=== PATIENT | male | born 1950 | race Caucasian/White ===

== ENCOUNTER 2016-12-25 01:20 | Emergency (ER) | payer MEDICARE, OTHER ==
[~2016-12-25] VITALS: Ht 177.8 cm; Wt 99.8 kg
[~2016-12-25 01:20] MED LIST: AMLO1CAP31; HYDR12.570; PANT40SU; TMSL.4C; cholesterol pill
--- NOTE | 2016-12-25 01:39 | ED Abdominal Pain ---
General Chief Complaint: Abdominal/GI Problems Stated Complaint: LEFT SIDE ABD PAIN Source of Information: Patient, RN Notes Reviewed Exam Limitations: No Limitations History of Present Illness Time Seen By Provider: 01:38 Initial Comments Acute onset of left flank pain approx. 4-5 hours ago. Radiates into LLQ. (+) hx of kidney stones and this feels similar. Timing/Duration: 4-6 Hours Severity/Quality: Moderate (4/10), Sharp, Stabbing Location: Flank (left) Radiation: LLQ Activities at Onset: None Modifying Factors: Improves With Other (none) Associated Symptoms: Denies Symptoms Allergies and Home Medications Allergies Coded Allergies: No Known Drug Allergies (Unverified , 04/06/11) Home Medications Amlodipine Besylate/Benazepril 1 Each Capsule, (Reported) Ketorolac Tromethamine 10 Mg Tablet, 10 MG PO Q6H, #20 Ref 0 Prescribed by: INEZ DUVALL on 12/25/16 0227 Ondansetron 4 Mg Tab.rapdis, 4 MG PO Q4H, #10 Prescribed by: RYLIE MARSHALL on 12/26/16 0214 Tamsulosin Hcl 0.4 Mg Cap, (Reported) Review of Systems Constitutional: see HPI Gastrointestinal: See HPI, Abdominal Pain (LLQ) Musculoskeletal: see HPI, back pain (left flank) All Other Systems Reviewed Negative Unless Noted: Yes (Negative excepted noted.) Past Rtlfugd-Cvqfpv-Smgzkt Hx Patient Social History Recent Foreign Travel: No Contact w/Someone Who Travel: No Physical Exam Vital Signs Capillary Refill : General Appearance: WD/WN, mild distress Respiratory: no respiratory distress Cardiovascular: regular rate, rhythm Gastrointestinal: No guarding, No rebound, tenderness (LLQ) Rectal: deferred Back: CVA tenderness (L) Neurologic/Psychiatric: alert, oriented x 3 Skin: warm/dry Progress/Results/Core Measures Results/Orders Lab Results Laboratory Tests Test 12/25/16 01:35 Range/Units Urine Color YELLOW Urine Clarity CLEAR Urine pH 6 5-9 Urine Specific [place] 1.020 1.016-1.022 Urine Protein 2+ H NEGATIVE Urine Glucose (UA) NEGATIVE NEGATIVE Urine Ketones NEGATIVE NEGATIVE Urine Nitrite NEGATIVE NEGATIVE Urine Bilirubin NEGATIVE NEGATIVE Urine Urobilinogen NORMAL NORMAL MG/DL Urine Leukocyte Esterase 1+ H NEGATIVE Urine RBC (Auto) 5+ H NEGATIVE Urine RBC >100 H /HPF Urine WBC 0-2 /HPF Urine Squamous Epithelial Cells RARE /HPF Urine Crystals NONE /LPF Urine Bacteria TRACE /HPF Urine Casts PRESENT /LPF Urine Hyaline Casts RARE /LPF Urine Mucus NEGATIVE /LPF Urine Culture Indicated NO My Orders Orders - INEZ DUVALL DO Ua Culture If Indicated (12/25/16 01:37) Ct Abd/Pelvis Wo(Kidney Stone) (12/25/16 01:43) Tamsulosin Capsule (Flomax Capsule) (12/25/16 02:30) Ketorolac Injection (Toradol Injection) (12/25/16 02:30) Im/Sub-Q Injection Non-Ab Ed (12/25/16 ) Vital Signs/I&O Diagnostic Imaging Diagonstic Imaging: CT Plain Films/CT/US/NM/MRI: abdomen, pelvis (3 mm left lower ureterolithiasis) Departure Impression Impression: Primary Impression: Left flank pain Additional Impression: Ureterolithiasis Disposition: 01 HOME, SELF-CARE Condition: Stable Departure-Patient Inst. Decision time for Depature: 02:26 Referrals: МАРИНА WOLFF MD Patient Instructions: Kidney Stones (DC) Scripts Ketorolac Tromethamine (Ketorolac Tromethamine) 10 Mg Tablet 10 MG PO Q6H for Abdominal Pain, #20 TAB 0 Refills Prov: INEZ DUVALL DO 12/25/16 INEZ DUVALL DO Dec 25, 2016 01:39
[2016-12-25 01:55] LABS: BILIRUBIN,URINE NEGATIVE (NEGATIVE); KETONES,URINE NEGATIVE (NEGATIVE); LEUKOCYTE ESTERASE ,URINE 1+ (NEGATIVE); NITRITE,URINE NEGATIVE (NEGATIVE); PH,URINE 6 (5-9); PROTEIN,URINE 2+ (NEGATIVE); UROBILINOGEN,URINE NORMAL (NORMAL)
[2016-12-25 02:01] LABS: WBC,URINE 0-2 /HPF
[2016-12-25 02:02] LABS: HYALINE CASTS, URINE RARE /LPF; SQUAMOUS EPITHELIAL CELL,UR RARE /HPF
[2016-12-25] MEDS ORDERED: KETO10TA PO (02:27)
[2016-12-25] MEDS ORDERED: TAMSULOSIN 0.4 MG (FLOMAX) CAP PO ONE (02:30)
[2016-12-25] MEDS ORDERED: KETOROLAC 30 MG/ML VIAL IM ONE (02:30)
[2016-12-25 02:37] VITALS: BP 187/89
--- NOTE | 2016-12-25 08:06 | Diagnostic Imaging Report ---
PROCEDURE: CT urinary tract, rule out kidney stone. TECHNIQUE: Multiple contiguous axial images were obtained through the abdomen and pelvis without the use of intravenous contrast. INDICATION: Left-sided flank pain. Best seen on axial image 118 is a 3 mm stone in the distal left ureter about 2-3 cm proximal to the ureterovesical junction. This results in moderate upstream hydroureteronephrosis with a substantial perinephric and periureteric edema. Additional nonobstructing intrarenal stones on the left are present. The largest residual intrarenal calculus is 3 mm. The right kidney is unobstructed with a 3 mm stone lower pole calyx. No right-sided ureteral calculi. There is no evidence for bowel obstruction, appendicitis or diverticulitis. The gallbladder is absent. The liver, spleen, adrenals and pancreas all nonacute. The aorta is nonaneurysmal. IMPRESSION: Bilateral nephrolithiasis with an obstructing stone in the distal left ureter measuring 3 mm resulting in mild to moderate upstream hydroureteronephrosis with substantial perinephric and periureteric edema but no loculated fluid collection. Intrarenal stone on the right nonobstructing. No other acute finding. Dictated by: Dictated on workstation # [id number]
[2016-12-26] MEDS ORDERED: ONDA4TAB8 PO (02:14)
--- OUTSIDE RECORDS SUMMARY | 2017-01-27 12:37 | XMS REPORT | Continuity of Care Document ---
Author Author [facility] Address Unknown Phone Unavailable Allergies Medications Problems Date Dx Coded Attending Type Code Diagnosis Diagnosed By 07/14/2013 GREGORY CESAR PSYD 309.24 AD ADJ D/O W ANXIETY 07/14/2013 GREGORY CESAR PSYD 309.24 AD ADJ D/O W ANXIETY Procedures [place] [address] PSYCH DIAGNOSTIC EVALUATION 07/14/2013 04446 PSYTX PT&/FAMILY 30 MINUTES 08/25/2013 Results Encounters ACCT No. Visit Date/Time Discharge Status Pt. Type Provider Facility Loc./Unit Complaint [id number] 08/25/2013 07:56:00 08/25/2013 23: 59:59 CLS Outpatient GREGORY CESAR PSYD [id number] 07/14/2013 08:09:00 07/14/2013 23: 59:59 CLS Outpatient GREGORY CESAR PSYD
--- OUTSIDE RECORDS SUMMARY | 2017-01-27 12:37 | XMS REPORT | Continuity of Care Document ---
Author Author [facility] Organization [facility] Address Unknown Phone Unavailable Care Team Providers Care Cost And Risk Analysis Manager Name Role Phone Unverified, Unverified PCP Unavailable Source Comments Some departments are not documenting in the electronic medical record. If you do not see the information that you expected, contact Release of Information in the Health Information Management department at [phone] for further assistance in locating additional records.[facility] Active Allergies and Adverse Reactions Not on File Current Medications Not on file Active Problems Not on file Social History Tobacco Use Types Packs/Day Years Used Date Never Assessed Plan of Care Health Maintenance Due Date Last Done Comments Hepatitis C Screening 1950 Physical (Comprehensive) 02/26/1955 Exam Pertussis Vaccine 02/26/1959 Tetanus Vaccine 02/26/1965 Colorectal Cancer 02/26/1998 Screening Shingles Vaccine 2008 Prevnar/Pneumovax (#1) 02/26/2013 Influenza Vaccine 05/24/2017 Results from Last 3 Months Not on file
== END 2016-12-25 02:37 | disposition home or self-care (01) ==
LOC: EDUNIT# 01:20 → ER 01:24
DX: N13.2 Hydronephrosis with renal and ureteral calculous obstruction (principal)
CPT/HCPCS: 74176; 81000; 96372; 99282

== ENCOUNTER 2016-12-26 01:43 | Emergency (ER) | payer MEDICARE, OTHER ==
[~2016-12-26] VITALS: Ht 177.8 cm; Wt 98.4 kg
[~2016-12-26 01:43] MED LIST changes: +KETO10TA PO
[2016-12-26] MEDS ORDERED: ONDANSETRON 4 MG (ZOFRAN) ORAL DISSOLVE TAB PO ONE (02:00)
[2016-12-26] MEDS ORDERED: KETOROLAC 60 MG/2 ML VIAL IM ONE (02:00)
--- NOTE | 2016-12-26 02:06 | ED Back Pain ---
General Chief Complaint: Back Problems Stated Complaint: KIDNEY STONE Nursing Triage Note: PT STATES HAS KIDNEY STONE, PT HAS PAIN IN L FLANK AREA, PT HAS NOT TAKEN ANY PAIN MEDS D/T INDESTION Nursing Sepsis Screen: No Definite Risk Source of Information: Patient, Old Records History of Present Illness Time Seen by Provider: 01:50 Initial Comments C/O LEFT FLANK PAIN SINCE YESTERDAY WAS SEEN IN ER LAST PM AND DX WITH KIDNEY STONE. 3 MM LEFT DISTAL URETERAL STONE , WITH BILATERAL NON-OBSTRUCTING INTRARENAL STONES STATES HE WAS GIVEN A SHOT AND PAIN WENT AWAY, AND WAS GIVEN RX FOR KETOROLAC PT STATES HE FELT GOOD ALL DAY, UNTIL LATER THIS AFTERNOON, WHEN PAIN BEGAN TO GRADUALLY COME BACK. STATES HE HAS HAD SOME MILD NAUSEA SO HE DID NOT TAKE ANY PAIN MEDICATION AT ALL NO FEVER NO DIFFICULTY URINATING OR GROSS HEMATURIA HAS A UROLOGIST, DR[place]VALLOS, [place] AND CALLED TODAY BUT DID NOT MAKE AN APPOINTMENT WOULD LIKE TO START SEEING DR. WOLFF, BUT HAS NOT CALLED HIS OFFICE YET. Other Comments PCP: DR. ALFONSO Allergies and Home Medications Allergies Coded Allergies: No Known Drug Allergies (Unverified , 04/06/11) Home Medications Amlodipine Besylate/Benazepril 1 Each Capsule, (Reported) Ketorolac Tromethamine 10 Mg Tablet, 10 MG PO Q6H, #20 Ref 0 Prescribed by: INEZ DUVALL on 12/25/16 0227 Ondansetron 4 Mg Tab.rapdis, 4 MG PO Q4H, #10 Prescribed by: RYLIE MARSHALL on 12/26/16 0214 Tamsulosin Hcl 0.4 Mg Cap, (Reported) Constitutional: no symptoms reported Respiratory: no symptoms reported Cardiovascular: no symptoms reported Gastrointestinal: see HPI, No abdominal pain, nausea, No vomiting Genitourinary: see HPI Musculoskeletal: see HPI Skin: no symptoms reported Psychiatric/Neurological: No Symptoms Reported Past Lzzjwhs-Yldrfj-Ufmqnp Hx Patient Social History Alcohol Use: Past History (HISTORY OF HEAVY USE) Recreational Drug Use: Yes (on occassion) Smoking Status: Former Smoker Type Used: Cigarettes 2nd Hand Smoke Exposure: No Recent Foreign Travel: No Contact w/Someone Who Travel: No Recent Infectious Disease Expo: No Recent Hopitalizations: No Seasonal Allergies Seasonal Allergies: Yes Surgeries HX Surgeries: Yes (HERNIA) Surgeries: Gallbladder Respiratory Hx Respiratory Disorders: No Cardiovascular Hx Cardiac Disorders: Yes Cardiac Disorders: High Cholesterol, Hypertension Neurological Hx Neurological Disorders: No Reproductive System Hx Reproductive Disorders: No Genitourinary Hx Genitourinary Disorders: Yes Genitourinary Disorders: Kidney Stones Gastrointestinal Hx Gastrointestinal Disorders: No Musculoskeletal Hx Musculoskeletal Disorders: No Endocrine Hx Endocrine Disorders: Yes Endocrine Disorders: Diabetes, Non-Insulin dep HEENT HX ENT Disorders: Yes (RETINAL TEAR AND BLEED X 2) Cancer Hx Cancer: No Psychosocial Hx Psychiatric Problems: No Integumentary HX Skin/Integumentary Disorder: No Blood Transfusions Hx Blood Disorders: No Physical Exam Vital Signs Vital Sign - Last 12Hours 12/26/16 01:48 Temp 98.9 Pulse 79 Resp 18 B/P (MAP) 184/84 Pulse Ox 95 Capillary Refill : Less Than 3 Seconds General Appearance: No Apparent Distress, WD/WN, Obese Cardiovascular: Regular Rate, Rhythm Respiratory: Normal Breath Sounds Gastrointestinal: Non Tender, Soft Back: No CVA Tenderness Extremity: Normal Inspection Neurologic/Psychiatric: Alert, Oriented x3, No Motor/Sensory Deficits, Normal Mood/Affect, associate creative director II-XII Norm as Tested Skin: Normal Color, Warm/Dry, No Rash Progress/Results/Core Measures Results/Orders My Orders Orders - RYLIE MARSHALL DO Ondansetron Oral Dissolve Tab (Zofran (12/26/16 02:00) Ketorolac Injection (Toradol Injection) (12/26/16 02:00) Abdomen/Kub 1[place] (12/26/16 02:07) Rx-Ondansetron Po (Rx-Zofran Po) (12/26/16 02:14) Rx-Ondansetron Po (Rx-Zofran Po) (12/26/16 02:17) Medications Given in ED Current Medications Medications Dose Ordered Sig/Sangita Route Start Time Stop Time Status Last Admin Dose Admin Ketorolac Tromethamine 60 mg ONCE ONCE IM 12/26/16 02:00 12/26/16 02:01 DC 12/26/16 02:04 60 MG Ondansetron HCl 8 mg ONCE ONCE PO 12/26/16 02:00 12/26/16 02:01 DC 12/26/16 02:04 8 MG Vital Signs/I&O Vital Sign - Last 12Hours 12/26/16 12/26/16 01:48 02:26 Temp 98.9 98.9 Pulse 79 79 Resp 18 18 B/P (MAP) 184/84 Pulse Ox 95 95 Blood Pressure Mean: 117 Diagnostic Imaging Comments KUB--NO IDENTIFIABLE URETERAL STONE, PENDING RADIOLOGIST REVIEW Reviewed: Reviewed by Me Departure Impression Impression: Primary Impression: Left ureteral stone Disposition: 01 HOME, SELF-CARE Condition: Stable Departure-Patient Inst. Referrals: LUCIUS ALFONSO DO (PCP) Primary Care Physician МАРИНА WOLFF MD Patient Instructions: Kidney Stones in Adults Add. Discharge Instructions: STRAIN ALL URINE--RETURN ANY STONES TO UROLOGIST OFFICE LOTS OF CLEAR LIQUIDS CONTINUE FLOMAX AND KETOROLAC PRESCRIBED FOLLOW UP WITH DR. WOLFF THIS WEEK FOR FURTHER CARE All discharge instructions reviewed with patient and/or family. Voiced understanding. Scripts Ondansetron (Zofran Odt) 4 Mg Tab.rapdis 4 MG PO Q4H for Nausea/Vomiting, #10 TAB Prov: RYLIE MARSHALL DO 12/26/16 RYLIE MARSHALL DO Dec 26, 2016 02:06
[2016-12-26] MEDS ORDERED: ONDA4TAB8 PO (02:14)
[2016-12-26] MEDS ORDERED: RX-ONDANSETRON 4 MG ODT (ZOFRAN) PPK #4 PO STA (02:14)
[2016-12-26] MEDS ORDERED: RX-ONDANSETRON 4 MG ODT (ZOFRAN) PPK #4 ONE (02:17)
[2016-12-26 02:26] VITALS: BP 184/84
--- NOTE | 2016-12-26 06:28 | Diagnostic Imaging Report ---
INDICATION: Left flank pain. Exam interpreted in correlation with a CT dated 12/25/2016. A tiny opacity calcific in the left hemipelvis with a diameter of about 2-1/2 mm corresponds to the level of location of stone noted in the distal ureter on earlier CT; this does not appear appreciably changed in alignment. No adverse interval development was found. There is no evidence for a bowel obstruction. Faint stones in the bilateral mid to lower renal poles are visualized on the left likely obscured by overlying bowel content on the right. IMPRESSION: Left pelvic calcification projecting at the level of the top of the femoral head unchanged in orientation from prior CT presumed a known distal left ureteral stone. Intrarenal calculi left greater than right less well visualized owing to overlying bowel gas. When correlated with prior CT, no substantial change. Dictated by: Dictated on workstation # [id number]
--- OUTSIDE RECORDS SUMMARY | 2017-01-27 15:48 | XMS REPORT | Continuity of Care Document ---
Author Author [facility] Address Unknown Phone Unavailable Allergies Medications Problems Date Dx Coded Attending Type Code Diagnosis Diagnosed By 07/14/2013 GREGORY CESAR PSYD 309.24 AD ADJ D/O W ANXIETY 07/14/2013 GREGORY CESAR PSYD 309.24 AD ADJ D/O W ANXIETY Procedures Code [place] [address] PSYCH DIAGNOSTIC EVALUATION 07/14/2013 87766 PSYTX PT&/FAMILY 30 MINUTES 08/25/2013 Results Encounters ACCT No. Visit Date/Time Discharge Status Pt. Type Provider Facility Loc./Unit Complaint [id number] 08/25/2013 07:56:00 08/25/2013 23: 59:59 CLS Outpatient GREGORY CESAR PSYD [id number] 07/14/2013 08:09:00 07/14/2013 23: 59:59 CLS Outpatient GREGORY CESAR PSYD
--- OUTSIDE RECORDS SUMMARY | 2017-01-27 15:48 | XMS REPORT | Continuity of Care Document ---
Author Author [facility] Organization [facility] Address Unknown Phone Unavailable Care Team Providers Care Chemical Preparer Name Role Phone Unverified, Unverified PCP Unavailable Source Comments Some departments are not documenting in the electronic medical record. If you do not see the information that you expected, contact Release of Information in the Health Information Management department at [phone] for further assistance in locating additional records.[facility] Active Allergies and Adverse Reactions Not [...]
== END 2016-12-26 02:29 | disposition home or self-care (01) ==
LOC: EDUNIT# 01:43 → ER 01:44
DX: N20.2 Calculus of kidney with calculus of ureter (principal); E11.9 Type 2 diabetes mellitus without complications; I10 Essential (primary) hypertension; Z79.899 Other long term (current) drug therapy
CPT/HCPCS: 74000; 96372; 99283

== ENCOUNTER → 2016-12-27 | Outpatient (CLI) | payer MEDICARE, OTHER ==
[~2016-12-27] MED LIST changes: +ONDA4TAB8 PO
--- NOTE | 2016-12-27 18:31 | Diagnostic Imaging Report ---
EXAMINATION: KUB. COMPARISON: 12/26/16. INDICATION: Left-sided stones. FINDINGS: The previously seen left pelvic calcification has resolved. This could relate to passage of a distal ureteric stone. There are calcifications in the upper abdomen, probably vascular. Bilateral flank up to 3 mm calcifications are probably related to stones similar to CT of 12/25/16. Surgical clips in the upright abdomen are noted. IMPRESSION: 1. Bilateral calcifications up to 3 mm correlates with the lower pole kidney stones as seen on recent CT. 2. Suggestion of passage of the distal left ureteric stone seen on prior exam. Correlate clinically. Dictated by: Dictated on workstation # [id number]
== END ==
LOC: RAD 15:20
PROVIDERS: ATTEND Urology
DX: N20.0 Calculus of kidney (principal)
CPT/HCPCS: 74000

== ENCOUNTER 2018-04-04 08:49 | Outpatient (RCR) | payer MEDICARE, OTHER ==
[2018-01-06 14:11] LABS: ABSOLUTE RETIC # 24 10e9/L (24-90); BASOPHILS % (AUTO) 0 % (0-10); EOSINOPHILS % (AUTO) 0 % (0-10); HEMATOCRIT 37 % (40-54); HEMOGLOBIN 12.6 G/DL (13.3-17.7); LYMPHOCYTES # (AUTO) 0.6 X 10^3 (1.0-4.0); LYMPHOCYTES % (AUTO) 11 % (12-44); MEAN CORPUSCULAR HEMOGLOBIN 30 PG (25-34); MEAN CORPUSCULAR HGB CONC 34 G/DL (32-36); MEAN CORPUSCULAR VOLUME 90 FL (80-99); MEAN PLATELET VOLUME 10.2 FL (7.4-10.4); MONOCYTES # (AUTO) 0.4 X 10^3 (0.0-1.0); MONOCYTES % (AUTO) 8 % (0-12); NEUTROPHILS # (AUTO) 4.3 X 10^3 (1.8-7.8); NEUTROPHILS % (AUTO) 80 % (42-75); PLATELET COUNT 134 10^3/uL (130-400); RED BLOOD COUNT 4.15 10^6/uL (4.35-5.85); RETICULOCYTE % 0.57 % (0.50-2.40); WHITE BLOOD COUNT 5.3 10^3/uL (4.3-11.0)
[2018-01-06 14:30] LABS: ALBUMIN 4.4 GM/DL (3.2-4.5); BILIRUBIN,TOTAL 0.8 MG/DL (0.1-1.0); CALCIUM 9.1 MG/DL (8.5-10.1); CREATININE SERUM 1.43 MG/DL (0.60-1.30); POTASSIUM 4.3 MMOL/L (3.6-5.0); TOTAL PROTEIN 6.5 GM/DL (6.4-8.2)
[2018-04-01 13:13] LABS: ABSOLUTE RETIC # 27 10e9/L (24-90); BASOPHILS % (AUTO) 0 % (0-10); EOSINOPHILS % (AUTO) 1 % (0-10); HEMATOCRIT 35 % (40-54); HEMOGLOBIN 12.1 G/DL (13.3-17.7); LYMPHOCYTES # (AUTO) 0.7 X 10^3 (1.0-4.0); LYMPHOCYTES % (AUTO) 16 % (12-44); MEAN CORPUSCULAR HEMOGLOBIN 31 PG (25-34); MEAN CORPUSCULAR HGB CONC 35 G/DL (32-36); MEAN CORPUSCULAR VOLUME 90 FL (80-99); MEAN PLATELET VOLUME 10.5 FL (7.4-10.4); MONOCYTES # (AUTO) 0.3 X 10^3 (0.0-1.0); MONOCYTES % (AUTO) 8 % (0-12); NEUTROPHILS # (AUTO) 3.1 X 10^3 (1.8-7.8); NEUTROPHILS % (AUTO) 75 % (42-75); PLATELET COUNT 122 10^3/uL (130-400); RED CELL DISTRIBUTION WIDTH 12.2 % (10.0-14.5); RETICULOCYTE % 0.69 % (0.50-2.40); WHITE BLOOD COUNT 4.2 10^3/uL (4.3-11.0)
[2018-04-01 13:32] LABS: ALBUMIN 4.1 GM/DL (3.2-4.5); BILIRUBIN,TOTAL 0.8 MG/DL (0.1-1.0); CALCIUM 8.8 MG/DL (8.5-10.1); CREATININE SERUM 2.1 MG/DL (0.60-1.30); POTASSIUM 4.1 MMOL/L (3.6-5.0)
[2018-04-04 09:09] LABS: ABSOLUTE RETIC # 27 10e9/L (24-90); BASOPHILS % (AUTO) 0 % (0-10); EOSINOPHILS # (AUTO) 0.1 10^3/uL (0.0-0.3); EOSINOPHILS % (AUTO) 1 % (0-10); HEMATOCRIT 37 % (40-54); HEMOGLOBIN 12.4 G/DL (13.3-17.7); LYMPHOCYTES # (AUTO) 0.6 X 10^3 (1.0-4.0); LYMPHOCYTES % (AUTO) 14 % (12-44); MEAN CORPUSCULAR HEMOGLOBIN 30 PG (25-34); MEAN CORPUSCULAR HGB CONC 34 G/DL (32-36); MEAN CORPUSCULAR VOLUME 90 FL (80-99); MONOCYTES # (AUTO) 0.4 X 10^3 (0.0-1.0); MONOCYTES % (AUTO) 9 % (0-12); NEUTROPHILS # (AUTO) 3.5 X 10^3 (1.8-7.8); NEUTROPHILS % (AUTO) 76 % (42-75); PLATELET COUNT 131 10^3/uL (130-400); RED BLOOD COUNT 4.08 10^6/uL (4.35-5.85); RED CELL DISTRIBUTION WIDTH 12.4 % (10.0-14.5); RETICULOCYTE % 0.66 % (0.50-2.40); WHITE BLOOD COUNT 4.6 10^3/uL (4.3-11.0)
[2018-04-04 10:01] LABS: EOSINOPHILS % (MANUAL) 1 %; LYMPHOCYTES % (MANUAL) 16 %; MONOCYTES % (MANUAL) 5 %; NEUTROPHILS % (MANUAL) 78 %; RBC MORPH NORMAL
== END 2018-04-06 | disposition home or self-care (01) ==
LOC: ONC 08:49
PROVIDERS: ATTEND Internal Medicine Hematology & Oncology
DX: D61.818 Other pancytopenia (principal); N18.3 Chronic kidney disease, stage 3 (moderate); E66.9 Obesity, unspecified; I12.9 Hypertensive chronic kidney disease with stage 1 through stage 4 chronic kidney disease, or unspecified chronic kidney disease; E78.00 Pure hypercholesterolemia, unspecified; Z87.891 Personal history of nicotine dependence; Z79.899 Other long term (current) drug therapy; Z87.01 Personal history of pneumonia (recurrent)
CPT/HCPCS: 36415; 38221; 80053; 82607; 82728; 82746; 82784; 83540; 83615; 83883; 84155; 84165; 84443; 85007; 85025; 85027; 85045; 99213; 99214

== ENCOUNTER → 2018-04-22 | Outpatient (RCR) | payer MEDICARE, OTHER | END | disposition home or self-care (01) | LOC: ONC 10:06 | PROVIDERS: ATTEND Internal Medicine Hematology & Oncology | DX: D61.818 Other pancytopenia (principal); N18.3 Chronic kidney disease, stage 3 (moderate); E66.9 Obesity, unspecified; I12.9 Hypertensive chronic kidney disease with stage 1 through stage 4 chronic kidney disease, or unspecified chronic kidney disease; E78.00 Pure hypercholesterolemia, unspecified; Z87.891 Personal history of nicotine dependence; Z79.899 Other long term (current) drug therapy; Z87.01 Personal history of pneumonia (recurrent) | CPT/HCPCS: 36415; 85652; 86038; 86141; 99213 ==

== ENCOUNTER 2018-11-01 15:11 | Emergency (ER) | payer MEDICARE, OTHER ==
[~2018-11-01] VITALS: Ht 177.8 cm; Wt 98.4 kg
--- NOTE | 2018-11-01 16:46 | ED Fall/Injury ---
General Chief Complaint: Trauma-Non Activation Stated Complaint: FALL/R SIDE PAIN Nursing Triage Note: fell on ice Wed- pain to rt lower chest and back Source: patient Exam Limitations: no limitations History of Present Illness Date Seen by Provider: Nov 01, 2018 Time Seen by Provider: 16:44 Initial Comments To ER with right chest wall pain. Patient fell on Saturday10/29/18. He had his right arm flexed and held against his chest and landed on that. Minimal pain initially but the pain has been essentially tolerable until earlier today at which point it got worse. Pain is worse with movements. No shortness of breath. Location Injury Occurred: home-yard Occurred: other (3 days ago) Severity: moderate Injuries/Pain Location: chest Associated Symptoms (Fall): No Abdominal Pain, No Shortness of Air Allergies and Home Medications Allergies Coded Allergies: No Known Drug Allergies (Unverified , 11/01/18) Home Medications Ketorolac Tromethamine 10 Mg Tablet, 10 MG PO Q6H Prescribed by: INEZ DUVALL on 12/25/16226 Ondansetron 4 Mg Tab.rapdis, 4 MG PO Q4H Prescribed by: RYLIE MARSHALL on 12/26/16 0214 Patient Home Medication List Home Medication List Reviewed: Yes Review of Systems Review of Systems Constitutional: see HPI Eyes: See HPI Ears, Nose, Mouth, Throat: no symptoms reported Respiratory: no symptoms reported Cardiovascular: no symptoms reported Genitourinary: no symptoms reported Musculoskeletal: no symptoms reported Skin: no symptoms reported Psychiatric/Neurological: No Symptoms Reported Past Ioikljz-Namueh-Lsmpkp Hx Patient Social History Alcohol Use: Occasionally Uses Alcohol Beverage of Choice: Beer Recreational Drug Use: No Smoking Status: Former Smoker Type Used: Cigarettes Former Smoker, Quit: Sep 29, 2003 2nd Hand Smoke Exposure: No Recent Foreign Travel: No Contact w/Someone Who Travel: No Recent Infectious Disease Expo: No Recent Hopitalizations: No Physical Abuse: No Sexual Abuse: No Mistreated: No Fear: No Seasonal Allergies Seasonal Allergies: Yes Past Medical History Surgeries: Yes (HERNIA) Abdominal, Gallbladder Respiratory: No Cardiac: Yes High Cholesterol, Hypertension Neurological: No Reproductive Disorders: No Kidney Stones Gastrointestinal: No Musculoskeletal: No Endocrine: Yes Diabetes, Non-Insulin dep Cancer: No Psychosocial: No Integumentary: No Blood Disorders: No Physical Exam Vital Signs Vital Signs - First Documented 11/01/18 16:24 Temp 98.8 Pulse 66 Resp 16 B/P (MAP) 149/68 (95) Pulse Ox 98 Capillary Refill : Less Than 3 Seconds Height, Weight, BMI Height: 5'10.00" Weight: 217lbs. oz. 98.294538pb; BMI Method:Stated General Appearance: WD/WN, no apparent distress HEENT: PERRL/EOMI, normal ENT inspection Neck: non-tender, full range of motion Respiratory: normal breath sounds, no respiratory distress, no accessory muscle use, other (right lateral chest wall is tender to palpation there is no crepitus.) Gastrointestinal: normal bowel sounds, non tender, soft Extremities: normal range of motion, non-tender Neurologic/Psychiatric: alert, normal mood/affect, oriented x 3 Skin: normal color, warm/dry Dmitry Coma Score Best Eye Response: (4) Open Spontaneously Best Verbal Response: (5) Oriented Best Motor Response: (6) Obeys Commands [place] Total: 15 Progress/Results/Core Measures Results/Orders My Orders Orders - CUCO BARR APRN Ribs/Unilateral With Chest (11/01/18 16:43) Vital Signs/I&O 11/01/18 16:24 Temp 98.8 Pulse 66 Resp 16 B/P (MAP) 149/68 (95) Pulse Ox 98 Blood Pressure Mean: 95 Diagnostic Imaging Diagonstic Imaging: Xray Plain Films/CT/US/NM/MRI: chest Comments NAME: KRISTI CHAVEZ [facility] REC#: [id number] PT STATUS: REG ER : 1950 PHYSICIAN: CUCO BARR APRN ADMIT DATE: 11/01/18/ER Draft Date of Exam:11/01/18 RIBS/UNILATERAL WITH CHEST EXAMINATION: Ribs with PA chest, 4 images. COMPARISON: CT chest July 03, 2011. HISTORY: 68-year-old male, fall on ice three days ago. Right-sided rib pain. FINDINGS: Heart size and mediastinal contours are unremarkable. There is no identified pneumothorax. There is no large pleural effusion. There is no identified focal airspace consolidation. There is a nondisplaced right sixth rib fracture. IMPRESSION: 1. Nondisplaced right sixth rib fracture. 2. No identified acute cardiopulmonary abnormality. Dictated on workstation # [id number] Dict: 11/01/18 1705 Trans: 11/01/[address] [facility] [id number] Interpreted by: DEBBIE GUERRA MD Electronically signed by: Departure Impression Primary Impression: Right rib fracture Qualified Codes: S22.31XA - Fracture of one rib, right side, initial encounter for closed fracture Disposition: HOME, SELF-CARE Condition: Stable Departure-Patient Inst. Decision time for Depature: 17:11 Referrals: LUCIUS ALFONSO DO (PCP/Family) Primary Care Physician Patient Instructions: RIB FRACTURE Add. Discharge Instructions: 1. Pain medication as directed. Take this as needed in order to control your pain so that she can take a deep breath at least once every hour while awake. Return to ER for any shortness of breath fevers or cough as people with chest wall injuries can be prone to pneumonia development. All discharge instructions reviewed with patient and/or family. Voiced understanding. Scripts Hydrocodone/Acetaminophen ([place] 5-325 Tablet) 1 Each Tablet 1 EACH PO Q6H PRN for PAIN-MODERATE MDD 10, #20 TAB Prov: CUCO BARR APRN 11/01/18 Images Torso/Trunk 1 - Tenderness CUCO BARR APRN Nov 01, 2018 16:46
--- NOTE | 2018-11-01 17:07 | Diagnostic Imaging Report ---
EXAMINATION: Ribs with PA chest, 4 images. COMPARISON: CT chest July 03, 2011. HISTORY: 68-year-old male, fall on ice three days ago. Right-sided rib pain. FINDINGS: Heart size and mediastinal contours are unremarkable. There is no identified pneumothorax. There is no large pleural effusion. There is no identified focal airspace consolidation. There is a nondisplaced right sixth rib fracture. IMPRESSION: 1. Nondisplaced right sixth rib fracture. 2. No identified acute cardiopulmonary abnormality. Dictated by: Dictated on workstation # [id number]
[2018-11-01] MEDS ORDERED: HYDR-4226 PO (17:12)
[2018-11-01] MEDS ORDERED: RX-HYDROCODONE/APAP 5/325 MG #4 TAB PK PO PRN (17:15)
[2018-11-01 17:30] VITALS: BP 145/69
--- NOTE | 2018-11-01 17:30 | NUR ---
Rx-hydrocodone dispensed by this nurse at time of discharge.
--- OUTSIDE RECORDS SUMMARY | 2018-11-01 22:32 | XMS REPORT | Clinical Summary ---
Author Author [facility] Organization [facility] Address Unknown Phone Unavailable Care Team Providers Care Garment Cutter Name Role Phone Unverified, Unverified Md PCP Unavailable Source Comments Some departments are not documenting in the electronic medical record. If you do not see the information that you expected, contact Release of Information in the Health Information Management department at [phone] for further assistance in locating additional records.[facility] Allergies Not on File Medications Not on file Active Problems Not on file Social History Date Tobacco Use Types Packs/Day Years Used Never Assessed Sex Assigned at Date Recorded Not on file Industry Job Start Date Occupation Not on file Not on file Not on file Travel End Travel History Travel Start No recent travel history available. Last Filed Vital Signs Not on file Plan of Treatment Health Maintenance Due Date Last Done Comments HEPATITIS C SCREENING 1950 PHYSICAL (COMPREHENSIVE) 02/26/1955 EXAM DTAP/TDAP VACCINES (1 - 02/26/1966 Tdap) COLORECTAL CANCER 02/26/1998 SCREENING SHINGLES RECOMBINANT 02/26/1998 VACCINE (1 of 2) PNEUMONIA (PCV13/PPSV23) 02/26/2013 VACCINES (1 of 2 - PCV13) INFLUENZA VACCINE 04/23/2018 Results Not on filefrom Last 3 Months
--- OUTSIDE RECORDS SUMMARY | 2018-11-01 22:32 | XMS REPORT | Clinical Summary ---
Author Author [facility] Organization [facility] Address Unknown Phone Unavailable Care Team Providers Care Travel Writer Name Role Phone PCP Unavailable Allergies Not on File Current Medications Not on file Active Problems Not on file Social History Tobacco Use Types Packs/Day Years Used Date Never Assessed Sex Assigned at Date Recorded Not on file Last Filed Vital Signs Not on file Plan of Treatment Not on file Results Not on filefrom Last 3 Months
--- OUTSIDE RECORDS SUMMARY | 2018-11-01 22:32 | XMS REPORT | Continuity of Care Document ---
Author Author [facility] Address Unknown Phone Unavailable Allergies There is no data. Medications There is no data. Problems Date Dx Coded Attending Type Code Diagnosis Diagnosed By 07/14/2013 GREGORY CESAR PSYD 309.24 AD ADJ D/O W ANXIETY 07/14/2013 GREGORY CESAR PSYD 309.24 AD ADJ D/O W ANXIETY Procedures [place] [address] PSYCH DIAGNOSTIC EVALUATION 07/14/2013 68550 PSYTX PT&/FAMILY 30 MINUTES 08/25/2013 Results There is no data. Encounters ACCT No. Visit Date/Time Discharge Status Pt. Type Provider Facility Loc./Unit Complaint [id number] 08/25/2013 07:56:00 08/25/2013 23:59:59 [facility] Outpatient GREGORY CESAR PSYD [id number] 07/14/2013 08:09:00 07/14/2013 23:59:59 [facility] Outpatient GREGORY CESAR PSYD 10/201710/01/2018 05:12:59 10/01/2018 23:59:59 [facility] Outpatient Christina Walker
== END 2018-11-01 17:30 | disposition home or self-care (01) ==
LOC: EDUNIT# 15:11 → ER 15:12
DX: S22.31XA Fracture of one rib, right side, initial encounter for closed fracture (principal); E78.00 Pure hypercholesterolemia, unspecified; I10 Essential (primary) hypertension; E11.9 Type 2 diabetes mellitus without complications; R40.2142 Coma scale, eyes open, spontaneous, at arrival to emergency department; R40.2252 Coma scale, best verbal response, oriented, at arrival to emergency department; R40.2362 Coma scale, best motor response, obeys commands, at arrival to emergency department; Z87.442 Personal history of urinary calculi; Z87.891 Personal history of nicotine dependence; Z98.890 Other specified postprocedural states; W19.XXXA Unspecified fall, initial encounter; Y92.007 Garden or yard of unspecified non-institutional (private) residence as the place of occurrence of the external cause
CPT/HCPCS: 71101

== ENCOUNTER 2018-12-12 12:28 | Emergency (ER) | payer MEDICARE, OTHER ==
[~2018-12-12] VITALS: Ht 177.8 cm; Wt 97.1 kg
[~2018-12-12 12:28] MED LIST changes: +HYDR-4226 PO
--- OUTSIDE RECORDS SUMMARY | 2018-12-12 12:34 | XMS REPORT | Continuity of Care Document ---
Author Author [facility] of [facility] of [facility] Address Unknown Phone Unavailable Allergies There is no data. Medications There is no data. Problems Date Dx Coded Attending Type Code Diagnosis Diagnosed By 07/14/2013 GREGORY CESAR PSYD 309.24 AD ADJ D/O W ANXIETY 07/14/2013 GREGORY CESAR PSYD 309.24 AD ADJ D/O W ANXIETY Procedures [place] [address] PSYCH DIAGNOSTIC EVALUATION 07/14/2013 59778 PSYTX PT&/FAMILY 30 MINUTES 08/25/2013 Results There is no data. Encounters ACCT No. Visit Date/Time Discharge Status Pt. Type Provider Facility Loc./Unit Complaint [id number] 08/25/2013 07:56:00 08/25/2013 23:59:59 [facility] Outpatient GREGORY CESAR PSYD [id number] 07/14/2013 08:09:00 07/14/2013 23:59:59 [facility] Outpatient GREGORY CESAR PSYD 10/201710/01/2018 05:12:59 10/01/2018 23:59:59 [facility] Outpatient Christina Walker
--- OUTSIDE RECORDS SUMMARY | 2018-12-12 12:34 | XMS REPORT | Clinical Summary ---
Author Author [facility] Organization [facility] Address Unknown Phone Unavailable Care Team Providers Care Power And Recovery Shift Engineer Name Role Phone Unverified, Unverified Md PCP Unavailable Source Comments Some departments are not documenting in the electronic medical record. If you do not see the information that you expected, contact Release of Information in the Health Information Management department at [phone] for further assistance in locating additional records.[facility] Allergies Not on File Medications Not on [...]
--- OUTSIDE RECORDS SUMMARY | 2018-12-12 12:34 | XMS REPORT | Clinical Summary ---
Author Author [facility] Organization [facility] Address Unknown Phone Unavailable Care Team Providers Care Transit Vehicle Inspector Name Role Phone PCP Unavailable Allergies Not [...]
[2018-12-12 12:37] VITALS: BP_SYST 151; BP_SYST 162; BP_SYST 97; BP_DIAS 52; BP_DIAS 67; BP_DIAS 81
[2018-12-12] MEDS ORDERED: LACTATED RINGERS 1,000 ML IV SCH (12:45)
--- NOTE | 2018-12-12 13:02 | ED Cardiac General ---
History of Present Illness General Chief Complaint: Cardiac/General Problems Stated Complaint: LOW BP Nursing Triage Note: PT CO OF LOW B/P TODAY. DENIES ANY C/P Source: patient Exam Limitations: no limitations History of Present Illness Date Seen by Provider: Dec 12, 2018 Time Seen by Provider: 12:30 Initial Comments To ER with lightheadedness that started this morning. He went to [facility] and checked his blood pressure found to be 93/50. Came to the emergency room. No chest pain no shortness of breath. He feels better at this time. Timing/Duration: changing over time Severity: moderate Activities at Onset: none NTG SL INVAS TECH: No ASA po INVAS TECH: No Associated Systoms: No Chest Pain, No Cough Allergies and Home Medications Allergies Coded Allergies: No Known Drug Allergies (Unverified , 11/01/18) Home Medications Hydrocodone/Acetaminophen 1 Each Tablet, 1 EACH PO Q6H PRN for PAIN-MODERATE Prescribed by: CUCO BARR on 11/01/18 171 Ketorolac Tromethamine 10 Mg Tablet, 10 MG PO Q6H Prescribed by: INEZ DUVALL on 12/25/16 022 Ondansetron 4 Mg Tab.rapdis, 4 MG PO Q4H Prescribed by: RYLIE MARSHALL on 12/26/16 0214 Patient Home Medication List Home Medication List Reviewed: Yes Review of Systems Review of Systems Constitutional: see HPI EENTM: No Symptoms Reported Respiratory: No Symptoms Reported Cardiovascular: See HPI; Denies Chest Pain, Denies Edema, Denies Irregular Heart Rate; Lightheadedness; Denies Palpitations, Denies Syncope Gastrointestinal: No Symptoms Reported Genitourinary: No Symptoms Reported Musculoskeletal: no symptoms reported Skin: no symptoms reported Endocrine: No Symptoms Reported Past Jdppknl-Altpjf-Dqaryk Hx Patient Social History Alcohol Use: Denies Use Alcohol Beverage of Choice: Beer Recreational Drug Use: No Smoking Status: Never a Smoker Type Used: Cigarettes Former Smoker, Quit: Sep 29, 2003 2nd Hand Smoke Exposure: No Recent Foreign Travel: No Contact w/Someone Who Travel: No Recent Infectious Disease Expo: No Recent Hopitalizations: No Physical Abuse: No Sexual Abuse: No Seasonal Allergies Seasonal Allergies: Yes Past Medical History Surgeries: Yes (HERNIA) Abdominal, Gallbladder Respiratory: No Cardiac: Yes High Cholesterol, Hypertension Neurological: No Reproductive Disorders: No Kidney Stones Gastrointestinal: No Musculoskeletal: No Endocrine: Yes Diabetes, Non-Insulin dep Cancer: No Psychosocial: No Integumentary: No Blood Disorders: No Physical Exam Vital Signs Vital Signs - First Documented 12/12/18 12:35 Temp 97.1 Pulse 72 Resp 16 B/P (MAP) 150/84 (106) Pulse Ox 94 Capillary Refill : Less Than 3 Seconds Height, Weight, BMI Height: 5'10.00" Weight: 214lbs. oz. 97.859186dj; BMI Method:Stated General Appearance: No Apparent Distress, WD/WN, Other (alert and oriented GCS 15. Does have orthostatic hypotension, laying blood pressure was 160 systolic, standing it dropped to 93 systolic. 1 L of IV fluids infusing. He is on amlodipine for hypertension.) HEENT: PERRL/EOMI, TMs Normal Neck: Full Range of Motion, Normal Inspection Respiratory: No Accessory Muscle Use, No Respiratory Distress Cardiovascular: Regular Rate, Rhythm, Normal Peripheral Pulses Gastrointestinal: Normal Bowel Sounds, Non Tender, Soft Neurologic/Psychiatric: Alert, Oriented x3 Skin: Normal Color, Warm/Dry Progress/Results/Core Measures Results/Orders Lab Results Laboratory Tests Test 12/12/18 13:00 Range/Units White Blood Count 3.6 L 4.3-11.0 10^3/uL Red Blood Count 3.96 L 4.35-5.85 10^6/uL Hemoglobin 12.2 L 13.3-17.7 G/DL Hematocrit 35 L 40-54 % Mean Corpuscular Volume 89 80-99 FL Mean Corpuscular Hemoglobin 31 25-34 PG Mean Corpuscular Hemoglobin Concent 35 32-36 G/DL Red Cell Distribution Width 13.3 10.0-14.5 % Platelet Count 126 L 130-400 10^3/uL Mean Platelet Volume 10.0 7.4-10.4 FL Neutrophils (%) (Auto) 74 42-75 % Lymphocytes (%) (Auto) 15 12-44 % Monocytes (%) (Auto) 10 0-12 % Eosinophils (%) (Auto) 1 0-10 % Basophils (%) (Auto) 0 0-10 % Neutrophils # (Auto) 2.7 1.8-7.8 X 10^3 Lymphocytes # (Auto) 0.5 L 1.0-4.0 X 10^3 Monocytes # (Auto) 0.4 0.0-1.0 X 10^3 Eosinophils # (Auto) 0.1 0.0-0.3 10^3/uL Basophils # (Auto) 0.0 0.0-0.1 10^3/uL Sodium Level 142 135-145 MMOL/L Potassium Level 4.4 3.6-5.0 MMOL/L Chloride Level 109 H 98-107 MMOL/L Carbon Dioxide Level 24 21-32 MMOL/L Anion Gap 9 5-14 MMOL/L Blood Urea Nitrogen 31 H 7-18 MG/DL Creatinine 1.59 H 0.60-1.30 MG/DL Estimat Glomerular Filtration Rate 43 BUN/Creatinine Ratio 19 Glucose Level 101 70-105 MG/DL Calcium Level 8.9 8.5-10.1 MG/DL Corrected Calcium 8.8 8.5-10.1 MG/DL Total Bilirubin 0.7 0.1-1.0 MG/DL Aspartate Amino Transf (AST/SGOT) 15 5-34 U/L Alanine Aminotransferase (ALT/SGPT) 12 0-55 U/L Alkaline Phosphatase 64 40-136 U/L Troponin I < 0.028 <0.028 NG/ML Total Protein 6.0 L 6.4-8.2 GM/DL Albumin 4.1 3.2-4.5 GM/DL Thyroid Stimulating Hormone (TSH) 0.93 0.35-4.94 UIU/ML My Orders Orders - CUCO BARR APRN Cbc With Automated Diff (12/12/18 12:37) Troponin I (12/12/18 12:37) Thyroid Stimulating Hormone (12/12/18 12:37) Comprehensive Metabolic Panel (12/12/18 12:37) Orthostatic Vital Signs (Adult (12/12/18 12:43) Iv Heplock-Insert (Order) (12/12/18 12:43) Lactated Ringers (Lr 1000 Ml Iv Solution (12/12/18 12:45) Vital Signs/I&O 12/12/18 12/12/18 12:35 12:37 Temp 97.1 Pulse 72 65 66 73 Resp 16 B/P (MAP) 150/84 (106) 162/81 (108) 151/67 (95) 97/52 (67) Pulse Ox 94 Blood Pressure Mean: 67 Departure Impression Primary Impression: Orthostatic hypotension Disposition: 01 HOME, SELF-CARE Condition: Stable Departure-Patient Inst. Decision time for Depature: 13:58 Referrals: LUCIUS WALKER DO (PCP/Family) Primary Care Physician Patient Instructions: Orthostatic Hypotension Add. Discharge Instructions: 1. Take a half tablet of your blood pressure medication instead of a whole tablet. Call Dr. Walker on Saturday to make a point to be seen. Return to ER for any worsening symptoms over the weekend. All discharge instructions reviewed with patient and/or family. Voiced understanding. Copy Copies To 1: LUCIUS WALKER PETER J APRN Dec 12, 2018 13:02
[2018-12-12 13:08] LABS: BASOPHILS % (AUTO) 0 % (0-10); EOSINOPHILS # (AUTO) 0.1 10^3/uL (0.0-0.3); EOSINOPHILS % (AUTO) 1 % (0-10); HEMATOCRIT 35 % (40-54); HEMOGLOBIN 12.2 G/DL (13.3-17.7); LYMPHOCYTES # (AUTO) 0.5 X 10^3 (1.0-4.0); LYMPHOCYTES % (AUTO) 15 % (12-44); MEAN CORPUSCULAR HEMOGLOBIN 31 PG (25-34); MEAN CORPUSCULAR HGB CONC 35 G/DL (32-36); MEAN CORPUSCULAR VOLUME 89 FL (80-99); MONOCYTES # (AUTO) 0.4 X 10^3 (0.0-1.0); MONOCYTES % (AUTO) 10 % (0-12); NEUTROPHILS # (AUTO) 2.7 X 10^3 (1.8-7.8); NEUTROPHILS % (AUTO) 74 % (42-75); PLATELET COUNT 126 10^3/uL (130-400); RED CELL DISTRIBUTION WIDTH 13.3 % (10.0-14.5); WHITE BLOOD COUNT 3.6 10^3/uL (4.3-11.0)
[2018-12-12 13:30] LABS: ALANINE AMINOTRANSFERASE 12 U/L (0-55); ALBUMIN 4.1 GM/DL (3.2-4.5); ALKALINE PHOSPHATASE 64 U/L (40-136); BILIRUBIN,TOTAL 0.7 MG/DL (0.1-1.0); BUN/CREATININE RATIO 19; CALCIUM 8.9 MG/DL (8.5-10.1); CARBON DIOXIDE 24 MMOL/L (21-32); CHLORIDE 109 MMOL/L (98-107); CREATININE SERUM 1.59 MG/DL (0.60-1.30); GFR ESTIMATED 43; GLUCOSE 101 MG/DL (70-105); POTASSIUM 4.4 MMOL/L (3.6-5.0); SODIUM 142 MMOL/L (135-145)
--- NOTE | 2018-12-12 13:55 | NUR ---
PT AMBULATED TO BATHROOM DENIES DIZZINESS AT THIS X
[2018-12-12 14:08] VITALS: BP 97/52
== END 2018-12-12 14:08 | disposition home or self-care (01) ==
LOC: EDUNIT# 12:28 → ER 12:31
DX: I95.1 Orthostatic hypotension (principal); E78.00 Pure hypercholesterolemia, unspecified; I10 Essential (primary) hypertension; E11.9 Type 2 diabetes mellitus without complications; Z87.442 Personal history of urinary calculi; Z87.891 Personal history of nicotine dependence; Z98.890 Other specified postprocedural states
CPT/HCPCS: 36415; 80053; 84443; 84484; 85025

== ENCOUNTER 2018-12-16 16:19 | Emergency (ER) | payer MEDICARE, OTHER ==
[~2018-12-16] VITALS: Ht 177.8 cm; Wt 97.1 kg
--- OUTSIDE RECORDS SUMMARY | 2018-12-16 16:30 | XMS REPORT | Clinical Summary ---
Author Author [facility] Organization [facility] Address Unknown Phone Unavailable Care Team Providers Care Utilization Supervisor Name Role Phone Unverified, Unverified Md PCP Unavailable Source Comments Some departments are not documenting in the electronic medical record. If you do not see the information that you expected, contact Release of Information in the Health Information Management department at [phone] for further assistance in locating additional records.[facility] Allergies Not on File Medications Not [...]
--- OUTSIDE RECORDS SUMMARY | 2018-12-16 16:30 | XMS REPORT | Clinical Summary ---
Author Author [facility] Organization [facility] Address Unknown Phone Unavailable Care Team Providers Care Swimming Coach Name Role Phone PCP Unavailable Allergies Not [...]
--- OUTSIDE RECORDS SUMMARY | 2018-12-16 16:31 | XMS REPORT | Continuity of Care Document ---
Author Author [facility] Address Unknown Phone Unavailable Allergies There is no data. Medications There is no data. Problems Date Dx Coded Attending Type Code Diagnosis Diagnosed By 07/14/2013 GREGORY CESAR PSYD 309.24 AD ADJ D/O W ANXIETY 07/14/2013 GREGORY CESAR PSYD 309.24 AD ADJ D/O W ANXIETY Procedures Code [place] [address] PSYCH DIAGNOSTIC EVALUATION 07/14/2013 63742 PSYTX PT&/FAMILY 30 MINUTES 08/25/2013 Results There is no data. Encounters ACCT No. Visit Date/Time Discharge Status Pt. Type Provider Facility Loc./Unit Complaint [id number] 08/25/2013 07:56:00 08/25/2013 23:59:59 [facility] Outpatient GREGORY CESAR PSYD [id number] 07/14/2013 08:09:00 07/14/2013 23:59:59 [facility] Outpatient GREGORY CESAR PSYD 10/201710/01/2018 05:12:59 10/01/2018 23:59:59 [facility] Outpatient Christina Walker
[2018-12-16] MEDS ORDERED: ASPIRIN 81 MG CHEW (CHILDREN'S ASA) PO ONE (16:45)
[2018-12-16 16:47] LABS: BASOPHILS % (AUTO) 0 % (0-10); EOSINOPHILS % (AUTO) 1 % (0-10); HEMATOCRIT 36 % (40-54); HEMOGLOBIN 12.3 G/DL (13.3-17.7); LYMPHOCYTES # (AUTO) 0.7 X 10^3 (1.0-4.0); LYMPHOCYTES % (AUTO) 15 % (12-44); MEAN CORPUSCULAR HEMOGLOBIN 30 PG (25-34); MEAN CORPUSCULAR HGB CONC 34 G/DL (32-36); MEAN CORPUSCULAR VOLUME 89 FL (80-99); MEAN PLATELET VOLUME 10.4 FL (7.4-10.4); MONOCYTES # (AUTO) 0.4 X 10^3 (0.0-1.0); MONOCYTES % (AUTO) 8 % (0-12); NEUTROPHILS # (AUTO) 3.3 X 10^3 (1.8-7.8); NEUTROPHILS % (AUTO) 76 % (42-75); PLATELET COUNT 136 10^3/uL (130-400); RED CELL DISTRIBUTION WIDTH 13.3 % (10.0-14.5); WHITE BLOOD COUNT 4.3 10^3/uL (4.3-11.0)
--- NOTE | 2018-12-16 16:50 | ED Chest Pain ---
General Chief Complaint: Cardiac/General Problems Stated Complaint: BLOOD PRESSURE Nursing Triage Note: PT WAS IN ED LAST WEEK AND HAD CHANGES TO BLOOD PRESSURE. THEY CHANGED HIS BLOOD PRESSURE MEDICATION. PT WAS MOWING TODAY AND GOT PAIN IN HIS NECK AND HAD VISION CHANGES TODAY. Nursing Sepsis Screen: No Definite Risk Source: patient, family (daughter) Exam Limitations: no limitations (FOZIA VALADEZ) History of Present Illness Date Seen by Provider: Dec 16, 2018 Time Seen by Provider: 16:32 Initial Comments Patient presents to ER by private conveyance with his significant other and chief complaint that about an hour prior to arrival he was out mowing the grass got about 80 yards into it when he began to experience tenseness and pain bilateral shoulders radiating up towards his neck. He did not have chest pain anteriorly nor any pain in his back. He said the spine itself was not tender and the pain was just an aching tightness sensation. No electrical, shooting, burning pain. Said the pain within 30 minutes and went away at rest. He also felt like his vision became very bright like he was staring into the sun. He's had this happen before over the past couple months usually with exertion or stress but does not always on exertion. He says sometimes he can go out and chainsaw for half a day and have no significant distress. No shortness of breath , cough, wheeze, fevers, chills, nausea, sweats. No history of trauma or injury. He has no history of coronary disease. He does not have thyroid problems but he does take an VANESSA inhibitor and calcium channel jorgito for blood pressure. He was here a few days ago in the ER because he was having what he describes as orthostatic hypotension and they made some changes to his blood pressure medications then in the last day or 2 he went to see his primary care doctor and she changed his amlodipine to an amlodipine benazepril combination. He's not having any pain or shortness of breath at this point. He says at worst it was about 8 out of 10. He did not take anything for it. (FOZIA VALADEZ) Allergies and Home Medications Allergies Coded Allergies: No Known Drug Allergies (Unverified , 11/01/18) Home Medications Hydrocodone/Acetaminophen 1 Each Tablet, 1 EACH PO Q6H PRN for PAIN-MODERATE Prescribed by: CUCO BARR on 11/01/18 171 Ketorolac Tromethamine 10 Mg Tablet, 10 MG PO Q6H Prescribed by: INEZ DUVALL on 12/25/16 022 Ondansetron 4 Mg Tab.rapdis, 4 MG PO Q4H Prescribed by: RLYIE MARSHALL on 12/26/16 0214 Patient Home Medication List Home Medication List Reviewed: Yes (FOZIA VALADEZ) Review of Systems Review of Systems Constitutional: No chills, No fever EENTM: No Blurred Vision, No Double Vision, No Eye Tearing Respiratory: Denies Cough Gastrointestinal: Denies Abdomen Distended, Denies Abdominal Pain Genitourinary: Denies Burning, Denies Discharge (FOZIA VALADEZ) Past Deutksr-Wqyqxn-Dbmwln Hx Patient Social History Alcohol Use: Occasionally Uses Alcohol Beverage of Choice: Beer Recreational Drug Use: No Smoking Status: Former Smoker Type Used: Cigarettes Former Smoker, Quit: Sep 29, 2003 2nd Hand Smoke Exposure: No Recent Foreign Travel: No Contact w/Someone Who Travel: No Recent Infectious Disease Expo: No Recent Hopitalizations: No (FOZIA VALADEZ) Seasonal Allergies Seasonal Allergies: Yes (FOZIA VALADEZ) Past Medical History Surgeries: Yes (HERNIA) Abdominal, Gallbladder Respiratory: No Cardiac: Yes High Cholesterol, Hypertension Neurological: No Reproductive Disorders: No Kidney Stones Gastrointestinal: No Musculoskeletal: No Endocrine: Yes Diabetes, Non-Insulin dep Cancer: No Psychosocial: No Integumentary: No Blood Disorders: No (FOZIA VALADEZ) Physical Exam Vital Signs Vital Signs - First Documented 12/16/18 12/16/18 16:23 19:02 Pulse 88 Resp 18 B/P (MAP) 133/58 (83) Pulse Ox 99 O2 Delivery Room Air (DEREJE HARKINS MD) Vital Signs Capillary Refill : Less Than 3 Seconds (FOZIA VALADEZ) Height, Weight, BMI Height: 5'10.00" Weight: 214lbs. oz. 97.051924qf; BMI Method:Stated General Appearance: No Apparent Distress, WD/WN, Anxious HEENT: PERRL/EOMI, Normal ENT Inspection, Pharynx Normal, Moist Mucous Membranes Neck: Full Range of Motion, Normal Inspection, Non Tender, Supple Respiratory: Chest Non Tender, Lungs Clear, Normal Breath Sounds, No Accessory Muscle Use, No Respiratory Distress Cardiovascular: Regular Rate, Rhythm, No Edema, Normal Peripheral Pulses Gastrointestinal: Normal Bowel Sounds, Non Tender, Soft Extremity: Normal Capillary Refill, Normal Inspection, No Pedal Edema Neurologic/Psychiatric: Alert, Oriented x3, No Motor/Sensory Deficits, Normal Mood/Affect, call centre supervisor II-XII Norm as Tested Skin: Normal Color, Warm/Dry (RORY,FOZIA J) Progress/Results/Core Measures Results/Orders Lab Results Laboratory Tests Test 12/16/18 16:39 12/16/18 18:39 Range/Units White Blood Count 4.3 4.3-11.0 10^3/uL Red Blood Count 4.05 L 4.35-5.85 10^6/uL Hemoglobin 12.3 L 13.3-17.7 G/DL Hematocrit 36 L 40-54 % Mean Corpuscular Volume 89 80-99 FL Mean Corpuscular Hemoglobin 30 25-34 PG Mean Corpuscular Hemoglobin Concent 34 32-36 G/DL Red Cell Distribution Width 13.3 10.0-14.5 % Platelet Count 136 130-400 10^3/uL Mean Platelet Volume 10.4 7.4-10.4 FL Neutrophils (%) (Auto) 76 H 42-75 % Lymphocytes (%) (Auto) 15 12-44 % Monocytes (%) (Auto) 8 0-12 % Eosinophils (%) (Auto) 1 0-10 % Basophils (%) (Auto) 0 0-10 % Neutrophils # (Auto) 3.3 1.8-7.8 X 10^3 Lymphocytes # (Auto) 0.7 L 1.0-4.0 X 10^3 Monocytes # (Auto) 0.4 0.0-1.0 X 10^3 Eosinophils # (Auto) 0.0 0.0-0.3 10^3/uL Basophils # (Auto) 0.0 0.0-0.1 10^3/uL Prothrombin Time 13.9 12.2-14.7 SEC INR Comment 1.0 0.8-1.4 Activated Partial Thromboplast Time 29 24-35 SEC Sodium Level 141 135-145 MMOL/L Potassium Level 4.5 3.6-5.0 MMOL/L Chloride Level 109 H 98-107 MMOL/L Carbon Dioxide Level 25 21-32 MMOL/L Anion Gap 7 5-14 MMOL/L Blood Urea Nitrogen 39 H 7-18 MG/DL Creatinine 1.92 H 0.60-1.30 MG/DL Estimat Glomerular Filtration Rate 35 BUN/Creatinine Ratio 20 Glucose Level 108 H 70-105 MG/DL Calcium Level 8.8 8.5-10.1 MG/DL Corrected Calcium 8.6 8.5-10.1 MG/DL Magnesium Level 2.0 1.8-2.4 MG/DL Total Bilirubin 0.5 0.1-1.0 MG/DL Aspartate Amino Transf (AST/SGOT) 13 5-34 U/L Alanine Aminotransferase (ALT/SGPT) 11 0-55 U/L Alkaline Phosphatase 60 40-136 U/L Total Creatine Kinase 58 30-200 U/L Myoglobin 79.1 10.0-92.0 NG/ML Troponin I < 0.028 < 0.028 <0.028 NG/ML Total Protein 6.4 6.4-8.2 GM/DL Albumin 4.2 3.2-4.5 GM/DL (DEREJE HARKINS MD) Medications Given in ED Current Medications Medications Dose Ordered Sig/Sangita Route Start Time Stop Time Status Last Admin Dose Admin Aspirin 325 mg ONCE ONCE PO 12/16/18 16:45 12/16/18 16:46 DC 12/16/18 16:51 324 MG (DEREJE HARKINS MD) Vital Signs/I&O 12/16/18 12/16/18 16:23 19:02 Pulse 88 58 Resp 18 13 B/P (MAP) 133/58 (83) 149/73 (98) Pulse Ox 99 O2 Delivery Room Air (DEREJE HARKINS MD) Blood Pressure Mean: 83 Progress Progress Note : Time: 16:48 Progress Note Anxiety versus musculoskeletal versus atypical angina, versus other. We discussed doing a workup to include cardiac rule out, aspirin and if we don' t find anything we can recommend him to cardiology and then eventually back to primary care to discuss other, less lethal possibilities for his exertional neck and shoulder discomfort. Initial labs and troponin were negative. We'll do a two-hour troponin at 1830 and if that is also negative the patient can follow-up with cardiology and eventually primary care. (FOZIA VALADEZ) Progress Note : Time: 19:54 Progress Note Patient has had no further pain since arriving to the ER. He denies pain with ambulation to the bathroom as well. He states at no time did he have any pain in the actual chest. The pain seems to be in the shoulders and the neck. Further evaluation was recommended by his primary care provider and potentially with referral to a project management specialist. I advised that he take aspirin 81 mg daily until otherwise instructed. See discharge instructions. (DEREJE HARKINS MD) Initial ECG Impression Date: Dec 16, 2018 Initial ECG Impression Time: 16:53 Initial ECG Rate: 65 Initial ECG Rhythm: Normal Sinus Initial ECG Intervals: Normal Initial ECG Impression: Normal Comment Normal sinus rhythm with no ST elevation or depression. No significant abnormal intervals or axis deviation. (DEREJE HARKINS MD) Diagnostic Imaging Diagonstic Imaging: Xray Plain Films/CT/US/NM/MRI: chest (1v) Comments No acute cardiopulmonary processes noted. [facility] [place] [place], [place] NAME: KRISTI CHAVEZ [facility] REC#: [id number] PT STATUS: REG ER : 1950 PHYSICIAN: FOZIA VALADEZ MD ADMIT DATE: 12/16/18/ER Draft Date of Exam:12/16/18 CHEST 1 VIEW, AP/PA ONLY INDICATION: Hypertensive. COMPARISON: 11/01/2018. FINDINGS: The lungs are well aerated and clear. Heart is not enlarged. Pulmonary vasculature is normal. There is no pneumothorax or pleural effusion. IMPRESSION: Normal portable chest. Dictated on workstation # [id number] Dict: 12/16/18 1736 Trans: 12/16/18 1739 [id number] Interpreted by: LESLYE ZAVALA MD Electronically signed by: Reviewed: Reviewed by Me (FOZIA VALADEZ) Transfer of Care Time: 18:00 Care transferred to: Dr. Tay (FOZIA VALADEZ) Departure Impression Primary Impression: Bilateral shoulder pain Qualified Codes: M25.511 - Pain in right shoulder; M25.512 - Pain in left shoulder Additional Impression: Acute neck pain Disposition: 01 HOME, SELF-CARE Condition: Improved Departure-Patient Inst. Decision time for Depature: 19:50 (DEREJE HARKINS MD) Referrals: LUCIUS ALFONSO DO (PCP/Family) Primary Care Physician Patient Instructions: Chest Pain (DC) Add. Discharge Instructions: Follow-up with Dr. ALFONSO as soon as possible. Discussed the possibility of referral to a project management specialist for further testing. In the meantime take aspirin 81 mg daily. If any activity causes similar pain or chest pain in the future, stop that activity and rest. If pain does not resolve within 10-15 minutes, return to care in the ER. Also return to care if you develop worsening or new symptoms such as chest pain , shortness of breath, lightheadedness, etc. All discharge instructions reviewed with patient and/or family. Voiced understanding. Copy Copies To 1: LUCIUS ALFONSO TITUS J Dec 16, 2018 16:50 DEREJE HARKINS MD Dec 16, 2018 19:55
[2018-12-16 17:10] LABS: CARBON DIOXIDE 25 MMOL/L (21-32); CHLORIDE 109 MMOL/L (98-107); CREATININE SERUM 1.92 MG/DL (0.60-1.30); POTASSIUM 4.5 MMOL/L (3.6-5.0); PROTHROMBIN TIME PATIENT 13.9 SEC (12.2-14.7); SODIUM 141 MMOL/L (135-145)
[2018-12-16 17:11] LABS: ALANINE AMINOTRANSFERASE 11 U/L (0-55); ALBUMIN 4.2 GM/DL (3.2-4.5); ALKALINE PHOSPHATASE 60 U/L (40-136); BILIRUBIN,TOTAL 0.5 MG/DL (0.1-1.0); BUN/CREATININE RATIO 20; CALCIUM 8.8 MG/DL (8.5-10.1); GFR ESTIMATED 35; GLUCOSE 108 MG/DL (70-105); TOTAL PROTEIN 6.4 GM/DL (6.4-8.2)
[2018-12-16 17:17] LABS: MYOGLOBIN SERUM 79.1 NG/ML (10.0-92.0)
[2018-12-16] MEDS ORDERED: NS IV 1000 ML 1,000 ML IV SCH (17:17)
--- NOTE | 2018-12-16 17:40 | Diagnostic Imaging Report ---
INDICATION: Hypertensive. COMPARISON: 11/01/2018. FINDINGS: The lungs are well aerated and clear. Heart is not enlarged. Pulmonary vasculature is normal. There is no pneumothorax or pleural effusion. IMPRESSION: Normal portable chest. Dictated by: Dictated on workstation # [id number]
[2018-12-16 19:02] VITALS: BP 149/73
[2018-12-16 20:31] VITALS: BP 142/70
== END 2018-12-16 20:31 | disposition home or self-care (01) ==
LOC: EDUNIT# 16:19 → ER 16:20
DX: M25.511 Pain in right shoulder (principal); M25.512 Pain in left shoulder; M54.2 Cervicalgia; I10 Essential (primary) hypertension; E78.00 Pure hypercholesterolemia, unspecified; E11.9 Type 2 diabetes mellitus without complications; Z87.891 Personal history of nicotine dependence; Z87.442 Personal history of urinary calculi; Z98.890 Other specified postprocedural states
CPT/HCPCS: 36415; 71045; 80053; 82550; 83735; 83874; 84484; 85025; 85610; 85730; 93005; 93041; 96360; 96361

== ENCOUNTER 2019-02-24 23:34 | Emergency (ER) | payer MEDICARE, OTHER ==
[~2019-02-24] VITALS: Ht 177.8 cm; Wt 93.0 kg
[2019-02-25] MEDS ORDERED: NS IV 1000 ML 1,000 ML IV ONE (00:21)
[2019-02-25 00:30] LABS: BASOPHILS % (AUTO) 0 % (0-10); EOSINOPHILS % (AUTO) 0 % (0-10); HEMATOCRIT 36 % (40-54); LYMPHOCYTES # (AUTO) 0.4 X 10^3 (1.0-4.0); LYMPHOCYTES % (AUTO) 5 % (12-44); MEAN CORPUSCULAR HEMOGLOBIN 31 PG (25-34); MEAN CORPUSCULAR HGB CONC 33 G/DL (32-36); MEAN CORPUSCULAR VOLUME 92 FL (80-99); MEAN PLATELET VOLUME 10.3 FL (7.4-10.4); MONOCYTES # (AUTO) 0.9 X 10^3 (0.0-1.0); MONOCYTES % (AUTO) 9 % (0-12); NEUTROPHILS # (AUTO) 8.3 X 10^3 (1.8-7.8); NEUTROPHILS % (AUTO) 86 % (42-75); PLATELET COUNT 111 10^3/uL (130-400); RED CELL DISTRIBUTION WIDTH 12.5 % (10.0-14.5); WHITE BLOOD COUNT 9.6 10^3/uL (4.3-11.0)
[2019-02-25 00:43] LABS: ALBUMIN 4.2 GM/DL (3.2-4.5); BILIRUBIN,TOTAL 0.8 MG/DL (0.1-1.0); CALCIUM 9.4 MG/DL (8.5-10.1); CREATININE SERUM 2.63 MG/DL (0.60-1.30); POTASSIUM 4.2 MMOL/L (3.6-5.0); TOTAL PROTEIN 6.6 GM/DL (6.4-8.2)
[2019-02-25] MEDS ORDERED: KETOROLAC 30 MG/ML VIAL IVP ONE (00:45)
[2019-02-25 00:52] LABS: BAND NEUTROPHILS 1 %; LYMPHOCYTES % (MANUAL) 6 %; MONOCYTES % (MANUAL) 5 %; NEUTROPHILS % (MANUAL) 88 %
[2019-02-25 00:53] LABS: RBC MORPH NORMAL
[2019-02-25] MEDS ORDERED: LACTATED RINGERS 1,000 ML IV ONE (00:55)
[2019-02-25 01:01] LABS: BILIRUBIN,URINE NEGATIVE (NEGATIVE); CLARITY,URINE CLEAR; COLOR,URINE YELLOW; GLUCOSE, URINE (UA) NEGATIVE (NEGATIVE); KETONES,URINE 2+ (NEGATIVE); LEUKOCYTE ESTERASE ,URINE NEGATIVE (NEGATIVE); NITRITE,URINE NEGATIVE (NEGATIVE); PH,URINE 5 (5-9); PROTEIN,URINE 2+ (NEGATIVE); UROBILINOGEN,URINE NORMAL (NORMAL)
[2019-02-25 01:08] LABS: BACTERIA,URINE NEGATIVE /HPF; SQUAMOUS EPITHELIAL CELL,UR RARE /HPF
[2019-02-25] MEDS ORDERED: RX-ONDANSETRON 4 MG ODT (ZOFRAN) PPK #4 PO STA (01:38)
[2019-02-25] MEDS ORDERED: TAMS0.4C98 PO (01:44)
[2019-02-25] MEDS ORDERED: HYDR-34 PO (01:44)
[2019-02-25] MEDS ORDERED: SULF1TAB35 PO (01:44)
[2019-02-25] MEDS ORDERED: ONDA4TAB11 PO (01:44)
--- NOTE | 2019-02-25 01:44 | ED Abdominal Pain ---
General Chief Complaint: Abdominal/GI Problems Stated Complaint: SEVERE PAIN IN STOMACH AND SIDE Nursing Triage Note: PT COMPLAINING OF ABD AND BACK PAIN. PT SEEN IN CLINIC TODAY AND STARTED STOOL SOFTENER Sepsis Screen: No Definite Risk Source of Information: Patient History of Present Illness Date Seen by Provider: Feb 25, 2019 Time Seen by Provider: 00:23 Initial Comments PT ARRIVES VIA POV FROM HOME C/O LLQ PAIN AND LEFT FLANK PAIN FOR A COUPLE OF DAYS PAIN WAXES AND WANES, BUT DOES NOT GO AWAY COMPLETELY. TODAY THE PAIN IN LEFT FLANK AREA HAS BEEN SEVERE AND SHARP NOTHING WORSENS OR IMPROVES PAIN, BUT HAS NOT TAKEN ANYTHING FOR PAIN NO NAUSEA/VOMITING. DOES NOT KNOW WHEN LAST BM WAS--DID NOT HAVE ONE TODAY AND DOES NOT THINK HE HAD ONE YESTERDAY NO FEVER NO URINARY SYMPTOMS SAW DR. ALFONSO'S [employer] TODAY FOR THIS PROBLEM. WAS DX WITH CONSTIPATION AND WAS TOLD TO TAKE A STOOL SOFTENER HE STATES NO TESTS WERE DONE. PCP: DR. ALFONSO Allergies and Home Medications Allergies Coded Allergies: No Known Drug Allergies (Unverified , 11/01/18) Home Medications Hydrocodone Bit/Acetaminophen 1 Ea Tablet, 1 EA PO Q4H PRN for PAIN-MODERATE Prescribed by: RYLIE MARSHALL on 02/25/19143 Hydrocodone/Acetaminophen 1 Each Tablet, 1 EACH PO Q6H PRN for PAIN-MODERATE Prescribed by: CUCO BARR on 11/01/18 171 Ketorolac Tromethamine 10 Mg Tablet, 10 MG PO Q6H Prescribed by: INEZ DUVALL on 12/25/16 022 Ondansetron 4 Mg Tab.rapdis, 4 MG PO Q4H Prescribed by: RYLIE MARSHALL on 12/26/16 0214 Ondansetron 4 Mg Tab.rapdis, 4 MG PO Q4H Prescribed by: RYLIE MARSHALL on 02/25/19 014 Sulfamethoxazole/Trimethoprim 1 Each Tablet, 1 EACH PO BID Prescribed by: RYLIE MARSHALL on 02/25/19143 Tamsulosin HCl 0.4 Mg Cap, 0.4 MG PO DAILY Prescribed by: RYLIE MARSHALL on 02/25/19143 Patient Home Medication List Home Medication List Reviewed: Yes Review of Systems Review of Systems Constitutional: no symptoms reported Respiratory: No Symptoms Reported Cardiovascular: No Symptoms Reported Gastrointestinal: See HPI, Abdominal Pain, Constipated; Denies Diarrhea, Denies Nausea, Denies Vomiting Genitourinary: No Symptoms Reported Musculoskeletal: see HPI, back pain Skin: no symptoms reported; No rash Psychiatric/Neurological: No Symptoms Reported Endocrine: No Symptoms Reported Hematologic/Lymphatic: No Symptoms Reported Past Vwyxfev-[id number]-Urubxb Hx Patient Social History Alcohol Use: Occasionally Uses Alcohol Beverage of Choice: Beer Recreational Drug Use: No Smoking Status: Former Smoker (1 PPD, QUIT SMOKING ) Type Used: Cigarettes Former Smoker, Quit: Sep 29, 2003 2nd Hand Smoke Exposure: No Recent Foreign Travel: No Contact w/Someone Who Travel: No Recent Infectious Disease Expo: No Recent Hopitalizations: No Seasonal Allergies Seasonal Allergies: Yes Past Medical History Surgeries: Yes (UMBILICAL HERNIA) Abdominal, Gallbladder Respiratory: No Cardiac: Yes High Cholesterol, Hypertension Neurological: No Reproductive Disorders: No Genitourinary: Yes (HX OF KIDNEY STONES--NO SURGICAL REMOVAL OR LITHOTRIPSY) Kidney Stones Gastrointestinal: Yes (UMBILICAL HERNIA REPAIR; CHOLECYSTECTOMY) Abdominal Hernia, Gall Bladder Disease Musculoskeletal: No Endocrine: Yes Diabetes, Non-Insulin dep Cancer: No Psychosocial: No Integumentary: No Blood Disorders: No Physical Exam Vital Signs Vital Signs - First Documented 02/25/19 00:03 Temp 98.4 Pulse 76 Resp 20 B/P (MAP) 188/84 (118) Pulse Ox 95 O2 Delivery Room Air Capillary Refill : Less Than 3 Seconds Height/Weight/BMI Height: 5'10.00" Weight: 205lbs. oz. 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, no motor/sensory deficits, alert, normal mood/affect, oriented x 3 Skin: normal color, warm/dry; No rash Progress/Results/Core Measures Results/Orders Lab Results Laboratory Tests Test 02/25/19 00:10 02/25/19 00:50 Range/Units White Blood Count 9.6 4.3-11.0 10^3/uL Red Blood Count 3.92 L 4.35-5.85 10^6/uL Hemoglobin 12.0 L 13.3-17.7 G/DL Hematocrit 36 L 40-54 % Mean Corpuscular Volume 92 80-99 FL Mean Corpuscular Hemoglobin 31 25-34 PG Mean Corpuscular Hemoglobin Concent 33 32-36 G/DL Red Cell Distribution Width 12.5 10.0-14.5 % Platelet Count 111 L 130-400 10^3/uL Mean Platelet Volume 10.3 7.4-10.4 FL Neutrophils (%) (Auto) 86 H 42-75 % Lymphocytes (%) (Auto) 5 L 12-44 % Monocytes (%) (Auto) 9 0-12 % Eosinophils (%) (Auto) 0 0-10 % Basophils (%) (Auto) 0 0-10 % Neutrophils # (Auto) 8.3 H 1.8-7.8 X 10^3 Lymphocytes # (Auto) 0.4 L 1.0-4.0 X 10^3 Monocytes # (Auto) 0.9 0.0-1.0 X 10^3 Eosinophils # (Auto) 0.0 0.0-0.3 10^3/uL Basophils # (Auto) 0.0 0.0-0.1 10^3/uL Neutrophils % (Manual) 88 % Lymphocytes % (Manual) 6 % Monocytes % (Manual) 5 % Band Neutrophils 1 % Blood Morphology Comment NORMAL Sodium Level 139 135-145 MMOL/L Potassium Level 4.2 3.6-5.0 MMOL/L Chloride Level 106 98-107 MMOL/L Carbon Dioxide Level 21 21-32 MMOL/L Anion Gap 12 5-14 MMOL/L Blood Urea Nitrogen 39 H 7-18 MG/DL Creatinine 2.63 H 0.60-1.30 MG/DL Estimat Glomerular Filtration Rate 24 BUN/Creatinine Ratio 15 Glucose Level 115 H 70-105 MG/DL Calcium Level 9.4 8.5-10.1 MG/DL Corrected Calcium 9.2 8.5-10.1 MG/DL Total Bilirubin 0.8 0.1-1.0 MG/DL Aspartate Amino Transf (AST/SGOT) 12 5-34 U/L Alanine Aminotransferase (ALT/SGPT) 12 0-55 U/L Alkaline Phosphatase 65 40-136 U/L Total Protein 6.6 6.4-8.2 GM/DL Albumin 4.2 3.2-4.5 GM/DL Amylase Level 49 25-125 U/L Lipase 19 8-78 U/L Urine Color YELLOW Urine Clarity CLEAR Urine pH 5 5-9 Urine Specific Red [place] 1.020 1.016-1.022 Urine Protein 2+ H NEGATIVE Urine Glucose (UA) NEGATIVE NEGATIVE Urine Ketones 2+ H NEGATIVE Urine Nitrite NEGATIVE NEGATIVE Urine Bilirubin NEGATIVE NEGATIVE Urine Urobilinogen NORMAL NORMAL MG/DL Urine Leukocyte Esterase NEGATIVE NEGATIVE Urine RBC (Auto) 1+ H NEGATIVE Urine RBC NONE /HPF Urine WBC NONE /HPF Urine Squamous Epithelial Cells RARE /HPF Urine Crystals NONE /LPF Urine Bacteria NEGATIVE /HPF Urine Casts NONE /LPF Urine Mucus NEGATIVE /LPF Urine Culture Indicated NO My Orders Orders - RYLIE MARSHALL DO Ed Iv/Invasive Line Start (02/25/19 00:21) Monitor-Rhythm Ecg Trace Only (02/25/19 00:21) Ct Abd/Pelvis Wo(Kidney Stone) (02/25/19 00:21) Acute Abd Series (02/25/19 00:21) Ed Iv/Invasive Line Start (02/25/19 00:21) Ns Iv 1000 Ml (Sodium Chloride 0.9%) (02/25/19 00:21) Amylase (02/25/19 00:21) Cbc With Automated Diff (02/25/19 00:21) Comprehensive Metabolic Panel (02/25/19 00:21) Lipase (02/25/19 00:21) Ua Culture If Indicated (02/25/19:21) Manual Differential (02/25/19 00:10) Ketorolac Injection (Toradol Injection) (02/25/19 00:45) Ed Iv/Invasive Line Start (02/25/19 00:55) Lactated Ringers (Lr 1000 Ml Iv Solution (02/25/19 00:55) Rx-Hydrocodone/Apap 5-325 Mg (Rx-Vicodin (02/25/19 01:45) Rx-Ondansetron Po (Rx-Zofran Po) (02/25/19 01:38) Tamsulosin Capsule (Flomax Capsule) (02/25/19 18:00) Tamsulosin Capsule (Flomax Capsule) (02/25/19 01:54) Medications Given in ED Current Medications Medications Dose Ordered Sig/Sangita Route Start Time Stop Time Status Last Admin Dose Admin Acetaminophen/ Hydrocodone Bitart 1 ea Q4H PRN PO 02/25/19 01:45 02/25/19 02:05 DC 02/25/19 02:03 1 EA Ketorolac Tromethamine 30 mg ONCE ONCE IVP 02/25/19 00:45 02/25/19 00:46 DC 02/25/19 01:01 30 MG Sodium Chloride 1,000 ml @ 0 mls/hr Q0M ONCE IV 02/25/19 00:21 02/25/19 00:25 DC 02/25/19 00:35 999 MLS/HR Vital Signs/I&O 02/25/19 02/25/19 00:03 02:03 Temp 98.4 Pulse 76 77 Resp 20 18 B/P (MAP) 188/84 (118) 193/84 (120) Pulse Ox 95 98 O2 Delivery Room Air Room Air Blood Pressure Mean: 118 Progress Progress Note : Progress Note SYMPTOMS COMPLETELY RESOLVED WITH TORADOL PT NOW STATES AT DISMISSAL, THAT HE HAS HAD KIDNEY STONES IN THE PAST, AND THIS FEELS THE SAME PT STATES HE PASSED THEM ON HIS OWN AND NO SURGERY OR LITHOTRIPSY WAS REQUIRED. DOES NOT RECALL IF HE SAW A UROLOGIST OR NOT, WHEN HE HAD THESE BEFORE. Diagnostic Imaging Comments ABDOMEN XRAYS--NONSPECIFIC BOWEL GAS PATTERN, PENDING RADIOLOGIST REPORT CT ABDOMEN/PELVIS--7 MM STONE IN LEFT PROXIMAL URETER, WITH MODERATE TO SEVERE LEFT HYDRONEPHROSIS, WITH SIGNIFICANT LEFT PERINEPHRIC STRANDING, MULTIPLE LEFT INTRARENAL CALCULI, AND LEFT PERIURETERIC STRANDING. PT ALSO HAS A 6 MM RIGHT DI STAL URETERAL CALCULUS WITH MILD RIGHT HYDRONEPHROSIS. MODERATE PROSTATE ENLARGEMENT. THICKENED BLADDER WALL. PER [facility] VIA FAX @ [phone] Reviewed: Reviewed by Me Departure Impression Primary Impression: Calculus of proximal left ureter Additional Impressions: Renal insufficiency Right distal ureteral calculus Disposition: HOME, SELF-CARE Condition: Improved Departure-Patient Inst. Referrals: LUCIUS ALFONSO DO (PCP/Family) Primary Care Physician МАРИНА WOLFF MD Patient Instructions: Dehydration, Adult (DC), How to Strain Your Urine, Kidney Stones (DC), Chronic Kidney Disease Add. Discharge Instructions: LOTS OF FLUIDS STRAIN ALL URINE--RETURN ANY STONES TO DR. WOLFF'S OFFICE FOLLOW UP WITH DR. WOLFF THIS WEEK FOR FURTHER CARE RETURN TO ER IF WORSE All discharge instructions reviewed with patient and/or family. Voiced understanding. Scripts Ondansetron (Ondansetron Odt) 4 Mg Tab.rapdis 4 MG PO Q4H for Nausea/Vomiting, #10 TAB Prov: RYLIE MARSHALL DO 02/25/19 Hydrocodone Bit/Acetaminophen (LORTAB 7.5 MG TABLET) 1 Ea Tablet 1 EA PO Q4H PRN for PAIN-MODERATE MDD 6 for 3 Days, TAB Prov: RYLIE MARSHALL DO 02/25/19 Tamsulosin HCl (Flomax) 0.4 Mg Cap 0.4 MG PO DAILY, #10 CAP Prov: RYLIE MARSHALL DO 02/25/19 Sulfamethoxazole/Trimethoprim (Bactrim Ds Tablet) 1 Each Tablet 1 EACH PO BID, #20 TAB Prov: RYLIE MARSHALL DO 02/25/19 RYLIE MARSHALL DO Feb 25, 2019 01:44
[2019-02-25] MEDS ORDERED: RX-HYDROCODONE/APAP 5/325 MG #4 TAB PK PO PRN (01:45)
[2019-02-25] MEDS ORDERED: TAMSULOSIN 0.4 MG (FLOMAX) CAP PO ONE (01:54)
[2019-02-25 02:03] VITALS: BP 193/84
--- OUTSIDE RECORDS SUMMARY | 2019-02-25 02:16 | XMS REPORT | Continuity of Care Document ---
Author Organization Unknown Address Unknown Allergies Active Description Code Type Severity Reaction Onset Reported/Identified Relationship to Patient Clinical Status Yes No Known Drug Allergies [id number] Drug Allergy Unknown N/A 11/01/2018 Medications There is no data. 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 12/25/2016 INEZ DUVALL DO Ot R10.32 LEFT LOWER QUADRANT PAIN 12/26/2016 JOANNA DO, RYLIE K Ot E11.9 TYPE 2 DIABETES MELLITUS WITHOUT COMPLIC 12/26/2016 JOANNA DO, RYLIE K Ot I10 ESSENTIAL (PRIMARY) HYPERTENSION 12/26/2016 JOANNA DO, RYLIE K Ot N20.2 CALCULUS OF KIDNEY WITH CALCULUS OF URET 12/26/2016 JOANNA DO, RYLEI K Ot R10.32 LEFT LOWER QUADRANT PAIN 12/26/2016 JOANNA DO, RYLIE K Ot Z79.899 OTHER [facility] (CURRENT) DRUG THERAPY 12/26/2016 JOANNA DO, RYLIE K Ot E11.9 TYPE 2 DIABETES MELLITUS WITHOUT COMPLIC 12/26/2016 JOANNA DO, RYLIE K Ot I10 ESSENTIAL (PRIMARY) HYPERTENSION 12/26/2016 JOANNA DO, RYLIE K Ot N20.2 CALCULUS OF KIDNEY WITH CALCULUS OF URET 12/26/2016 JOANNA DO, RYLIE K Ot R10.32 LEFT LOWER QUADRANT PAIN 12/26/2016 JOANNA DO, RYLIE K Ot Z79.899 OTHER [facility] (CURRENT) DRUG THERAPY 12/28/2016 МАРИНА WOLFF MD Ot N20.0 CALCULUS OF KIDNEY 01/02/2017 MARIELLA MD, МАРИНА A Ot N20.0 CALCULUS OF KIDNEY 02/05/2017 MARIELLA GOINS, МАРИНА A Ot N20.0 CALCULUS OF KIDNEY 02/26/2017 NIEZ DUVALL DO Ot 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 02/26/2017 INEZ DUVALL DO Ot R10.32 LEFT LOWER QUADRANT PAIN 12/05/2017 MARIELLA GOINS, МАРИНА A Ot N20.0 CALCULUS OF KIDNEY 02/11/2018 LEXI, BOBAN N Ot D61.818 OTHER PANCYTOPENIA 02/11/2018 LEXI, BOBAN N Ot E66.9 OBESITY, UNSPECIFIED 02/11/2018 LEXI, BOBAN N Ot E78.00 PURE HYPERCHOLESTEROLEMIA, UNSPECIFIED 02/11/2018 LEXI, BOBAN N Ot I12.9 HYPERTENSIVE CHRONIC KIDNEY DISEASE W ST 02/11/2018 LEXI, BOBAN N Ot N18.3 CHRONIC KIDNEY DISEASE, STAGE 3 (MODERAT 02/11/2018 LEXI, BOBAN N Ot Z79.899 OTHER TIRE FABRICATOR (CURRENT) DRUG THERAPY 02/11/2018 LEXI, BOBAN N Ot Z87.01 PERSONAL HISTORY OF PNEUMONIA (RECURRENT 02/11/2018 LEXI, BOBAN N Ot Z87.891 PERSONAL HISTORY OF NICOTINE DEPENDENCE 02/14/2018 LEXI, BOBAN N Ot D61.818 OTHER PANCYTOPENIA 02/14/2018 LEXI, BOBAN N Ot E66.9 OBESITY, UNSPECIFIED 02/14/2018 LEXI, BOBAN N Ot E78.00 PURE HYPERCHOLESTEROLEMIA, UNSPECIFIED 02/14/2018 LEXI, BOBAN N Ot I12.9 HYPERTENSIVE CHRONIC KIDNEY DISEASE W ST 02/14/2018 LEXI, BOBAN N Ot N18.3 CHRONIC KIDNEY DISEASE, STAGE 3 (MODERAT 02/14/2018 LEXI, BOBAN N Ot Z79.899 OTHER [facility] (CURRENT) DRUG THERAPY 02/14/2018 LEXI, BOBAN N Ot Z87.01 PERSONAL HISTORY OF PNEUMONIA (RECURRENT 02/14/2018 LEXI, BOBAN N Ot Z87.891 PERSONAL HISTORY OF NICOTINE DEPENDENCE 04/01/2018 LEXI, BOBAN N Ot D61.818 OTHER PANCYTOPENIA 04/01/2018 LEXI, BOBAN N Ot E66.9 OBESITY, UNSPECIFIED 04/01/2018 LEXI, BOBAN N Ot E78.00 PURE HYPERCHOLESTEROLEMIA, UNSPECIFIED 04/01/2018 LEXI, BOBAN N Ot I12.9 HYPERTENSIVE CHRONIC KIDNEY DISEASE W ST 04/01/2018 LEXI, BOBAN N Ot N18.3 CHRONIC KIDNEY DISEASE, STAGE 3 (MODERAT 04/01/2018 LEXI, BOBAN N Ot Z79.899 OTHER [facility] (CURRENT) DRUG THERAPY 04/01/2018 LEXI, BOBAN N Ot Z87.01 PERSONAL HISTORY OF PNEUMONIA (RECURRENT 04/01/2018 LEXI, BOBAN N Ot Z87.891 PERSONAL HISTORY OF NICOTINE DEPENDENCE 04/01/2018 LEXI, BOBAN N Ot D61.818 OTHER PANCYTOPENIA 04/01/2018 LEXI, BOBAN N Ot E66.9 OBESITY, UNSPECIFIED 04/01/2018 LEXI, BOBAN N Ot E78.00 PURE HYPERCHOLESTEROLEMIA, UNSPECIFIED 04/01/2018 LEXI, BOBAN N Ot I12.9 HYPERTENSIVE CHRONIC KIDNEY DISEASE W ST 04/01/2018 LEXI, BOBAN N Ot N18.3 CHRONIC KIDNEY DISEASE, STAGE 3 (MODERAT 04/01/2018 LEXI, BOBAN N Ot Z79.899 OTHER [facility] (CURRENT) DRUG THERAPY 04/01/2018 LEXI, BOBAN N Ot Z87.01 PERSONAL HISTORY OF PNEUMONIA (RECURRENT 04/01/2018 LEXI, BOBAN N Ot Z87.891 PERSONAL HISTORY OF NICOTINE DEPENDENCE 04/06/2018 LEXI, BOBAN N Ot D61.818 OTHER PANCYTOPENIA 04/06/2018 LEXI, BOBAN N Ot E66.9 OBESITY, UNSPECIFIED 04/06/2018 LEXI, BOBAN N Ot E78.00 PURE HYPERCHOLESTEROLEMIA, UNSPECIFIED 04/06/2018 LEXI, BOBAN N Ot I12.9 HYPERTENSIVE CHRONIC KIDNEY DISEASE W ST 04/06/2018 LEXI, BOBAN N Ot N18.3 CHRONIC KIDNEY DISEASE, STAGE 3 (MODERAT 04/06/2018 LEXI, BOBAN N Ot Z79.899 OTHER [facility] (CURRENT) DRUG THERAPY 04/06/2018 LEXI, BOBAN N Ot Z87.01 PERSONAL HISTORY OF PNEUMONIA (RECURRENT 04/06/2018 LEXI, BOBAN N Ot Z87.891 PERSONAL HISTORY OF NICOTINE DEPENDENCE 04/08/2018 LEXI, BOBAN N Ot D61.818 OTHER PANCYTOPENIA 04/08/2018 LEXI, BOBAN N Ot E66.9 OBESITY, UNSPECIFIED 04/08/2018 LEXI, BOBAN N Ot E78.00 PURE HYPERCHOLESTEROLEMIA, UNSPECIFIED 04/08/2018 LEXI, BOBAN N Ot I12.9 HYPERTENSIVE CHRONIC KIDNEY DISEASE W ST 04/08/2018 LEXI, BOBAN N Ot N18.3 CHRONIC KIDNEY DISEASE, STAGE 3 (MODERAT 04/08/2018 LEXI, BOBAN N Ot Z79.899 OTHER [facility] (CURRENT) DRUG THERAPY 04/08/2018 LEXI, BOBAN N Ot Z87.01 PERSONAL HISTORY OF PNEUMONIA (RECURRENT 04/08/2018 LEXI, BOBAN N Ot Z87.891 PERSONAL HISTORY OF NICOTINE DEPENDENCE 04/22/2018 LEXI, BOBAN N Ot D61.818 OTHER PANCYTOPENIA 04/22/2018 LEXI, BOBAN N Ot E66.9 OBESITY, UNSPECIFIED 04/22/2018 LEXI, BOBAN N Ot E78.00 PURE HYPERCHOLESTEROLEMIA, UNSPECIFIED 04/22/2018 LEXI, BOBAN N Ot I12.9 HYPERTENSIVE CHRONIC KIDNEY DISEASE W ST 04/22/2018 LEXI, BOBAN N Ot N18.3 CHRONIC KIDNEY DISEASE, STAGE 3 (MODERAT 04/22/2018 LEXI, BOBAN N Ot Z79.899 OTHER TIRE FABRICATOR (CURRENT) DRUG THERAPY 04/22/2018 LEXI, BOBAN N Ot Z87.01 PERSONAL HISTORY OF PNEUMONIA (RECURRENT 04/22/2018 LEXI, BOBAN N Ot Z87.891 PERSONAL HISTORY OF NICOTINE DEPENDENCE 04/22/2018 MARIELLA GOINS, МАРИНА Whitman Ot N20.0 CALCULUS OF KIDNEY 04/22/2018 LEXI, BOBAN N Ot D61.818 OTHER PANCYTOPENIA 04/22/2018 LEXI, BOBAN N Ot E66.9 OBESITY, UNSPECIFIED 04/22/2018 LEXI, BOBAN N Ot E78.00 PURE HYPERCHOLESTEROLEMIA, UNSPECIFIED 04/22/2018 LEXI, BOBAN N Ot I12.9 HYPERTENSIVE CHRONIC KIDNEY DISEASE W ST 04/22/2018 LEXI, BOBAN N Ot N18.3 CHRONIC KIDNEY DISEASE, STAGE 3 (MODERAT 04/22/2018 LEXI, BOBAN N Ot Z79.899 OTHER [facility] (CURRENT) DRUG THERAPY 04/22/2018 ARYAN ELLIOTT N Ot Z87.01 PERSONAL HISTORY OF PNEUMONIA (RECURRENT 04/22/2018 LEXIYASHIRA BLACKWELLAN N Ot Z87.891 PERSONAL HISTORY OF NICOTINE DEPENDENCE 05/19/2018 LEXI BOBAN N Ot D61.818 OTHER PANCYTOPENIA 05/19/2018 LEXI BOBAN N Ot E66.9 OBESITY, UNSPECIFIED 05/19/2018 LEXI BOBAN N Ot E78.00 PURE HYPERCHOLESTEROLEMIA, UNSPECIFIED 05/19/2018 LEXI BOBAN N Ot I12.9 HYPERTENSIVE CHRONIC KIDNEY DISEASE W ST 05/19/2018 LEXI, BOBAN N Ot N18.3 CHRONIC KIDNEY DISEASE, STAGE 3 (MODERAT 05/19/2018 LEXI BOBAN N Ot Z79.899 OTHER TIRE FABRICATOR (CURRENT) DRUG THERAPY 05/19/2018 LEXI, BOBAN N Ot Z87.01 PERSONAL HISTORY OF PNEUMONIA (RECURRENT 05/19/2018 YASHIRA ELLIOTTAN N Ot Z87.891 PERSONAL HISTORY OF NICOTINE DEPENDENCE 11/01/2018 LEXI BOBAN N Ot D61.818 OTHER PANCYTOPENIA 11/01/2018 LEXI BOBAN N Ot E66.9 OBESITY, UNSPECIFIED 11/01/2018 LEXI BOBAN N Ot E78.00 PURE HYPERCHOLESTEROLEMIA, UNSPECIFIED 11/01/2018 LEXI BOBAN N Ot I12.9 HYPERTENSIVE CHRONIC KIDNEY DISEASE W ST 11/01/2018 LEXI BOBKAITLYN N Ot N18.3 CHRONIC KIDNEY DISEASE, STAGE 3 (MODERAT 11/01/2018 LEXIYASHIRAAN N Ot Z79.899 OTHER [facility] (CURRENT) DRUG THERAPY 11/01/2018 LEXI BOBAN N Ot Z87.01 PERSONAL HISTORY OF PNEUMONIA (RECURRENT 11/01/2018 LEXI, BOBAN N Ot Z87.891 PERSONAL HISTORY OF NICOTINE DEPENDENCE 11/01/2018 CUCO BARR APRN Ot E11.9 TYPE 2 DIABETES MELLITUS WITHOUT COMPLIC 11/01/2018 CUCO BARR APRN Ot E78.00 PURE HYPERCHOLESTEROLEMIA, UNSPECIFIED 11/01/2018 CUCO BARR PRACTICAL NURSING TEACHER Ot I10 ESSENTIAL (PRIMARY) HYPERTENSION 11/01/2018 CUCO BARR APRN Ot R07.89 OTHER CHEST PAIN 11/01/2018 CUCO BARR APRN Ot R40.2142 COMA SCALE, EYES OPEN, SPONTANEOUS, EMR 11/01/2018 CUCO BARR APRN Ot R40.2252 COMA SCALE, BEST VERBAL RESPONSE, ORIENT 11/01/2018 CUCO BARR APRN Ot R40.2362 COMA SCALE, BEST MOTOR RESPONSE, OBEYS C 11/01/2018 CUCO BARR APRN Ot S22.31XA FRACTURE OF ONE RIB, RIGHT SIDE, INIT FO 11/01/2018 CUCO BARR APRN Ot W19.XXXA UNSPECIFIED FALL, INITIAL ENCOUNTER 11/01/2018 CUCO BARR APRN Ot Y92.007 [place] [facility] NON-INSTITUT RESI 11/01/2018 CUCO BARR APRN Ot Z87.442 PERSONAL HISTORY OF URINARY CALCULI 11/01/2018 CUCO BARR APRN Ot Z87.891 PERSONAL HISTORY OF NICOTINE DEPENDENCE 11/01/2018 CUCO BARR APRN Ot Z98.890 OTHER SPECIFIED POSTPROCEDURAL STATES 11/04/2018 CUCO BARR APRN Ot E11.9 TYPE 2 DIABETES MELLITUS WITHOUT COMPLIC 11/04/2018 CUCO BARR APRN Ot E78.00 PURE HYPERCHOLESTEROLEMIA, UNSPECIFIED 11/04/2018 CUCO BARR APRN Ot I10 ESSENTIAL (PRIMARY) HYPERTENSION 11/04/2018 CUCO BARR APRN Ot R07.89 OTHER CHEST PAIN 11/04/2018 CUCO BARR APRN Ot R40.2142 COMA SCALE, EYES OPEN, SPONTANEOUS, EMR 11/04/2018 CUCO BARR APRN Ot R40.2252 COMA SCALE, BEST VERBAL RESPONSE, ORIENT 11/04/2018 CUCO BARR APRN Ot R40.2362 COMA SCALE, BEST MOTOR RESPONSE, OBEYS C 11/04/2018 CUCO BARR APRN Ot S22.31XA FRACTURE OF ONE RIB, RIGHT SIDE, INIT FO 11/04/2018 CUCO BARR APRN Ot W19.XXXA UNSPECIFIED FALL, INITIAL ENCOUNTER 11/04/2018 CUCO BARR APRN Ot Y92.007 [place] NON-INSTITUT RESI 11/04/2018 CUCO BARR APRN Ot Z87.442 PERSONAL HISTORY OF URINARY CALCULI 11/04/2018 BARR, PETER J PRACTICAL NURSING TEACHER Ot Z87.891 PERSONAL HISTORY OF NICOTINE DEPENDENCE 11/04/2018 CUCO BARR PRACTICAL NURSING TEACHER Ot Z98.890 OTHER SPECIFIED POSTPROCEDURAL STATES 12/12/2018 CUCO BARR PRACTICAL NURSING TEACHER Ot E11.9 TYPE 2 DIABETES MELLITUS WITHOUT COMPLIC 12/12/2018 CUCO BARR PRACTICAL NURSING TEACHER Ot E78.00 PURE HYPERCHOLESTEROLEMIA, UNSPECIFIED 12/12/2018 CUCO BARR PRACTICAL NURSING TEACHER Ot I10 ESSENTIAL (PRIMARY) HYPERTENSION 12/12/2018 CUCO BARR PRACTICAL NURSING TEACHER Ot I95.1 ORTHOSTATIC HYPOTENSION 12/12/2018 CUCO BARR PRACTICAL NURSING TEACHER Ot R42 DIZZINESS AND GIDDINESS 12/12/2018 CUCO BARR PRACTICAL NURSING TEACHER Ot Z87.442 PERSONAL HISTORY OF URINARY CALCULI 12/12/2018 CUCO BARR PRACTICAL NURSING TEACHER Ot Z87.891 PERSONAL HISTORY OF NICOTINE DEPENDENCE 12/12/2018 CUCO BARR APRN Ot Z98.890 OTHER SPECIFIED POSTPROCEDURAL STATES 12/15/2018 CUCO BARR APRN Ot E11.9 TYPE 2 DIABETES MELLITUS WITHOUT COMPLIC 12/15/2018 CUCO BARR APRN Ot E78.00 PURE HYPERCHOLESTEROLEMIA, UNSPECIFIED 12/15/2018 CUCO BARR PRACTICAL NURSING TEACHER Ot I10 ESSENTIAL (PRIMARY) HYPERTENSION 12/15/2018 CUCO BARR PRACTICAL NURSING TEACHER Ot I95.1 ORTHOSTATIC HYPOTENSION 12/15/2018 CUCO BARR PRACTICAL NURSING TEACHER Ot R42 DIZZINESS AND GIDDINESS 12/15/2018 CUCO BARR PRACTICAL NURSING TEACHER Ot Z87.442 PERSONAL HISTORY OF URINARY CALCULI 12/15/2018 CUCO BARR PRACTICAL NURSING TEACHER Ot Z87.891 PERSONAL HISTORY OF NICOTINE DEPENDENCE 12/15/2018 CUCO BARR PRACTICAL NURSING TEACHER Ot Z98.890 OTHER SPECIFIED POSTPROCEDURAL STATES 12/16/2018 TORIN GOINS, DEREJE Berman Ot E11.9 TYPE 2 DIABETES MELLITUS WITHOUT COMPLIC 12/16/2018 TORIN GOINS, DEREJE Berman Ot E78.00 PURE HYPERCHOLESTEROLEMIA, UNSPECIFIED 12/16/2018 DEREJE HARKINS MD Ot I10 ESSENTIAL (PRIMARY) HYPERTENSION 12/16/2018 DEREJE HARKINS MD Ot M25.511 PAIN IN RIGHT SHOULDER 12/16/2018 DEREJE HARKINS MD Ot M25.512 PAIN IN LEFT SHOULDER 12/16/2018 DEREJE HARKINS MD Ot M54.2 CERVICALGIA 12/16/2018 DEREJE HARKINS MD Ot Z87.442 PERSONAL HISTORY OF URINARY CALCULI 12/16/2018 DEREJE HARKINS MD Ot Z87.891 PERSONAL HISTORY OF NICOTINE DEPENDENCE 12/16/2018 DEREJE HARKINS MD Ot Z98.890 OTHER SPECIFIED POSTPROCEDURAL STATES 12/19/2018 DEREJE HARKINS MD Ot E11.9 TYPE 2 DIABETES MELLITUS WITHOUT COMPLIC 12/19/2018 DEREJE HARKINS MD Ot E78.00 PURE HYPERCHOLESTEROLEMIA, UNSPECIFIED 12/19/2018 DEREJE HARKINS MD Ot I10 ESSENTIAL (PRIMARY) HYPERTENSION 12/19/2018 DEREJE HARKINS MD Ot M25.511 PAIN IN RIGHT SHOULDER 12/19/2018 DEREJE HARKINS MD Ot M25.512 PAIN IN LEFT SHOULDER 12/19/2018 DEREJE HARKINS MD Ot M54.2 CERVICALGIA 12/19/2018 DEREJE HARKINS MD Ot Z87.442 PERSONAL HISTORY OF URINARY CALCULI 12/19/2018 DEREJE HARKINS MD Ot Z87.891 PERSONAL HISTORY OF NICOTINE DEPENDENCE 12/19/2018 DEREJE HARKINS MD Ot Z98.890 OTHER SPECIFIED POSTPROCEDURAL STATES 12/23/2018 MARIELLA GOINS, МАРИНА Whitman Ot N20.0 CALCULUS OF KIDNEY 12/23/2018 ARYAN ELLIOTT Ot D61.818 OTHER PANCYTOPENIA 12/23/2018 ARYAN ELLIOTT Ot E66.9 OBESITY, UNSPECIFIED 12/23/2018 ARYAN ELLIOTT Ot E78.00 PURE HYPERCHOLESTEROLEMIA, UNSPECIFIED 12/23/2018 ARYAN ELLIOTT Ot I12.9 HYPERTENSIVE CHRONIC KIDNEY DISEASE W ST 12/23/2018 ARYAN ELLIOTT Ot N18.3 CHRONIC KIDNEY DISEASE, STAGE 3 (MODERAT 12/23/2018 ARYAN ELLIOTT Ot Z79.899 OTHER [facility] (CURRENT) DRUG THERAPY 12/23/2018 ARYAN ELLIOTT Anna Ot Z87.01 PERSONAL HISTORY OF PNEUMONIA (RECURRENT 12/23/2018 ARYAN ELLIOTT Anna Ot Z87.891 PERSONAL HISTORY OF NICOTINE DEPENDENCE 01/16/2019 CUCO BARR APRN Ot E11.9 TYPE 2 DIABETES MELLITUS WITHOUT COMPLIC 01/16/2019 CUCO BARR APRN Ot E78.00 PURE HYPERCHOLESTEROLEMIA, UNSPECIFIED 01/16/2019 CUCO BARR APRN Ot I10 ESSENTIAL (PRIMARY) HYPERTENSION 01/16/2019 CUCO BARR APRN Ot I95.1 ORTHOSTATIC HYPOTENSION 01/16/2019 CUCO BARR APRN Ot R42 DIZZINESS AND GIDDINESS 01/16/2019 CUCO BARR APRN Ot Z87.442 PERSONAL HISTORY OF URINARY CALCULI 01/16/2019 CUCO BARR APRN Ot Z87.891 PERSONAL HISTORY OF NICOTINE DEPENDENCE 01/16/2019 CUCO BARR APRN Ot Z98.890 OTHER SPECIFIED POSTPROCEDURAL STATES Procedures Code Description [place] [address] PSYCH DIAGNOSTIC EVALUATION 07/14/2013 10151 PSYTX PT&/FAMILY 30 MINUTES 08/25/2013 Results Test Result Range Complete urinalysis with reflex to culture - 12/25/16 01:35 Urine color determination YELLOW NRG Urine clarity determination CLEAR NRG Urine pH measurement by test strip 6 5-9 Specific gravity of urine by test strip 1.020 1.016-1.022 Urine protein assay by test strip, semi-quantitative 2+ NEGATIVE Urine glucose detection by automated test strip NEGATIVE NEGATIVE Erythrocytes detection in urine sediment by light microscopy 5+ NEGATIVE Urine ketones detection by automated test strip NEGATIVE NEGATIVE Urine nitrite detection by test strip NEGATIVE NEGATIVE Urine total bilirubin detection by test strip NEGATIVE NEGATIVE Urine urobilinogen measurement by automated test strip (mass/volume) NORMAL NORMAL Urine leukocyte esterase detection by dipstick 1+ NEGATIVE Automated urine sediment erythrocyte count by microscopy (number/high power field) > [HPF] NRG Automated urine sediment leukocyte count by microscopy (number/high power field) [HPF] NRG Bacteria detection in urine sediment by light microscopy TRACE NRG Squamous epithelial cells detection in urine sediment by light microscopy RARE NRG Crystals detection in urine sediment by light microscopy NONE NRG Casts detection in urine sediment by light microscopy PRESENT NRG Mucus detection in urine sediment by light microscopy NEGATIVE NRG Complete urinalysis with reflex to culture NO NRG Hyaline casts detection in urine sediment by light microscopy RARE NRG * Reference lab test name - 04/04/18 09:40 * Reference lab test results CHROM STUD BM NRG Complete blood count (CBC) with automated white blood cell (WBC) differential - 12/12/18 13:00 Blood leukocytes automated count (number/volume) 3.6 10*3/uL 4.3-11.0 Blood erythrocytes automated count (number/volume) 3.96 10*6/uL 4.35-5.85 Venous blood hemoglobin measurement (mass/volume) 12.2 g/dL 13.3-17.7 Blood hematocrit (volume fraction) 35 % 40-54 Automated erythrocyte mean corpuscular volume 89 [foz_us] 80-99 Automated erythrocyte mean corpuscular hemoglobin (mass per erythrocyte) 31 pg 25-34 Automated erythrocyte mean corpuscular hemoglobin concentration measurement (mass/volume) 35 g/dL 32-36 Automated erythrocyte distribution width ratio 13.3 % 10.0- 14.5 Automated blood platelet count (count/volume) 126 10*3/uL 130-400 Automated blood platelet mean volume measurement 10.0 [foz_us] 7.4-10.4 Automated blood neutrophils/100 leukocytes 74 % 42-75 Automated blood lymphocytes/100 leukocytes 15 % 12-44 Blood monocytes/100 leukocytes 10 % 0-12 Automated blood eosinophils/100 leukocytes 1 % 0-10 Automated blood basophils/100 leukocytes 0 % 0-10 Blood neutrophils automated count (number/volume) 2.7 10*3 1.8-7.8 Blood lymphocytes automated count (number/volume) 0.5 10*3 1.0-4.0 Blood monocytes automated count (number/volume) 0.4 10*3 0.0- 1.0 Automated eosinophil count 0.1 10*3/uL 0.0-0.3 Automated blood basophil count (count/volume) 0.0 10*3/uL 0.0-0.1 Comprehensive metabolic panel - 12/12/18 13:00 Serum or plasma sodium measurement (moles/volume) 142 mmol/L 135-145 Serum or plasma potassium measurement (moles/volume) 4.4 mmol/L 3.6-5.0 Serum or plasma chloride measurement (moles/volume) 109 mmol/L 98-107 Carbon dioxide 24 mmol/L 21-32 Serum or plasma anion gap determination (moles/volume) 9 mmol/L 5-14 Serum or plasma urea nitrogen measurement (mass/volume) 31 mg/dL 7-18 Serum or plasma creatinine measurement (mass/volume) 1.59 mg/dL 0.60-1.30 Serum or plasma urea nitrogen/creatinine mass ratio 19 NRG Serum or plasma creatinine measurement with calculation of estimated glomerular filtration rate 43 NRG Serum or plasma glucose measurement (mass/volume) 101 mg/dL 70-105 Serum or plasma calcium measurement (mass/volume) 8.9 mg/dL 8.5-10.1 Serum or plasma total bilirubin measurement (mass/volume) 0.7 mg/dL 0.1-1.0 Serum or plasma alkaline phosphatase measurement (enzymatic activity/volume) 64 U/L 40-136 Serum or plasma aspartate aminotransferase measurement (enzymatic activity/volume) 15 U/L 5-34 Serum or plasma alanine aminotransferase measurement (enzymatic activity/volume) 12 U/L 0-55 Serum or plasma protein measurement (mass/volume) 6.0 g/dL 6.4-8.2 Serum or plasma albumin measurement (mass/volume) 4.1 g/dL 3.2-4.5 CALCIUM CORRECTED 8.8 mg/dL 8.5-10.1 Serum or plasma troponin i.cardiac measurement (mass/volume) - 12/12/18 13:00 Serum or plasma troponin i.cardiac measurement (mass/volume) < ng/mL <0.028 THYROID STIMULATING HORMONE - 12/12/18 13:00 THYROID STIMULATING HORMONE 0.93 u[iU]/mL 0.35-4.94 Complete blood count (CBC) with automated white blood cell (WBC) differential - 12/16/18 16:39 Blood leukocytes automated count (number/volume) 4.3 10*3/uL 4.3-11.0 Blood erythrocytes automated count (number/volume) 4.05 10*6/uL 4.35-5.85 Venous blood hemoglobin measurement (mass/volume) 12.3 g/dL 13.3-17.7 Blood hematocrit (volume fraction) 36 % 40-54 Automated erythrocyte mean corpuscular volume 89 [foz_us] 80-99 Automated erythrocyte mean corpuscular hemoglobin (mass per erythrocyte) 30 pg 25-34 Automated erythrocyte mean corpuscular hemoglobin concentration measurement (mass/volume) 34 g/dL 32-36 Automated erythrocyte distribution width ratio 13.3 % 10.0- 14.5 Automated blood platelet count (count/volume) 136 10*3/uL 130-400 Automated blood platelet mean volume measurement 10.4 [foz_us] 7.4-10.4 Automated blood neutrophils/100 leukocytes 76 % 42-75 Automated blood lymphocytes/100 leukocytes 15 % 12-44 Blood monocytes/100 leukocytes 8 % 0-12 Automated blood eosinophils/100 leukocytes 1 % 0-10 Automated blood basophils/100 leukocytes 0 % 0-10 Blood neutrophils automated count (number/volume) 3.3 10*3 1.8-7.8 Blood lymphocytes automated count (number/volume) 0.7 10*3 1.0-4.0 Blood monocytes automated count (number/volume) 0.4 10*3 0.0- 1.0 Automated eosinophil count 0.0 10*3/uL 0.0-0.3 Automated blood basophil count (count/volume) 0.0 10*3/uL 0.0-0.1 Comprehensive metabolic panel - 12/16/18 16:39 Serum or plasma sodium measurement (moles/volume) 141 mmol/L 135-145 Serum or plasma potassium measurement (moles/volume) 4.5 mmol/L 3.6-5.0 Serum or plasma chloride measurement (moles/volume) 109 mmol/L 98-107 Carbon dioxide 25 mmol/L 21-32 Serum or plasma anion gap determination (moles/volume) 7 mmol/L 5-14 Serum or plasma urea nitrogen measurement (mass/volume) 39 mg/dL 7-18 Serum or plasma creatinine measurement (mass/volume) 1.92 mg/dL 0.60-1.30 Serum or plasma urea nitrogen/creatinine mass ratio 20 NRG Serum or plasma creatinine measurement with calculation of estimated glomerular filtration rate 35 NRG Serum or plasma glucose measurement (mass/volume) 108 mg/dL 70-105 Serum or plasma calcium measurement (mass/volume) 8.8 mg/dL 8.5-10.1 Serum or plasma total bilirubin measurement (mass/volume) 0.5 mg/dL 0.1-1.0 Serum or plasma alkaline phosphatase measurement (enzymatic activity/volume) 60 U/L 40-136 Serum or plasma aspartate aminotransferase measurement (enzymatic activity/volume) 13 U/L 5-34 Serum or plasma alanine aminotransferase measurement (enzymatic activity/volume) 11 U/L 0-55 Serum or plasma protein measurement (mass/volume) 6.4 g/dL 6.4-8.2 Serum or plasma albumin measurement (mass/volume) 4.2 g/dL 3.2-4.5 CALCIUM CORRECTED 8.6 mg/dL 8.5-10.1 Magnesium - 12/16/18 16:39 Magnesium 2.0 mg/dL 1.8-2.4 PT panel in platelet poor plasma by coagulation assay - 12/16/18 16:39 Prothrombin time (PT) in platelet poor plasma by coagulation assay 13.9 s 12.2-14.7 INR in platelet poor plasma or blood by coagulation assay 1.0 0.8-1.4 Activated partial thromboplastin time (aPTT) in platelet poor plasma bycoagulation assay - 12/16/18 16:39 Activated partial thromboplastin time (aPTT) in platelet poor plasma bycoagulation assay 29 s 24-35 Serum or plasma troponin i.cardiac measurement (mass/volume) - 12/16/18 16:39 Serum or plasma troponin i.cardiac measurement (mass/volume) < ng/mL <0.028 Myoglobin, serum - 12/16/18 16:39 Myoglobin, serum 79.1 ng/mL 10.0-92.0 Serum or plasma creatine kinase measurement (enzymatic activity/volume) - 12/16/18 16:39 Serum or plasma creatine kinase measurement (enzymatic activity/volume) 58 U/L 30-200 Serum or plasma troponin i.cardiac measurement (mass/volume) - 12/16/18 18:39 Serum or plasma troponin i.cardiac measurement (mass/volume) < ng/mL <0.028 Complete blood count (CBC) with automated white blood cell (WBC) differential - 02/25/19 00:10 Blood leukocytes automated count (number/volume) 9.6 10*3/uL 4.3-11.0 Blood erythrocytes automated count (number/volume) 3.92 10*6/uL 4.35-5.85 Venous blood hemoglobin measurement (mass/volume) 12.0 g/dL 13.3-17.7 Blood hematocrit (volume fraction) 36 % 40-54 Automated erythrocyte mean corpuscular volume 92 [foz_us] 80-99 Automated erythrocyte mean corpuscular hemoglobin (mass per erythrocyte) 31 pg 25-34 Automated erythrocyte mean corpuscular hemoglobin concentration measurement (mass/volume) 33 g/dL 32-36 Automated erythrocyte distribution width ratio 12.5 % 10.0- 14.5 Automated blood platelet count (count/volume) 111 10*3/uL 130-400 Automated blood platelet mean volume measurement 10.3 [foz_us] 7.4-10.4 Automated blood neutrophils/100 leukocytes 86 % 42-75 Automated blood lymphocytes/100 leukocytes 5 % 12-44 Blood monocytes/100 leukocytes 9 % 0-12 Automated blood eosinophils/100 leukocytes 0 % 0-10 Automated blood basophils/100 leukocytes 0 % 0-10 Blood neutrophils automated count (number/volume) 8.3 10*3 1.8-7.8 Blood lymphocytes automated count (number/volume) 0.4 10*3 1.0-4.0 Blood monocytes automated count (number/volume) 0.9 10*3 0.0- 1.0 Automated eosinophil count 0.0 10*3/uL 0.0-0.3 Automated blood basophil count (count/volume) 0.0 10*3/uL 0.0-0.1 Comprehensive metabolic panel - 02/25/19 00:10 Serum or plasma sodium measurement (moles/volume) 139 mmol/L 135-145 Serum or plasma potassium measurement (moles/volume) 4.2 mmol/L 3.6-5.0 Serum or plasma chloride measurement (moles/volume) 106 mmol/L 98-107 Carbon dioxide 21 mmol/L 21-32 Serum or plasma anion gap determination (moles/volume) 12 mmol/L 5-14 Serum or plasma urea nitrogen measurement (mass/volume) 39 mg/dL 7-18 Serum or plasma creatinine measurement (mass/volume) 2.63 mg/dL 0.60-1.30 Serum or plasma urea nitrogen/creatinine mass ratio 15 NRG Serum or plasma creatinine measurement with calculation of estimated glomerular filtration rate 24 NRG Serum or plasma glucose measurement (mass/volume) 115 mg/dL 70-105 Serum or plasma calcium measurement (mass/volume) 9.4 mg/dL 8.5-10.1 Serum or plasma total bilirubin measurement (mass/volume) 0.8 mg/dL 0.1-1.0 Serum or plasma alkaline phosphatase measurement (enzymatic activity/volume) 65 U/L 40-136 Serum or plasma aspartate aminotransferase measurement (enzymatic activity/volume) 12 U/L 5-34 Serum or plasma alanine aminotransferase measurement (enzymatic activity/volume) 12 U/L 0-55 Serum or plasma protein measurement (mass/volume) 6.6 g/dL 6.4-8.2 Serum or plasma albumin measurement (mass/volume) 4.2 g/dL 3.2-4.5 CALCIUM CORRECTED 9.2 mg/dL 8.5-10.1 Serum or plasma amylase measurement (enzymatic activity/volume) - 02/25/19 00:10 Serum or plasma amylase measurement (enzymatic activity/volume) 49 U/L 25-125 Lipase - 02/25/19 00:10 Lipase 19 U/L 8-78 Manual absolute plasma cell count - 02/25/19 00:10 Blood monocytes/100 leukocytes 5 % NRG Manual blood segmented neutrophils/100 leukocytes 88 % NRG Blood band neutrophils/100 leukocytes 1 % NRG Manual blood lymphocytes/100 leukocytes 6 % NRG Blood erythrocyte morphology finding identification NORMAL NRG Complete urinalysis with reflex to culture - 02/25/19 00:50 Urine color determination YELLOW NRG Urine clarity determination CLEAR NRG Urine pH measurement by test strip 5 5-9 Specific gravity of urine by test strip 1.020 1.016-1.022 Urine protein assay by test strip, semi-quantitative 2+ NEGATIVE Urine glucose detection by automated test strip NEGATIVE NEGATIVE Erythrocytes detection in urine sediment by light microscopy 1+ NEGATIVE Urine ketones detection by automated test strip 2+ NEGATIVE Urine nitrite detection by test strip NEGATIVE NEGATIVE Urine total bilirubin detection by test strip NEGATIVE NEGATIVE Urine urobilinogen measurement by automated test strip (mass/volume) NORMAL NORMAL Urine leukocyte esterase detection by dipstick NEGATIVE NEGATIVE Automated urine sediment erythrocyte count by microscopy (number/high power field) NONE NRG Automated urine sediment leukocyte count by microscopy (number/high power field) NONE NRG Bacteria detection in urine sediment by light microscopy NEGATIVE NRG Squamous epithelial cells detection in urine sediment by light microscopy RARE NRG Crystals detection in urine sediment by light microscopy NONE NRG Casts detection in urine sediment by light microscopy NONE NRG Mucus detection in urine sediment by light microscopy NEGATIVE NRG Complete urinalysis with reflex to culture NO NRG Encounters ACCT No. Visit Date/Time Discharge Status Pt. Type Provider Facility Loc./Unit Complaint [id number] 08/25/2013 07:56:00 08/25/2013 23:59:59 CLS Outpatient GREGORY CESAR PSYD [id number] 07/14/2013 08:09:00 07/14/2013 23:59:59 CLS Outpatient GREGORY CESAR PSYD 10/201702/23/2019 15:09:11 ACT Outpatient Christina WalkerSocorro [id number] 12/16/2018 16:20:00 12/16/2018 20:31:00 DIS Emergency TORIN GOINS, DEREJE Berman [facility] ER BLOOD PRESSURE [id number] 12/12/2018 12:31:00 12/12/2018 14:08:00 DIS Emergency CUCO BARR APRN [facility] ER LOW BP [id number] 11/01/2018 15:12:00 11/01/2018 17:30:00 DIS Emergency CUCO BARR APRN [facility] ER FALL/R SIDE PAIN [id number] 06/23/2018 00:29:00 06/23/2018 23:59:59 CLS Preadmit ARYAN ELLIOTT [facility] ONC [id number] 04/22/2018 10:06:00 04/22/2018 00:01:00 DIS Outpatient ARYAN ELLIOTT [facility] ONC [id number] 04/04/2018 08:49:00 04/06/2018 00:01:00 DIS Outpatient ARYAN ELLIOTT [facility] ONC [id number] 12/27/2016 15:20:00 12/27/2016 23:59:59 CLS Outpatient МАРИНА WOLFF MD [facility] RAD HX OF STONES [id number] 12/26/2016 01:44:00 12/26/2016 02:29:00 DIS Emergency RYLIE MARSHALL DO [facility] ER KIDNEY STONE [id number] 12/25/2016 01:24:00 12/25/2016 02:37:00 DIS Emergency INEZ DUVALL DO [facility] ER LEFT SIDE ABD PAIN [id number] 02/25/2019 00:32:00 Document Registration
--- OUTSIDE RECORDS SUMMARY | 2019-02-25 02:16 | XMS REPORT | Clinical Summary ---
Author Author [facility] Organization [facility] Address Unknown Phone Unavailable Care Team Providers Care Shop Service Technician Name Role Phone PCP Unavailable Allergies Not [...]
--- OUTSIDE RECORDS SUMMARY | 2019-02-25 02:16 | XMS REPORT | Clinical Summary ---
Author Author [facility] Organization [facility] Address Unknown Phone Unavailable Care Team Providers Care Ict Help Desk Officer Name Role Phone Unverified, Unverified Md PCP Unavailable Source Comments Some departments are not documenting in the electronic medical record. If you d o not see the information that you expected, contact Release of Information in [facility] [employer] Information Management department at [phone] for further assistan ce in locating additional records.[facility] Allergies Not on File Medications Not on [...] (1 of 2 - PCV13) INFLUENZA VACCINE 06/23/2019 Results Not on filefrom Last 3 Months
--- NOTE | 2019-02-25 06:41 | Diagnostic Imaging Report ---
PROCEDURE: CT urinary tract, rule out kidney stone. TECHNIQUE: Multiple contiguous axial images were obtained through the abdomen and pelvis without the use of intravenous contrast. Auto Exposure Controls were utilized during the CT exam to meet ALARA standards for radiation dose reduction. INDICATION: 68-year-old male presents to the ER with severe left flank pain for 2 days, History of renal calculi. COMPARISONS: 12/25/2016. FINDINGS: Lung bases are clear. Cardiac contour shows a small pericardial effusion. Coronary calcifications are seen. Lung bases are clear. Liver shows uniform attenuation. Gallbladder surgically absent. Spleen and GE junction are normal. Stomach and duodenal sweep are unremarkable. Pancreas shows sharp margins. Adrenals are normal. Kidneys show some minimal right perinephric stranding. There is prominent left perinephric stranding with moderate to severe left hydronephrosis. This left obstructive uropathy is secondary to a 7 mm stone in the left ureteropelvic junction. Multiple additional left renal calculi are seen, with the largest measuring approximately 7 mm in the inferior pole calyx of the left kidney. There is mild right hydronephrosis and right hydroureter secondary to a 7 mm stone in the right distal ureter. Bladder is nondistended. Prostatic calcifications are seen with a mildly prominent prostate. Prostate measures 5 cm in diameter. Nonopacified loops of small bowel show some fluid-filled loops but otherwise grossly normal. Large bowel contains fecal material and gas. There is no free air, free fluid or adenopathy. Visualized vasculature shows nonaneurysmal calcifications of the aorta extending to the iliac and femoral arteries. There is moderate degenerative changes in the lumbosacral spine with multilevel hypertrophic facet changes with prominent marginal endplate osteophytes. No lytic or blastic changes are seen. IMPRESSION: 1. Left obstructive uropathy with moderate left hydronephrosis is secondary to a 7 mm stone near the left ureteropelvic junction. 2. Mild prostatic enlargement 3. There is some minimal right perinephric stranding with some mild right hydronephrosis and right hydroureter secondary to a 6 mm stone in the right distal ureter. 4. Small pericardial effusion. 5. Multiple nonobstructing left renal calculi, largest measuring approximately 7 mm in the inferior pole calyx left kidney. Additional nonemergent findings as described above. Agree with [employer] report. Dictated by: Dictated on workstation # [id number]
--- NOTE | 2019-02-25 07:28 | Diagnostic Imaging Report ---
EXAM: ACUTE ABD SERIES INDICATION: Abdominal pain. Left flank pain. COMPARISON: None. FINDINGS: Normal heart size and pulmonary vascularity. No dense consolidation, pleural effusion or pneumothorax. No acute osseous findings. No free intraperitoneal air. Nonspecific bowel gas pattern. Cholecystectomy clips. No large stool burden. IMPRESSION: No acute radiographic findings in the chest or abdomen. Dictated by: Dictated on workstation # [id number]
[2019-02-25] MEDS ORDERED: TAMSULOSIN 0.4 MG (FLOMAX) CAP PO SCH (18:00)
== END 2019-02-25 02:05 | disposition home or self-care (01) ==
LOC: EDUNIT# 23:34 → ER 23:37
DX: N13.2 Hydronephrosis with renal and ureteral calculous obstruction (principal); N28.9 Disorder of kidney and ureter, unspecified; I10 Essential (primary) hypertension; E78.00 Pure hypercholesterolemia, unspecified; E11.9 Type 2 diabetes mellitus without complications; Z87.891 Personal history of nicotine dependence; Z98.890 Other specified postprocedural states; Z90.49 Acquired absence of other specified parts of digestive tract; Z87.19 Personal history of other diseases of the digestive system
CPT/HCPCS: 36415; 74022; 74176; 80053; 81000; 82150; 83690; 85007; 85027; 93041; 96361; 96374

== ENCOUNTER → 2019-02-26 | Outpatient (CLI) | payer MEDICARE, OTHER ==
[~2019-02-26] MED LIST changes: +ACHD5005 PO; +HYDR-34 PO; +ONDA4TAB11 PO; +SULF1TAB35 PO; +TAMS0.4C98 PO
--- NOTE | 2019-02-26 13:49 | Diagnostic Imaging Report ---
INDICATION: History of left-sided renal calculus. COMPARISON: 02/25/2019. FINDINGS: Single supine radiographic view of the abdomen was obtained and demonstrates a 6 mm calculus projecting over the left psoas muscle. This is felt to correspond to left ureteral calculus seen on previously performed CT. 8 mm calculus is also noted projecting over the inferior margins of the right sacrum and is felt to correspond to distal right ureteral calculus. Additional left renal calculi are also present. There is no unexpected repeat foreign body. Small bowel loops are nondistended. There is no large collection of free intraperitoneal air. Osseous structures show age-related degenerative changes. IMPRESSION: 1. Bilateral ureteral calculi as described above. 2. Left-sided nephrolithiasis. 3. Nonobstructive small bowel gas pattern. Dictated by: Dictated on workstation # [id number]
== END ==
LOC: RAD 10:45
PROVIDERS: ATTEND Urology
DX: N20.2 Calculus of kidney with calculus of ureter (principal)
CPT/HCPCS: 74018

== ENCOUNTER 2019-02-27 17:24 | Emergency (ER) | payer MEDICARE, OTHER ==
[~2019-02-27] VITALS: Ht 180.3 cm; Wt 93.0 kg
[~2019-02-27 17:24] MED LIST changes: -ACHD5005 PO
--- NOTE | 2019-02-27 18:40 | ED Back Pain ---
General Chief Complaint: Back Problems Stated Complaint: BACK PAIN Nursing Triage Note: STATES KIDNEY STONE DIAGNOSIS TWO DAYS AGO HERE IN ER, DR CLAY YESTERDAY. PT STILL IN PAIN. Nursing Sepsis Screen: No Definite Risk Source of Information: Patient Exam Limitations: No Limitations History of Present Illness Date Seen by Provider: Feb 27, 2019 Time Seen by Provider: 18:39 Initial Comments 69-year-old male who presents to the emergency room with complaints of kidney stones. He was seen and evaluated in the emergency room 2 days ago and was seen by Dr. Asher's office yesterday and is scheduled for basket retrieval Saturday of next week. He reports that he is still in pain. He reports taking his prescribed hydrocodone with minimal relief however he reports that he is pain-free on arrival to the emergency room. Location: Lumbar Spine Associated Symptoms: denies symptoms Allergies and Home Medications Allergies Coded Allergies: No Known Drug Allergies (Unverified , 11/01/18) Home Medications Hydrocodone Bit/Acetaminophen 1 Ea Tablet, 1 EA PO Q4H PRN for PAIN-MODERATE Prescribed by: RYLIE MARSHALL on 02/25/19143 Hydrocodone Bit/Acetaminophen 1 Tab Tab, 1-2 EACH PO Q6H PRN for PAIN-MODERATE Prescribed by: SINDHU CONNOLLY on 02/27/192015 Hydrocodone/Acetaminophen 1 Each Tablet, 1 EACH PO Q6H PRN for PAIN-MODERATE Prescribed by: CUCO BARR on 11/01/181711 Ketorolac Tromethamine 10 Mg Tablet, 10 MG PO Q6H Prescribed by: INEZ DUVALL on 12/25/16226 Ondansetron 4 Mg Tab.rapdis, 4 MG PO Q4H Prescribed by: RYLIE MARSHALL on 12/26/16213 Ondansetron 4 Mg Tab.rapdis, 4 MG PO Q4H Prescribed by: RYLIE MARSHALL on 02/25/19143 Sulfamethoxazole/Trimethoprim 1 Each Tablet, 1 EACH PO BID Prescribed by: RYLIE MARSHALL on 02/25/19143 Tamsulosin HCl 0.4 Mg Cap, 0.4 MG PO DAILY Prescribed by: RYLIE MARSHALL on 02/25/19143 Patient Home Medication List Home Medication List Reviewed: Yes Review of Systems Constitutional: see HPI; No chills, No fever Genitourinary: see HPI, other (kidney stone) Musculoskeletal: see HPI, back pain All Other Systems Reviewed Negative Unless Noted: Yes Past Kyzyrxz-Hcakzw-Eznjww Hx Past Med/Social Hx: Reviewed Nursing Past Med/Soc Hx Patient Social History Alcohol Use: Rarely Uses Number of Drinks Today: AA Alcohol Beverage of Choice: Beer Recreational Drug Use: Yes (on occassion) Smoking Status: Former Smoker Type Used: Cigarettes Former Smoker, Quit: Sep 29, 2003 2nd Hand Smoke Exposure: No Recent Foreign Travel: No Contact w/Someone Who Travel: No Recent Infectious Disease Expo: No Recent Hopitalizations: No Seasonal Allergies Seasonal Allergies: Yes Past Medical History Surgeries: Yes (UMBILICAL HERNIA) Abdominal, Gallbladder Respiratory: No Cardiac: Yes High Cholesterol, Hypertension Neurological: No Reproductive Disorders: No Genitourinary: Yes (HX OF KIDNEY STONES--NO SURGICAL REMOVAL OR LITHOTRIPSY) Kidney Stones Gastrointestinal: Yes (UMBILICAL HERNIA REPAIR; CHOLECYSTECTOMY) Abdominal Hernia, Gall Bladder Disease Musculoskeletal: No Endocrine: Yes Diabetes, Non-Insulin dep Cancer: No Psychosocial: No Integumentary: No Blood Disorders: No Family Medical History Reviewed Nursing Family Hx Physical Exam Vital Signs Vital Signs - First Documented 02/27/19 02/27/19 17:46 20:10 Temp 98.0 Pulse 94 Resp 18 B/P (MAP) 172/82 (112) Pulse Ox 99 O2 Delivery Room Air Capillary Refill : Less Than 3 Seconds Height, Weight, BMI Height: 5'11.00" Weight: 205lbs. oz. 92.172371ms; BMI Method:Stated General Appearance: No Apparent Distress, WD/WN Cardiovascular: Regular Rate, Rhythm, No Edema, No Gallop, No JVD, No Murmur, Normal Peripheral Pulses Respiratory: Chest Non Tender, Lungs Clear, Normal Breath Sounds, No Accessory Muscle Use, No Respiratory Distress, Accessory Muscle Use Extremity: Normal Capillary Refill Neurologic/Psychiatric: Alert, Oriented x3, Normal Mood/Affect Skin: Normal Color, Warm/Dry Progress/Results/Core Measures Results/Orders Lab Results Laboratory Tests Test 02/27/19 19:07 02/27/19 19:10 Range/Units White Blood Count 8.0 4.3-11.0 10^3/uL Red Blood Count 3.66 L 4.35-5.85 10^6/uL Hemoglobin 11.3 L 13.3-17.7 G/DL Hematocrit 34 L 40-54 % Mean Corpuscular Volume 92 80-99 FL Mean Corpuscular Hemoglobin 31 25-34 PG Mean Corpuscular Hemoglobin Concent 34 32-36 G/DL Red Cell Distribution Width 12.7 10.0-14.5 % Platelet Count 138 130-400 10^3/uL Mean Platelet Volume 10.0 7.4-10.4 FL Neutrophils (%) (Auto) 86 H 42-75 % Lymphocytes (%) (Auto) 5 L 12-44 % Monocytes (%) (Auto) 8 0-12 % Eosinophils (%) (Auto) 0 0-10 % Basophils (%) (Auto) 0 0-10 % Neutrophils # (Auto) 6.9 1.8-7.8 X 10^3 Lymphocytes # (Auto) 0.4 L 1.0-4.0 X 10^3 Monocytes # (Auto) 0.6 0.0-1.0 X 10^3 Eosinophils # (Auto) 0.0 0.0-0.3 10^3/uL Basophils # (Auto) 0.0 0.0-0.1 10^3/uL Neutrophils % (Manual) 83 % Lymphocytes % (Manual) 9 % Monocytes % (Manual) 8 % Eosinophils % (Manual) 0 % Basophils % (Manual) 0 % Band Neutrophils 0 % Blood Morphology Comment NORMAL Sodium Level 140 135-145 MMOL/L Potassium Level 4.4 3.6-5.0 MMOL/L Chloride Level 106 98-107 MMOL/L Carbon Dioxide Level 24 21-32 MMOL/L Anion Gap 10 5-14 MMOL/L Blood Urea Nitrogen 37 H 7-18 MG/DL Creatinine 2.48 H 0.60-1.30 MG/DL Estimat Glomerular Filtration Rate 26 BUN/Creatinine Ratio 15 Glucose Level 109 H 70-105 MG/DL Calcium Level 8.8 8.5-10.1 MG/DL Corrected Calcium 8.9 8.5-10.1 MG/DL Total Bilirubin 0.5 0.1-1.0 MG/DL Aspartate Amino Transf (AST/SGOT) 14 5-34 U/L Alanine Aminotransferase (ALT/SGPT) 17 0-55 U/L Alkaline Phosphatase 54 40-136 U/L Total Protein 6.4 6.4-8.2 GM/DL Albumin 3.9 3.2-4.5 GM/DL Urine Color YELLOW Urine Clarity SL CLOUDY Urine pH 5 5-9 Urine Specific [place] 1.020 1.016-1.022 Urine Protein 2+ H NEGATIVE Urine Glucose (UA) NEGATIVE NEGATIVE Urine Ketones 1+ H NEGATIVE Urine Nitrite NEGATIVE NEGATIVE Urine Bilirubin NEGATIVE NEGATIVE Urine Urobilinogen NORMAL NORMAL MG/DL Urine Leukocyte Esterase 1+ H NEGATIVE Urine RBC (Auto) 4+ H NEGATIVE Urine RBC 5-10 H /HPF Urine WBC 2-5 /HPF Urine Squamous Epithelial Cells 0-2 /HPF Urine Crystals PRESENT H /LPF Urine Calcium Oxalate Crystals FEW H /LPF Urine Bacteria TRACE /HPF Urine Casts PRESENT /LPF Urine Hyaline Casts RARE /LPF Urine Mucus SMALL H /LPF Urine Culture Indicated NO My Orders Orders - SINDHU CONNOLLY Ct Abd/Pelvis Wo(Kidney Stone) (02/27/19 18:58) Abdomen/Kub 1view (02/27/19 18:58) Ed Iv/Invasive Line Start (02/27/19 18:58) Ua Culture If Indicated (02/27/19 18:58) Cbc With Automated Diff (02/27/19 18:58) Comprehensive Metabolic Panel (02/27/19 18:58) Manual Differential (02/27/19 19:07) Vital Signs/I&O 02/27/19 02/27/19 02/27/19 17:46 20:10 20:20 Temp 98.0 97.7 Pulse 94 87 84 Resp 18 18 16 B/P (MAP) 172/82 (112) 171/77 (108) 170/76 (107) Pulse Ox 99 99 O2 Delivery Room Air Room Air Blood Pressure Mean: 112 Departure Impression Primary Impression: Right distal ureteral calculus Additional Impression: Calculus of proximal left ureter Disposition: 01 HOME, SELF-CARE Condition: Stable/Unchanged Departure-Patient Inst. Decision time for Depature: 20:15 Referrals: LUCIUS ALFONSO DO (PCP/Family) Primary Care Physician Patient Instructions: Kidney Stones in Adults Add. Discharge Instructions: Take medication as directed. And as previously prescribed. Follow-up with Dr. Ward scheduled. Return back to the emergency room for worsening symptoms or concerns as needed. All discharge instructions reviewed with patient and/or family. Voiced understanding. Scripts Hydrocodone Bit/Acetaminophen (Hydrocodone/Acetaminophen 5/325mg Tablet) 1 Tab Tab 1-2 EACH PO Q6H PRN for PAIN-MODERATE MDD 10 for 3 Days, #20 TAB 0 Refills Prov: SINDHU CONNOLLY 02/27/19 SINDHU CONNOLLY Feb 27, 2019 18:40
[2019-02-27 19:14] LABS: BASOPHILS % (AUTO) 0 % (0-10); EOSINOPHILS % (AUTO) 0 % (0-10); HEMATOCRIT 34 % (40-54); HEMOGLOBIN 11.3 G/DL (13.3-17.7); LYMPHOCYTES # (AUTO) 0.4 X 10^3 (1.0-4.0); LYMPHOCYTES % (AUTO) 5 % (12-44); MEAN CORPUSCULAR HEMOGLOBIN 31 PG (25-34); MEAN CORPUSCULAR HGB CONC 34 G/DL (32-36); MEAN CORPUSCULAR VOLUME 92 FL (80-99); MONOCYTES # (AUTO) 0.6 X 10^3 (0.0-1.0); MONOCYTES % (AUTO) 8 % (0-12); NEUTROPHILS # (AUTO) 6.9 X 10^3 (1.8-7.8); NEUTROPHILS % (AUTO) 86 % (42-75); PLATELET COUNT 138 10^3/uL (130-400); RED CELL DISTRIBUTION WIDTH 12.7 % (10.0-14.5)
[2019-02-27 19:19] LABS: BILIRUBIN,URINE NEGATIVE (NEGATIVE); COLOR,URINE YELLOW; GLUCOSE, URINE (UA) NEGATIVE (NEGATIVE); KETONES,URINE 1+ (NEGATIVE); LEUKOCYTE ESTERASE ,URINE 1+ (NEGATIVE); NITRITE,URINE NEGATIVE (NEGATIVE); PH,URINE 5 (5-9); PROTEIN,URINE 2+ (NEGATIVE); UROBILINOGEN,URINE NORMAL (NORMAL)
[2019-02-27 19:26] LABS: BACTERIA,URINE TRACE /HPF; CALCIUM OXALATE CRYSTALS,UR FEW /LPF; CLARITY,URINE SL CLOUDY; HYALINE CASTS, URINE RARE /LPF; SQUAMOUS EPITHELIAL CELL,UR 0-2 /HPF
[2019-02-27 19:33] LABS: BAND NEUTROPHILS 0 %; BASOPHILS % (MANUAL) 0 %; EOSINOPHILS % (MANUAL) 0 %; LYMPHOCYTES % (MANUAL) 9 %; MONOCYTES % (MANUAL) 8 %; NEUTROPHILS % (MANUAL) 83 %; RBC MORPH NORMAL
[2019-02-27 19:38] LABS: ALBUMIN 3.9 GM/DL (3.2-4.5); BILIRUBIN,TOTAL 0.5 MG/DL (0.1-1.0); CALCIUM 8.8 MG/DL (8.5-10.1); CREATININE SERUM 2.48 MG/DL (0.60-1.30); POTASSIUM 4.4 MMOL/L (3.6-5.0); TOTAL PROTEIN 6.4 GM/DL (6.4-8.2)
--- NOTE | 2019-02-27 19:39 | Diagnostic Imaging Report ---
PROCEDURE: CT urinary tract, rule out kidney stone. TECHNIQUE: Multiple contiguous axial images were obtained through the abdomen and pelvis without the use of intravenous contrast. Auto Exposure Controls were utilized during the CT exam to meet ALARA standards for radiation dose reduction. INDICATION: Abdominal pain. FINDINGS: The recent CT abdomen/pelvis exam of 02/25/2019 noted obstruction of the left collecting system due to a 7 mm calculus in the mid portion of the left ureter at the level of the pelvic brim. On this exam, the obstructive calculus is again evident. The calculus has migrated caudally approximately only 1 cm. There is still obstruction of the left collecting system, and there may be slightly greater perinephric stranding about the left kidney than noted on the prior study. The nonobstructive calculi in the left kidney seen previously are again evident and no different. The overall appearance of the abdomen and pelvis has not changed significantly otherwise. No new abnormality has developed. The bone windows show no sign of a fracture or of a destructive lesion. The lung bases remain clear. A trace pericardial effusion is again noted. IMPRESSION: 1. The obstructive calculus in the mid portion in the left ureter seen previously has migrated caudally only approximately 1 cm since the prior exam. There does seem to be slightly greater obstruction of the left collecting system since the prior exam as well. 2. The overall appearance of the abdomen and pelvis is otherwise stable. No new abnormality has developed. Dictated by: Dictated on workstation # [id number]
--- NOTE | 2019-02-27 19:46 | Diagnostic Imaging Report ---
INDICATION: Pain COMPARISON: 02/26/2019 TECHNIQUE: Two radiographs of the abdomen dated 02/27/2019. FINDINGS: Surgical clips are present overlying the right upper quadrant of the abdomen. Calcific densities overlying the left renal shadow are again identified, appearing similar to the prior examination. 7 mm calcification overlying the right pelvis is again identified and stable from the prior examination. Previously noted 6 mm calcification to the left of L5 is not as well visualized. No new calcifications. No acute osseous abnormality. Nonobstructive bowel gas pattern. Visualized lung bases are clear. IMPRESSION: Distal right ureterolith is again identified, appearing stable. Left renal calculi are again identified. Previously noted left-sided ureterolith is not as well visualized. This could relate to interval passage though is likely simply obscured by overlying osseous structures. Dictated by: Dictated on workstation # [id number]
[2019-02-27 20:10] VITALS: BP 171/77
[2019-02-27] MEDS ORDERED: ACHD5005 PO (20:16)
[2019-02-27 20:20] VITALS: BP 170/76
== END 2019-02-27 20:20 | disposition home or self-care (01) ==
LOC: EDUNIT# 17:24 → ER 17:25
DX: N20.2 Calculus of kidney with calculus of ureter (principal); E78.00 Pure hypercholesterolemia, unspecified; I10 Essential (primary) hypertension; E11.9 Type 2 diabetes mellitus without complications; Z90.49 Acquired absence of other specified parts of digestive tract; Z87.19 Personal history of other diseases of the digestive system; Z87.891 Personal history of nicotine dependence; Z98.890 Other specified postprocedural states
CPT/HCPCS: 36415; 74018; 74176; 80053; 81000; 85007; 85027

== ENCOUNTER → 2019-03-09 | Outpatient (CLI) | payer MEDICARE, OTHER ==
[~2019-03-09] MED LIST changes: +ACHD5005 PO; +AMLO1CAP7 PO; +CIPR-225 PO; +COLE1TAB PO; +DOXA4TAB2 PO; +MONT10TA24 PO; +PHEN-640 PO; +PRAV40TA2 PO
--- NOTE | 2019-03-09 17:49 | Diagnostic Imaging Report ---
INDICATION: Bilateral kidney stones. TIME OF EXAM: 1:39 p.m. COMPARISON: Correlation is made with prior study from 02/27/2019. FINDINGS: Bowel gas pattern is unremarkable. Calcific density overlies the lower pole of the left kidney, unchanged. There are some additional tiny punctate calcifications overlying the mid and upper pole of the left kidney, stable. Right kidney is obscured. Calcification in the right pelvis is unchanged in position. IMPRESSION: Overall stable appearance of the abdomen when compared with examination from 10 days earlier. Dictated by: Dictated on workstation # [id number]
== END ==
LOC: RAD 13:31
PROVIDERS: ATTEND Urology
DX: N20.2 Calculus of kidney with calculus of ureter (principal)
CPT/HCPCS: 74018

== ENCOUNTER 2019-03-10 10:09 | Outpatient (CLI) | payer MEDICARE, OTHER ==
[~2019-03-10] VITALS: Ht 180.3 cm; Wt 93.0 kg
[~2019-03-10 10:09] MED LIST changes: -AMLO1CAP7 PO; -CIPR-225 PO; -COLE1TAB PO; -DOXA4TAB2 PO; -MONT10TA24 PO; -PHEN-640 PO; -PRAV40TA2 PO
[2019-03-10] MEDS ORDERED: COLE1TAB PO (10:20)
[2019-03-10] MEDS ORDERED: AMLO1CAP7 PO (10:20)
[2019-03-10] MEDS ORDERED: DOXA4TAB2 PO (10:20)
[2019-03-10] MEDS ORDERED: TAMS0.4C98 PO (10:20)
[2019-03-10] MEDS ORDERED: MONT10TA24 PO (10:20)
[2019-03-10] MEDS ORDERED: PRAV40TA2 PO (10:20)
[2019-03-11] MEDS ORDERED: CIPR-225 PO (12:38)
[2019-03-11] MEDS ORDERED: PHEN-640 PO (12:38)
[2019-03-11] MEDS ORDERED: TAMS0.4C98 PO (12:38)
== END 2019-03-10 10:36 | disposition home or self-care (01) ==
LOC: PREOP 10:09
PROVIDERS: ATTEND Urology
DX: Z01.818 Encounter for other preprocedural examination (principal)

== ENCOUNTER 2019-03-11 07:21 | Day surgery (SDC) | payer MEDICARE, OTHER ==
[~2019-03-11] VITALS: Ht 180.3 cm; Wt 93.0 kg
[2019-03-11] VITALS (10 sets, daily range): BP systolic 120–189; BP diastolic 54–91
[~2019-03-11 07:21] MED LIST changes: +AMLO1CAP7 PO; +COLE1TAB PO; +DOXA4TAB2 PO; +MONT10TA24 PO; +PRAV40TA2 PO
--- NOTE | 2019-03-11 07:37 | Progress Note-Pre Operative ---
Pre-Operative Progress Note H&P Reviewed The H&P was reviewed, patient examined and no changes noted. Date Seen by Provider: Mar 11, 2019 Time Seen by Provider: 07:37 Date H&P Reviewed: Mar 11, 2019 Time H&P Reviewed: 07:37 Pre-Operative Diagnosis: BILATERAL URETERAL AND RENAL STONES МАРИНА WOLFF MD Mar 11, 2019 07:37
[2019-03-11] MEDS ORDERED: cefTRIAXone 1,000 MG IV (ROCEPHIN) VIAL ONE (08:26)
[2019-03-11] MEDS ORDERED: proPOfol 200 MG/20 ML (DIPRIVAN) VIAL IV ONE (08:40)
[2019-03-11] MEDS ORDERED: LIDOCAINE PF 2% 5 ML (XYLOCAINE) VIAL ONE (08:40)
[2019-03-11] MEDS ORDERED: MIDAZOLAM 2 MG/2 ML (VERSED) VIAL ONE (08:40)
[2019-03-11] MEDS ORDERED: ROCURONIUM 10 MG/ML 5 ML SYRINGE IV ONE (08:40)
[2019-03-11] MEDS ORDERED: ONDANSETRON 4 MG/2 ML (SDV) Z0FRAN ONE (08:40)
[2019-03-11] MEDS ORDERED: fentaNYL INJECTION 100 MCG/2 ML AMP ONE (08:40)
[2019-03-11] MEDS ORDERED: SEVOFLURANE (ULTANE) 15 ML INHAL SOLN ONE ×3 (09:50→10:32)
[2019-03-11] MEDS ORDERED: KETOROLAC 30 MG/ML VIAL ONE (10:04)
[2019-03-11] MEDS ORDERED: FUROSEMIDE 40 MG/4 ML INJ (LASIX) ONE (10:04)
[2019-03-11] MEDS ORDERED: morphine INJ 10 MG/ML 1ML (SYR OR VIAL) ONE (10:56)
[2019-03-11] MEDS ORDERED: PHENAZOPYRIDINE 100 MG (PYRIDIUM) TABLET ONE (11:39)
[2019-03-11] MEDS ORDERED: LIDOCAINE UROJET 2% GEL 10 ML PKG ONE (11:52)
[2019-03-11] MEDS ORDERED: cefTRIAXone 1,000 MG/SWFI 10 ML IV PUSH IV ONE ×2 (12:15)
--- NOTE | 2019-03-11 12:18 | Discharge Inst-Urology ---
Discharge Inst-Urology Discharge Medications New, Converted, or Re-newed RX: RX on Chart Patient Instructions/Follow Up Plan Please make appointment to been seen in office Friday 03/23. KUB prior to it KUB on way home Post ESWL instructions to patient Increase oral fluids for 48 hours and then as needed. Diet and Activity as tolerated. If questions or concerns contact your physician Or seek help at emergency department. МАРИНА WOLFF MD Mar 11, 2019 11:24
--- NOTE | 2019-03-11 12:20 | Progress Note-Post Operative ---
Post-Operative Progess Note Surgeon (s)/Training Mgr (s) Surgeon МАРИНА WOLFF MD Training Mgr: NONE Pre-Operative Diagnosis BILATERAL URETERAL AND RENAL STONES Post-Operative Diagnosis SAME, AND MEATAL STENOSIS Procedure & Operative Findings Date of Procedure 03/11/19 Procedure Performed/Findings CYSTO, UD, RT URETEROSCOPY WITH STONE LITHOTRIPSY, LT RETROGRADE UROGRAM AND LT ESWL Anesthesia Type GENERAL Estimated Blood Loss Estimated blood loss (mL): NONE Specimens/Packing Specimens Removed NONE Packing: NONE МАРИНА WOLFF MD Mar 11, 2019 12:20
[2019-03-11] MEDS ORDERED: LACTATED RINGERS 1,000 ML IV PRN (12:35)
[2019-03-11] MEDS ORDERED: PHEN-640 PO (12:38)
[2019-03-11] MEDS ORDERED: CIPR-225 PO (12:38)
[2019-03-11] MEDS ORDERED: TAMS0.4C98 PO (12:38)
[2019-03-11] MEDS ORDERED: cefTRIAXone FOR IV USE 1,000 MG in WATER (STERILE) FOR INJECTION 10 ML IV ONE (12:45)
--- NOTE | 2019-03-11 12:46 | Diagnostic Imaging Report ---
PATIENT HISTORY: Extracorporeal shockwave lithotripsy. TECHNIQUE: Frontal view of the abdomen. COMPARISON: 03/09/2019 FINDINGS: The calcification at the inferior pole of the left kidney is again seen. Punctate additional densities in the left kidney appear unchanged. The 8 mm calculus in the right pelvis appears unchanged. Additional smaller calcifications in the pelvis bilaterally may represent phleboliths. Bowel loops are nondistended. Surgical clips are noted in the right upper quadrant of the abdomen. No large collection of free air is seen. IMPRESSION: Calcifications at the left kidney and distal right ureter appear unchanged. Dictated by: Dictated on workstation # [id number]
--- OUTSIDE RECORDS SUMMARY | 2019-03-11 12:48 | XMS REPORT | Clinical Summary ---
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
--- OUTSIDE RECORDS SUMMARY | 2019-03-11 12:48 | XMS REPORT | Encounter Summary ---
Author Author [facility] Organization [facility] Address Unknown Phone Unavailable Care Team Providers Care Customer Orders Clerk Name Role Phone Unverified, Unverified Md PCP Unavailable Encounter Details Care Team Description Date Type Department Vince Jolly MD Forwarding Address Unknown Left [facility] 02/20/2019 Elevated PSA 09/28/2009 Hospital [facility] [address] [address] Social History Date Tobacco Use Types Packs/Day Years Used Never Assessed Sex Assigned at Date Recorded Not on file Industry Job Start Date Occupation Not on file Not on file Not on file Travel End Travel History Travel Start No recent travel history available. documented as of this encounter Plan of Treatment Not on filedocumented as of this encounter Procedures Comments Procedure Name Priority Date/Time Associated Diagnosis PATHOLOGY REPORT 09/28/2009 11:22 AM [employer] documented in this encounter Results * PATHOLOGY REPORT (09/28/2009 11:22 AM [employer]) PATHOLOGY [facility] RESULTS REPORT Department of Pathology and Laboratory Medicine Surgical Pathology Elidia Landin MD, PhD, Director [address] [place] [id number] Surgical Pathology Office:[phone] :[phone] SURGICAL PATHOLOGY REPORT NAME: KRISTI CHAVEZ SURG PATH #: [id number] MR #: [id number] ALT ID #: LOCATION: [facility] DATE OF PROCEDURE: 09/28/2009 AGE:59 SEX: M DATE RECEIVED: 09/28/2009 : 1950TIME RECEIVED:11:22 PHYSICIAN: VIDA JOLLY DATE OF REPORT: 09/30/2009 COPY TO:DATE OF PRINTIN09/30/2009 Final Diagnosis: A.Prostate, right, needle biopsy: Benign prostatic tissue. B.Prostate, left, needle biopsy: Benign prostatic tissue. Comment: Immunohistochemical stain [id number] specimens A and B supports the above diagnosis. Attestation: By this signature, I attest that I have personally formulated the final interpretation expressed in this report and that the above diagnosis is based upon my examination of the slides and/or other material indicated in this report. Electronically Signed Out [facility]/09/28/2009 Interpreted by: Martha Baxter M.D. (Attending Physician) Chu George M.D., Resident Material Received: A: needle biopsy - prostate right B: needle biopsy - prostate left History: 59-year-old male with a clinical history of elevated PSA. Gross Description: A.Received in formalin labeled "needle biopsy-prostate right" is a 0.6 x 0.5 x 0.1 cm aggregate of cylindrical, pale siu soft tissue fragments. The specimen is wrapped in filter paper and submitted entirely in cassettes A1 and A2. B.Received in formalin labeled "needle biopsy-prostate left" is a 0.8 x 0.5 x 0.1 cm aggregate of cylindrical, pale siu soft tissue fragments. The specimen is wrapped in filter paper and submitted entirely in cassettes B1 and B2.(Jdb) [facility]/09/28/2009 Chu George M.D., Residen If immunohistochemical stains and/or in situ hybridization are cited in this report, the performance characteristics were determined by the Department of Pathology and Laboratory Medicine of the [facility] ([employer]) in compliance with CLIA' 88 regulations.Some of these tests rely on the use of "analyte specific reagents" and are subject to specific labeling requirements by the FDA. Known positive and negative control tissues demonstrate appropriate staining.This testing was developed by the Department of Pathology and Laboratory Medicine of the [facility].It has not been cleared or approved by the FDA.The FDA has determined that such clearance or approval is not necessary. Specimen Performing Organization Address City/State/Zipcode Phone Number [facility] RESULTS documented in this encounter Visit Diagnoses Not on filedocumented in this encounter
--- OUTSIDE RECORDS SUMMARY | 2019-03-11 12:48 | XMS REPORT | Clinical Summary ---
Author Author [facility] Organization [facility] Address Unknown Phone Unavailable Care Team Providers Care Film Replacement Orderer Name Role Phone Unverified, Unverified Md PCP Unavailable Source Comments Some departments are not documenting in the electronic medical record. If you d o not see the information that you expected, contact Release of Information in [facility] Information Management department at [phone] for further assistan ce in locating additional records.[facility] Allergies Not on File Medications [...]
--- OUTSIDE RECORDS SUMMARY | 2019-03-11 12:49 | XMS REPORT | Continuity of Care Document ---
Author Organization Unknown Address Unknown Allergies Active Description Code Type Severity Reaction Onset Reported/Identified Relationship to Patient Clinical Status Yes No Known Drug Allergies [id number] Drug Allergy Unknown N/A 11/01/2018 Medications There [...] JOANNA DO, RYLIE K Ot Z79.899 OTHER SENIOR CARE (CURRENT) DRUG THERAPY 12/26/2016 JOANNA DO, RYLIE K Ot E11.9 TYPE 2 DIABETES MELLITUS WITHOUT COMPLIC 12/26/2016 JOANNA DO, RYLIE K Ot I10 ESSENTIAL (PRIMARY) HYPERTENSION 12/26/2016 JOANNA DO, RYLIE K Ot N20.2 CALCULUS OF KIDNEY WITH CALCULUS OF URET 12/26/2016 JOANNA DO, RYLIE K Ot R10.32 LEFT LOWER QUADRANT PAIN 12/26/2016 JOANNA DO, RYLIE K Ot Z79.899 OTHER SENIOR CARE (CURRENT) DRUG THERAPY 12/28/2016 МАРИНА WOLFF MD Ot N20.0 CALCULUS OF KIDNEY 01/02/2017 MARIELLA MD, МАРИНА A Ot N20.0 CALCULUS OF KIDNEY 02/05/2017 MARIELLA GOINS, МАРИНА A Ot N20.0 CALCULUS OF KIDNEY 02/26/2017 INEZ DUVALL DO Ot N13.2 HYDRONEPHROSIS WITH [...] 02/11/2018 LEXI, BOBAN N Ot Z79.899 OTHER PARKING GARAGE MANAGER (CURRENT) DRUG THERAPY 02/11/2018 LEXI, BOBAN N [...] 02/14/2018 LEXI, BOBAN N Ot Z79.899 OTHER SENIOR CARE (CURRENT) DRUG THERAPY 02/14/2018 LEXI, BOBAN N [...] 04/01/2018 LEXI, BOBAN N Ot Z79.899 OTHER PARKING GARAGE MANAGER (CURRENT) DRUG THERAPY 04/01/2018 LEXI, BOBAN N [...] 04/01/2018 LEXI, BOBAN N Ot Z79.899 OTHER PARKING GARAGE MANAGER (CURRENT) DRUG THERAPY 04/01/2018 LEXI, BOBAN N [...] 04/06/2018 LEXI, BOBAN N Ot Z79.899 OTHER SENIOR CARE (CURRENT) DRUG THERAPY 04/06/2018 LEXI, BOBAN N [...] 04/08/2018 LEXI, BOBAN N Ot Z79.899 OTHER PARKING GARAGE MANAGER (CURRENT) DRUG THERAPY 04/08/2018 LEXI, BOBAN N Ot Z87.01 PERSONAL HISTORY OF PNEUMONIA (RECURRENT 04/08/2018 LEXI, BOBAN N Ot Z87.891 PERSONAL HISTORY OF NICOTINE DEPENDENCE 04/22/2018 LEXI, BOBAN N Ot D61.818 OTHER PANCYTOPENIA 04/22/2018 LEXI, BOBAN N Ot E66.9 OBESITY, UNSPECIFIED 04/22/2018 LXEI, BOBAN N Ot E78.00 PURE HYPERCHOLESTEROLEMIA, UNSPECIFIED 04/22/2018 LEXI, BOBAN N Ot I12.9 HYPERTENSIVE CHRONIC KIDNEY DISEASE W ST 04/22/2018 LEXI, BOBAN N Ot N18.3 CHRONIC KIDNEY DISEASE, STAGE 3 (MODERAT 04/22/2018 LEXI, BOBAN N Ot Z79.899 OTHER SENIOR CARE (CURRENT) DRUG THERAPY 04/22/2018 LEXI, BOBAN N [...] 04/22/2018 LEXI, BOBAN N Ot Z79.899 OTHER SENIOR CARE (CURRENT) DRUG THERAPY 04/22/2018 ARYAN ELLIOTT N [...] 05/19/2018 LEXI BOBAN N Ot Z79.899 OTHER PARKING GARAGE MANAGER (CURRENT) DRUG THERAPY 05/19/2018 LEXI, BOBAN N [...] (MODERAT 11/01/2018 LEXIYASHIRAAN N Ot Z79.899 OTHER PARKING GARAGE MANAGER (CURRENT) DRUG THERAPY 11/01/2018 LEXI BOBAN N Ot Z87.01 PERSONAL HISTORY OF PNEUMONIA (RECURRENT 11/01/2018 LEXI, BOBAN N Ot Z87.891 PERSONAL HISTORY OF NICOTINE DEPENDENCE 11/01/2018 CUCO BARR APRN Ot E11.9 TYPE 2 DIABETES MELLITUS WITHOUT COMPLIC 11/01/2018 CUCO BARR APRN Ot E78.00 PURE HYPERCHOLESTEROLEMIA, UNSPECIFIED 11/01/2018 CUCO BARR MACHINE ASSEMBLER SUPERVISOR Ot I10 ESSENTIAL (PRIMARY) HYPERTENSION 11/01/2018 CUCO [...] APRN Ot Y92.007 [facility] NON-INSTITUT RESI 11/01/2018 CUCO BARR APRN [...] APRN Ot Y92.007 [facility] NON-INSTITUT RESI 11/04/2018 CUCO BARR APRN Ot Z87.442 PERSONAL HISTORY OF URINARY CALCULI 11/04/2018 BARR, PETER J MACHINE ASSEMBLER SUPERVISOR Ot Z87.891 PERSONAL HISTORY OF NICOTINE DEPENDENCE 11/04/2018 CUCO BARR MACHINE ASSEMBLER SUPERVISOR Ot Z98.890 OTHER SPECIFIED POSTPROCEDURAL STATES 12/12/2018 CUCO BARR MACHINE ASSEMBLER SUPERVISOR Ot E11.9 TYPE 2 DIABETES MELLITUS WITHOUT COMPLIC 12/12/2018 CUCO BARR MACHINE ASSEMBLER SUPERVISOR Ot E78.00 PURE HYPERCHOLESTEROLEMIA, UNSPECIFIED 12/12/2018 CUCO BARR MACHINE ASSEMBLER SUPERVISOR Ot I10 ESSENTIAL (PRIMARY) HYPERTENSION 12/12/2018 CUCO BARR MACHINE ASSEMBLER SUPERVISOR Ot I95.1 ORTHOSTATIC HYPOTENSION 12/12/2018 CUCO BARR MACHINE ASSEMBLER SUPERVISOR Ot R42 DIZZINESS AND GIDDINESS 12/12/2018 CUCO BARR MACHINE ASSEMBLER SUPERVISOR Ot Z87.442 PERSONAL HISTORY OF URINARY CALCULI 12/12/2018 CUCO BARR MACHINE ASSEMBLER SUPERVISOR Ot Z87.891 PERSONAL HISTORY OF NICOTINE DEPENDENCE 12/12/2018 CUCO BARR APRN Ot Z98.890 OTHER SPECIFIED POSTPROCEDURAL STATES 12/15/2018 CUCO BARR APRN Ot E11.9 TYPE 2 DIABETES MELLITUS WITHOUT COMPLIC 12/15/2018 CUCO BARR APRN Ot E78.00 PURE HYPERCHOLESTEROLEMIA, UNSPECIFIED 12/15/2018 CUCO BARR MACHINE ASSEMBLER SUPERVISOR Ot I10 ESSENTIAL (PRIMARY) HYPERTENSION 12/15/2018 CUCO BARR MACHINE ASSEMBLER SUPERVISOR Ot I95.1 ORTHOSTATIC HYPOTENSION 12/15/2018 CUOC BARR MACHINE ASSEMBLER SUPERVISOR Ot R42 DIZZINESS AND GIDDINESS 12/15/2018 CUCO BARR MACHINE ASSEMBLER SUPERVISOR Ot Z87.442 PERSONAL HISTORY OF URINARY CALCULI 12/15/2018 CUCO BARR MACHINE ASSEMBLER SUPERVISOR Ot Z87.891 PERSONAL HISTORY OF NICOTINE DEPENDENCE 12/15/2018 CUCO BARR MACHINE ASSEMBLER SUPERVISOR Ot Z98.890 OTHER SPECIFIED POSTPROCEDURAL STATES 12/16/2018 [...] Z98.890 OTHER SPECIFIED POSTPROCEDURAL STATES 12/23/2018 MARIELLA GIONS, МАРИНА Whitman Ot N20.0 CALCULUS OF KIDNEY 12/23/2018 ARYAN ELLIOTT Ot D61.818 OTHER PANCYTOPENIA 12/23/2018 ARYAN ELLIOTT Ot E66.9 OBESITY, UNSPECIFIED 12/23/2018 ARYAN ELLIOTT Ot E78.00 PURE HYPERCHOLESTEROLEMIA, UNSPECIFIED 12/23/2018 ARYAN ELLIOTT Ot I12.9 HYPERTENSIVE CHRONIC KIDNEY DISEASE W ST 12/23/2018 ARYAN ELLIOTT Ot N18.3 CHRONIC KIDNEY DISEASE, STAGE 3 (MODERAT 12/23/2018 ARYAN ELLIOTT Ot Z79.899 OTHER SENIOR CARE (CURRENT) DRUG THERAPY 12/23/2018 LEXIARYAN BLACKWELL Anna Ot Z87.01 PERSONAL HISTORY OF PNEUMONIA (RECURRENT 12/23/2018 LEXI, YASHIRAKAITLYN Anna Ot Z87.891 PERSONAL HISTORY OF NICOTINE DEPENDENCE 01/16/2019 CUCO BARR APRN Ot E11.9 TYPE 2 DIABETES MELLITUS WITHOUT COMPLIC 01/16/2019 CUCO BARR APRN Ot E78.00 PURE HYPERCHOLESTEROLEMIA, UNSPECIFIED 01/16/2019 CUCO BARR APRN Ot I10 ESSENTIAL (PRIMARY) HYPERTENSION 01/16/2019 CUCO BARR MACHINE ASSEMBLER SUPERVISOR Ot I95.1 ORTHOSTATIC HYPOTENSION 01/16/2019 CUCO BARR APRN Ot R42 DIZZINESS AND GIDDINESS 01/16/2019 CUCO BARR APRN Ot Z87.442 PERSONAL HISTORY OF URINARY CALCULI 01/16/2019 CUCO BARR APRN Ot Z87.891 PERSONAL HISTORY OF NICOTINE DEPENDENCE 01/16/2019 CUCO BARR APRN Ot Z98.890 OTHER SPECIFIED POSTPROCEDURAL STATES 03/02/2019 JOANNA DO, RYLIE K Ot E11.9 TYPE 2 DIABETES MELLITUS WITHOUT COMPLIC 03/02/2019 JOANNA DO, RYLIE K Ot E78.00 PURE HYPERCHOLESTEROLEMIA, UNSPECIFIED 03/02/2019 JOANNA DO, RYLIE K Ot I10 ESSENTIAL (PRIMARY) HYPERTENSION 03/02/2019 JOANNA DO, RYLIE K Ot 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 03/02/2019 JOANNA DO, RYLIE K Ot N28.9 DISORDER OF KIDNEY AND URETER, UNSPECIFI 03/02/2019 JOANNA DO, RYLIE K Ot R10.32 LEFT LOWER QUADRANT PAIN 03/02/2019 JOANNA DO, RYLIE K Ot Z87.19 PERSONAL HISTORY OF OTHER DISEASES OF TH 03/02/2019 JOANNA DO, RYLIE K Ot Z87.891 PERSONAL HISTORY OF NICOTINE DEPENDENCE 03/02/2019 JOANNA DO, RYLIE K Ot Z90.49 ACQUIRED ABSENCE OF OTHER SPECIFIED PART 03/02/2019 JOANNA DO, RYLIE K Ot Z98.890 OTHER SPECIFIED POSTPROCEDURAL STATES 03/04/2019 JOANNA DO, RYLIE K Ot E11.9 TYPE 2 DIABETES MELLITUS WITHOUT COMPLIC 03/04/2019 JOANNA DO, RYLIE K Ot E78.00 PURE HYPERCHOLESTEROLEMIA, UNSPECIFIED 03/04/2019 RYLIE MARSHALL DO Ot I10 ESSENTIAL (PRIMARY) HYPERTENSION 03/04/2019 RYLIE MARSHALL DO Ot 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 03/04/2019 RYLIE MARSHALL DO Ot N28.9 DISORDER OF KIDNEY AND URETER, UNSPECIFI 03/04/2019 RYLIE MARSHALL DO Ot R10.32 LEFT LOWER QUADRANT PAIN 03/04/2019 RYLIE MARSHALL DO Ot Z87.19 PERSONAL HISTORY OF OTHER DISEASES OF TH 03/04/2019 RYLIE MARSHALL DO Ot Z87.891 PERSONAL HISTORY OF NICOTINE DEPENDENCE 03/04/2019 RYLIE MARSHALL DO Ot Z90.49 ACQUIRED ABSENCE OF OTHER SPECIFIED PART 03/04/2019 RYLIE MARSHALL DO Ot Z98.890 OTHER SPECIFIED POSTPROCEDURAL STATES Procedures Code [place] [address] PSYCH DIAGNOSTIC EVALUATION 07/14/2013 21866 PSYTX PT&/FAMILY 30 MINUTES 08/25/2013 Results Test [...] urinalysis with reflex to culture NO NRG Complete blood count (CBC) with automated white blood cell (WBC) differential - 02/27/19 19:07 Blood leukocytes automated count (number/volume) 8.0 10*3/uL 4.3-11.0 Blood erythrocytes automated count (number/volume) 3.66 10*6/uL 4.35-5.85 Venous blood hemoglobin measurement (mass/volume) 11.3 g/dL 13.3-17.7 Blood hematocrit (volume fraction) 34 % 40-54 Automated erythrocyte mean corpuscular volume 92 [foz_us] 80-99 Automated erythrocyte mean corpuscular hemoglobin (mass per erythrocyte) 31 pg 25-34 Automated erythrocyte mean corpuscular hemoglobin concentration measurement (mass/volume) 34 g/dL 32-36 Automated erythrocyte distribution width ratio 12.7 % 10.0- 14.5 Automated blood platelet count (count/volume) 138 10*3/uL 130-400 Automated blood platelet mean volume measurement 10.0 [foz_us] 7.4-10.4 Automated blood neutrophils/100 leukocytes 86 % 42-75 Automated blood lymphocytes/100 leukocytes 5 % 12-44 Blood monocytes/100 leukocytes 8 % 0-12 Automated blood eosinophils/100 leukocytes 0 % 0-10 Automated blood basophils/100 leukocytes 0 % 0-10 Blood neutrophils automated count (number/volume) 6.9 10*3 1.8-7.8 Blood lymphocytes automated count (number/volume) 0.4 10*3 1.0-4.0 Blood monocytes automated count (number/volume) 0.6 10*3 0.0- 1.0 Automated eosinophil count 0.0 10*3/uL 0.0-0.3 Automated blood basophil count (count/volume) 0.0 10*3/uL 0.0-0.1 Manual absolute plasma cell count - 02/27/19 19:07 Blood monocytes/100 leukocytes 8 % NRG Manual blood segmented neutrophils/100 leukocytes 83 % NRG Blood band neutrophils/100 leukocytes 0 % NRG Manual blood lymphocytes/100 leukocytes 9 % NRG Manual eosinophils/100 leukocytes in nose 0 % NRG Manual blood basophils/100 leukocytes 0 % NRG Blood erythrocyte morphology finding identification NORMAL [facility] Comprehensive metabolic panel - 02/27/19 19:07 Serum or plasma sodium measurement (moles/volume) 140 mmol/L 135-145 Serum or plasma potassium measurement (moles/volume) 4.4 mmol/L 3.6-5.0 Serum or plasma chloride measurement (moles/volume) 106 mmol/L 98-107 Carbon dioxide 24 mmol/L 21-32 Serum or plasma anion gap determination (moles/volume) 10 mmol/L 5-14 Serum or plasma urea nitrogen measurement (mass/volume) 37 mg/dL 7-18 Serum or plasma creatinine measurement (mass/volume) 2.48 mg/dL 0.60-1.30 Serum or plasma urea nitrogen/creatinine mass ratio 15 NRG Serum or plasma creatinine measurement with calculation of estimated glomerular filtration rate 26 NRG Serum or plasma glucose measurement (mass/volume) 109 mg/dL 70-105 Serum or plasma calcium measurement (mass/volume) 8.8 mg/dL 8.5-10.1 Serum or plasma total bilirubin measurement (mass/volume) 0.5 mg/dL 0.1-1.0 Serum or plasma alkaline phosphatase measurement (enzymatic activity/volume) 54 U/L 40-136 Serum or plasma aspartate aminotransferase measurement (enzymatic activity/volume) 14 U/L 5-34 Serum or plasma alanine aminotransferase measurement (enzymatic activity/volume) 17 U/L 0-55 Serum or plasma protein measurement (mass/volume) 6.4 g/dL 6.4-8.2 Serum or plasma albumin measurement (mass/volume) 3.9 g/dL 3.2-4.5 CALCIUM CORRECTED 8.9 mg/dL 8.5-10.1 Complete urinalysis with reflex to culture - 02/27/19 19:10 Urine color determination YELLOW NRG Urine clarity determination SL CLOUDY NRG Urine pH measurement by test strip 5 5-9 Specific gravity of urine by test strip 1.020 1.016-1.022 Urine protein assay by test strip, semi-quantitative 2+ NEGATIVE Urine glucose detection by automated test strip NEGATIVE NEGATIVE Erythrocytes detection in urine sediment by light microscopy 4+ NEGATIVE Urine ketones detection by automated test strip 1+ NEGATIVE Urine nitrite detection by test strip NEGATIVE NEGATIVE Urine total bilirubin detection by test strip NEGATIVE NEGATIVE Urine urobilinogen measurement by automated test strip (mass/volume) NORMAL NORMAL Urine leukocyte esterase detection by dipstick 1+ NEGATIVE Automated urine sediment erythrocyte count by microscopy (number/high power field) [HPF] NRG Automated urine sediment leukocyte count by microscopy (number/high power field) [HPF] NRG Bacteria detection in urine sediment by light microscopy TRACE NRG Squamous epithelial cells detection in urine sediment by light microscopy 0-2 NRG Crystals detection in urine sediment by light microscopy PRESENT NRG Casts detection in urine sediment by light microscopy PRESENT NRG Mucus detection in urine sediment by light microscopy SMALL NRG Complete urinalysis with reflex to culture NO NRG Hyaline casts detection in urine sediment by light microscopy RARE NRG Calcium oxalate crystals detection in urine sediment by light microscopy FEW NRG Encounters ACCT No. Visit Date/Time Discharge Status Pt. Type Provider Facility Loc./Unit Complaint [id number] 08/25/2013 07:56:00 08/25/2013 23:59:59 CLS Outpatient GREGORY CESAR PSYD [id number] 07/14/2013 08:09:00 07/14/2013 23:59:59 CLS Outpatient GREGORY CESAR PSYD 10/201702/24/2019 12:59:37 02/24/2019 23:59:59 CLS Outpatient Christina Walker [id number] 2019 17:25:00 2019 20:20:00 DIS Emergency SINDHU CONNOLLY [facility] ER BACK PAIN [id number] 02/26/2019 10:45:00 02/26/2019 23:59:59 CLS Outpatient МАРИНА WOLFF MD [facility] RAD LT UPJ STONE [id number] 02/24/2019 23:37:00 02/25/2019 02:05:00 DIS Outpatient RYLIE MARSHALL DO [facility] ER SEVERE PAIN IN STOMACH AND SIDE [id number] 12/16/2018 16:20:00 12/16/2018 20:31:00 DIS Emergency DEREJE HARKINS MD [facility] ER BLOOD PRESSURE [id number] 12/12/2018 12:31:00 12/12/2018 14:08:00 DIS Emergency CUCO BARR APRN [facility] ER LOW BP [id number] 11/01/2018 15:12:00 11/01/2018 17:30:00 DIS Emergency CUCO BARR APRN [facility] ER FALL/R SIDE PAIN [id number] 06/23/2018 00:29:00 06/23/2018 23:59:59 CLS Preadmit ARYAN ELLIOTT [facility] ONC [id number] 04/22/2018 10:06:00 04/22/2018 00:01:00 DIS Outpatient ARYAN ELLIOTT [facility] ONC [id number] 04/04/2018 08:49:00 04/06/2018 00:01:00 DIS Outpatient ARYAN ELLIOTT [facility] ONC [id number] 12/27/2016 15:20:00 12/27/2016 23:59:59 CLS Outpatient MARIELLA GOINS, МАРИНА Whitman [facility] RAD HX OF STONES [id number] 12/26/2016 01:44:00 12/26/2016 02:29:00 DIS Emergency RYLIE MARSHALL DO [facility] ER KIDNEY STONE [id number] 12/25/2016 01:24:00 12/25/2016 02:37:00 DIS Emergency INEZ DUVALL DO [facility] ER LEFT SIDE ABD PAIN [id number] 03/11/2019 07:39:00 Document Registration [id number] 03/09/2019 13:31:00 ACT Outpatient МАРИНА WOLFF MD [facility] RAD BILAT URETERAL STONES
--- NOTE | 2019-03-11 12:58 | Anesthesia-General Post-Op ---
General Patient Condition Mental Status/LOC: Same as Preop Cardiovascular: Satisfactory Nausea/Vomiting: Absent Respiratory: Satisfactory Pain: Controlled Complications: Absent Post Op Complications Complications None Follow Up Care/Instructions Patient Instructions None needed. Anesthesia/Patient Condition Patient Condition Patient is doing well, no complaints, stable vital signs, no apparent adverse anesthesia problems. No complications reported per nursing. BOGDAN KINGSLEY CRNA Mar 11, 2019 12:58
--- NOTE | 2019-03-11 12:58 | Anesthesia-General Post-Op ---
MAC Patient Condition Mental Status/LOC: Same as Preop Cardiovascular: Satisfactory Nausea/Vomiting: Absent Respiratory: Satisfactory Pain: Controlled Complications: Absent Post Op Complications Complications None Follow Up Care/Instructions Patient Instructions None needed. Anesthesiology Discharge Order Discharge Order Patient is doing well, no complaints, stable vital signs, no apparent adverse anesthesia problems. No complications reported per nursing. BOGDAN KINGSLEY CRNA Mar 11, 2019 12:58
[2019-03-11] MEDS ORDERED: morphine INJ 10 MG/ML 1ML (SYR OR VIAL) IVP ONE (14:45)
[2019-03-11] MEDS ORDERED: PHENAZOPYRIDINE 100 MG (PYRIDIUM) TABLET PO ONE (15:00)
[2019-03-11] MEDS ORDERED: LIDOCAINE UROJET 2% GEL 10 ML PKG TOP ONE (15:00)
--- NOTE | 2019-03-11 17:14 | OPERATIVE REPORT ---
DATE OF SERVICE: 03/11/2019 PREOPERATIVE DIAGNOSIS: Bilateral distal ureteral stone. POSTOPERATIVE DIAGNOSES: 1. Bilateral distal ureteral stone. 2. Meatal stenosis. OPERATION PERFORMED: Cystoscopy with urethral dilatation, right ureteroscopy, left retrograde urogram and left ESWL. SURGEON: Марина Wolff MD. ANESTHESIA: General. COMPLICATIONS: None. DESCRIPTION OF PROCEDURE: Under satisfactory general anesthesia with the patient in lithotomy position, genitalia were prepped and draped in the usual sterile fashion. A 20-[place] Citizen cystoscope could not pass the meatus because of some stenosis. This was dilated with Bertin sounds from 22 to 26 easily. Cystoscope was then introduced. Anterior urethra was normal. The prostate was nonobstructing. There was a median bar. Bladder was entered that revealed . Ureteric orifices pulled upward and laterally with sluggish effluxes bilaterally. Using the foroblique lens, I dilated the right ureteral orifice intramural portion to the level of the stone, right side to accommodate a 6.9-[place] Citizen semi-rigid ureteroscope. I visualized the stone, went ahead and performed lithotripsy with the lithoclast, first with a power of 5 in order not to lose the stone proximally and then power of 12 with complete fragmentation of the stone occurred. Fragment was washed into the bladder mostly. Then, attention was directed to the left ureteral orifice. I inserted a left ureteral catheter, passed it out, could meet resistance where the stone that was presumably visualized this morning by KUB. I injected contrast to confirm filling defect and presence of the stone, which looked to be in a curve of the ureter, sitting down above the curve, so we moved the patient to the ESWL table, after emptying his bladder and removing the cystoscope, laid flat on the table. The stone was localized and shocks were delivered at a kV of 6, a total of 2500 shocks, we could not see the stone as well as the contrast flew back into the bladder. The patient received 40 mg of Lasix and 30 mg of Toradol IV at the end of the procedure. He tolerated the procedure and anesthesia well and was sent to recovery room in stable condition. Job ID: [id number] DocumentID: [id number] Dictated Date: 03/11/2019 10:25:44 Supervisor Soldering Date: 03/11/2019 14:53:50 Dictated By: МАРИНА WOLFF MD
--- NOTE | 2019-03-11 18:16 | Diagnostic Imaging Report ---
INDICATION: Post ESWL. COMPARISON: Compared with study earlier the same day. FINDINGS: Somewhat linear radiopacity in the left upper quadrant is a presumed stone in the lower pole calyx of the left kidney measuring a long axis of about 9 mm, unchanged. No appreciable stone fragments along the course of the ureter. New radiopacity projecting over the lower pole of the right kidney is presumed bowel content given the change from earlier study. IMPRESSION: Linear calculus over the lower pole of left kidney not significantly changed. No definite pelvic calculus on follow-up with phleboliths and atherosclerotic arterial calcifications noted. Dictated by: Dictated on workstation # [id number]
== END 2019-03-11 13:20 | disposition home or self-care (01) ==
LOC: SDC 07:21
PROVIDERS: ATTEND Urology
DX: N20.1 Calculus of ureter (principal); N35.911 Unspecified urethral stricture, male, meatal; Z11.2 Encounter for screening for other bacterial diseases; I10 Essential (primary) hypertension; E78.5 Hyperlipidemia, unspecified; Z87.891 Personal history of nicotine dependence; Z79.899 Other long term (current) drug therapy
CPT/HCPCS: 74018; 87081

== ENCOUNTER → 2019-04-02 | Outpatient (CLI) | payer MEDICARE, OTHER ==
[~2019-04-02] MED LIST changes: +CIPR-225 PO; +PHEN-640 PO
--- NOTE | 2019-04-02 10:52 | Diagnostic Imaging Report ---
INDICATION: Kidney stones. TIME OF EXAMINATION: 9:42 AM. COMPARISON: 03/11/2019. FINDINGS: A surgical clip in the right upper quadrant is noted. The previously noted linear calcification overlying the lower pole of the left kidney is not as well-seen on today's study although this area is somewhat obscured by overlying bowel gas. No definite radiopaque urinary tract calculi are seen. No calculi along the course of the ureters are identified. IMPRESSION: No definite radiopaque urinary tract calculi are identified on today's study. Dictated by: Dictated on workstation # [id number]
== END ==
LOC: RAD 09:32
PROVIDERS: ATTEND Urology
DX: N20.0 Calculus of kidney (principal)
CPT/HCPCS: 74018

== ENCOUNTER → 2019-05-28 | Outpatient (CLI) | payer MEDICARE, OTHER ==
[~2019-05-28] MED LIST changes: +AMLO-65 PO; -AMLO1CAP7 PO
[2019-05-28 09:39] LABS: BASOPHILS % (AUTO) 0 % (0-10); EOSINOPHILS # (AUTO) 0.1 10^3/uL (0.0-0.3); EOSINOPHILS % (AUTO) 2 % (0-10); HEMATOCRIT 36 % (40-54); HEMOGLOBIN 12.1 G/DL (13.3-17.7); LYMPHOCYTES # (AUTO) 0.6 X 10^3 (1.0-4.0); LYMPHOCYTES % (AUTO) 13 % (12-44); MEAN CORPUSCULAR HEMOGLOBIN 31 PG (25-34); MEAN CORPUSCULAR HGB CONC 34 G/DL (32-36); MEAN CORPUSCULAR VOLUME 91 FL (80-99); MEAN PLATELET VOLUME 10.1 FL (7.4-10.4); MONOCYTES # (AUTO) 0.3 X 10^3 (0.0-1.0); MONOCYTES % (AUTO) 7 % (0-12); NEUTROPHILS # (AUTO) 3.5 X 10^3 (1.8-7.8); NEUTROPHILS % (AUTO) 78 % (42-75); PLATELET COUNT 126 10^3/uL (130-400); RED CELL DISTRIBUTION WIDTH 12.6 % (10.0-14.5); WHITE BLOOD COUNT 4.5 10^3/uL (4.3-11.0)
[2019-05-28 10:02] LABS: ALBUMIN 4.1 GM/DL (3.2-4.5); BILIRUBIN,TOTAL 0.5 MG/DL (0.1-1.0); CALCIUM 8.5 MG/DL (8.5-10.1); CREATININE SERUM 1.67 MG/DL (0.60-1.30); POTASSIUM 4.4 MMOL/L (3.6-5.0); TOTAL PROTEIN 6.2 GM/DL (6.4-8.2)
== END ==
LOC: ONC 09:28
PROVIDERS: ATTEND Internal Medicine Hematology & Oncology
DX: E72.11 Homocystinuria (principal)
CPT/HCPCS: 36415; 80053; 83090; 83615; 83921; 85025; 99213

== ENCOUNTER 2019-09-03 10:02 | Emergency (ER) | payer MEDICARE, OTHER ==
[~2019-09-03] VITALS: Ht 180 cm; Wt 94.0 kg
--- NOTE | 2019-09-03 10:11 | ED Upper Extremity ---
General Stated Complaint: SHOULDER PAIN Source: patient History of Present Illness Date Seen by Provider: Sep 03, 2019 Time Seen by Provider: 10:11 Initial Comments 69-year-old male presents with occasional sharp short stabbing pain in the right paraspinal region. 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 Patient presents today because he just wants to make sure is "not his heart" because he has hypertension and had his medication changed about a week ago. Patient does not have any left-sided pain, shortness of breath, nausea, vomiting, diaphoresis or any other systemic complaints. Allergies and Home Medications Allergies Coded Allergies: No Known Drug Allergies (Unverified , 11/01/18) Home Medications Amlodipine Besylate/Benazepril 1 Each Capsule, 1 EACH PO DAILY, (Reported) Ciprofloxacin HCl 500 Mg Tablet, 500 MG PO BID Prescribed by: KISHAN CHILDS on 03/11/19 1238 Colestipol HCl 1 Gm Tablet, 1 GM PO DAILY, (Reported) Doxazosin Mesylate 4 Mg Tablet, 4 MG PO DAILY, (Reported) Hydrocodone Bit/Acetaminophen 1 Tab Tab, 1-2 EACH PO Q6H PRN for PAIN-MODERATE Prescribed by: SINDHU CONNOLLY on 02/27/192015 Montelukast Sodium 10 Mg Tablet, 10 MG PO DAILY, (Reported) Ondansetron 4 Mg Tab.rapdis, 4 MG PO Q4H Prescribed by: RYLIE MARSHALL on 02/25/19 0144 Phenazopyridine HCl 200 Mg Tablet, 1 TAB PO TID Prescribed by: KISHAN CHILDS on 03/11/19 1238 Pravastatin Sodium 40 Mg Tablet, 40 MG PO DAILY, (Reported) Tamsulosin HCl 0.4 Mg Cap, 0.4 MG PO DAILY, (Reported) Tamsulosin HCl 0.4 Mg Cap, 0.4 MG PO DAILY Prescribed by: KISHAN CHILDS on 03/11/19 1238 Patient Home Medication List Home Medication List Reviewed: Yes Review of Systems Constitutional: No chills, No fever EENTM: no symptoms reported Respiratory: No cough, No short of breath Cardiovascular: No chest pain, No palpitations Gastrointestinal: no symptoms reported Genitourinary: no symptoms reported Musculoskeletal: see HPI Skin: no symptoms reported Psychiatric/Neurological: No Symptoms Reported Past Qchhqio-Dbrads-Inomyd Hx Past Med/Social Hx: Reviewed Nursing Past Med/Soc Hx Patient Social History Alcohol Beverage of Choice: Beer Type Used: Cigarettes Former Smoker, Quit: Sep 29, 2003 2nd Hand Smoke Exposure: No Recent Foreign Travel: No Contact w/Someone Who Travel: No Recent Hopitalizations: No Seasonal Allergies Seasonal Allergies: Yes Past Medical History Surgeries: Yes (UMBILICAL HERNIA) Abdominal, Gallbladder Respiratory: No Cardiac: Yes High Cholesterol, Hypertension Neurological: No Reproductive Disorders: No Genitourinary: Yes Kidney Stones Gastrointestinal: No Abdominal Hernia, Gall Bladder Disease Musculoskeletal: No Endocrine: No Diabetes, Non-Insulin dep HEENT: No Cancer: No Psychosocial: No Integumentary: No Blood Disorders: No Physical Exam Vital Signs Vital Signs - First Documented 09/03/19 10:10 Temp 36.7 Pulse 65 Resp 16 B/P (MAP) 199/92 (127) Pulse Ox 98 O2 Delivery Room Air Capillary Refill : Height, Weight, BMI Height: 5'11.00" Weight: 205lbs. 0.0oz. [id number]; 28.6 BMI Method:Stated General Appearance: WD/WN, no apparent distress Neck: non-tender, full range of motion, supple, normal inspection Cardiovascular: normal peripheral pulses, regular rate, rhythm, no edema Respiratory: chest non-tender, lungs clear, normal breath sounds Gastrointestinal: normal bowel sounds, non tender, soft Back: normal inspection, no CVA tenderness, no vertebral tenderness Neurologic/Tendon: normal sensation, normal motor functions Neurologic/Psychiatric: no motor/sensory deficits, alert, normal mood/affect, oriented x 3 Skin: normal color, warm/dry Lymphatic: no adenopathy Progress/Results/Core Measures Results/Orders My Orders Orders - DONOVAN DUKE DO Ekg Tracing (09/03/19 10:21) Vital Signs/I&O 09/03/19 10:10 Temp 36.7 Pulse 65 Resp 16 B/P (MAP) 199/92 (127) Pulse Ox 98 O2 Delivery Room Air Initial ECG Impression Date: Sep 03, 2019 Initial ECG Impression Time: 10:30 Initial ECG Rate: 59 Initial ECG Rhythm: Normal Sinus Initial ECG Intervals: Normal Initial ECG Impression: Normal Departure Impression Primary Impression: Strain of thoracic paraspinal muscles excluding T1 and T2 levels Qualified Codes: S29.012A - Strain of muscle and tendon of back wall of thorax, initial encounter Additional Impressions: Strain of cervical portion of right trapezius muscle Hypertension Qualified Codes: I10 - Essential (primary) hypertension Disposition: 01 HOME, SELF-CARE Condition: Stable Departure-Patient Inst. Referrals: LUCIUS ALFONSO DO (PCP/Family) Primary Care Physician Patient Instructions: Muscle Strain, Cervical Muscle Strain (DC), Controlling Your Blood Pressure Through Lifestyle, Medicines for High Blood Pressure Add. Discharge Instructions: 4% lidocaine cream or gel with menthol to affected area as directed on package Tylenol or ibuprofen as needed for pain Emergency department focuses on treating and ruling out life-threatening diseases. Whenever possible, a diagnosis is given. However, most patients are given an impression based on their history, physical exam, and workup during your brief time in the ER. Information about probable diagnosis and other educational material has been provided. Please take the time to read and understand this information. It is very important that you follow up with a physician as discussed during the visit today. Failure to adhere to your follow-up instructions may lead to severe disability, injury, or so please make sure to keep your appointments or obtain one as requested. Please keep in mind the emergency department is not designed to your primary care or "family doctor" and nonurgent issues are best evaluated by an outpatient physician DONOVAN DUKE DO Sep 03, 2019 10:11 POS
[2019-09-03 10:55] VITALS: BP 179/82
== END 2019-09-03 10:55 | disposition home or self-care (01) ==
LOC: EDUNIT# 10:02 → ER 10:03
DX: S29.012A Strain of muscle and tendon of back wall of thorax, initial encounter (principal); I10 Essential (primary) hypertension; E11.9 Type 2 diabetes mellitus without complications; E78.00 Pure hypercholesterolemia, unspecified; Z87.442 Personal history of urinary calculi; Z87.19 Personal history of other diseases of the digestive system; Z87.891 Personal history of nicotine dependence; X50.0XXA Overexertion from strenuous movement or load, initial encounter
CPT/HCPCS: 93005

== ENCOUNTER 2019-09-06 09:53 | Emergency (ER) | payer MEDICARE, OTHER ==
[~2019-09-06] VITALS: Ht 180 cm; Wt 94.0 kg
--- NOTE | 2019-09-06 11:08 | Diagnostic Imaging Report ---
PA and lateral chest. INDICATION: Cough and shortness of breath. COMPARISON: From a previous abdominal series on 02/25/2019. FINDINGS: There are chronic interstitial changes present within the lungs with diaphragmatic flattening compatible with air trapping and probable underlying COPD. No superimposed infiltrates evident. There is no effusion or pneumothorax. Heart size appropriate. Pulmonary vascularity appears normal. IMPRESSION: Apparent features of COPD without evidence of an acute superimposed cardiopulmonary process. Dictated by: Dictated on workstation # [id number]
[2019-09-06] MEDS ORDERED: cefTRIAXone 1,000 MG IV (ROCEPHIN) VIAL ONE (11:17)
[2019-09-06] MEDS ORDERED: FLUT9.9S NS (11:20)
[2019-09-06] MEDS ORDERED: BENZ100C18 PO (11:20)
[2019-09-06] MEDS ORDERED: RT-ALBUINH IH (11:20)
[2019-09-06] MEDS ORDERED: METH4TAB PO (11:20)
[2019-09-06] MEDS ORDERED: DOXY100C42 PO (11:20)
[2019-09-06] MEDS ORDERED: INHA1SPA32 MC (11:20)
[2019-09-06] MEDS ORDERED: GUAI1TBM19 PO (11:20)
--- NOTE | 2019-09-06 11:20 | ED Cough/URI ---
General Chief Complaint: Respiratory Problems Stated Complaint: PRODUCTIVE COUGH/SOB Nursing Triage Note: Patient reports nasal drainage with a productive cough, increased SOA. Sepsis Screen: No Definite Risk Source: patient History of Present Illness Date Seen by Provider: Sep 06, 2019 Time Seen by Provider: 10:25 Initial Comments PT ARRIVES VIA POV FROM HOME STATES HE HAS CHRONIC NASAL DRAINAGE, BUT HAS BEEN WORSE FOR THE LAST COUPLE OF DAYS HAS ALSO HAD A PRODUCTIVE COUGH WITH COLORED SPUTUM, "WET BRONCHIAL TUBES" SINCE THIS AM, AND PT WAS WHEEZING LAST PM PT STATES HE HAS HAD SOME SHORTNESS OF BREATH THE LAST COUPLE OF DAYS WELL NO CHEST PAIN NO FEVER/SWEATS/CHILLS NO NAUSEA/VOMITING NO SWELLING IN LEGS/ FEET NO HEADACHE NO BODY ACHES NO KNOWN SICK CONTACTS PT STATES HE HAS HAD PNEUMONIA, AND IS CONCERNED THAT HE MIGHT BE GETTING IT AGAIN. HAD BEEN PRESCRIBED AN INHALER FOR THAT, BUT HAS NOT USED AN INHALER AT ANY OTHER TIME--STATES IT HELPED ALOT IN THE PAST PT SMOKED 1 1/2 PPD, QUIT IN 2001 STATES HE HAS NEVER BEEN DX WITH COPD/ASTHMA/EMPHYSEMA PT WAS SEEN HERE 09/03/19 FOR RIGHT UPPER BACK PAIN--DOES NOT COMPLAIN OF BACK PAIN AT THIS TIME PCP: DR. ALFONSO. HAS NEW PT APPOINTMENT WITH DR. Lester MONTAÑO NEXT WEEK Allergies and Home Medications Allergies Coded Allergies: No Known Drug Allergies (Unverified , 11/01/18) Home Medications Albuterol Sulfate 1 Puff Puff, 2 PUFF IH Q4H Prescribed by: RYLIE MARSHALL on 09/06/19 1120 Amlodipine Besylate/Benazepril 1 Each Capsule, 1 EACH PO DAILY, (Reported) Benzonatate 100 Mg Capsule, 1-2 TAB PO TID Prescribed by: RYLIE MARSHALL on 09/06/19 1120 Ciprofloxacin HCl 500 Mg Tablet, 500 MG PO BID Prescribed by: KISHAN CHILDS on 03/11/19 1238 Colestipol HCl 1 Gm Tablet, 1 GM PO DAILY, (Reported) Doxazosin Mesylate 4 Mg Tablet, 4 MG PO DAILY, (Reported) Doxycycline Monohydrate 100 Mg Capsule, 100 MG PO BID Prescribed by: RYLIE MARSHALL on 09/06/19 1120 Fluticasone Propionate 9.9 Ml [place].susp, 2 SPRAYS NS BID Prescribed by: RYLIE MARSHALL on 09/06/19 1120 Guaifenesin/Dextromethorphan 1 Each Tbmp.12hr, 1 EACH PO BID Prescribed by: RYLIE MARSHALL on 09/06/19 1120 Hydrocodone Bit/Acetaminophen 1 Tab Tab, 1-2 EACH PO Q6H PRN for PAIN-MODERATE Prescribed by: SINDHU CONNOLLY on 02/27/192015 Methylprednisolone 4 Mg Tab.ds.pk, 4 MG PO UD Prescribed by: RYLIE MARSHALL on 09/06/19 1120 Montelukast Sodium 10 Mg Tablet, 10 MG PO DAILY, (Reported) Ondansetron 4 Mg Tab.rapdis, 4 MG PO Q4H Prescribed by: RYLIE MARSHALL on 02/25/19 0144 Phenazopyridine HCl 200 Mg Tablet, 1 TAB PO TID Prescribed by: KISHAN CHILDS on 03/11/19 1238 Pravastatin Sodium 40 Mg Tablet, 40 MG PO DAILY, (Reported) Tamsulosin HCl 0.4 Mg Cap, 0.4 MG PO DAILY, (Reported) Tamsulosin HCl 0.4 Mg Cap, 0.4 MG PO DAILY Prescribed by: KISHAN CHILDS on 03/11/19 1238 Patient Home Medication List Home Medication List Reviewed: Yes Review of Systems Review of Systems Constitutional: no symptoms reported; No chills, No diaphoresis, No dizziness, No fever EENTM: see HPI, nose congestion, other (POST NASAL DRAINAGE); No throat pain Respiratory: see HPI, cough, phlegm, short of breath, wheezing Cardiovascular: no symptoms reported; No chest pain, No edema, No palpitations, No syncope Gastrointestinal: no symptoms reported Genitourinary: no symptoms reported Musculoskeletal: no symptoms reported, see HPI Skin: no symptoms reported Psychiatric/Neurological: No Symptoms Reported Hematologic/Lymphatic: No Symptoms Reported Immunological/Allergic: no symptoms reported Past Hkvhucy-Pahfew-Stunza Hx Past Med/Social Hx: Reviewed and Corrections made Patient Social History Alcohol Use: Occasionally Uses Number of Drinks Today: AA Alcohol Beverage of Choice: Beer Recreational Drug Use: No Smoking Status: Former Smoker (09/24 PPD, QUIT 2001) Type Used: Cigarettes Former Smoker, Quit: Sep 23, 2001 2nd Hand Smoke Exposure: No Recent Foreign Travel: No Contact w/Someone Who Travel: No Recent Infectious Disease Expo: No Recent Hopitalizations: No Seasonal Allergies Seasonal Allergies: Yes Past Medical History Surgeries: Yes (UMBILICAL HERNIA REPAIR; 03/11/19--CYSTOSCOPY/URETHRAL STENOSIS/LEFT ESWL BY DR. WOLFF) Abdominal, Gallbladder, Renal Respiratory: Yes Pneumonia Cardiac: Yes High Cholesterol, Hypertension Neurological: No Reproductive Disorders: No Genitourinary: Yes (03/11/19--CYSTOSCOPY/URETHRAL DILATION FOR MEATAL STENOSIS/LEFT ESWL) Kidney Stones Gastrointestinal: Yes (UMBILICAL HERNIA REPAIR) Abdominal Hernia, Gall Bladder Disease Musculoskeletal: No Endocrine: Yes Diabetes, Non-Insulin dep HEENT: No Cancer: No Psychosocial: No Integumentary: No Blood Disorders: No Physical Exam Vital Signs - First Documented 09/06/19 10:01 Temp 36.5 Pulse 61 Resp 18 B/P (MAP) 166/85 (112) Pulse Ox 98 Capillary Refill : Less Than 3 Seconds Height: 5'11.00" Weight: 205lbs. 0.0oz. [id number]; 29.00 BMI Method:Stated General Appearance: WD/WN, no apparent distress, other (DOES NOT APPEAR ILL OR TO BE IN ANY DISCOMFORT OR DISTRESS. 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 as tested, no motor/sensory deficits, alert, normal mood/affect, oriented x 3 Skin: normal color, warm/dry Progress/Results/Core Measures Suspected Sepsis Recent Fever Within 48 Hours: No Infection Criteria Present: None New/Unexplained Altered Menta: No Sepsis Screen: No Definite Risk SIRS Temperature: Pulse: 61 Respiratory Rate: 18 Blood Pressure 166 /85 Mean: 112 Results/Orders Micro Results Microbiology 09/06/19 Influenza Types A,B Antigen (ARCELIA) - Final, Complete My Orders Orders - RYLIE MARSHALL DO Influenza A And B Antigens (09/06/19 10:29) Chest Pa/Lat (2 View) (09/06/19 10:42) Ceftriaxone For Im Use (Rocephin For Im (09/07/19 09:00) Methylprednisolone Sod Succ (Solu-Medrol (09/06/19 11:30) Lidocaine 1% Inj 20 Ml (Xylocaine 1% Inj (09/06/19 11:30) Ceftriaxone For Iv Use (Rocephin For I (09/06/19 11:17) Vital Signs/I&O 09/06/19 10:01 Temp 36.5 Pulse 61 Resp 18 B/P (MAP) 166/85 (112) Pulse Ox 98 Capillary Refill : Less Than 3 Seconds Blood Pressure Mean: 112 POS Diagnostic Imaging Comments CXR--NO ACUTE PROCESS, CHANGES OF COPD, PER RADIOLOGIST REPORT AT 1110 Reviewed: Reviewed by Me Departure Impression Primary Impression: Bronchitis Additional Impression: COPD FINDINGS ON CXR Disposition: HOME, SELF-CARE Condition: Stable Departure-Patient Inst. Referrals: LUCIUS ALFONSO DO (PCP/Family) Primary Care Physician DHIRAJ MONTAÑO MD Patient Instructions: Acute Bronchitis, Child (DC), COPD Including Emphysema (DC) Add. Discharge Instructions: LOTS OF CLEAR LIQUIDS TYLENOL AND MOTRIN NEEDED FOR PAIN OR FEVER FOLLOW UP WITH DR. Lester MONTAÑO NEXT WEEK SCHEDULED, RETURN TO ER IF WORSE All discharge instructions reviewed with patient and/or family. Voiced understanding. Scripts Inhaler, Assist Devices (Compact Space Chamber) 1 Each Spacer EACH MC for O, #1 Prov: RYLIE MARSHALL DO 09/06/19 Benzonatate (TESSALON PERLES) 100 Mg Capsule 1-2 TAB PO TID for Cough, #30 CAP Prov: RYLIE MARSHALL DO 09/06/19 Guaifenesin/Dextromethorphan (Mucinex Dm ER 1,200-60 mg Tab) 1 Each Tbmp.12hr 1 EACH PO BID for 10 Days, #20 EA Prov: RYLIE MARSHALL DO 09/06/19 Methylprednisolone (Medrol) 4 Mg Tab.ds.pk 4 MG PO UD, #1 PKG Prov: RYLIE MARSHALL DO 09/06/19 Fluticasone Propionate (Flonase Allergy Relief) 9.9 Ml [place].susp 2 SPRAYS NS BID, #1 SPRAY Prov: RYLIE MARSHALL DO 09/06/19 Albuterol Sulfate (PROAIR HFA) 1 Puff Puff 2 PUFF IH Q4H for BREATHING, #1 UNIT Prov: RYLIE MARSHALL DO 09/06/19 Doxycycline Monohydrate (Doxycycline Monohydrate) 100 Mg Capsule 100 MG PO BID, #20 CAP Prov: RYLIE MARSHALL DO 09/06/19 RYLIE MARSHALL DO Sep 06, 2019 11:20 POS
[2019-09-06] MEDS ORDERED: LIDOCAINE 1% INJ 20 ML 20 ML VIAL INJ ONE (11:30)
[2019-09-06] MEDS ORDERED: methylPREDNISolone 125 MG (Solu-MEDROL) VIAL IM ONE (11:30)
[2019-09-06 11:46] VITALS: BP 179/86
[2019-09-07] MEDS ORDERED: cefTRIAXone 1,000 MG/2.86 ml vial (IM ONLY) IM SCH (09:00)
== END 2019-09-06 11:46 | disposition home or self-care (01) ==
LOC: EDUNIT# 09:53 → ER 09:54
DX: J40 Bronchitis, not specified as acute or chronic (principal); R91.8 Other nonspecific abnormal finding of lung field; I10 Essential (primary) hypertension; E78.00 Pure hypercholesterolemia, unspecified; E11.9 Type 2 diabetes mellitus without complications; Z79.52 Long term (current) use of systemic steroids; Z87.891 Personal history of nicotine dependence; Z87.442 Personal history of urinary calculi
CPT/HCPCS: 71046; 87804

== ENCOUNTER → 2020-02-12 | Outpatient (CLI) | payer MEDICARE, OTHER ==
[~2020-02-12] MED LIST changes: +BENZ100C18 PO; +DOXY100C42 PO; +FLUT9.9S NS; +GUAI1TBM19 PO; +INHA1SPA32 MC; +METH4TAB PO; -MONT10TA24 PO; +MONT10TA26 PO; +RT-ALBUINH IH; -TAMS0.4C98 PO; +TMSL.4C PO
== END ==
LOC: LABNPT 14:58
PROVIDERS: ATTEND Urology
DX: C61 Malignant neoplasm of prostate (principal)
CPT/HCPCS: 87635

== ENCOUNTER → 2020-06-02 | Outpatient (CLI) | payer MEDICARE, OTHER ==
[2020-06-02 09:36] LABS: BASOPHILS % (AUTO) 0 % (0-10); EOSINOPHILS # (AUTO) 0.1 10^3/uL (0.0-0.3); EOSINOPHILS % (AUTO) 1 % (0-10); HEMATOCRIT 36 % (40-54); HEMOGLOBIN 12.1 G/DL (13.3-17.7); LYMPHOCYTES # (AUTO) 0.6 X 10^3 (1.0-4.0); LYMPHOCYTES % (AUTO) 13 % (12-44); MEAN CORPUSCULAR HEMOGLOBIN 30 PG (25-34); MEAN CORPUSCULAR HGB CONC 33 G/DL (32-36); MEAN CORPUSCULAR VOLUME 89 FL (80-99); MEAN PLATELET VOLUME 10.3 FL (7.4-10.4); MONOCYTES # (AUTO) 0.4 X 10^3 (0.0-1.0); MONOCYTES % (AUTO) 9 % (0-12); NEUTROPHILS # (AUTO) 3.4 X 10^3 (1.8-7.8); NEUTROPHILS % (AUTO) 77 % (42-75); PLATELET COUNT 121 10^3/uL (130-400); WHITE BLOOD COUNT 4.4 10^3/uL (4.3-11.0)
[2020-06-02 10:01] LABS: ALBUMIN 3.9 GM/DL (3.2-4.5); BILIRUBIN,TOTAL 0.5 MG/DL (0.1-1.0); CALCIUM 8.7 MG/DL (8.5-10.1); CREATININE SERUM 1.59 MG/DL (0.60-1.30); POTASSIUM 4.4 MMOL/L (3.6-5.0)
== END ==
LOC: EDSTATUS 04-20 14:45 → ONC 09:28
PROVIDERS: ATTEND Internal Medicine Hematology & Oncology
DX: D61.818 Other pancytopenia (principal); F41.9 Anxiety disorder, unspecified; I12.9 Hypertensive chronic kidney disease with stage 1 through stage 4 chronic kidney disease, or unspecified chronic kidney disease; N18.3 Chronic kidney disease, stage 3 (moderate); K21.9 Gastro-esophageal reflux disease without esophagitis; E78.5 Hyperlipidemia, unspecified; R97.20 Elevated prostate specific antigen [PSA]
CPT/HCPCS: 80053; 83615; 85025; G0463; 99213

== ENCOUNTER 2020-06-09 12:30 | Outpatient (CLI) | payer MEDICARE, OTHER ==
[~2020-06-09] VITALS: Ht 180 cm; Wt 90.2 kg
[2020-06-09 12:46] VITALS: BP 138/70
[2020-06-09] MEDS ORDERED: ASPI-999 PO (12:53)
[2020-06-09] MEDS ORDERED: AZEL137S11 NS (12:53)
[2020-06-09] MEDS ORDERED: HYDR-3923 PO (12:53)
[2020-06-09] MEDS ORDERED: METO50TA15 PO (12:53)
[2020-06-09] MEDS ORDERED: MULT-1136 PO (12:53)
[2020-06-09] MEDS ORDERED: LOPE2CAP PO (12:53)
[2020-06-09] MEDS ORDERED: AMLO1CAP4 PO (12:53)
[2020-06-09 13:30] LABS: BASOPHILS % (AUTO) 0 % (0-10); EOSINOPHILS % (AUTO) 1 % (0-10); HEMATOCRIT 35 % (40-54); HEMOGLOBIN 11.6 G/DL (13.3-17.7); LYMPHOCYTES # (AUTO) 0.6 X 10^3 (1.0-4.0); LYMPHOCYTES % (AUTO) 12 % (12-44); MEAN CORPUSCULAR HEMOGLOBIN 30 PG (25-34); MEAN CORPUSCULAR HGB CONC 34 G/DL (32-36); MEAN CORPUSCULAR VOLUME 90 FL (80-99); MEAN PLATELET VOLUME 10.8 FL (7.4-10.4); MONOCYTES # (AUTO) 0.4 X 10^3 (0.0-1.0); MONOCYTES % (AUTO) 9 % (0-12); NEUTROPHILS # (AUTO) 3.7 X 10^3 (1.8-7.8); NEUTROPHILS % (AUTO) 78 % (42-75); PLATELET COUNT 117 10^3/uL (130-400); WHITE BLOOD COUNT 4.8 10^3/uL (4.3-11.0)
[2020-06-09 13:51] LABS: CALCIUM 8.3 MG/DL (8.5-10.1); CREATININE SERUM 1.73 MG/DL (0.60-1.30); POTASSIUM 4.2 MMOL/L (3.6-5.0)
[2020-06-13] MEDS ORDERED: LORA10TA7 PO (09:02)
== END 2020-06-09 15:00 | disposition home or self-care (01) ==
LOC: PREOP 12:30
PROVIDERS: ATTEND Urology
DX: Z01.812 Encounter for preprocedural laboratory examination (principal); C61 Malignant neoplasm of prostate
CPT/HCPCS: 36415; 80048; 85025; 87081

== ENCOUNTER 2020-06-16 06:06 | Day surgery (SDC) | payer MEDICARE, OTHER ==
[2020-06-16] VITALS (10 sets, daily range): BP systolic 132–189; BP diastolic 59–100
[~2020-06-16] VITALS: Ht 180 cm; Wt 90.2 kg
[~2020-06-16 06:06] MED LIST changes: +AMLO1CAP4 PO; +ASPI-999 PO; +AZEL137S11 NS; +HYDR-3923 PO; +LOPE2CAP PO; +LORA10TA7 PO; +METO50TA15 PO; +MULT-1136 PO
[2020-06-16] MEDS ORDERED: ceFAZolin INJECTION 1,000 MG in WATER (STERILE) FOR INJECTION 10 ML IV ONE (06:15)
[2020-06-16] MEDS ORDERED: BUPIVACAINE 0.25% 30 ML (SENSORCAINE) VIAL ONE (06:23)
[2020-06-16] MEDS ORDERED: CATHETER FLUSH 10 ML SYR IV PRN (06:30)
[2020-06-16] MEDS ORDERED: LIDOCAINE PF 2% 5 ML (XYLOCAINE) VIAL ONE (06:31)
[2020-06-16] MEDS ORDERED: fentaNYL INJECTION 100 MCG/2 ML AMP ONE ×2 (06:31→07:31)
[2020-06-16] MEDS ORDERED: proPOfol 200 MG/20 ML (DIPRIVAN) VIAL IV ONE (06:31)
[2020-06-16] MEDS ORDERED: MIDAZOLAM 2 MG/2 ML (VERSED) VIAL ONE (06:31)
[2020-06-16] MEDS ORDERED: SEVOFLURANE (ULTANE) 15 ML INHAL SOLN ONE ×14 (06:41→10:05)
[2020-06-16] MEDS ORDERED: ONDANSETRON 4 MG/2 ML (SDV) Z0FRAN ONE ×2 (06:41→11:23)
[2020-06-16] MEDS ORDERED: GLYCOPYRROLATE 0.2 MG/ML (ROBINUL) 2 ML VIAL ONE (06:41)
[2020-06-16] MEDS ORDERED: NEOSTIGMINE 3 MG/3 ML VIAL ONE (06:41)
[2020-06-16] MEDS ORDERED: ROCURONIUM 10 MG/ML 5 ML SYRINGE IV ONE ×2 (06:41→10:02)
[2020-06-16] MEDS: LACTATED RINGERS 1,000 ML IV PRN ×2 (06:43→11:35)
[2020-06-16] MEDS ORDERED: HYOSCYAMINE 0.125 MG (LEVSIN) TAB PO PRN (07:00)
[2020-06-16] MEDS ORDERED: MILK OF MAGNESIA 400 MG/5 ML 30 ML UDC PO PRN (07:00)
[2020-06-16] MEDS ORDERED: morphine INJ 4 MG/ML 1 ML (VIAL/SYRINGE) IVP PRN (07:00)
[2020-06-16] MEDS ORDERED: ONDANSETRON 4 MG (ZOFRAN) ORAL DISSOLVE TAB PO PRN (07:00)
[2020-06-16] MEDS ORDERED: LORATADINE (CLARITIN) 10 MG TAB PO PRN (07:00)
--- NOTE | 2020-06-16 07:00 | History & Physical-Surgical ---
HPO-Surgical History of Present Illness Chief Complaint: Prostate cancer Diagnosis/Surgical Indication: PROSTATE CANCER Procedure: ROBOTIC LAP PROSTATECTOMY/BILATERAL LYMPH NODE DISSECTION Date of Surgery: Jun 16, 2020 Weight (Pounds): 205 Weight (Ounces): 0.0 Height (Feet): 5 Height (Inches): 11.00 Allergies and Home Medications Allergies Coded Allergies: No Known Drug Allergies (Unverified , 06/09/20) Home Medications Amlodipine Besylate/Benazepril 1 Each Capsule, 1 EACH PO DAILY, (Reported) Aspirin 81 Mg Tab.chew, 81 MG PO DAILY, (Reported) Azelastine HCl 137 Mcg/0.137 Ml [place].pump, 137 MCG NS BID PRN for ALLERGIES, (Reported) Hydralazine HCl 25 Mg Tablet, 25 MG PO TID, (Reported) Loperamide HCl 2 Mg Capsule, 2 MG PO DAILY PRN for DIARRHEA, (Reported) Loratadine 10 Mg Tablet, 10 MG PO DAILY, (Reported) Metoprolol Tartrate 50 Mg Tablet, 50 MG PO DAILY, (Reported) Montelukast Sodium 10 Mg Tablet, 10 MG PO HS, (Reported) Multivitamin 1 Each Tablet, 1 EACH PO DAILY, (Reported) Pravastatin Sodium 40 Mg Tablet, 40 MG PO DAILY, (Reported) Tamsulosin HCl 0.4 Mg Cap, 0.4 MG PO DAILY, (Reported) Patient Home Medication List Home Medication List Reviewed: Yes Past Xehufhw-Vjyrnq-Pzxnup Hx Patient Social History Alcohol Beverage of Choice: Beer Former Smoker, Quit: Sep 23, 2001 Type Used: Cigarettes 2nd Hand Smoke Exposure: No Recent Foreign Travel: No Contact w/other who traveled: No Recent Hopitalizations: No Immunizations Up To Date Date of Influenza Vaccine: May 30, 2020 Seasonal Allergies Seasonal Allergies: Yes Surgeries Yes (KIDNEY STONE, UMBILICAL HERNIA) Abdominal, Gallbladder, Renal Respiratory Yes (DRAINAGE) Cardiovascular Yes High Cholesterol, Hypertension Neurological No Reproductive System Hx Reproductive Disorders: No Sexually Transmitted Disease: No HIV/AIDS: No Genitourinary Yes (ELEVATED KIDNEY FUNCTION) Prostate Problems, Kidney Stones Gastrointestinal No Abdominal Hernia, Gall Bladder Disease Musculoskeletal Yes Chronic Back Pain Endocrine History of Endocrine Disorders: No Endocrine Disorders: Diabetes, Non-Insulin dep HEENT History of HEENT Disorders: Yes (GLASSES) Loss of Vision: Denies Hearing Impairment: Denies Cancer Yes Prostate Did You Recieve Any Treatments: Yes Psychosocial History of Psychiatric Problem: Yes Behavioral Health Disorders: Anxiety Integumentary History of Skin or Integumenta: No Blood Transfusions History of Blood Disorders: No Adverse Reaction to a Blood Tr: No (N/A) Exam Vital Signs Capillary Refill : General Appearance: Alert, Oriented X3 HEENT: Atraumatic, EOMI Respiratory: Normal Air Movement Cardiovascular: Regular Rate, No Murmurs Abdominal: Normal Bowel Sounds, Soft Extremities: No Edema, Normal Pulses Skin: No Rashes, No Significant Lesion Neuro: Normal Gait, Normal Speech, Strength at 5/5 X4 Ext Psych/Mental Status: Mental Status NL, Mood NL Assessment/Plan Assessment and Plan Assessment: Prostate Cancer (PSA 15.18, grade group 2 disease) Plan: 1. Robotic prostatectomy, bilateral pelvic node dissection, bilateral nerve sparing 2. Consent reviewed and risks and benefits discussed 3. Admit post-op Admission Diagnosis Prostate cancer (C61) Admission Status: Observation INEZ TUCKER MD Jun 16, 2020 06:59
[2020-06-16] MEDS ORDERED: hydrALAZINE (APESOLINE) 20 MG/ML VIAL ONE (08:50)
--- NOTE | 2020-06-16 11:01 | Progress Note-Post Operative ---
Post-Operative Progess Note Surgeon (s)/Senior Java Software Developer (s) Surgeon INEZ TUCKER MD Senior Java Software Developer: None Pre-Operative Diagnosis PROSTATE CANCER Post-Operative Diagnosis Prostate cancer Procedure & Operative Findings Date of Procedure 06/16/20 Procedure Performed/Findings Robotic prostatectomy, bilateral pelvic node dissection, partial nerve sparing Anesthesia Type General Estimated Blood Loss Estimated blood loss (mL): 400 Specimens/Packing Specimens Removed Prostate, right pelvic lymph nodes, left pelvic lymph nodes Packing: None INEZ TUCKER MD Jun 16, 2020 11:01
[2020-06-16] MEDS ORDERED: PROMETHAZINE INJ 25 MG/ML (PHENERGAN) AMP IVP ONE (11:15)
[2020-06-16] MEDS ORDERED: morphine INJ 10 MG/ML 1ML (SYR OR VIAL) IVP ONE (11:15)
[2020-06-16] MEDS ORDERED: MEPERIDINE (DEMEROL) INJ 50 MG/ML IVP ONE (11:15)
[2020-06-16] MEDS ORDERED: ONDANSETRON 4 MG/2 ML (SDV) Z0FRAN IVP PRN (11:15)
[2020-06-16] MEDS ORDERED: HYDROmorphone 2 MG/ML VIAL (DILAUDID) IV ONE (11:15)
[2020-06-16] MEDS ORDERED: HYDROmorphone 2 MG/ML VIAL (DILAUDID) ONE (11:23)
[2020-06-16] MEDS ORDERED: morphine INJ 10 MG/ML 1ML (SYR OR VIAL) ONE (11:23)
[2020-06-16] MEDS ORDERED: LACTATED RINGERS 1,000 ML IV ONE (11:29)
--- NOTE | 2020-06-16 12:15 | NUR ---
REPORT RECEIVED FROM CLAUDY ZABALA RN
--- NOTE | 2020-06-16 12:15 | NUR ---
KRISTI CHAVEZ admitted to room 422-1, with an admitting diagnosis of PROSTATECTOMY. accompanied by STAFF.KRISTI CHAVEZ introduced to surroundings, call light, bed controls, phone, TV, temperature control, lights, meal times, smoking policy, visitor policy, side rail policy, bathrooms and showers. Patient Rights given to patient in the handbook. KRISTI CHAVEZ verbalizes understanding that [facility] is not responsible for the loss or damage to any personal effects or valuables that are kept in the patients posession during their hospitalization. KRISTI CHAVEZ verbalizes understanding of Interdisciplinary Patient Education. Patient and/or family were informed about the Rapid Response Team and its purpose.
--- NOTE | 2020-06-16 12:20 | NUR ---
PT WAS GIVEN BETA ALVARO THIS AM PER REPORT FROM CLAUDY ZABALA RN. METOPROLOL NON ADMINISTERED
--- NOTE | 2020-06-16 12:48 | OPERATIVE REPORT ---
DATE OF SERVICE: 06/16/2020 ATTENDING SURGEON: Soren Méndez MD. DAY CARE PROVIDER SURGEON: None. 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 PROCEDURES PERFORMED: 1. Robotic-assisted laparoscopic radical prostatectomy. 2. Bilateral pelvic lymph node dissection. COMPLICATIONS: None. DRAINS: None. IMPLANTS: None. ESTIMATED BLOOD LOSS: 400 mL. ANESTHESIA: General endotracheal anesthesia. SPECIMEN REMOVED: 1. Prostate. 2. Right pelvic lymph nodes. 3. Left pelvic lymph nodes. INDICATIONS FOR PROCEDURE: The patient is a very pleasant 70-year-old gentleman, who has a history of intermediate risk adenocarcinoma in the prostate. He was diagnosed with grade group 2 disease with a PSA in excess of 15. He had an MRI with no evidence of extraprostatic disease or lymphadenopathy. Ultimately, he elected to pursue a robotic prostatectomy with possible nerve sparing. DESCRIPTION OF PROCEDURE: After reviewing the risks, benefits and alternatives of surgical procedure in the preoperative holding area, the patient was taken back to the operative suite and placed under general endotracheal anesthesia. His lower abdomen was clipped, prepped and draped in the usual sterile fashion. Preoperative timeout was performed. Appropriate perioperative antibiotics were then instilled. We began by making an incision cephalad to the umbilicus through which a Veress needle was inserted and saline drop test was performed. Abdomen was insufflated to 15 mmHg. An 8 mm robotic trocar was then advanced through this port and camera was inserted in the patient's abdomen. The abdomen was inspected. There were no significant intra-abdominal adhesions. We then placed robotic trocars with two on the patient's left side at the mid clavicular and mid axillary line to the level of the umbilicus and one on the patient's right side at the level of the midclavicular line at the level of the umbilicus as well. Senior Warehouse Clerk ports were placed using a step device, a 5 mm port in the right upper quadrant and a 12 mm port in the right lower quadrant. With this completed, the patient was moved in the steep Trendelenburg position and the robot was docked. The peritoneum and attachments of the sigmoid colon were released in order to allow the bowel to follow the patient's pelvis. Peritonotomies were made over the external iliac arteries bilaterally extending up the medial umbilical ligaments. Through these windows, a standard pelvic lymphadenopathy was then performed. From the bifurcation of the common iliac artery down to the node of [place], the lymphatic tissue overlying the external iliac artery, vein, the obturator nerve and internal iliac artery were elevated and transected. These were retained in the patient's abdomen with a clip on the patient's left pelvic lymph node dissection in order to identify this for later extraction with the prostate. Clips were used to control the distal ends of the lymphatic tissue. The bladder was then intraperitonealized by completing the division of the urachus and releasing the abdominal attachments. The anterior surface of the prostate was identified and the prostate was defatted. Endopelvic fascia was opened bilaterally. Levator fibers were swept free and the puboprostatic ligaments were divided. The patient's sphincteric complex was identified and swept free from the apex of the prostate. A 0 Vicryl suture was then used to punch the endopelvic fascia over the surface of the prostate and then also used to throw a [id number]-jj-suzon closure over the dorsal venous complex. The bladder neck was then incised with electrocautery. We were able to gain access to the anterior bladder neck. On the lateral surface of the anterior bladder neck, there was a cystic structure emanating from the prostate. This was elevated off of the bladder and removed with the prostate. This had been previously identified on his MRI. The remainder of the mucosa was sharply incised in a circumferential fashion. The ureters were identified, which were well away from the bladder neck. We then completed the posterior bladder neck dissection by releasing the detrusor fibers from the posterior prostate and identifying the longitudinal fibers that constitute the vesicoprostatic membrane. At this point, the procedure became quite complicated. There was extensive fibrosis posteriorly between the prostate, seminal vesicles, bladder and rectum. It took quite a while in order to identify the seminal vesicles, elevate them and transect the vas deferens bilaterally. Ultimately, we were able to elevate the seminal vesicles and free them from Denonvilliers fascia inferiorly. Denonvilliers was incised; however, it was quite difficult to actually identify the perirectal fat due to extensive fibrosis between the prostate and seminal vesicles and Denonvilliers. Due to this, we chose to release the pedicles bilaterally in an attempt to roll the prostate off the rectum in a lateral fashion as opposed to releasing it directly posteriorly. This was done using bipolar electrocautery to identify and control the vascular pedicle arteries. A cautery was used to transect these and take it to the level of the rectoprostatic angle. At this point, we were able to release some neurovascular tissue; however, it was quite difficult given the fibrosis between again the prostate and the rectum. This was carried to the apex of the prostate. On the patient's right side, we were able to do a similar fashion with a much better release of the neurovascular tissue inside of the lateral prostatic fascia. Ultimately, we were able to release the rectum all the way down to the apex of the prostate with these maneuvers and the prostate was relatively free at this point. The dorsal venous complex was divided and the urethra was transected sharply. The specimen was then placed in a specimen bag along with the lymphatic tissues. A standard running anastomosis was then performed using a 2-0 Monocryl suture, which had been tied together with a vas deferens bolster. Hemostasis had been previously achieved using a 4-0 Vicryl suture to control any open venous sinuses. With the anastomosis completed and tied in the midline, a new catheter was placed. A leak test was performed. No leak was identified. The specimen bag was then repositioned through the midline port. The robot was undocked and the abdomen was desufflated. The trocars were removed. The midline incision was extended. Specimen was extracted and the midline was closed using a 0 Vicryl suture in a [id number] fashion. Skin was then closed using a 4-0 Monocryl suture in a subcuticular fashion after infiltrating the skin with 0.25% Marcaine. The incisions were then covered with Dermabond and the procedure was terminated. Job ID: [id number] DocumentID: [id number] Dictated Date: 06/16/2020 11:17:30 Shipping And Receiving Material Handler Date: 06/16/2020 12:47:28 Dictated By: Soren Méndez MD [facility]
[2020-06-16] MEDS: meTOproloL SUCCINATE 50 MG (TOPROL XL) TAB PO SCH (13:07)
[2020-06-16] MEDS: LACTATED RINGERS 1,000 ML IV SCH ×3 (13:08→21:29)
[2020-06-16] MEDS: BACITRACIN OINTMENT 28 GM TUBE TOP SCH ×2 (13:08→19:47)
[2020-06-16] MEDS: OXYBUTYNIN (DITROPAN) 5 MG TAB PO SCH ×2 (13:08→19:44)
[2020-06-16] MEDS: LORATADINE (CLARITIN) 10 MG TAB PO SCH (13:44)
[2020-06-16] MEDS: amLODIPine 5 MG (NORVASC) TAB PO SCH (13:44)
[2020-06-16] MEDS: IBUPROFEN 600 MG (MOTRIN) TAB PO SCH ×3 (13:45→23:51)
[2020-06-16] MEDS: ceFAZolin INJECTION 1,000 MG in WATER (STERILE) FOR INJECTION 10 ML IV SCH ×2 (14:39→22:09)
--- NOTE | 2020-06-16 15:05 | NUR ---
PT RESTING IN BED WITH VISITOR AT BEDSIDE, DENIES NEEDS, PAIN WELL CONTROLLED. WILL CONTINUE TO MONITOR
[2020-06-16] MEDS: ACETAMINOPHEN 500 MG TAB (TYLENOL) PO SCH ×2 (15:47→22:09)
[2020-06-16] MEDS: hydrALAZINE (APRESOLINE) 25 MG TAB PO SCH ×2 (15:47→22:09)
--- NOTE | 2020-06-16 15:51 | Anesthesia-General Post-Op ---
General Patient Condition Mental Status/LOC: Same as Preop Cardiovascular: Satisfactory Nausea/Vomiting: Absent Respiratory: Satisfactory Pain: Controlled Complications: Absent Post Op Complications Complications None Follow Up Care/Instructions Patient Instructions None needed. Anesthesia/Patient Condition Patient Condition Patient is doing well, no complaints, stable vital signs, no apparent adverse anesthesia problems. No complications reported per nursing. PRINCESS FOX CRNA Jun 16, 2020 15:51
[2020-06-16] MEDS: traZODone 50 MG (DESYREL) TAB PO SCH (19:44)
[2020-06-16] MEDS: SENNA W/DOCUSATE (SENOKOT S) TABLET PO SCH (19:44)
[2020-06-16] MEDS: polyethylene glycoL POWDER 17 GM (MIRALAX) PACK PO SCH (19:44)
[2020-06-17 03:14] VITALS: BP 175/77
[2020-06-17] MEDS: ceFAZolin INJECTION 1,000 MG in WATER (STERILE) FOR INJECTION 10 ML IV SCH (05:10)
[2020-06-17] MEDS: IBUPROFEN 600 MG (MOTRIN) TAB PO SCH ×3 (05:10→18:19)
[2020-06-17] MEDS: hydrALAZINE (APRESOLINE) 25 MG TAB PO SCH ×3 (05:10→21:46)
[2020-06-17] MEDS: LACTATED RINGERS 1,000 ML IV SCH (05:10)
[2020-06-17] MEDS: ACETAMINOPHEN 500 MG TAB (TYLENOL) PO SCH ×3 (05:10→22:37)
[2020-06-17 06:24] LABS: HEMOGLOBIN 10.1 g/dL (13.3-17.7); MEAN PLATELET VOLUME 10.5 fL (9.0-12.2); WHITE BLOOD COUNT 6.9 10^3/uL (4.3-11.0)
[2020-06-17 06:44] LABS: CALCIUM 7.8 MG/DL (8.5-10.1)
[2020-06-17 06:48] LABS: CREATININE SERUM 1.74 MG/DL (0.60-1.30)
[2020-06-17 08:00] VITALS: BP 107/53
--- NOTE | 2020-06-17 08:38 | Progress Note - Urology ---
Progress Note-Urology Progress Notes/Assess & Plan Progress/Assessment & Plan RECOVERING WELL BUT COMPLAINS OF GAS INSUFFLATION FEELING. OBSERVE AND DECIDE LATER ON DISCHARGE Final Diagnosis CA PROSTATE МАРИНА WOLFF MD Jun 17, 2020 08:38
[2020-06-17] MEDS: amLODIPine 5 MG (NORVASC) TAB PO SCH (08:53)
[2020-06-17] MEDS: OXYBUTYNIN (DITROPAN) 5 MG TAB PO SCH ×2 (08:53→21:45)
[2020-06-17] MEDS: BACITRACIN OINTMENT 28 GM TUBE TOP SCH ×2 (08:53→21:46)
[2020-06-17] MEDS: LORATADINE (CLARITIN) 10 MG TAB PO SCH (08:53)
[2020-06-17] MEDS: meTOproloL SUCCINATE 50 MG (TOPROL XL) TAB PO SCH (08:53)
[2020-06-17 12:00] VITALS: BP 187/86
--- NOTE | 2020-06-17 12:49 | Anesthesia-General Post-Op ---
General Patient Condition Mental Status/LOC: Same as Preop Cardiovascular: Satisfactory Nausea/Vomiting: Absent Respiratory: Satisfactory Pain: Controlled Complications: Absent Post Op Complications Complications None Follow Up Care/Instructions Patient Instructions None needed. Anesthesia/Patient Condition Patient Condition Patient is doing well, no complaints, stable vital signs, no apparent adverse anesthesia problems. STACEY UPTON DO Jun 17, 2020 12:49
--- NOTE | 2020-06-17 14:18 | NUR ---
"RD ASSESSMENT PMHx: hypercholesterolemia; HTN; DM; CA(prostate) PT INTERACTION: Pt was awake and pleasant during nutrition assessment. Pt states current appetite is not good. Note no meals have been recorded, per chart review. Pt states following a regular diet at home, and has no issues with chewing/swallowing food. Pt states some recent issues with nausea and constipation, and that his last BM was prior to admit. Note no BM has been recorded, and pt currently on bowel regimen of senna HS; and miralax HS, per chart review. Pt states no recent wt changes. Note unable to determine recent wt hx, per chart review. Pt states current DM management is pretty good. Note unable to determine recent HbA1c, per chart review. ABNORMAL NUTRITION-RELATED LAB VALUES LOW: HIGH: Cl 108; BUN 38; cr 1.78 Est. kcal needs: 1800 kcal | 20 kcal/kg Est. Pro needs: 72 g Pro | 0.8 g Pro/kg PES STATEMENT: Inadequate oral intake (NI-2.1) related to loss of appetite | nausea | constipation as evidenced by pt interview | chart review INTERVENTION: Continue with current diet order of Regular diet. Pt may benefit from consistent CHO diet if blood glucose levels become elevated. Add Glucerna (vary) to meals TID, for increased kcal intake. Provides 220 kcal and 10 g Pro per serving. Encouraged pt to eat when able. Offered diet education on DM management, but pt declined at this time. May offer again prior to discharge. Will continue to follow and reassess as pt needs, intake, and status change. Lexi Capellan, MS, RD, LD"
[2020-06-17 16:41] VITALS: BP 121/62
[2020-06-17 20:08] VITALS: BP 123/58
[2020-06-17] MEDS: SENNA W/DOCUSATE (SENOKOT S) TABLET PO SCH (21:40)
[2020-06-17] MEDS: polyethylene glycoL POWDER 17 GM (MIRALAX) PACK PO SCH (21:40)
[2020-06-17] MEDS: traZODone 50 MG (DESYREL) TAB PO SCH (21:46)
[2020-06-18 00:10] VITALS: BP 153/69
[2020-06-18] MEDS: IBUPROFEN 600 MG (MOTRIN) TAB PO SCH ×2 (00:20→06:02)
[2020-06-18 04:00] VITALS: BP 152/65
[2020-06-18] MEDS: ACETAMINOPHEN 500 MG TAB (TYLENOL) PO SCH (06:02)
[2020-06-18] MEDS: hydrALAZINE (APRESOLINE) 25 MG TAB PO SCH (06:06)
--- NOTE | 2020-06-18 07:49 | NUR ---
CALLED CONSULT TO DR ELKINS FOR MEDICAL MANAGEMENT
[2020-06-18 07:58] VITALS: BP 171/70
[2020-06-18] MEDS: LORATADINE (CLARITIN) 10 MG TAB PO SCH (08:16)
[2020-06-18] MEDS: amLODIPine 5 MG (NORVASC) TAB PO SCH (08:16)
[2020-06-18] MEDS: meTOproloL SUCCINATE 50 MG (TOPROL XL) TAB PO SCH (08:16)
[2020-06-18] MEDS: OXYBUTYNIN (DITROPAN) 5 MG TAB PO SCH (08:16)
--- NOTE | 2020-06-18 09:15 | Consultation ---
History of Present Illness History of Present Illness Patient Consulted On(pilo/time) 06/18/20 09:14 Date Seen by Provider: Jun 18, 2020 Time Seen by Provider: 09:14 Reason for Visit: PROSTATE CANCER History of Present Illness PT IS A 70 Y/O MALE WHO IS A PATIENT OF DR. 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 PT WAS ADMITTED AFTER HAVING A ROBOTIC PROSTATECTOMY. 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 THIS MORNING HE STATES THAT HE FEELS WELL, HE DENIES ANY CHEST PAIN, SHORTNESS OF BREATH, ABDOMINAL PAIN, NAUSEA, DIZZINESS, HE DENIES TROUBLE WITH THE HOLM CATHETER. Allergies and Home Medications Allergies Coded Allergies: trazodone (Verified Adverse Reaction, Severe, SEVERE CONFUSION, 06/18/20) Home Medications Amlodipine Besylate/Benazepril 1 Each Capsule, 1 EACH PO DAILY, (Reported) Aspirin 81 Mg Tab.chew, 81 MG PO DAILY, (Reported) Azelastine HCl 137 Mcg/0.137 Ml [place].pump, 137 MCG NS BID PRN for ALLERGIES, (Reported) Ciprofloxacin HCl 500 Mg Tablet, 500 MG PO BID Prescribed by: PARVIN HOOVER on 06/18/20 1014 Hydralazine HCl 25 Mg Tablet, 25 MG PO TID, (Reported) Loperamide HCl 2 Mg Capsule, 2 MG PO DAILY PRN for DIARRHEA, (Reported) Loratadine 10 Mg Tablet, 10 MG PO DAILY, (Reported) Metoprolol Tartrate 50 Mg Tablet, 50 MG PO DAILY, (Reported) Montelukast Sodium 10 Mg Tablet, 10 MG PO HS, (Reported) Multivitamin 1 Each Tablet, 1 EACH PO DAILY, (Reported) Pravastatin Sodium 40 Mg Tablet, 40 MG PO DAILY, (Reported) Tamsulosin HCl 0.4 Mg Cap, 0.4 MG PO DAILY, (Reported) Tramadol HCl 50 Mg Tablet, 50 MG PO Q4H PRN for PAIN-MODERATE (5-7) 1-2 TABLETS EVERY 4 HOURS NEEDED FOR PAIN Prescribed by: PARVIN HOOVER on 06/18/20 1022 Patient Home Medication List Home Medication List Reviewed: Yes Past Efiphdw-Dwltfl-Bssenr Hx Past Med/Social Hx: Reviewed Nursing Past Med/Soc Hx Patient Social History Alcohol Use: Occasionally Uses Number of Drinks Today: AA Alcohol Beverage of Choice: Beer Recreational Drug Use: Yes (on occassion) Smoking Status: Former Smoker Type Used: Cigarettes Former Smoker, Quit: Sep 23, 2001 2nd Hand Smoke Exposure: No Recent Foreign Travel: No Contact w/Someone Who Travel: No Recent Hopitalizations: No Immunizations Up To Date Date of Influenza Vaccine: May 30, 2020 Seasonal Allergies Seasonal Allergies: Yes Past Medical History Surgeries: Yes (KIDNEY STONE, UMBILICAL HERNIA) Abdominal, Gallbladder, Renal Respiratory: Yes (DRAINAGE) Pneumonia Currently Using CPAP: No Currently Using BIPAP: No Cardiac: Yes High Cholesterol, Hypertension Neurological: No Reproductive Disorders: No Sexually Transmitted Disease: No HIV/AIDS: No Genitourinary: Yes (ELEVATED KIDNEY FUNCTION) Prostate Problems, Kidney Stones Gastrointestinal: No Abdominal Hernia, Gall Bladder Disease Musculoskeletal: Yes Chronic Back Pain Endocrine: No Diabetes, Non-Insulin dep HEENT: Yes (GLASSES) Loss of Vision: Denies Hearing Impairment: Denies Cancer: Yes Prostate Did You Recieve Any Treatments: Yes What Type of Treatment Did You: Surgical Intervention Psychosocial: Yes Anxiety Integumentary: No Blood Disorders: No Adverse Reaction/Blood Tranf: No (N/A) Family Medical History Reviewed Nursing Family Hx Hypertension Review of Systems Review of Systems General: No Chills, No Fatigue, No Malaise HEENT: No Visual Changes, No Dysphasia Pulmonary: No Dyspnea, No Cough Cardiovascular: No: Chest Pain, Palpitations Gastrointestinal: No: Nausea, Abdominal Pain Genitourinary: Other (HOLM IN PLACE WITH BLOODY OUTPUT) Musculoskeletal: No: back pain Neurological: No: Weakness, Confusion Physical Exam Vital Signs Vital Signs - First Documented 06/16/20 06:30 Temp 36.0 Pulse 59 Resp 18 B/P (MAP) 189/85 (119) Pulse Ox 95 O2 Delivery Room Air Capillary Refill : Less Than 3 Seconds Height, Weight, BMI Height: 5'11.00" Weight: 205lbs. 0.0oz. [id number]; 27.83 BMI Method:Stated General Appearance: No Apparent Distress, WD/WN HEENT: PERRL/EOMI, Pharynx Normal Neck: Full Range of Motion, Normal Inspection, Non Tender, Supple Respiratory: Chest Non Tender, Lungs Clear, Normal Breath Sounds, No Accessory Muscle Use, No Respiratory Distress Cardiovascular: Regular Rate, Rhythm Gastrointestinal: Normal Bowel Sounds, No Organomegaly, No Pulsatile Mass, Non Tender, Soft Rectal: Deferred Genital/Rectal: Other (HOLM IN PLACE - BLOOD IN HOLM BAG AND HOLM TUBING) Back: Normal Inspection, No Vertebral Tenderness Extremity: Normal Capillary Refill, Normal Inspection, Normal Range of Motion, Non Tender, No Calf Tenderness, No Pedal Edema Neurologic/Psychiatric: Alert, Oriented x3, No Motor/Sensory Deficits, Normal 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, 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 Norm as Tested Skin: Warm/Dry Lymphatic: No Adenopathy Assessment/Plan Assessment/Plan Admission Dx PROSTATE CANCER STATUS POST ROBOTIC PROSTATECTOMY HYPERTENSION INSOMNIA PROSTATE CANCER PT IS STATUS POST ROBOTIC PROSTATECTOMY - KEEP APPT WITH UROLOGY ON DISCHARGE - HOLM IN PLACE, REVIEW OF HOLM MANAGEMENT TO BE DONE PRIOR TO PATIENT DC - CONTINUE WITH TAMSULOSIN ON DC HYPERTENSION - RESUME HOME REGIMEN INSOMNIA - USE OTC MELATONIN IF NEEDED FOR INSOMNIA - THE TRAZODONE WAS SENT TO PHARMACY PRIOR TO THIS GROWTH HACKER'S EVALUATION OF PATIENT BY HIS SURGEON - THIS WILL NEED TO BE DISCONTINUED SINCE HE DID NOT TOLERATE THE TRAZODONE AND HAD PREVIOUSLY NOT USED MEDICATION TO AIDE HIS SLEEPING. Assessment and Plan PROSTATE CANCER STATUS POST ROBOTIC PROSTATECTOMY HYPERTENSION INSOMNIA MELISSA ELKINS MD Jun 18, 2020 09:15
[2020-06-18] MEDS: BACITRACIN OINTMENT 28 GM TUBE TOP SCH (09:23)
[2020-06-18 09:32] LABS: BASOPHILS % (AUTO) 0 % (0-10); EOSINOPHILS % (AUTO) 0 % (0-10); HEMATOCRIT 35 % (40-54); HEMOGLOBIN 11.5 g/dL (13.3-17.7); LYMPHOCYTES # (AUTO) 0.6 10^3/uL (1.0-4.0); LYMPHOCYTES % (AUTO) 8 % (12-44); MEAN CORPUSCULAR HEMOGLOBIN 30 pg (25-34); MEAN CORPUSCULAR HGB CONC 33 g/dL (32-36); MEAN CORPUSCULAR VOLUME 92 fL (80-99); MEAN PLATELET VOLUME 11.2 fL (9.0-12.2); MONOCYTES # (AUTO) 0.5 10^3/uL (0.0-1.0); MONOCYTES % (AUTO) 7 % (0-12); NEUTROPHILS # (AUTO) 6.4 10^3/uL (1.8-7.8); NEUTROPHILS % (AUTO) 85 % (42-75); PLATELET COUNT 120 10^3/uL (130-400); WHITE BLOOD COUNT 7.6 10^3/uL (4.3-11.0)
[2020-06-18 09:54] LABS: ALBUMIN 3.7 GM/DL (3.2-4.5); BILIRUBIN,TOTAL 0.6 MG/DL (0.1-1.0); CALCIUM 8.6 MG/DL (8.5-10.1); CREATININE SERUM 1.94 MG/DL (0.60-1.30); POTASSIUM 4.5 MMOL/L (3.6-5.0); TOTAL PROTEIN 5.9 GM/DL (6.4-8.2)
[2020-06-18] MEDS ORDERED: CIPR-225 PO (10:14)
[2020-06-18] MEDS ORDERED: TRAM50TA3 PO ×2 (10:14→10:22)
--- NOTE | 2020-06-18 10:18 | NUR ---
CALLED PRESCRIPTIONS INTO [facility]
--- NOTE | 2020-06-18 10:30 | NUR ---
CATHETER CARE , LEG BAG AND NIGHT TIME BAG DISCUSSED AND DEMONSTRATED FOR PATIENT AND FAMILY.
[2020-06-18 10:32] LABS: LYMPHOCYTES % (MANUAL) 4 %; MONOCYTES % (MANUAL) 5 %; NEUTROPHILS % (MANUAL) 91 %
[2020-06-18 10:33] LABS: PLATELET ESTIMATE DECREASED; RBC MORPH NORMAL
--- NOTE | 2020-06-18 11:08 | Physical Therapy Evaluation ---
PT Evaluation-General Medical Diagnosis Admission Date 06/17/2020 Medical Diagnosis: Prostate CA Onset Date: Jun 17, 2020 Therapy Diagnosis Therapy Diagnosis: NA Height/Weight Height (Feet): 5 Height (Inches): 11.00 Weight (Pounds): 205 Weight (Ounces): 0.0 Precautions Precautions/Isolations: Standard Precautions Weight Bear Status Right Lower Extremity: Right Full Weight Bearing Left Lower Extremity: Left Full Weight Bearing Referral Physician: Lb Reason for Referral: Evaluation/Treatment Medical History Pertinent Medical History: DM, HTN, Prostate CA Additional Medical History Sx kidney stones, Sx umbillical hernia, high cholesterol, gall bladder disease, chronic back pain, anxiety Current History s/p robotic lap prostatectomy, (B) lymph node dissection Reviewed History: Yes Social History Home: [facility] Current Living Status: Spouse Entry Into Home: Stairs With Railing Prior Prior Level of Function SCALE: Activities may be completed with or without assistive devices. 1-Nfpffakkmz-jijxbci completes the activity by him/herself with no assistance from a helper. 5-Set-up or Clean-up Assistance-helper sets up or cleans up; patient completes activity. Archie assists only prior to or following the activity. 4-Supervision or Touching Assistance-helper provides verbal cues and/or touching/steadying and/or contact guard assistance as patient completes activity. Assistance may be provided throughout the activity or intermittently. 3-Partial/Moderate Assistance-helper does LESS THAN HALF the effort. Archie lifts, holds or supports trunk or limbs, but provides less than half the effort. 2-Substantial/Maximal Assistance-helper does MORE THAN HALF the effort. Archie lifts or holds trunk or limbs and provides more than half the effort. 9-Thyysuyqg-lrppre does ALL the effort. Patient does none of the effort to complete the activity. Or, the assistance of 2 or more helpers is required for the patient to complete the activity. If activity was not attempted, code reason: 7-Patient Refused. 9-Not Applicable-not attempted and the patient did not perform the activity before the current illness, exacerbation or injury. 10-Not Attempted due to Environmental Limitations-(lack of equipment, weather restraints, etc.). 88-Not Attempted due to Medical Conditions or Safety Concerns. Bed Mobility: 7 Transfers (B,C,W/C): 7 Gait: 7 Stairs: 7 Indoor Mobility (Ambulation): Independent Stairs: Independent Prior Devices Use: None PT Evaluation-Current Subjective Pt sitting EOB without c/o. Reports he is anxious to discharge. Pt's family reports Pt "Had a reaction to his medication last night and was really wobbly". Pain Numeric Pain Scale: 0-No Pain Pt/Family Goals Home Objective Patient Orientation: Person, Place, Time, Situation Attachments: Rutledge Catheter ROM/Strength ROM Upper Extremities WFL ROM Lower Extremities WFL Strength Upper Extremities WFL for mobility Strength Lower Extremities grossly WFL for mobility Integumentary/Posture Integumentary See nurses' notes Bladder Incontinence: Rutledge Cath Posture Unremarkable Sensory Vision: Functional Hearing: Functional Transfers Roll Left to Right (QC): 7 Sit to Lying (QC): 7 Lying to Sitting/Side of Bed(Q: 7 Sit to Stand (QC): 6 Gait Does the Patient Walk?: Yes Mode of Locomotion: Walk Anticipated Mode of Locomotion: Walk Walk 10 feet (QC): 6 Walk 50 ft with 2 Turns(QC): 6 Walk 150 ft (QC): 6 Distance: 150 Gait Assistive Device: None Comments/Gait Description Pt ambulated (I) with safe gait. Slow gait speed at times due to report of back spasm. Wheelchair Training Does the Pt Use a Wheelchair?: No Stairs #of Steps: 12 12 Steps (QC): 6 Pt ascended/descended 12 steps mod (I), safely with 1 HR Balance Sitting Static: Normal Sitting Dynamic: Normal Standing Static: Normal Standing Dynamic: Normal Assessment/Needs Pt is at OF for functional mobility and demonstrates safe gait on level surfaces and on stairs. No skilled PT intervention indicated at this time. Rehab Potential: Good PT Plan Treatment/Plan Treatment Plan: Discontinue PT Treatment Duration: Jun 18, 2020 Frequency: 1 time per week Estimated Hrs Per Day: .25 hour per day Patient and/or Family Agrees t: Yes Discharge Recommendations Therapy Discharge Recommendati: Home & Family Time/GCodes Time In: 836 Time Out: 846 Total Billed Treatment Time: 10 Total Billed Treatment 1, MYRANDA x 10' KONSTANTIN BENITO DPCullen Jun 18, 2020 11:08
[2020-06-18 11:10] VITALS: BP 171/70
[2020-06-18] MEDS ORDERED: CEFD300C3 PO (16:57)
== END 2020-06-18 11:00 | disposition home or self-care (01) ==
LOC: SDC 06:06 → 4TH 12:11 → SDC 06-18 11:00
PROVIDERS: ATTEND Urology
DX: C61 Malignant neoplasm of prostate (principal); I10 Essential (primary) hypertension; F41.9 Anxiety disorder, unspecified; K21.9 Gastro-esophageal reflux disease without esophagitis; E78.00 Pure hypercholesterolemia, unspecified; G89.29 Other chronic pain; M54.5 Low back pain; E11.9 Type 2 diabetes mellitus without complications; Z79.82 Long term (current) use of aspirin; Z79.899 Other long term (current) drug therapy; Z88.8 Allergy status to other drugs, medicaments and biological substances; Z87.891 Personal history of nicotine dependence
CPT/HCPCS: 36415; 80048; 80053; 85007; 85027; 94664

== ENCOUNTER 2020-06-18 15:41 | Emergency (ER) | payer MEDICARE, OTHER ==
[~2020-06-18] VITALS: Ht 180.3 cm; Wt 89.3 kg
[~2020-06-18 15:41] MED LIST changes: +TRAM50TA3 PO
--- NOTE | 2020-06-18 16:04 | ED GU-Male ---
General Chief Complaint: - Urinary Stated Complaint: CATHETER COMING OUT Source: patient, family Exam Limitations: no limitations History of Present Illness Date Seen by Provider: Jun 18, 2020 Time Seen by Provider: 16:01 Initial Comments to ER with concern that his catheter is coming out. Is very difficult to get a history out of him as he seems confused. I called his significant other Esperanza who reports that he was admitted to the hospital on the for a radical laparoscopic prostatectomy with lymph node dissection. He was discharged this morning at about 10 AM and seems to be well. However last night he received a dose of trazodone for insomnia (does not normally take anything for insomnia) and became very confused and was running up and down the hallways according to his significant other. Again, he seemed back to normal this morning at 10 AM when she picked him up about an hour ago he seemed confused again. Timing/Duration: constant Severity/Quality: moderate Location: unknown Activities at Onset: none Associated Symptoms: denies symptoms Allergies and Home Medications Allergies Coded Allergies: trazodone (Verified Adverse Reaction, Severe, SEVERE CONFUSION, 06/18/20) Home Medications Amlodipine Besylate/Benazepril 1 Each Capsule, 1 EACH PO DAILY, (Reported) Aspirin 81 Mg Tab.chew, 81 MG PO DAILY, (Reported) Azelastine HCl 137 Mcg/0.137 Ml [place].pump, 137 MCG NS BID PRN for ALLERGIES, (Reported) Cefdinir 300 Mg Capsule, 300 MG PO BID Prescribed by: CUCO BARR on 06/18/20 1657 Ciprofloxacin HCl 500 Mg Tablet, 500 MG PO BID Prescribed by: PARVIN HOOVER on 06/18/20 1014 Hydralazine HCl 25 Mg Tablet, 25 MG PO TID, (Reported) Loperamide HCl 2 Mg Capsule, 2 MG PO DAILY PRN for DIARRHEA, (Reported) Loratadine 10 Mg Tablet, 10 MG PO DAILY, (Reported) Metoprolol Tartrate 50 Mg Tablet, 50 MG PO DAILY, (Reported) Montelukast Sodium 10 Mg Tablet, 10 MG PO HS, (Reported) Multivitamin 1 Each Tablet, 1 EACH PO DAILY, (Reported) Pravastatin Sodium 40 Mg Tablet, 40 MG PO DAILY, (Reported) Tamsulosin HCl 0.4 Mg Cap, 0.4 MG PO DAILY, (Reported) Tramadol HCl 50 Mg Tablet, 50 MG PO Q4H PRN for PAIN-MODERATE (5-7) 1-2 TABLETS EVERY 4 HOURS NEEDED FOR PAIN Prescribed by: PARVIN HOOVER on 06/18/20 1022 Patient Home Medication List Home Medication List Reviewed: Yes Review of Systems Review of Systems Constitutional: see HPI EENTM: see HPI Respiratory: no symptoms reported Cardiovascular: no symptoms reported Genitourinary: see HPI Musculoskeletal: no symptoms reported Skin: no symptoms reported Psychiatric/Neurological: No Symptoms Reported Endocrine: No Symptoms Reported Past Murhuox-Ptejwn-Pohdgo Hx Patient Social History Alcohol Beverage of Choice: Beer Type Used: Cigarettes Former Smoker, Quit: Sep 23, 2001 2nd Hand Smoke Exposure: No Recent Foreign Travel: No Contact w/Someone Who Travel: No Recent Hopitalizations: No Immunizations Up To Date Date of Influenza Vaccine: May 30, 2020 Seasonal Allergies Seasonal Allergies: Yes Past Medical History Surgeries: Yes (KIDNEY STONE, UMBILICAL HERNIA) Abdominal, Gallbladder, Renal Respiratory: Yes (DRAINAGE) Pneumonia Currently Using CPAP: No Currently Using BIPAP: No Cardiac: Yes High Cholesterol, Hypertension Neurological: No Reproductive Disorders: No Sexually Transmitted Disease: No HIV/AIDS: No Genitourinary: Yes (ELEVATED KIDNEY FUNCTION) Prostate Problems, Kidney Stones Gastrointestinal: No Abdominal Hernia, Gall Bladder Disease Musculoskeletal: Yes Chronic Back Pain Endocrine: No Diabetes, Non-Insulin dep HEENT: Yes (GLASSES) Loss of Vision: Denies Hearing Impairment: Denies Cancer: Yes Prostate Did You Recieve Any Treatments: Yes What Type of Treatment Did You: Surgical Intervention Psychosocial: Yes Anxiety Integumentary: No Blood Disorders: No Adverse Reaction/Blood Tranf: No (N/A) Family Medical History Hypertension Physical Exam Vital Signs Vital Signs - First Documented 06/18/20 15:43 Temp 38.7 Pulse 71 Resp 18 B/P (MAP) 123/67 (85) Pulse Ox 96 Capillary Refill : Height, Weight, BMI Height: 5'11.00" Weight: 205lbs. 0.0oz. 92.021573sp; 27.83 BMI Method:Stated General Appearance: WD/WN, no apparent distress, other (Beach is clear but rambling, difficulty recalling events. He acknowledges that he is confused.) HEENT: PERRL/EOMI, normal ENT inspection Neck: non-tender, full range of motion Respiratory: no respiratory distress, no accessory muscle use Gastrointestinal: normal bowel sounds, non tender Male: normal genitalia, other ([place] catheter seems to still be in place, the balloon was deflated, this was reinserted about 2 cm after cleaning the tubing off with an alcohol swab, balloon was then reinflated. Does not seem to have been displaced. There is a little bloody urine in the bag. There is a little bit of puslike material at the urethral meatus.) Extremities: normal range of motion, non-tender Neurologic/Psychiatric: alert Skin: normal color, warm/dry Progress/Results/Core Measures Suspected Sepsis SIRS Temperature: Pulse: Respiratory Rate: Laboratory Tests 06/18/20 16:07: White Blood Count 7.6 Blood Pressure / Mean: Laboratory Tests 06/18/20 16:07: Creatinine 2.21H, Platelet Count 126L Results/Orders Lab Results Laboratory Tests Test 06/18/20 16:07 06/18/20 16:25 Range/Units White Blood Count 7.6 4.3-11.0 10^3/uL Red Blood Count 3.70 L 4.30-5.52 10^6/uL Hemoglobin 11.2 L 13.3-17.7 g/dL Hematocrit 34 L 40-54 % Mean Corpuscular Volume 92 80-99 fL Mean Corpuscular Hemoglobin 30 25-34 pg Mean Corpuscular Hemoglobin Concent 33 32-36 g/dL Red Cell Distribution Width 13.8 10.0-14.5 % Platelet Count 126 L 130-400 10^3/uL Mean Platelet Volume 10.6 9.0-12.2 fL Immature Granulocyte % (Auto) 0 % Neutrophils (%) (Auto) 80 H 42-75 % Lymphocytes (%) (Auto) 8 L 12-44 % Monocytes (%) (Auto) 11 0-12 % Eosinophils (%) (Auto) 1 0-10 % Basophils (%) (Auto) 0 0-10 % Neutrophils # (Auto) 6.1 1.8-7.8 10^3/uL Lymphocytes # (Auto) 0.6 L 1.0-4.0 10^3/uL Monocytes # (Auto) 0.8 0.0-1.0 10^3/uL Eosinophils # (Auto) 0.0 0.0-0.3 10^3/uL Basophils # (Auto) 0.0 0.0-0.1 10^3/uL Immature Granulocyte # (Auto) 0.0 0.0-0.1 10^3/uL Sodium Level 141 135-145 MMOL/L Potassium Level 4.5 3.6-5.0 MMOL/L Chloride Level 108 H 98-107 MMOL/L Carbon Dioxide Level 22 21-32 MMOL/L Anion Gap 11 5-14 MMOL/L Blood Urea Nitrogen 43 H 7-18 MG/DL Creatinine 2.21 H 0.60-1.30 MG/DL Estimat Glomerular Filtration Rate 29 BUN/Creatinine Ratio 19 Glucose Level 115 H 70-105 MG/DL Calcium Level 8.5 8.5-10.1 MG/DL Serum Alcohol < 10 <10 MG/DL Urine Color ORANGE Urine Clarity SL CLOUDY Urine pH 5.0 5-9 Urine Specific [place] 1.020 1.016-1.022 Urine Protein 3+ H NEGATIVE Urine Glucose (UA) NEGATIVE NEGATIVE Urine Ketones TRACE H NEGATIVE Urine Nitrite POSITIVE H NEGATIVE Urine Bilirubin NEGATIVE NEGATIVE Urine Urobilinogen 1.0 < = 1.0 MG/DL Urine Leukocyte Esterase 1+ H NEGATIVE Urine RBC (Auto) 3+ H NEGATIVE Urine RBC TNTC H /HPF Urine WBC 10-25 H /HPF Urine Crystals NONE /LPF Urine Bacteria RARE /HPF Urine Casts NONE /LPF Urine Mucus NEGATIVE /LPF Urine Culture Indicated YES My Orders Orders - CUCO BARR APRN Alcohol (06/18/20 15:54) Ua Culture If Indicated (06/18/20 15:54) Cbc With Automated Diff (06/18/20 15:54) Basic Metabolic Panel (06/18/20 15:54) Ct Head Wo (06/18/20 16:19) Urine Culture (06/18/20 16:25) Ceftriaxone For Im Use (Rocephin For Im (06/18/20 17:00) Lidocaine 1% Inj 20 Ml (Xylocaine 1% Inj (06/18/20 17:00) Vital Signs/I&O 06/18/20 15:43 Temp 38.7 Pulse 71 Resp 18 B/P (MAP) 123/67 (85) Pulse Ox 96 Capillary Refill : Departure Communication (Admissions) 1619-he is a little confused but is ambulatory moves all extremities speeches clear. If this is stroke, his radical prostatectomy 2 days ago would preclude him from receiving TPA. His elevated kidney function precludes him from getting an angiogram head and neck. He could still have an embolectomy if there was a large vessel occlusion but based on clinical exam this is not a large vessel occlusion. We'll do a noncontrast CT of the head, confusion is likely a lasting effect of his trazodone last night which has a half-life of about 7-10 hours and it has not yet been 24 hours since he received it. He was sent home with a prescription for Cipro according to his significant other but has not yet started it. I advised her to not take it since fluoroquinolones can contribute to neurologic changes in the elderly. We will start with empiric Rocephin and Omnicef, we may have to switch to Cipro pending culture but for now a third generation cephalosporin will be our drug of choice. Impression Primary Impression: Urinary tract infection Qualified Codes: N30.01 - Acute cystitis with hematuria Additional Impression: Medication adverse effect Disposition: HOME, SELF-CARE Condition: Stable Departure-Patient Inst. Decision time for Depature: 16:56 Referrals: DHIRAJ MONTAÑO MD (PCP/Family) Primary Care Physician Patient Instructions: Urinary Tract Infection, Adult (DC) Add. Discharge Instructions: 1. Drink plenty of fluids. Take the antibiotics as directed starting tomorrow. Return to ER for any worsening. Follow-up with your regular doctor or Dr. Wolff next week. All discharge instructions reviewed with patient and/or family. Voiced understanding. Scripts Cefdinir (Cefdinir) 300 Mg Capsule 300 MG PO BID, #14 CAP 0 Refills Prov: CUCO BARR APRN 06/18/20 Copy Copies To 1: DHIRAJ MONTAÑO MD; МАРИНА WOLFF MD, PETER J APRN Jun 18, 2020 16:04
[2020-06-18 16:17] LABS: BASOPHILS % (AUTO) 0 % (0-10); EOSINOPHILS % (AUTO) 1 % (0-10); HEMATOCRIT 34 % (40-54); HEMOGLOBIN 11.2 g/dL (13.3-17.7); LYMPHOCYTES # (AUTO) 0.6 10^3/uL (1.0-4.0); LYMPHOCYTES % (AUTO) 8 % (12-44); MEAN CORPUSCULAR HEMOGLOBIN 30 pg (25-34); MEAN CORPUSCULAR HGB CONC 33 g/dL (32-36); MEAN CORPUSCULAR VOLUME 92 fL (80-99); MEAN PLATELET VOLUME 10.6 fL (9.0-12.2); MONOCYTES # (AUTO) 0.8 10^3/uL (0.0-1.0); MONOCYTES % (AUTO) 11 % (0-12); NEUTROPHILS # (AUTO) 6.1 10^3/uL (1.8-7.8); NEUTROPHILS % (AUTO) 80 % (42-75); PLATELET COUNT 126 10^3/uL (130-400); WHITE BLOOD COUNT 7.6 10^3/uL (4.3-11.0)
[2020-06-18 16:24] LABS: CHLORIDE 108 MMOL/L (98-107); POTASSIUM 4.5 MMOL/L (3.6-5.0); SODIUM 141 MMOL/L (135-145)
[2020-06-18 16:25] LABS: CALCIUM 8.5 MG/DL (8.5-10.1)
[2020-06-18 16:26] LABS: GLUCOSE 115 MG/DL (70-105)
[2020-06-18 16:27] LABS: CARBON DIOXIDE 22 MMOL/L (21-32)
--- NOTE | 2020-06-18 16:29 | NUR ---
TO CT PER W/C
[2020-06-18 16:30] LABS: CREATININE SERUM 2.21 MG/DL (0.60-1.30); GFR ESTIMATED 29
[2020-06-18 16:31] LABS: BUN/CREATININE RATIO 19
[2020-06-18 16:34] LABS: BILIRUBIN,URINE NEGATIVE (NEGATIVE); CLARITY,URINE SL CLOUDY; COLOR,URINE ORANGE; GLUCOSE, URINE (UA) NEGATIVE (NEGATIVE); KETONES,URINE TRACE (NEGATIVE); LEUKOCYTE ESTERASE ,URINE 1+ (NEGATIVE); NITRITE,URINE POSITIVE (NEGATIVE); PROTEIN,URINE 3+ (NEGATIVE)
--- NOTE | 2020-06-18 16:43 | Diagnostic Imaging Report ---
Procedure: CT head without contrast. Technique: Multiple contiguous axial images were obtained through the brain without the use of intravenous contrast. Auto Exposure Controls were utilized during the CT exam to meet ALARA standards for radiation dose reduction. Indication: Altered mental status. Comparison: None. Discussion: No intracranial hemorrhage, mass, midline shift, or hydrocephalus. The ventricles and sulci are normal size and configuration for age. The visualized orbits, paranasal sinuses, mastoid air cells and calvarium are unremarkable. Impression: Negative head CT. Dictated by: Dictated on workstation # [id number]
[2020-06-18 16:49] LABS: RBC,URINE TNTC /HPF
[2020-06-18 16:50] LABS: BACTERIA,URINE RARE /HPF
[2020-06-18] MEDS ORDERED: CEFD300C3 PO (16:57)
[2020-06-18] MEDS ORDERED: cefTRIAXone 1,000 MG/2.86 ml vial (IM ONLY) IM SCH (17:00)
[2020-06-18] MEDS ORDERED: LIDOCAINE 1% INJ 20 ML 20 ML VIAL INJ ONE (17:00)
--- NOTE | 2020-06-18 17:00 | NUR ---
Nola BARR APRN CALLED AND TALKED WITH FRIEND LAKISHA AND GAVE UPDATE ABOUT DISCHARGE
[2020-06-18 17:50] VITALS: BP 123/67
== END 2020-06-18 17:51 | disposition home or self-care (01) ==
LOC: EDUNIT# 15:41 → ER 15:42
DX: N39.0 Urinary tract infection, site not specified (principal); I10 Essential (primary) hypertension; E78.00 Pure hypercholesterolemia, unspecified; T43.215A Adverse effect of selective serotonin and norepinephrine reuptake inhibitors, initial encounter; Z82.49 Family history of ischemic heart disease and other diseases of the circulatory system; Z88.8 Allergy status to other drugs, medicaments and biological substances; Z85.46 Personal history of malignant neoplasm of prostate; Z87.891 Personal history of nicotine dependence; Z79.82 Long term (current) use of aspirin
CPT/HCPCS: 70450; 80048; 81000; 85025; 87088; 99283; G0480; 36415; 80320

== ENCOUNTER 2020-06-18 21:05 | Emergency (ER) | payer MEDICARE, OTHER ==
[~2020-06-18] VITALS: Ht 180 cm; Wt 86.0 kg
[~2020-06-18 21:05] MED LIST changes: +CEFD300C3 PO
--- NOTE | 2020-06-18 22:29 | ED GU-Male ---
General Chief Complaint: - Urinary Stated Complaint: DIFFICULTY URINATING Source: patient, old records History of Present Illness Date Seen by Provider: Jun 18, 2020 Time Seen by Provider: 21:35 Initial Comments PT ARRIVES VIA POV FROM HOME PT HAD ROBOTIC ASSISTED LAPAROSCOPIC PROSTATECTOMY WITH BILATERAL LYMPH NODE DISSECTION BY DR. TUCKER HERE ON 06/16/20 PT HAS INDWELLING CATHETER IN PLACE PT SEEN HERE EARLIER TODAY FOR CATHETER CHECK AND WAS DX WITH UTI PT STATES SINCE HE EMPTIED THE LEG BAG AROUND 1500 TODAY, HE HAS HAD VERY LITTLE URINE OUTPUT SINCE THEN--THINKS CATHETER IS BLOCKED STATES HE HAS BEEN DRINKING WATER WELL TODAY C/O SOME MILD PRESSURE OVER BLADDER NO FEVER NO NAUSEA/VOMITING NO BACK PAIN PCP: DR. Lester MONTAÑO UROLOGIST: DR. WOLFF AND DR. TUCKER Allergies and Home Medications Allergies Coded Allergies: trazodone (Verified Adverse Reaction, Severe, SEVERE CONFUSION, 06/18/20) Home Medications Amlodipine Besylate/Benazepril 1 Each Capsule, 1 EACH PO DAILY, (Reported) Aspirin 81 Mg Tab.chew, 81 MG PO DAILY, (Reported) Azelastine HCl 137 Mcg/0.137 Ml [place].pump, 137 MCG NS BID PRN for ALLERGIES, (Reported) Cefdinir 300 Mg Capsule, 300 MG PO BID Prescribed by: CUCO BARR on 06/18/20 1657 Ciprofloxacin HCl 500 Mg Tablet, 500 MG PO BID Prescribed by: PARVIN HOOVER on 06/18/20 1014 Hydralazine HCl 25 Mg Tablet, 25 MG PO TID, (Reported) Loperamide HCl 2 Mg Capsule, 2 MG PO DAILY PRN for DIARRHEA, (Reported) Loratadine 10 Mg Tablet, 10 MG PO DAILY, (Reported) Metoprolol Tartrate 50 Mg Tablet, 50 MG PO DAILY, (Reported) Montelukast Sodium 10 Mg Tablet, 10 MG PO HS, (Reported) Multivitamin 1 Each Tablet, 1 EACH PO DAILY, (Reported) Pravastatin Sodium 40 Mg Tablet, 40 MG PO DAILY, (Reported) Tamsulosin HCl 0.4 Mg Cap, 0.4 MG PO DAILY, (Reported) Tramadol HCl 50 Mg Tablet, 50 MG PO Q4H PRN for PAIN-MODERATE (5-7) 1-2 TABLETS EVERY 4 HOURS NEEDED FOR PAIN Prescribed by: PARVIN HOOVER on 06/18/20 1022 Patient Home Medication List Home Medication List Reviewed: Yes Review of Systems Review of Systems Constitutional: no symptoms reported; No fever Gastrointestinal: see HPI Genitourinary: see HPI Musculoskeletal: no symptoms reported Past Knvwdpb-Qeiidv-Ywwnwd Hx Past Med/Social Hx: Reviewed and Corrections made Patient Social History Alcohol Use: Occasionally Uses Alcohol Beverage of Choice: Beer Recreational Drug Use: No Smoking Status: Former Smoker Type Used: Cigarettes Former Smoker, Quit: Sep 23, 2001 2nd Hand Smoke Exposure: No Recent Foreign Travel: No Contact w/Someone Who Travel: No Recent Hopitalizations: No Immunizations Up To Date Date of Influenza Vaccine: May 30, 2020 Seasonal Allergies Seasonal Allergies: Yes Past Medical History Surgeries: Yes (LITHOTRIPSY;UMBILICAL HERNIA;R-A LAP PROSTATECTOMY/BILAT LYMPH NODE DISSECT) Abdominal, Gallbladder, Prostatectomy, Renal Respiratory: Yes Pneumonia Currently Using CPAP: No Currently Using BIPAP: No Cardiac: Yes High Cholesterol, Hypertension Neurological: No Reproductive Disorders: No Sexually Transmitted Disease: No HIV/AIDS: No Genitourinary: Yes (RENAL INSUFF; PROSTATE CANCER) Prostate Problems, Kidney Stones Gastrointestinal: Yes (UMBILICAL HERNIA;CHOLECYSTECTOMY) Abdominal Hernia, Gall Bladder Disease Musculoskeletal: Yes Chronic Back Pain Endocrine: No Diabetes, Non-Insulin dep HEENT: Yes (GLASSES) Loss of Vision: Denies Hearing Impairment: Denies Cancer: Yes Prostate Did You Recieve Any Treatments: Yes (R-A LAP PROSTATECTOMY W/ BILAT LYMPH NODE DISSECTION 06/16/20) What Type of Treatment Did You: Surgical Intervention Psychosocial: Yes Anxiety Integumentary: No Blood Disorders: No Adverse Reaction/Blood Tranf: No (N/A) Family Medical History Hypertension Physical Exam Vital Signs Capillary Refill : Height, Weight, BMI Height: 5'11.00" Weight: 205lbs. 0.0oz. 92.088411gx; 27.00 BMI Method:Stated General Appearance: WD/WN, no apparent distress Respiratory: normal breath sounds Gastrointestinal: soft, tenderness (MILD SUPRAPUBIC TENDERNESS) Male: other (HOLM WITH LEG BAG IN PLACE--FEW ML OF BLOODY URINE IN LEG BAG) Back: no CVA tenderness Extremities: normal inspection, no pedal edema Neurologic/Psychiatric: no motor/sensory deficits, alert, normal mood/affect Progress/Results/Core Measures Suspected Sepsis SIRS Temperature: Pulse: Respiratory Rate: Blood Pressure / Mean: Results/Orders My Orders Orders - RYLIE MARSHALL DO Bladder Scan (06/18/20 21:38) Ua Culture If Indicated (06/18/20 21:38) Urinary Catheter: Hand Irrigat (06/18/20 21:38) Vital Signs/I&O Capillary Refill : Progress Note : Progress Note BLADDER SCAN--47 ML 75 ML BLOODY URINE IN LEG BAG HOLM IRRIGATED EASILY, WITH NO RETURN OF CLOTS AND RETURN IS SAME AMOUNT THAT IS IRRIGATED URINE IS CLEAR WITH FAINT TINGE OF BLOOD AT THIS TIME PT NOW ADMITS HE HAS NOT HAD MUCH TO DRINK SINCE HE WAS HERE EARLIER TODAY Departure Impression Primary Impression: HOLM CATHETER CHECK Disposition: HOME, SELF-CARE Condition: Stable Departure-Patient Inst. Referrals: DHIRAJ MONTAÑO MD (PCP/Family) Primary Care Physician МАРИНА WOLFF MD Patient Instructions: How to Care for Your [place] Catheter, Male Add. Discharge Instructions: CONTINUE ALL PREVIOUS INSTRUCTIONS AND MEDICATIONS FOLLOW UP WITH DR. WOLFF ON SATURDAY, RETURN TO ER IF PROBLEMS All discharge instructions reviewed with patient and/or family. Voiced understanding. RYLIE MARSHALL DO Jun 18, 2020 22:29
[2020-06-18 22:54] VITALS: BP 175/78
== END 2020-06-18 22:54 | disposition home or self-care (01) ==
LOC: EDUNIT# 21:05 → ER 21:06
DX: T83.098A Other mechanical complication of other urinary catheter, initial encounter (principal); E78.00 Pure hypercholesterolemia, unspecified; I10 Essential (primary) hypertension; Z82.49 Family history of ischemic heart disease and other diseases of the circulatory system; Z85.46 Personal history of malignant neoplasm of prostate; Z87.891 Personal history of nicotine dependence; Z88.8 Allergy status to other drugs, medicaments and biological substances; Z79.82 Long term (current) use of aspirin
CPT/HCPCS: 99283

== ENCOUNTER → 2021-04-21 | Outpatient (CLI) | payer MEDICARE, OTHER ==
[~2021-04-21] MED LIST changes: +DOXY-311 PO; -DOXY100C42 PO; -MONT10TA26 PO; +MONT10TA32 PO; -SULF1TAB35 PO; +SULF1TAB38 PO
== END | disposition home or self-care (01) ==
LOC: PREOP 05:34
PROVIDERS: ATTEND Specialist
DX: Z01.818 Encounter for other preprocedural examination (principal)

== ENCOUNTER → 2021-06-01 | Outpatient (CLI) | payer MEDICARE, OTHER ==
[2021-06-01 10:15] LABS: LYMPHOCYTES % (AUTO) 8 % (12-44); MEAN CORPUSCULAR VOLUME 95 fL (80-99); NEUTROPHILS % (AUTO) 82 % (42-75)
[2021-06-01 10:17] LABS: BASOPHILS % (AUTO) 1 % (0-10); EOSINOPHILS # (AUTO) 0.1 10^3/uL (0.0-0.3); EOSINOPHILS % (AUTO) 2 % (0-10); HEMATOCRIT 38 % (40-54); LYMPHOCYTES # (AUTO) 0.4 10^3/uL (1.0-4.0); MEAN CORPUSCULAR HEMOGLOBIN 31 pg (25-34); MEAN CORPUSCULAR HGB CONC 32 g/dL (32-36); MEAN PLATELET VOLUME 10.3 fL (9.0-12.2); MONOCYTES # (AUTO) 0.4 10^3/uL (0.0-1.0); MONOCYTES % (AUTO) 8 % (0-12); NEUTROPHILS # (AUTO) 4.7 10^3/uL (1.8-7.8); PLATELET COUNT 127 10^3/uL (130-400); WHITE BLOOD COUNT 5.7 10^3/uL (4.3-11.0)
[2021-06-01 10:34] LABS: BILIRUBIN,TOTAL 0.5 MG/DL (0.1-1.0); CALCIUM 9.4 MG/DL (8.5-10.1); CREATININE SERUM 1.64 MG/DL (0.60-1.30); POTASSIUM 4.8 MMOL/L (3.6-5.0); TOTAL PROTEIN 6.4 GM/DL (6.4-8.2)
== END ==
LOC: ONC 10:04
PROVIDERS: ATTEND Internal Medicine Hematology & Oncology
DX: C61 Malignant neoplasm of prostate (principal); D61.818 Other pancytopenia; K21.9 Gastro-esophageal reflux disease without esophagitis; E78.5 Hyperlipidemia, unspecified; F41.9 Anxiety disorder, unspecified; N18.30 Chronic kidney disease, stage 3 unspecified
CPT/HCPCS: 80053; 83615; 84153; 85025; G0463; 99213

== ENCOUNTER → 2021-08-08 | Outpatient (CLI) | payer MEDICARE, OTHER ==
--- NOTE | 2021-08-08 09:30 | Diagnostic Imaging Report ---
PROCEDURE: CT head without contrast. TECHNIQUE: Multiple contiguous axial images were obtained through the brain without the use of intravenous contrast. Auto Exposure Controls were utilized during the CT exam to meet ALARA standards for radiation dose reduction. INDICATION: Dizziness. COMPARISON: 06/18/2020 FINDINGS: Ventricles and sulci are within normal limits for patient's age. There are scattered areas of hypodensity involving the subcortical white matter of the left parietal lobe as well as deep white matter in the right frontal lobe. No hemorrhage is identified. There is no abnormal mass effect or shift of midline structures. Atherosclerotic calcification is seen within distal internal carotid and vertebral arteries. Calvarium is intact and the visualized paranasal sinuses are clear. There is cerumen or other debris present within the external auditory canals. IMPRESSION: No appreciable change in chronic appearing white matter findings. No acute intracranial abnormality is identified. Dictated by: Dictated on workstation # [id number]
== END ==
LOC: RAD 09:03
PROVIDERS: ATTEND Internal Medicine
DX: R42 Dizziness and giddiness (principal)
CPT/HCPCS: 70450

== ENCOUNTER 2021-10-15 18:46 | Emergency (ER) | payer MEDICARE, OTHER ==
[~2021-10-15] VITALS: Ht 178 cm; Wt 87.0 kg
[~2021-10-15 18:46] MED LIST changes: +MONT-40 PO; -MONT10TA32 PO
[2021-10-15 19:31] LABS: BILIRUBIN,URINE NEGATIVE (NEGATIVE); CLARITY,URINE CLEAR; COLOR,URINE YELLOW; GLUCOSE, URINE (UA) NEGATIVE (NEGATIVE); KETONES,URINE NEGATIVE (NEGATIVE); LEUKOCYTE ESTERASE ,URINE NEGATIVE (NEGATIVE); NITRITE,URINE NEGATIVE (NEGATIVE); PROTEIN,URINE NEGATIVE (NEGATIVE)
--- NOTE | 2021-10-15 19:35 | ED General ---
General Stated Complaint: LIGHTHEADED,CHILLS,HIGH BP 200/100 Source of Information: Patient (VERY VAGUE AND DIFFICULT HISTORIAN, POOR MEMORY) History of Present Illness Date Seen by Provider: Oct 15, 2021 Time Seen by Provider: 19:08 Initial Comments PT ARRIVES VIA POV FROM HOME WITH GIRLFRIEND STATES "I'VE GOT ALOT OF THICK DRAINAGE" "POST NASAL DRAINAGE" STATES HE ALWAYS HAS THIS, BUT IS WORSE TODAY PT IS FIXATED ON THIS ISSUE STATES HE CHECKED HIS BLOOD PRESSURE TODAY "TO MAKE ME FEEL BETTER AND IT DIDN'T" --STATES HE CHECKED HIS BLOOD PRESSURE "BECAUSE OF ALL THE DRAINAGE" INITIALLY HE STATES HE CAN'T REMEMBER WHAT HIS BLOOD PRESSURE WAS, THEN STATES HE THINKS IT WAS " 200 SOMETHING OVER 100 SOMETHING" STATES "MY BLOOD PRESSURE IS NORMALLY REALLY GOOD--170 TO 180 OVER 100" STATES HE DID TAKE HIS BLOOD PRESSURE MEDICATION TODAY, BUT DOES NOT REMEMBER IF HE HAS MISSED ANY DOSES THIS WEEK DENIES ANY CHANGES IN MEDICATIONS PT STATES HE DOES TAKE AN ASPIRIN DAILY, BUT DOES NOT KNOW ANY OF HIS OTHER ME DICATIONS. NO COUGH NO CHEST PAIN NO SHORTNESS OF BREATH NO PALPITATIONS NO HEADACHE NO VISION CHANGES NO PARESTHESIAS OR MOTOR DEFICITS NO NAUSEA/VOMITING NO FEVER INITIALLY DENIED DIZZINESS TO ME, BUT HAD REPORTED TO RN THAT HE "HAD ONE BOUT OF DIZZINESS FOR A COUPLE OF MINUTES TODAY WHILE I WAS ON A LADDER" DID NOT FALL OR HAVE ANY INJURY. DENIES ANY PRIOR HEART PROBLEMS, OR EVER SEEING A DANCING MASTER DENIES ANY HISTORY OF STROKES, TIA'S OR EVER SEEING A NEUROLOGIST. PT HAS HAD COVID-19 VACCINE X3--2 INITIAL VACCINES, PLUS BOOSTER PCP: DR. JOHN--RECENTLY STARTED SEEING HER, USED TO SEE DR. DHIRAJ MONTAÑO. Allergies and Home Medications Allergies Coded Allergies: trazodone (Verified Adverse Reaction, Severe, SEVERE CONFUSION, 06/18/20) Patient Home Medication List Home Medication List Reviewed: Yes Amlodipine Besylate/Benazepril (Lotrel 5-10 mg Capsule) 1 Each Capsule, 1 EACH PO DAILY, (Reported) Entered as Reported by: ALYSHA ALBA on 06/09/20 1253 Aspirin (Aspirin) 81 Mg Tab.chew, 81 MG PO DAILY, (Reported) Entered as Reported by: ALYSHA ALBA on 06/09/20 1253 Azelastine HCl (Azelastine HCl) 137 Mcg/0.137 Ml [place].pump, 137 MCG NS BID PRN for ALLERGIES, (Reported) Entered as Reported by: ALYSHA ALBA on 06/09/20 1253 Cefdinir (Cefdinir) 300 Mg Capsule, 300 MG PO BID Prescribed by: CUCO BARR on 06/18/20 1657 Ciprofloxacin HCl (Cipro) 500 Mg Tablet, 500 MG PO BID Prescribed by: PARVIN HOOVER on 06/18/20 1014 Hydralazine HCl (Hydralazine HCl) 25 Mg Tablet, 25 MG PO TID, (Reported) Entered as Reported by: ALYSHA ALBA on 06/09/20 1253 Loperamide HCl (Loperamide) 2 Mg Capsule, 2 MG PO DAILY PRN for DIARRHEA, (Reported) Entered as Reported by: ALYSHA ALBA on 06/09/20 1253 Loratadine (Loratadine) 10 Mg Tablet, 10 MG PO DAILY, (Reported) Entered as Reported by: CRISTIAN MURRY on 06/13/20 0902 Metoprolol Tartrate (Metoprolol Tartrate) 50 Mg Tablet, 50 MG PO DAILY, (Reported) Entered as Reported by: ALYSHA ALBA on 06/09/20 1253 Montelukast Sodium (Montelukast Sodium) 10 Mg Tablet, 10 MG PO HS, (Reported) Entered as Reported by: CRISTIAN MURRY on 03/10/19 1020 Multivitamin (Multivitamin) 1 Each Tablet, 1 EACH PO DAILY, (Reported) Entered as Reported by: ALYSHA ALBA on 06/09/20 1253 Pravastatin Sodium (Pravastatin Sodium) 40 Mg Tablet, 40 MG PO DAILY, (Reported) Entered as Reported by: CRISTIAN MURRY on 03/10/19 1020 Tamsulosin HCl (Flomax) 0.4 Mg Cap, 0.4 MG PO DAILY, (Reported) Entered as Reported by: CRISTIAN MURRY on 03/10/19 1020 Tramadol HCl (Tramadol HCl) 50 Mg Tablet, 50 MG PO Q4H PRN for PAIN-MODERATE (5- 7) Prescribed by: PARVIN HOOVER on 06/18/20 1022 Review of Systems Review of Systems Constitutional: see HPI, dizziness EENTM: see HPI, other (POST NASAL DRAINAGE) Respiratory: no symptoms reported Cardiovascular: see HPI; No chest pain, No edema, No palpitations, No syncope, No vascular heart diseas Gastrointestinal: no symptoms reported Genitourinary: no symptoms reported Musculoskeletal: no symptoms reported Skin: no symptoms reported Psychiatric/Neurological: No Symptoms Reported Hematologic/Lymphatic: No Symptoms Reported Immunological/Allergic: no symptoms reported Past Jutbgoh-Ryfjbm-Amgwmn Hx Patient Social History Tobacco Use?: Yes Tobacco type used: Cigarettes Smoking Status: Former Smoker Substance use?: No Seasonal Allergies Seasonal Allergies: Yes Past Medical History Surgery/Hospitalization HX: BILATERAL CATARACT SURGERY PT HAD ROBOTIC ASSISTED LAPAROSCOPIC PROSTATECTOMY WITH BILATERAL LYMPH NODE DISSECTION BY DR. TUCKER HERE ON 06/16/20 Surgeries: Yes (LITHOTRIPSY;UMBILICAL HERNIA;R-A LAP PROSTATECTOMY/BILAT LYMPH NODE DISSECT) Abdominal, Eye Surgery, Gallbladder, Prostatectomy, Renal Respiratory: Yes Pneumonia Currently Using CPAP: No Currently Using BIPAP: No Cardiac: Yes High Cholesterol, Hypertension Neurological: Yes (POOR MEMORY) Reproductive Disorders: No Sexually Transmitted Disease: No HIV/AIDS: No Genitourinary: Yes (RENAL INSUFF; PROSTATE CANCER) Prostate Problems, Kidney Stones Gastrointestinal: Yes (UMBILICAL HERNIA;CHOLECYSTECTOMY) Abdominal Hernia, Gall Bladder Disease Musculoskeletal: Yes Chronic Back Pain Endocrine: Yes Diabetes, Non-Insulin dep HEENT: Yes (GLASSES) Cataract Loss of Vision: Denies Hearing Impairment: Denies Cancer: Yes Prostate Did You Recieve Any Treatments: Yes What Type of Treatment Did You: Surgical Intervention (R-A LAP PROSTATECTOMY W/ BILAT LYMPH NODE DISSECTION 06/16/[address] TUCKER) Psychosocial: Yes Anxiety Integumentary: No Blood Disorders: No Adverse Reaction/Blood Tranf: No (N/A) Physical Exam Vital Signs Vital Signs - First Documented 10/15/21 19:34 Temp 36.4 Pulse 63 Resp 13 B/P (MAP) 229/85 (133) Pulse Ox 98 O2 Delivery Room Air Capillary Refill : Height, Weight, BMI Height: 5'11.00" Weight: 205lbs. 0.0oz. [id number]; 26.00 BMI Method:Stated General Appearance: No Apparent Distress, WD/WN HEENT: PERRL/EOMI, TMs Normal, Normal ENT Inspection, Pharynx Normal, Other (MILD AMOUNT OF CLEAR POST NASAL DRAINAGE. 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 Norm as Tested Skin: Normal Color, Warm/Dry Progress/Results/Core Measures Suspected Sepsis SIRS Temperature: Pulse: Respiratory Rate: Laboratory Tests 10/15/21 19:19: White Blood Count 5.2 Blood Pressure / Mean: Laboratory Tests 10/15/21 19:19: Creatinine 1.27, Platelet Count 105L, Total Bilirubin 0.4 Results/Orders Lab Results Laboratory Tests Test 10/15/21 19:19 10/15/21 19:25 Range/Units White Blood Count 5.2 4.3-11.0 10^3/uL Red Blood Count 4.01 L 4.30-5.52 10^6/uL Hemoglobin 12.2 L 13.3-17.7 g/dL Hematocrit 37 L 40-54 % Mean Corpuscular Volume 93 80-99 fL Mean Corpuscular Hemoglobin 30 25-34 pg Mean Corpuscular Hemoglobin Concent 33 32-36 g/dL Red Cell Distribution Width 13.1 10.0-14.5 % Platelet Count 105 L 130-400 10^3/uL Mean Platelet Volume 10.9 9.0-12.2 fL Immature Granulocyte % (Auto) 0 % Neutrophils (%) (Auto) 78 H 42-75 % Lymphocytes (%) (Auto) 11 L 12-44 % Monocytes (%) (Auto) 9 0-12 % Eosinophils (%) (Auto) 1 0-10 % Basophils (%) (Auto) 0 0-10 % Neutrophils # (Auto) 4.1 1.8-7.8 10^3/uL Lymphocytes # (Auto) 0.6 L 1.0-4.0 10^3/uL Monocytes # (Auto) 0.5 0.0-1.0 10^3/uL Eosinophils # (Auto) 0.1 0.0-0.3 10^3/uL Basophils # (Auto) 0.0 0.0-0.1 10^3/uL Immature Granulocyte # (Auto) 0.0 0.0-0.1 10^3/uL Percent Immature Platelet Fraction 3.4 0.0-7.6 % Sodium Level 145 135-145 MMOL/L Potassium Level 4.1 3.6-5.0 MMOL/L Chloride Level 112 H 98-107 MMOL/L Carbon Dioxide Level 20 L 21-32 MMOL/L Anion Gap 13 5-14 MMOL/L Blood Urea Nitrogen 32 H 7-18 MG/DL Creatinine 1.27 0.60-1.30 MG/DL Estimat Glomerular Filtration Rate 60 BUN/Creatinine Ratio 25 Glucose Level 94 70-105 MG/DL Calcium Level 8.8 8.5-10.1 MG/DL Corrected Calcium 8.7 8.5-10.1 MG/DL Magnesium Level 2.3 1.6-2.4 MG/DL Total Bilirubin 0.4 0.1-1.0 MG/DL Aspartate Amino Transf (AST/SGOT) 15 5-34 U/L Alanine Aminotransferase (ALT/SGPT) 17 0-55 U/L Alkaline Phosphatase 59 40-136 U/L Troponin I < 0.028 <0.028 NG/ML B-Type Natriuretic Peptide 640.0 H <100.0 PG/ML Total Protein 6.4 6.4-8.2 GM/DL Albumin 4.1 3.2-4.5 GM/DL TSH [place] Testing 0.99 0.35-4.94 UIU/ML Urine Color YELLOW Urine Clarity CLEAR Urine pH 6.0 5-9 Urine Specific [place] 1.010 L 1.016-1.022 Urine Protein NEGATIVE NEGATIVE Urine Glucose (UA) NEGATIVE NEGATIVE Urine Ketones NEGATIVE NEGATIVE Urine Nitrite NEGATIVE NEGATIVE Urine Bilirubin NEGATIVE NEGATIVE Urine Urobilinogen 0.2 < = 1.0 MG/DL Urine Leukocyte Esterase NEGATIVE NEGATIVE Urine RBC (Auto) NEGATIVE NEGATIVE Urine RBC NONE /HPF Urine WBC NONE /HPF Urine Squamous Epithelial Cells RARE /HPF Urine Crystals NONE /LPF Urine Bacteria NEGATIVE /HPF Urine Casts NONE /LPF Urine Mucus NEGATIVE /LPF Urine Culture Indicated NO Influenza Type A (RT-PCR) Not Detected Not Detecte Influenza Type B (RT-PCR) Not Detected Not Detecte SARS-CoV-2 RNA (RT-PCR) Not Detected Not Detecte My Orders Orders - JOANNA,RYLIE K DO Ed Iv/Invasive Line Start (10/15/21 19:14) Ekg Tracing (10/15/21 19:14) Monitor-Rhythm Ecg Trace Only (10/15/21 19:14) Bnp [place] (10/15/21 19:14) Cbc With Automated Diff (10/15/21 19:14) Comprehensive Metabolic Panel (10/15/21 19:14) Magnesium (10/15/21 19:14) Thyroid Analyzer (10/15/21 19:14) Troponin I [place] (10/15/21 19:14) Chest 1 View, Ap/Pa Only (10/15/21 19:14) Covid 19 Inhouse Test (10/15/21 19:14) Isolation Central Supply Req (10/15/21 19:14) Hydralazine Injection (Apresoline Inject (10/15/21 20:00) Medications Given in ED Current Medications Medications Dose Ordered Sig/Sangita Route Start Time Stop Time Status Last Admin Dose Admin Hydralazine HCl 10 mg ONCE ONCE IV 10/15/21 20:00 10/15/21 20:01 DC 10/15/21 20:08 10 MG Vital Signs/I&O 10/15/21 10/15/21 19:34 20:41 Temp 36.4 Pulse 63 61 Resp 13 20 B/P (MAP) 229/85 (133) 201/80 Pulse Ox 98 98 O2 Delivery Room Air Room Air Capillary Refill : Progress Note : Progress Note UNEVENTFUL ER STAY GIVEN HYDRALAZINE WITH DECREASE IN BP PRIOR TO DISMISSAL PT HAD NO COMPLAINTS DURING ENTIRE ER STAY. GIRLFRIEND IN ROOM AND DISCUSSED ALL TEST RESULTS AND PLAN OF CARE AND SHE APPEARS TO UNDERSTAND. ECG Initial ECG Impression Date: Oct 15, 2021 Initial ECG Impression Time: 19:20 Initial ECG Rate: 60 Initial ECG Rhythm: Normal Sinus Diagnostic Imaging Comments CXR--PER RADIOLOGIST REPORT AT 2004 FINDINGS: Air trapping and COPD as a chronic finding, stable. No failure, effusion, pneumothorax or evidence for edema. No free air beneath the diaphragms. No change. IMPRESSION: Clear hyperexpanded lungs stable from prior. No acute appearing abnormality. Reviewed: Reviewed by Me Departure Communication (Admissions) 2006--SPOKE WITH DR. JOHN, SHE REPORTS THAT PT HAS A ROUTINE FOLLOW UP APPOINTMENT WITH HER ON 10/19/21 AT 3:00 PM, SHE WILL HAVE HER NURSE CALL HIM TOMORROW TO REMIND HIM OF APPOINTMENT. WILL INCREASE HYDRALAZINE TO 50 MG TID AND CONTINUE OTHER MEDICATIONS CURRENTLY PRESCRIBED Impression Primary Impression: Uncontrolled hypertension Additional Impression: Post-nasal drainage Disposition: HOME, SELF-CARE Condition: Stable Departure-Patient Inst. Decision time for Depature: 20:10 Referrals: MAYDA JOHN DO (PCP/Family) Primary Care Physician Patient Instructions: Chronic Sinusitis, DASH Diet, High Blood Pressure ED Add. Discharge Instructions: INCREASE YOUR HYDRALAZINE TO 2 PILLS THREE TIMES A DAY ( TAKE TWO OF YOUR 25 MG TABLETS, THREE TIMES A DAY) CONTINUE YOUR OTHER MEDICATIONS PRESCRIBED OVER THE COUNTER FLONASE OR NASACORT FOR SINUS DRAINAGE KEEP YOUR APPOINTMENT WITH DR. JOHN THIS WEEK 10/19/21 AT 3:00. RYLIE MARSHALL DO Oct 15, 2021 19:35
[2021-10-15 19:44] LABS: BASOPHILS % (AUTO) 0 % (0-10); HEMATOCRIT 37 % (40-54); MEAN CORPUSCULAR VOLUME 93 fL (80-99); NEUTROPHILS % (AUTO) 78 % (42-75)
[2021-10-15 19:45] LABS: EOSINOPHILS # (AUTO) 0.1 10^3/uL (0.0-0.3); EOSINOPHILS % (AUTO) 1 % (0-10); HEMOGLOBIN 12.2 g/dL (13.3-17.7); LYMPHOCYTES # (AUTO) 0.6 10^3/uL (1.0-4.0); LYMPHOCYTES % (AUTO) 11 % (12-44); MEAN CORPUSCULAR HEMOGLOBIN 30 pg (25-34); MEAN CORPUSCULAR HGB CONC 33 g/dL (32-36); MEAN PLATELET VOLUME 10.9 fL (9.0-12.2); MONOCYTES # (AUTO) 0.5 10^3/uL (0.0-1.0); MONOCYTES % (AUTO) 9 % (0-12); NEUTROPHILS # (AUTO) 4.1 10^3/uL (1.8-7.8); PLATELET COUNT 105 10^3/uL (130-400); WHITE BLOOD COUNT 5.2 10^3/uL (4.3-11.0)
[2021-10-15 19:47] LABS: BACTERIA,URINE NEGATIVE /HPF; SQUAMOUS EPITHELIAL CELL,UR RARE /HPF
[2021-10-15 19:47] LABS: ALBUMIN 4.1 GM/DL (3.2-4.5)
[2021-10-15 19:49] LABS: CALCIUM 8.8 MG/DL (8.5-10.1)
[2021-10-15 19:50] LABS: GLUCOSE 94 MG/DL (70-105); TOTAL PROTEIN 6.4 GM/DL (6.4-8.2)
[2021-10-15 19:51] LABS: CARBON DIOXIDE 20 MMOL/L (21-32)
[2021-10-15 19:52] LABS: BILIRUBIN,TOTAL 0.4 MG/DL (0.1-1.0)
[2021-10-15 19:53] LABS: ALKALINE PHOSPHATASE 59 U/L (40-136)
--- NOTE | 2021-10-15 19:53 | Diagnostic Imaging Report ---
INDICATION: Hypertension. COMPARISON: 09/06/2019. FINDINGS: Air trapping and COPD as a chronic finding, stable. No failure, effusion, pneumothorax or evidence for edema. No free air beneath the diaphragms. No change. IMPRESSION: Clear hyperexpanded lungs stable from prior. No acute appearing abnormality. Dictated by: Dictated on workstation # [id number]
[2021-10-15 19:56] LABS: ALANINE AMINOTRANSFERASE 17 U/L (0-55); BUN/CREATININE RATIO 25; CHLORIDE 112 MMOL/L (98-107); CREATININE SERUM 1.27 MG/DL (0.60-1.30); GFR ESTIMATED 60; MAGNESIUM 2.3 MG/DL (1.6-2.4); POTASSIUM 4.1 MMOL/L (3.6-5.0); SODIUM 145 MMOL/L (135-145)
[2021-10-15] MEDS ORDERED: hydrALAZINE (APESOLINE) 20 MG/ML VIAL IV ONE (20:00)
[2021-10-15 20:12] LABS: TSH (THYROID ANALYZER) 0.99 UIU/ML (0.35-4.94)
[2021-10-15 20:41] VITALS: BP 201/80
== END 2021-10-15 20:41 | disposition home or self-care (01) ==
LOC: EDUNIT# 18:46 → ER 18:48
DX: I10 Essential (primary) hypertension (principal); R09.82 Postnasal drip; E78.00 Pure hypercholesterolemia, unspecified; E11.9 Type 2 diabetes mellitus without complications; Z20.822 Contact with and (suspected) exposure to COVID-19; Z87.891 Personal history of nicotine dependence; Z79.82 Long term (current) use of aspirin; Z79.899 Other long term (current) drug therapy
CPT/HCPCS: 36415; 71045; 80053; 81000; 83735; 83880; 84443; 84484; 85025; 87636; 93005; 93041

== ENCOUNTER → 2021-10-24 | Outpatient (CLI) | payer MEDICARE, OTHER ==
--- NOTE | 2021-10-24 15:46 | Diagnostic Imaging Report ---
PROCEDURE: MR imaging of the brain without contrast. TECHNIQUE: Multiplanar, multisequence MR imaging of the brain was performed without contrast. INDICATION: Memory loss. The ventricles and sulci are appropriate for the patient's age. There are periventricular and subcortical white matter changes noted consistent with chronic microvascular ischemia. No diffusion restriction is identified to suggest acute ischemia. The normal expected flow-voids within the carotid siphons are seen. No acute intra-axial or extra-axial hemorrhage is detected. Corpus callosum is unremarkable. The sella and parasellar structures are unremarkable. IMPRESSION: Changes of chronic microvascular ischemia. No acute intracranial process is detected. Dictated by: Dictated on workstation # [id number]
== END ==
LOC: RAD 14:45
PROVIDERS: ATTEND Internal Medicine
DX: I67.82 Cerebral ischemia (principal)
CPT/HCPCS: 70551

== ENCOUNTER 2023-02-18 11:48 | Inpatient (IN) | payer MEDICARE, OTHER ==
[~2023-02-18] VITALS: Ht 180.3 cm; Wt 85.3 kg
[~2023-02-18 11:48] MED LIST changes: +ALBU8.5H6 IH; -DOXY-311 PO; +DOXY-444 PO; -RT-ALBUINH IH
--- NOTE | 2023-02-18 12:19 | ED General ---
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 ALSO STATES NASAL COGESTION Source of Information: Patient, Family (daughter) Exam Limitations: No Limitations History of Present Illness Date Seen by Provider: February 18, 2023 Time Seen by Provider: 12:06 Initial Comments Patient is a 72-year-old male who presents to the emergency room today with a chief complaint of acute onset of dizziness. Patient states he was working out in his garage and basically "the next thing I knew" he was off balance. He states he has never had anything like this before. He denies any headache, vision changes. No unilateral weakness numbness or tingling. He denies chest pain or shortness of breath. He is not nauseous. Patient states like he feels like he is moving. He does have a history of hypertension, quite hypertensive at triage with a systolic of 190. He states he did take his blood pressure medications this morning. He denies any recent illnesses. No fevers, cough, urinary complaints. He has had a little diarrhea. No swelling in his legs. No sick contacts. Remote smoking history. He states that he has severe persistent nasal congestion. This is chronic. He saw his primary care physician approximately 5 or 6 weeks ago for a routine visit. No changes to his medications. Timing/Duration: 1-3 Hours Severity: Moderate Modifying Factors: worse with Movement Associated Systoms: Denies Symptoms Allergies and Home Medications Allergies Coded Allergies: trazodone (Verified Adverse Reaction, Severe, SEVERE CONFUSION, 06/18/20) Patient Home Medication List Home Medication List Reviewed: Yes Amlodipine Besylate (Amlodipine Besylate) 5 Mg Tablet, 10 MG PO DAILY Prescribed by: MAYDA JOHN on 02/22/23 1149 Aspirin (Aspirin EC) 81 Mg Tablet.dr, 81 MG PO DAILY, (Reported) Entered as Reported by: FARIDA VAZQUEZ on 02/19/23 1346 Last Action: Continued Cetirizine HCl (Zyrtec) 10 Mg Tablet, 10 MG PO DAILY, (Reported) Entered as Reported by: TERRY FRANK on 02/18/23 1928 Last Action: Converted Diphenhydramine HCl (Benadryl) 25 Mg Capsule, 25 MG PO HS, (Reported) Entered as Reported by: TERRY FRANK on 02/18/231927 Last Action: Converted Donepezil HCl (Donepezil HCl) 10 Mg Tablet, 10 MG PO HS, (Reported) Entered as Reported by: TERRY FRANK on 02/18/231927 Last Action: Continued Doxazosin Mesylate (Doxazosin Mesylate) 1 Mg Tablet, 1 MG PO BID Prescribed by: MAYDA JOHN on 02/22/23 1149 Escitalopram Oxalate (Escitalopram Oxalate) 10 Mg Tablet, 10 MG PO DAILY, (Reported) Entered as Reported by: FARIDA VAZQUEZ on 02/19/231345 Last Action: Converted Hydralazine HCl (Hydralazine HCl) 50 Mg Tablet, 50 MG PO TID, (Reported) Entered as Reported by: FARIDA VAZQUEZ on 02/19/231345 Last Action: Converted L.acidoph & Paracasei,B.lactis (Probiotic) 10 Billion Cell Capsule, 1 EACH PO DAILY, (Reported) Entered as Reported by: FARIDA VAZQUEZ on 02/19/231345 Last Action: Converted Loratadine (Loratadine) 10 Mg Tablet, 10 MG PO DAILY, (Reported) Entered as Reported by: CRISTIAN MURRY on 06/13/20 0902 Last Action: Continued Melatonin (Melatonin) 3 Mg Tablet, 3 MG PO HS, (Reported) Entered as Reported by: TERRY FRANK on 02/18/231927 Last Action: Continued Memantine HCl (Memantine HCl) 10 Mg Tablet, 10 MG PO BID, (Reported) Entered as Reported by: TERRY FRANK on 02/18/231927 Last Action: Continued Multivitamin (Multivitamin) 1 Each Tablet, 1 EACH PO 1200, (Reported) Entered as Reported by: ALYSHA ALBA on 06/09/20 125 Last Action: Converted Pravastatin Sodium (Pravastatin Sodium) 40 Mg Tablet, 40 MG PO HS, (Reported) Entered as Reported by: CRISTIAN MURRY on 03/10/19 1020 Last Action: Converted Discontinued Medications Amlodipine Besylate/Benazepril (Lotrel 5-10 mg Capsule) 1 Each Capsule, 1 EACH PO DAILY, (Reported) Entered as Reported by: ALYSHA ALBA on 06/09/20 125 Last Action: Held Azelastine HCl (Azelastine HCl) 137 Mcg/0.137 Ml [place].pump, 137 MCG NS BID PRN for ALLERGIES, (Reported) Discontinued Reason: No Longer Taking Entered as Reported by: ALYSHA ABLA on 06/09/201252 Last Action: Discontinued Cefdinir (Cefdinir) 300 Mg Capsule, 300 MG PO BID Discontinued Reason: No Longer Taking Prescribed by: CUCO BARR on 06/18/20 1657 Last Action: Discontinued Ciprofloxacin HCl (Cipro) 500 Mg Tablet, 500 MG PO BID Discontinued Reason: No Longer Taking Prescribed by: PARVIN HOOVER on 06/18/20 1014 Last Action: Discontinued Escitalopram Oxalate (Lexapro) 10 Mg Tablet, 10 MG PO DAILY, (Reported) Discontinued Reason: Duplicate Order Entered as Reported by: TERRY FRANK on 02/18/231927 Last Action: Discontinued Hydralazine HCl (Hydralazine HCl) 25 Mg Tablet, 25 MG PO TID, (Reported) Discontinued Reason: No Longer Taking Entered as Reported by: ALYSHA ALBA on 06/09/201252 Last Action: Discontinued Loperamide HCl (Loperamide) 2 Mg Capsule, 2 MG PO DAILY PRN for DIARRHEA, (Reported) Discontinued Reason: No Longer Taking Entered as Reported by: ALYSHA ALBA on 06/09/201252 Last Action: Discontinued Metoprolol Tartrate (Metoprolol Tartrate) 50 Mg Tablet, 50 MG PO DAILY, (Reported) Entered as Reported by: ALYSHA ALBA on 06/09/201252 Last Action: Held Montelukast Sodium (Montelukast Sodium) 10 Mg Tablet, 10 MG PO HS, (Reported) Discontinued Reason: No Longer Taking Entered as Reported by: CRISTIAN MURRY on 03/10/19 1020 Last Action: Discontinued Review of Systems Review of Systems Constitutional: see HPI EENTM: other (Nasal congestion/burning) Respiratory: no symptoms reported Cardiovascular: no symptoms reported Gastrointestinal: no symptoms reported Genitourinary: no symptoms reported Musculoskeletal: no symptoms reported Skin: no symptoms reported Psychiatric/Neurological: Other (Balance and coordination problem) Past Pylmmfz-Cfihjo-Gjyonz Hx Patient Social History Tobacco Use?: No Substance use?: No Alcohol Use?: Yes Alcohol Frequency: Several times a month Immunizations Up To Date First/Initial COVID19 Vaccinat: 2020 Second COVID19 Vaccination Zbigniew: 2020 Third COVID19 Vaccination Date: 2020 Seasonal Allergies Seasonal Allergies: Yes Past Medical History Surgery/Hospitalization HX: BILATERAL CATARACT SURGERYPT HAD ROBOTIC ASSISTED LAPAROSCOPIC PROSTATECTOMY WITH BILATERAL LYMPHNODE DISSECTION BY DR. TUCKER HERE ON 06/16/20 HTN Surgeries: Yes (LITHOTRIPSY;UMBILICAL HERNIA;R-A LAP PROSTATECTOMY/BILAT LYMPH NODE DISSECT) Abdominal, Eye Surgery, Gallbladder, Prostatectomy, Renal Respiratory: Yes Pneumonia Currently Using CPAP: No Currently Using BIPAP: No Cardiac: Yes High Cholesterol, Hypertension Neurological: Yes (POOR MEMORY) Reproductive Disorders: No Sexually Transmitted Disease: No HIV/AIDS: No Genitourinary: Yes (RENAL INSUFF; PROSTATE CANCER) Prostate Problems, Kidney Stones Gastrointestinal: Yes (UMBILICAL HERNIA;CHOLECYSTECTOMY) Abdominal Hernia, Gall Bladder Disease Musculoskeletal: Yes Chronic Back Pain Endocrine: Yes Diabetes, Non-Insulin dep HEENT: Yes (GLASSES) Cataract Loss of Vision: Denies Hearing Impairment: Denies Cancer: Yes Prostate Did You Recieve Any Treatments: Yes What Type of Treatment Did You: Surgical Intervention Psychosocial: Yes Anxiety Integumentary: No Blood Disorders: No Adverse Reaction/Blood Tranf: No (N/A) Physical Exam Vital Signs Capillary Refill : Height, Weight, BMI Height: 5'11.00" Weight: 205lbs. 0.0oz. 92.074965qk; 25.00 BMI Method:Stated General Appearance: No Apparent Distress, WD/WN Eyes: Bilateral Eye Normal Inspection, Bilateral Eye PERRL, Bilateral Eye EOMI HEENT: TMs Normal, Pharynx Normal, Moist Mucous Membranes Neck: Normal Inspection Respiratory: Lungs Clear, Normal Breath Sounds, No Accessory Muscle Use, No Respiratory Distress Cardiovascular: Normal Peripheral Pulses, Bradycardia (Irregular) Gastrointestinal: Non Tender, Soft Extremity: Normal Inspection, Normal Range of Motion, No Pedal Edema Neurologic/Psychiatric: Alert, Oriented x3, No Motor/Sensory Deficits, demographic analyst II- XII Norm as Tested, Other (Very flat affect) Progress/Results/Core Measures Suspected Sepsis SIRS Temperature: Pulse: 45 Respiratory Rate: 16 Blood Pressure 143 /67 Mean: 92 Results/Orders Lab Results Laboratory Tests Test 02/18/23 13:16 Range/Units White Blood Count 5.0 4.3-11.0 10^3/uL Red Blood Count 3.88 L 4.30-5.52 10^6/uL Hemoglobin 11.8 L 13.3-17.7 g/dL Hematocrit 35 L 40-54 % Mean Corpuscular Volume 91 80-99 fL Mean Corpuscular Hemoglobin 30 25-34 pg Mean Corpuscular Hemoglobin Concent 34 32-36 g/dL Red Cell Distribution Width 12.4 10.0-14.5 % Platelet Count 100 L 130-400 10^3/uL Mean Platelet Volume 10.7 9.0-12.2 fL Immature Granulocyte % (Auto) 0 % Neutrophils (%) (Auto) 80 H 42-75 % Lymphocytes (%) (Auto) 9 L 12-44 % Monocytes (%) (Auto) 9 0-12 % Eosinophils (%) (Auto) 1 0-10 % Basophils (%) (Auto) 1 0-10 % Neutrophils # (Auto) 4.0 1.8-7.8 10^3/uL Lymphocytes # (Auto) 0.5 L 1.0-4.0 10^3/uL Monocytes # (Auto) 0.4 0.0-1.0 10^3/uL Eosinophils # (Auto) 0.1 0.0-0.3 10^3/uL Basophils # (Auto) 0.0 0.0-0.1 10^3/uL Immature Granulocyte # (Auto) 0.0 0.0-0.1 10^3/uL Percent Immature Platelet Fraction 3.1 0.0-7.6 % Sodium Level 144 135-145 MMOL/L Potassium Level 4.2 3.6-5.0 MMOL/L Chloride Level 109 H 98-107 MMOL/L Carbon Dioxide Level 24 21-32 MMOL/L Anion Gap 11 5-14 MMOL/L Blood Urea Nitrogen 42 H 7-18 MG/DL Creatinine 1.81 H 0.60-1.30 MG/DL Estimat Glomerular Filtration Rate 39 BUN/Creatinine Ratio 23 Glucose Level 102 70-105 MG/DL Calcium Level 8.7 8.5-10.1 MG/DL Magnesium Level 2.0 1.6-2.4 MG/DL My Orders Orders - NESHA SUN MD Ed Iv/Invasive Line Start (02/18/23 12:15) Cbc With Automated Diff (02/18/23 12:15) Basic Metabolic Panel (02/18/23 12:15) Magnesium (02/18/23 12:15) Ekg Tracing (02/18/23 12:15) Chest 1 View, Ap/Pa Only (02/18/23 12:15) Ekg Tracing (02/18/23 12:41) Ed Admission (Communication) (02/18/23 13:32) Vital Signs/I&O Capillary Refill : Blood Pressure Mean: 92 Progress Note : Time: 13:00 Progress Note Patient seen and evaluated by me, evaluation today includes physical exam, CBC, chemistry, magnesium, EKG and chest x-ray. Pertinent physical exam findings well-developed well-nourished male in no acute distress. Is quite bradycardic in the low 40s occasionally in the upper 30s. Telemetry reveals possible third- degree A-V block. Patient heart exam sounds regular. Lungs are clear, abdomen is soft and benign. Patient moves all extremities equally, no focal neurologic deficits are discerned. He is alert and oriented. Differential diagnosis based on history and physical exam, dehydration/metabolic derangement, heart block. Labs and imaging and EKG reviewed and independently interpreted by me, chest x- ray read by radiology. CBC shows a white count of 5.0, hemoglobin of 11.8 hematocrit of 35, platelet count of 100. Chemistry shows a sodium of 144 potassium 4.2 chloride 109, CO2 24 BUN of 42 creatinine of 1.81. Serum glucose 102 magnesium level 2.0. EKG shows possible type II AV block. Chest x-ray shows cardiomegaly without signs of overt failure. Case is discussed with Dr. John onto the hospitalist service for admission as well as with cardiology regarding the patient's bradycardia. Patient will be admitted to the ICU for ongoing monitoring and assessment of his symptomatic bradycardia. Patient is comfortable with the plan of care. All questions are sought and answered ECG Initial ECG Impression Date: February 18, 2023 Initial ECG Impression Time: 12:23 Initial ECG Rate: 52 Initial ECG Intervals QRS 99 QTC 502 Comment QRS complexes present. prolonged Qt interval; low voltage precludes more accurate interpretation. No overt ST elevation or depression EKG : EKG Time: 12:46 Rate: 43 Intervals QRS 93 QTC 464 Comment irregular; no ST elevation or depression; prolonged QT; Suspect second degree block Diagnostic Imaging Diagonstic Imaging: Xray Plain Films/CT/US/NM/MRI: chest Comments [facility]. [place], [place] NAME: KRISTI CHAVEZ [facility] REC#: [id number] PT STATUS: REG ER : 1950 PHYSICIAN: NESHA SUN MD ADMIT DATE: 02/18/23/ER Draft Date of Exam:02/18/23 CHEST 1 VIEW, AP/PA ONLY INDICATION: 3-4 episodes of dizziness while working in [employer] earlier today. TECHNIQUE: Single view chest 12:22 PM. CORRELATION STUDY: 10/15/2021 FINDINGS: Heart size enlarged, perhaps slightly increased from prior. Vasculature overall within normal limits. Calcification of the aortic arch. Lung sue hyperinflated. There is loss of visualization of the medial right diaphragm. A definitive infiltrate is not otherwise suggested but does raise concern for perhaps a right basilar infiltrate. Very minimal opacity medial left lung base. IMPRESSION: 1. Slight interval cardiac enlargement without overt failure. 2. Bibasilar opacities which are somewhat indeterminate. Could be artifactual with possibly minimal atelectasis or less likely infiltrate not completely excluded. If indicated, short-term followup repeat two-view chest imaging recommended. Dictated on workstation # [id number] Dict: 02/18/23 1239 Trans: 02/18/23 1243 [facility] [id number] Interpreted by: RICO SWEENEY DO Electronically signed by: Departure Communication (Admissions) Time/Spoke to Admitting Phy: 12:[address] John (hospitalist [facility]) admit ICU Time/Spoke to Consulting Phy: 12:[address] Sultana (cardiology) Impression Primary Impression: Symptomatic bradycardia Additional Impression: Dizziness Disposition: ADMITTED INPATIENT Condition: Critical Admissions Decision to Admit Reason: Admit from ER (General) Decision to Admit/Date: February 18, 2023 Time/Decision to Admit Time: 12:54 Departure-Patient Inst. Referrals: MAYDA JOHN DO (PCP/Family) Primary Care Physician Scripts Amlodipine Besylate (Amlodipine Besylate) 5 Mg Tablet 10 MG PO DAILY, #30 TAB Prov: MAYDA JOHN DO 02/22/23 Doxazosin Mesylate (Doxazosin Mesylate) 1 Mg Tablet 1 MG PO BID, #60 TAB Prov: MAYDA JOHN DO 02/22/23 NESHA SUN MD February 18, 2023 12:18
--- NOTE | 2023-02-18 12:44 | Diagnostic Imaging Report ---
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 TECHNIQUE: Single view chest 12:22 PM. CORRELATION STUDY: 10/15/2021 FINDINGS: Heart size enlarged, perhaps slightly increased from prior. Vasculature overall within normal limits. Calcification of the aortic arch. Lung sue hyperinflated. There is loss of visualization of the medial right diaphragm. A definitive infiltrate is not otherwise suggested but does raise concern for perhaps a right basilar infiltrate. Very minimal opacity medial left lung base. IMPRESSION: 1. Slight interval cardiac enlargement without overt failure. 2. Bibasilar opacities which are somewhat indeterminate. Could be artifactual with possibly minimal atelectasis or less likely infiltrate not completely excluded. If indicated, short-term followup repeat two-view chest imaging recommended. Dictated by: Dictated on workstation # [id number]
--- NOTE | 2023-02-18 12:46 | History & Physical ---
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 Cardiology was consulted and recommended holding beta-jorgito of metoprolol extended release 50 mg and close monitoring on telemetry in the ICU. He is high risk for complete heart block and will need close monitoring. Source: patient, family Exam Limitations: no limitations Date Seen 02/18/23 Time Seen by a Provider: 13:00 Attending Physician Maggy Luque DO PCP Admitting Physician: Attending Physician: Referring Physician Date of Admission Home Medications & Allergies Home Medications Reviewed patient Home Medication Reconciliation performed by pharmacy medication reconciliations nuclear plant instrument technician and/or nursing. Patients Allergies have been reviewed. Allergies Allergies Coded Allergies trazodone (Verified Adverse Reaction, Severe, SEVERE CONFUSION, 06/18/20) Past Lsrkdld-Mixubv-Kvkbld Hx Past Med/Social Hx: Reviewed Nursing Past Med/Soc Hx, Reviewed and Corrections made Patient Social History Marrital Status: cohabiting Employed/Student: retired Alcohol Use: Denies Use Alcohol Beverage of Choice: Beer Smoking Status: Never a Smoker Former Smoker, Quit: Sep 23, 2001 Type Used: Cigarettes 2nd Hand Smoke Exposure: No Recent Hopitalizations: No Immunizations Up To Date Date of Influenza Vaccine: May 30, 2020 Seasonal Allergies Seasonal Allergies: Yes Past Medical History Surgeries: Abdominal, Eye Surgery, Gallbladder, Prostatectomy, Renal Currently Using CPAP: No Currently Using BIPAP: No Cardiac: High Cholesterol, Hypertension Reproductive: No Sexually Transmitted Disease: No HIV/AIDS: No Genitourinary: Prostate Problems, Kidney Stones Gastrointestinal: Abdominal Hernia, Gall Bladder Disease Musculoskeletal: Chronic Back Pain Endocrine: Diabetes, Non-Insulin dep HEENT: Cataract Loss of Vision: Denies Hearing Impairment: Denies Cancer: Prostate Did You Recieve Any Treatments: Yes What Type of Treatment Did You: Surgical Intervention Psychosocial: Anxiety History of Blood Disorders: No Adverse Reaction to Blood May: No (N/A) Review of Systems Constitutional: see HPI, dizziness, malaise, weakness EENTM: no symptoms reported Respiratory: no symptoms reported Cardiovascular: no symptoms reported Gastrointestinal: no symptoms reported Genitourinary: no symptoms reported Musculoskeletal: no symptoms reported Skin: no symptoms reported Psychiatric/Neurological: No Symptoms Reported All Other Systems Reviewed Negative Unless Noted: Yes Physical Exam Physical Exam Vital Signs Vital Signs - First Documented 02/18/23 02/18/23 11:56 13:00 Temp 36.8 Pulse 45 Resp 16 B/P (MAP) 143/67 (92) Pulse Ox 96 O2 Delivery Room Air Capillary Refill : Height, Weight, BMI Height: 5'11.00" Weight: 205lbs. 0.0oz. 92.481352nt; 25.00 BMI Method:Stated General Appearance: No Apparent Distress, WD/WN Eyes: Bilateral Eye Normal Inspection, Bilateral Eye PERRL, Bilateral Eye EOMI HEENT: TMs Normal, Pharynx Normal, Moist Mucous Membranes Neck: Normal Inspection Respiratory: Lungs Clear, Normal Breath Sounds, No Accessory Muscle Use, No Respiratory Distress Cardiovascular: Normal Peripheral Pulses, Bradycardia (Irregular) Gastrointestinal: Non Tender, Soft Extremity: Normal Inspection, Normal Range of Motion, No Pedal Edema Neurologic/Psychiatric: Alert, Oriented x3, No Motor/Sensory Deficits, cash management clerk II- XII Norm as Tested, Other (Very flat affect) Results Results/Procedures Labs Laboratory Tests 02/18/23 13:16 Patient resulted labs reviewed. Assessment/Plan Admission Diagnosis Assessment: Symptomatic bradycardia Malignant hypertension Dementia Presumed HELDER had recent sleep study Hyperlipidemia Depression SHERI ordered gentle IVF Plan: ICU May need temporary pacemaker Cardiology consult Echo N.p.o. after midnight in case pacemaker placement is required Hold metoprolol Admission Status: Observation MAGGY LUQUE DO February 18, 2023 12:46
[2023-02-18 13:19] LABS: BASOPHILS % (AUTO) 1 % (0-10); EOSINOPHILS # (AUTO) 0.1 10^3/uL (0.0-0.3); EOSINOPHILS % (AUTO) 1 % (0-10); HEMOGLOBIN 11.8 g/dL (13.3-17.7); MONOCYTES # (AUTO) 0.4 10^3/uL (0.0-1.0)
[2023-02-18 13:26] LABS: HEMATOCRIT 35 % (40-54); LYMPHOCYTES # (AUTO) 0.5 10^3/uL (1.0-4.0); LYMPHOCYTES % (AUTO) 9 % (12-44); MEAN CORPUSCULAR HEMOGLOBIN 30 pg (25-34); MEAN CORPUSCULAR HGB CONC 34 g/dL (32-36); MEAN CORPUSCULAR VOLUME 91 fL (80-99); MEAN PLATELET VOLUME 10.7 fL (9.0-12.2); MONOCYTES % (AUTO) 9 % (0-12); NEUTROPHILS % (AUTO) 80 % (42-75); PLATELET COUNT 100 10^3/uL (130-400)
[2023-02-18 13:37] LABS: POTASSIUM 4.2 MMOL/L (3.6-5.0)
[2023-02-18 13:38] LABS: CALCIUM 8.7 MG/DL (8.5-10.1)
[2023-02-18 13:43] LABS: CREATININE SERUM 1.81 MG/DL (0.60-1.30)
[2023-02-18] MEDS ORDERED: ACETAMINOPHEN 325 MG TABLET PO PRN (14:45)
[2023-02-18] MEDS ORDERED: BISACODYL 10 MG SUPP (DULCOLAX) PR PRN (14:45)
[2023-02-18] MEDS ORDERED: CALCIUM CARBONATE 500 MG (TUMS) TAB.CHEW PO PRN (14:45)
[2023-02-18] MEDS ORDERED: ONDANSETRON 4 MG (ZOFRAN) ORAL DISSOLVE TAB PO PRN (14:45)
[2023-02-18] MEDS ORDERED: diphenhydrAMINE 50 MG/ML INJ (BENADRYL) IVP PRN (14:45)
[2023-02-18] MEDS ORDERED: LORazepam 0.5 MG (ATIVAN) TABLET PO PRN (14:45)
[2023-02-18] MEDS ORDERED: diphenhydrAMINE 25 MG TAB (BENADRYL) PO PRN (14:45)
[2023-02-18] MEDS ORDERED: MILK OF MAGNESIA 400 MG/5 ML 30 ML UDC PO PRN (14:45)
[2023-02-18] MEDS ORDERED: LORazepam INJ 2 MG/ML (ATIVAN) VIAL IVP PRN (14:45)
[2023-02-18] MEDS ORDERED: HYDROmorphone 2 MG/ML VIAL (DILAUDID) IV PRN (14:45)
[2023-02-18] MEDS ORDERED: LACTULOSE SYRUP 10GM/15ML (ENULOSE) 30ML UDC PO PRN (14:45)
[2023-02-18] MEDS ORDERED: ANTACID SUSP 30 ML UDC (MYLANTA) PO PRN (14:45)
[2023-02-18] MEDS ORDERED: MELATONIN 3 MG TABLET PO PRN (14:45)
[2023-02-18] MEDS ORDERED: NS IV 500 ML 500 ML IV PRN (14:45)
[2023-02-18] MEDS ORDERED: ONDANSETRON 4 MG/2 ML (SDV) Z0FRAN IV PRN (14:45)
[2023-02-18] MEDS ORDERED: polyethylene glycoL POWDER 17 GM (MIRALAX) PACK PO PRN (14:45)
[2023-02-18] MEDS: ENOXAPARIN 40 MG/0.4 ML (LOVENOX) SYR SC SCH (14:52)
[2023-02-18] MEDS: NS IV 1000 ML 1,000 ML IV SCH (14:52)
--- NOTE | 2023-02-18 15:40 | Tele-ICU Consult ---
History of Present Illness History of Present Illness Date Seen by Provider: February 18, 2023 Time Seen by Provider: 15:34 History of Present Illness eICU admit note 72 yo M with cc of dizziness. no nausea or vomiting, No CP or SOB, In ED BP was 190, EKT showed sinus bradycardia with HR 43-taking Metoprolol 50 mg q d Takes azelastine for nasal congestion PMH HTN, s/p prostatecomy, HLD, Allergies and Home Medications Allergies Coded Allergies: trazodone (Verified Adverse Reaction, Severe, SEVERE CONFUSION, 06/18/20) Home Medications Amlodipine Besylate/Benazepril 1 Each Capsule, 1 EACH PO DAILY, (Reported) Aspirin 81 Mg Tab.chew, 81 MG PO DAILY, (Reported) Azelastine HCl 137 Mcg/0.137 Ml [place].pump, 137 MCG NS BID PRN for ALLERGIES, (Reported) Cefdinir 300 Mg Capsule, 300 MG PO BID Prescribed by: CUCO BARR on 06/18/20 1657 Ciprofloxacin HCl 500 Mg Tablet, 500 MG PO BID Prescribed by: PARVIN HOOVER on 06/18/20 1014 Hydralazine HCl 25 Mg Tablet, 25 MG PO TID, (Reported) Loperamide HCl 2 Mg Capsule, 2 MG PO DAILY PRN for DIARRHEA, (Reported) Loratadine 10 Mg Tablet, 10 MG PO DAILY, (Reported) Metoprolol Tartrate 50 Mg Tablet, 50 MG PO DAILY, (Reported) Montelukast Sodium 10 Mg Tablet, 10 MG PO HS, (Reported) Multivitamin 1 Each Tablet, 1 EACH PO DAILY, (Reported) Pravastatin Sodium 40 Mg Tablet, 40 MG PO DAILY, (Reported) Tamsulosin HCl 0.4 Mg Cap, 0.4 MG PO DAILY, (Reported) Tramadol HCl 50 Mg Tablet, 50 MG PO Q4H PRN for PAIN-MODERATE (5-7) 1-2 TABLETS EVERY 4 HOURS NEEDED FOR PAIN Prescribed by: PARVIN HOOVER on 06/18/20 1022 Past Medical/Social/Family Hx Patient Social History Tobacco Use?: No Use of E-Cig and/or Vaping dev: No Substance use?: Yes Substance type: Caffeine Substance frequency: Once in a while Alcohol Use?: No Alcohol Frequency: Rarely Pt stated abuse/neglect: No Immunizations Up To Date Influenza Vaccine Up-to-Date: Yes; Up-to-Date First/Initial COVID19 Vaccinat: 2020 Second COVID19 Vaccination Zbigniew: 2020 Current Status Advance Directives: No Primary Language: Estonian Preferred Spoken Language: Estonian Is interpretation needed?: No Implanted or Applied Medical D: None Review of Systems Constitutional: see HPI EENTM: see HPI Respiratory: see HPI Cardiovascular: see HPI Gastrointestinal: see HPI Genitourinary: see HPI Musculoskeletal: see HPI Skin: see HPI Psychiatric/Neurological: See HPI Focused Exam Height, Weight, BMI Height: 5'11.00" Weight: 205lbs. 0.0oz. 92.707835hg; 24.51 BMI Method:Stated Exam Exam Patient acknowledged, consented, and participated in this virtual visit which was conducted using real time audio/video Vital Signs Date Time Temp Pulse Resp B/P (MAP) Pulse Ox O2 Delivery O2 Flow Rate FiO2 02/18/23 14:24 55 02/18/23 14:04 36.4 49 16 139/89 96 Room Air 02/18/23 11:56 36.8 45 16 143/67 (92) 96 Height & Weight Height: 5'11.00" Weight: 205lbs. 0.0oz. 92.830363kx; 24.51 BMI Method:Stated General Appearance: No Apparent Distress, WD/WN HEENT: TMs Normal, Pharynx Normal, Moist Mucous Membranes Neck: Normal Inspection Respiratory: Lungs Clear, Normal Breath Sounds, No Accessory Muscle Use, No Respiratory Distress Cardiovascular: Normal Peripheral Pulses, Bradycardia (Irregular) Gastrointestinal: normal bowel sounds, non tender, soft Extremity: Normal Inspection, Normal Range of Motion, No Pedal Edema Neurologic/Psychiatric: Alert, Oriented x3, No Motor/Sensory Deficits, glass silverer II- XII Norm as Tested, Other (Very flat affect) Results Lab Laboratory Tests 02/18/23 13:16 Assessment/Plan Assessment/Plan symptomatic bradycardia, probably form beta jorgito, had echo, await reading, 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 will observe Time spent with patient (mins): 20 MACEIJ DUMAS MD February 18, 2023 15:40
--- NOTE | 2023-02-18 15:41 | Consultation-Cardiology ---
HPI-Cardiology Cardiology Consultation: Date of Consultation 02/18/23 Date of Admission Attending Physician Maggy Luque DO Admitting Physician Admitting Physician: Maggy Luque DO Attending Physician: Maggy Luque DO Consulting Physician Olena MCLEOD MD HPI: Time Seen by a Provider: 15:38 Chief Complaint: Dizziness This is a 72-year-old gentleman who has history of hypertension. He presents with significant dizziness however he denies syncope, near syncope. He had an episode of dizziness few weeks ago as well. He denies any other cardiac complaints. He also denies any past cardiac history. He is a non-smoker. Pertinent family history is irrelevant Review of Systems-Cardiology Review of Systems Constitutional: no symptoms reported Eyes: no symptoms reported Ears/Nose/Throat: no symptoms reported Respiratory: No orthopnea, No SOB with excertion, No SOB at rest Cardiovascular: No chest pain; lightheadedness, other (This is) Gastrointestinal: no symptoms reported Genitourinary: no symptoms reported Musculoskeletal: no symptoms reported Skin: no symptoms reported Psychiatric/Neurological: no symptoms reported Hematologic: no symptoms reported RPP-Mulgms-Gptqga Hx Patient Social History 2nd Hand Smoke Exposure: No Have you traveled recently?: No Alcohol Use?: No Substance type: Caffeine Pt feels they are or have been: No Immunizations Up To Date Date of Influenza Vaccine: May 30, 2020 Past Medical History PMH As described under Assessment. Allergies and Home Medications Allergies Coded Allergies: trazodone (Verified Adverse Reaction, Severe, SEVERE CONFUSION, 06/18/20) Patient Home Medication List Home Medication List Reviewed: Yes Amlodipine Besylate/Benazepril (Lotrel 5-10 mg Capsule) 1 Each Capsule, 1 EACH PO DAILY, (Reported) Entered as Reported by: ALYSHA ALBA on 06/09/20 1253 Aspirin (Aspirin) 81 Mg Tab.chew, 81 MG PO DAILY, (Reported) Entered as Reported by: ALYSHA ALBA on 06/09/20 1253 Azelastine HCl (Azelastine HCl) 137 Mcg/0.137 Ml Britton.pump, 137 MCG NS BID PRN for ALLERGIES, (Reported) Entered as Reported by: ALYSHA ALBA on 06/09/20 1253 Cefdinir (Cefdinir) 300 Mg Capsule, 300 MG PO BID Prescribed by: CUCO BARR on 06/18/20 1657 Ciprofloxacin HCl (Cipro) 500 Mg Tablet, 500 MG PO BID Prescribed by: PARVIN HOOVER on 06/18/20 1014 Hydralazine HCl (Hydralazine HCl) 25 Mg Tablet, 25 MG PO TID, (Reported) Entered as Reported by: ALYSHA ALBA on 06/09/20 1253 Loperamide HCl (Loperamide) 2 Mg Capsule, 2 MG PO DAILY PRN for DIARRHEA, (Reported) Entered as Reported by: ALYSHA ALBA on 06/09/20 1253 Loratadine (Loratadine) 10 Mg Tablet, 10 MG PO DAILY, (Reported) Entered as Reported by: CRISTIAN MURRY on 06/13/20 0902 Metoprolol Tartrate (Metoprolol Tartrate) 50 Mg Tablet, 50 MG PO DAILY, (Repo rted) Entered as Reported by: ALYSHA ALBA on 06/09/20 1253 Montelukast Sodium (Montelukast Sodium) 10 Mg Tablet, 10 MG PO HS, (Reported) Entered as Reported by: CRISTIAN MURRY on 03/10/19 1020 Multivitamin (Multivitamin) 1 Each Tablet, 1 EACH PO DAILY, (Reported) Entered as Reported by: ALYSHA ALBA on 06/09/20 1253 Pravastatin Sodium (Pravastatin Sodium) 40 Mg Tablet, 40 MG PO DAILY, (Reported) Entered as Reported by: CRISTIAN MURRY on 03/10/19 1020 Tamsulosin HCl (Flomax) 0.4 Mg Cap, 0.4 MG PO DAILY, (Reported) Entered as Reported by: CRISTIAN MURRY on 03/10/19 1020 Tramadol HCl (Tramadol HCl) 50 Mg Tablet, 50 MG PO Q4H PRN for PAIN-MODERATE (5- 7) Prescribed by: PARVIN HOOVER on 06/18/20 1022 Exam Vital Signs Vital Signs Date Time Temp Pulse Resp B/P (MAP) Pulse Ox O2 Delivery O2 Flow Rate FiO2 02/18/23 14:24 55 02/18/23 14:04 36.4 16 139/89 96 Room Air Physical Exam Constitutional examination: Not in acute distress. CVS: Bradycardia. No murmur, rub, gallop. Chest: Clear to auscultation bilaterally. No pedal edema. Labs Laboratory Tests Test 02/18/23 13:16 Range/Units White Blood Count 5.0 4.3-11.0 10^3/uL Red Blood Count 3.88 L 4.30-5.52 10^6/uL Hemoglobin 11.8 L 13.3-17.7 g/dL Hematocrit 35 L 40-54 % Mean Corpuscular Volume 91 80-99 fL Mean Corpuscular Hemoglobin 30 25-34 pg Mean Corpuscular Hemoglobin Concent 34 32-36 g/dL Red Cell Distribution Width 12.4 10.0-14.5 % Platelet Count 100 L 130-400 10^3/uL Mean Platelet Volume 10.7 9.0-12.2 fL Immature Granulocyte % (Auto) 0 % Neutrophils (%) (Auto) 80 H 42-75 % Lymphocytes (%) (Auto) 9 L 12-44 % Monocytes (%) (Auto) 9 0-12 % Eosinophils (%) (Auto) 1 0-10 % Basophils (%) (Auto) 1 0-10 % Neutrophils # (Auto) 4.0 1.8-7.8 10^3/uL Lymphocytes # (Auto) 0.5 L 1.0-4.0 10^3/uL Monocytes # (Auto) 0.4 0.0-1.0 10^3/uL Eosinophils # (Auto) 0.1 0.0-0.3 10^3/uL Basophils # (Auto) 0.0 0.0-0.1 10^3/uL Immature Granulocyte # (Auto) 0.0 0.0-0.1 10^3/uL Percent Immature Platelet Fraction 3.1 0.0-7.6 % Sodium Level 144 135-145 MMOL/L Potassium Level 4.2 3.6-5.0 MMOL/L Chloride Level 109 H 98-107 MMOL/L Carbon Dioxide Level 24 21-32 MMOL/L Anion Gap 11 5-14 MMOL/L Blood Urea Nitrogen 42 H 7-18 MG/DL Creatinine 1.81 H 0.60-1.30 MG/DL Estimat Glomerular Filtration Rate 39 BUN/Creatinine Ratio 23 Glucose Level 102 70-105 MG/DL Calcium Level 8.7 8.5-10.1 MG/DL Magnesium Level 2.0 1.6-2.4 MG/DL ECG Impression ECG Comment Initial EKG shows sinus bradycardia with possible Wenckebach phenomenon. Subsequent telemetry shows sinus bradycardia. Lowest heart rate documented is in the 40s. A/P-Cardiology Assessment/Admission Diagnosis Dizziness, sinus node dysfunction, possible second-degree heart block type I. Hypertension Plan Echocardiogram shows normal LV function. No significant valvular heart disease. DC metoprolol. Continue further monitoring. Due to sinus node dysfunction and possible symptomatic second-degree heart block with Wenckebach phenomenon, patient may require a pacemaker in the future. Manage blood pressure with non- AV aakash blockers. Discussed at length with the patient and spouse Olena MCLEOD MD February 18, 2023 15:41
[2023-02-18 16:06] VITALS: BP 139/89
[2023-02-18] MEDS ORDERED: DONE10TA41 PO (19:28)
[2023-02-18] MEDS ORDERED: MELA3TAB39 PO (19:28)
[2023-02-18] MEDS ORDERED: DIPH25CA79 PO (19:28)
[2023-02-18] MEDS ORDERED: CETI10TA49 PO (19:28)
[2023-02-18] MEDS ORDERED: ESCI10TA PO (19:28)
[2023-02-18] MEDS ORDERED: MEMA10TA57 PO (19:28)
[2023-02-18] MEDS: DOCUSATE SODIUM 100 MG (COLACE) CAP PO SCH (20:36)
[2023-02-18] MEDS: SENNOSIDES 8.6 MG (SENOKOT) TAB PO SCH (20:36)
[2023-02-18] MEDS: hydrALAZINE (APESOLINE) 20 MG/ML VIAL IV PRN (23:06)
[2023-02-19] MEDS: NS IV 1000 ML 1,000 ML IV SCH ×3 (01:56→20:47)
[2023-02-19] MEDS: hydrALAZINE (APESOLINE) 20 MG/ML VIAL IV PRN ×3 (03:30→23:55)
[2023-02-19 05:35] LABS: BASOPHILS % (AUTO) 1 % (0-10); EOSINOPHILS # (AUTO) 0.1 10^3/uL (0.0-0.3); EOSINOPHILS % (AUTO) 1 % (0-10); HEMATOCRIT 36 % (40-54); HEMOGLOBIN 11.9 g/dL (13.3-17.7); LYMPHOCYTES # (AUTO) 0.6 10^3/uL (1.0-4.0); LYMPHOCYTES % (AUTO) 14 % (12-44); MEAN CORPUSCULAR HEMOGLOBIN 31 pg (25-34); MEAN CORPUSCULAR HGB CONC 33 g/dL (32-36); MEAN CORPUSCULAR VOLUME 92 fL (80-99); MEAN PLATELET VOLUME 10.9 fL (9.0-12.2); MONOCYTES # (AUTO) 0.4 10^3/uL (0.0-1.0); MONOCYTES % (AUTO) 10 % (0-12); NEUTROPHILS # (AUTO) 3.3 10^3/uL (1.8-7.8); NEUTROPHILS % (AUTO) 74 % (42-75); PLATELET COUNT 102 10^3/uL (130-400); WHITE BLOOD COUNT 4.4 10^3/uL (4.3-11.0)
[2023-02-19 05:56] LABS: ALBUMIN 3.6 GM/DL (3.2-4.5); BILIRUBIN,TOTAL 0.6 MG/DL (0.1-1.0); CALCIUM 8.6 MG/DL (8.5-10.1); CREATININE SERUM 1.35 MG/DL (0.60-1.30); MAGNESIUM 1.8 MG/DL (1.6-2.4); PHOSPHORUS 3.4 MG/DL (2.3-4.7); POTASSIUM 3.8 MMOL/L (3.6-5.0); TOTAL PROTEIN 5.5 GM/DL (6.4-8.2)
[2023-02-19] MEDS: POTASSIUM CL 10MEQ/50ML IVPB 50 ML IV SCH ×3 (05:58→10:53)
[2023-02-19] MEDS: MAGNESIUM 1 GM/100 ML IVPB 100 ML IV SCH ×3 (05:58→08:41)
[2023-02-19] MEDS: KCL 20 MEQ TAB (K-DUR) PO SCH (05:58)
--- NOTE | 2023-02-19 06:15 | Progress Note ---
Subjective Date Seen by a Provider: February 19, 2023 Time Seen by a Provider: 09:00 Subjective/Events-last exam Patient doing about the same Bradycardia continues Partner at the bedside Confusion is subtle No pain is reported Blood pressure improved Review of Systems General: Fatigue, Malaise Neurological: Confusion Objective Exam Last Set of Vital Signs Vital Signs Date Time Temp Pulse Resp B/P (MAP) Pulse Ox O2 Delivery O2 Flow Rate FiO2 02/19/23 04:00 97 Room Air 02/19/23 03:52 36.8 02/19/23 02:00 53 14 162/73 (102) Capillary Refill : I&O Intake and Output 02/19/23 00:00 Intake Total 150 ml Output Total 850 ml Balance -700 ml Intake Oral 150 ml Output Urine Total 850 ml Daily Weight Change No General: Alert, Oriented X3, Cooperative, No Acute Distress, Other (Subtle confusion) Lungs: Clear to Auscultation Heart: Other (Bradycardic) Psych/Mental Status: Mental Status NL Results Lab Laboratory Tests 02/18/23 13:16: White Blood Count 5.0, Red Blood Count 3.88L, Hemoglobin 11.8L, Hematocrit 35L, Mean Corpuscular Volume 91, Mean Corpuscular Hemoglobin 30, Mean Corpuscular Hemoglobin Concent 34, Red Cell Distribution Width 12.4, Platelet Count 100L, Mean Platelet Volume 10.7, Immature Granulocyte % (Auto) 0, Neutrophils (%) (Auto) 80H, Lymphocytes (%) (Auto) 9L, Monocytes (%) (Auto) 9, Eosinophils (%) (Auto) 1, Basophils (%) (Auto) 1, Neutrophils # (Auto) 4.0, Lymphocytes # (Auto) 0.5L, Monocytes # (Auto) 0.4, Eosinophils # (Auto) 0.1, Basophils # (Auto) 0.0, Immature Granulocyte # (Auto) 0.0, Percent Immature Platelet Fraction 3.1, Sodium Level 144, Potassium Level 4.2, Chloride Level 109H, Carbon Dioxide Level 24, Anion Gap 11, Blood Urea Nitrogen 42H, Creatinine 1.81H, Estimat Glomerular Filtration Rate 39, BUN/Creatinine Ratio 23, Glucose Level 102, Calcium Level 8.7, Magnesium Level 2.0 02/19/23 04:10: White Blood Count 4.4, Red Blood Count 3.89L, Hemoglobin 11.9L, Hematocrit 36L, Mean Corpuscular Volume 92, Mean Corpuscular Hemoglobin 31, Mean Corpuscular Hemoglobin Concent 33, Red Cell Distribution Width 12.5, Platelet Count 102L, Mean Platelet Volume 10.9, Immature Granulocyte % (Auto) 0, Neutrophils (%) (Auto) 74, Lymphocytes (%) (Auto) 14, Monocytes (%) (Auto) 10, Eosinophils (%) (Auto) 1, Basophils (%) (Auto) 1, Neutrophils # (Auto) 3.3, Lymphocytes # (Auto) 0.6L, Monocytes # (Auto) 0.4, Eosinophils # (Auto) 0.1, Basophils # (Auto) 0.0, Immature Granulocyte # (Auto) 0.0, Percent Immature Platelet Fraction 3.2, Sodium Level 144, Potassium Level 3.8, Chloride Level 112H, Carbon Dioxide Level 23, Anion Gap 9, Blood Urea Nitrogen 31H, Creatinine 1.35H, Estimat Glomerular Filtration Rate 55, BUN/Creatinine Ratio 23, Glucose Level 79, Calcium Level 8.6, Magnesium Level 1.8, Corrected Calcium 8.9, Phosphorus Level 3.4, Total Bi lirubin 0.6, Aspartate Amino Transf (AST/SGOT) 15, Alanine Aminotransferase (ALT/SGPT) 12, Alkaline Phosphatase 62, Total Protein 5.5L, Albumin 3.6 Assessment/Plan Assessment/Plan Assess & Plan/Chief Complaint Assessment: Symptomatic bradycardia Malignant hypertension Dementia Presumed HELDER had recent sleep study Hyperlipidemia Depression SHERI ordered gentle IVF Plan: ICU May need temporary pacemaker Cardiology consult Echo Hold metoprolol MAYDA JOHN DO February 19, 2023 06:15
--- NOTE | 2023-02-19 08:23 | Diagnostic Imaging Report ---
EXAMINATION: Chest 1 view HISTORY: Bradycardia. COMPARISON: 02/18/2023 FINDINGS: The lungs are clear without edema or pneumonia. No pleural effusion or pneumothorax. Heart size is normal. IMPRESSION: 1. Clear lungs. Dictated by: Dictated on workstation # [id number]
[2023-02-19] MEDS: SENNOSIDES 8.6 MG (SENOKOT) TAB PO SCH ×2 (09:30→20:45)
[2023-02-19] MEDS: DOCUSATE SODIUM 100 MG (COLACE) CAP PO SCH ×2 (09:30→20:45)
--- NOTE | 2023-02-19 10:28 | Progress Note - Cardiology ---
Cardiology SOAP Progress Note Subjective: Lying in bed C/O nasal congestion Spouse at the bedside No c/o dizziness, CP, SOB or palpitations Objective: I&O/Vital Signs 02/19/23 02/19/23 02/19/23 02/19/23 23:30 23:49 23:51 23:59 Temp 36.3 Pulse 58 57 Resp 10 16 B/P (MAP) 183/91 (130) 181/78 (109) Pulse Ox 96 96 96 O2 Delivery Room Air Room Air Room Air 02/20/23 02/20/23 02/20/23 02/20/23 00:00 01:00 01:00 01:30 Pulse 57 60 60 56 Resp 11 11 12 B/P (MAP) 177/76 (94) 174/80 (95) 152/71 (109) Pulse Ox 96 98 95 O2 Delivery Room Air Room Air Room Air 02/20/23 02/20/23 02/20/23 02/20/23 02:00 03:00 03:30 04:00 Pulse 54 51 56 54 Resp 15 9 12 18 B/P (MAP) 140/71 (96) 129/87 (93) 161/71 (100) 172/87 (120) Pulse Ox 93 95 94 97 O2 Delivery Room Air Room Air Room Air Room Air 02/20/23 02/20/23 02/20/23 02/20/23 04:00 04:04 04:27 05:30 Temp 36.4 Pulse 54 55 Resp 14 29 B/P (MAP) 175/82 (110) 160/57 (91) Pulse Ox 97 96 99 O2 Delivery Room Air Room Air Room Air 02/20/23 02/20/23 02/20/23 02/20/23 05:36 06:00 07:05 07:35 Pulse 55 55 48 Resp 11 B/P (MAP) 190/81 149/59 (89) Pulse Ox 98 99 O2 Delivery Room Air Room Air O2 Flow Rate 0.00 02/20/23 02/20/23 08:00 08:00 Temp 36.4 Pulse Ox 97 O2 Delivery Room Air Room Air 02/20/23 00:00 Intake Total 1960 ml Output Total 550 ml Balance 1410 ml Weight (Pounds): 205 Weight (Ounces): 0.0 Weight (Calculated Kilograms): 92.687842 Constitutional: AAO x 3, well-developed, well-nourished Respiratory: No accessory muscle use, No respiratory distress; chest expansion is symmetric, chest is bilaterally symmetric, lungs clear to auscultation Cardiovascular: regular rate-rhythm; No JVD; S1 and S2 Gastrointestional: No tender; soft Extremities: no lower extremity edema bilateral Neurologic/Psychiatric: grossly intact (moves all extremities) Skin: No rash on exposed areas, No ulcerations on exposed areas Results/Procedures: Labs Microbiology 02/18/23 MRSA Screen - Final, Complete MRSA not isolated Procedures NAME: KRISTI CHAVEZ [facility] REC#: [id number] PT STATUS: ADM Lilly : [id number] PHYSICIAN: MAYDA JOHN DO ADMIT DATE: 02/18/23/ICU Draft Date of Exam:02/19/23 CHEST 1 VIEW, AP/PA ONLY EXAMINATION: Chest 1 view HISTORY: Bradycardia. COMPARISON: 02/18/2023 FINDINGS: The lungs are clear without edema or pneumonia. No pleural effusion or pneumothorax. Heart size is normal. IMPRESSION: 1. Clear lungs. Dictated on workstation # [id number] Dict: 02/19/23 0801 Trans: 02/19/23 0822 [id number] Interpreted by: MARISA SANDHU MD Electronically signed by: A/P: Assessment: Dizziness, sinus node dysfunction, possible second-degree heart block type I - improved with cessation of BB Hypertension - reports he follows with Dr. Carlin for cardiology - Echocardiogram of 02-18-[address] Sultana showed LVEF 60-65%. Mild MRSocorro PASP 40-45 mmHg HLD H/O prostate cancer with prostatectomy in the past Anxiety Poor memory H/O nephrolithiasis in the past Reports h/o CKD H/O tobaccoism - ? COPD Plan: Dizziness with associated bradycardia (first degree heart block) - Dr. uSltana's notes and recs reviewed - BB has been dc'd - improved - consider 14 day Zio vs ILR implant prior to dismissal Uncontrolled HTN - start home dose of Norvasc and Hydralazine - add doxazosin to regimen - not suitable candidate for VANESSA or ARB d/t renal insufficiency of undetermined length of time Monitor lab closely Replace electrolytes as indicated Further recs will be based on his hospital course MARIA E DODSON February 19, 2023 10:28
[2023-02-19] MEDS ORDERED: amLODIPine 10 MG (NORVASC) TAB PO NR (11:00)
[2023-02-19] MEDS ORDERED: hydrALAZINE (APRESOLINE) 25 MG TAB PO ONE (13:00)
--- NOTE | 2023-02-19 13:26 | Tele-ICU Progress Note ---
Subjective Date Seen by a Provider: February 19, 2023 Time Seen by a Provider: 13:25 Subjective/Events-last exam (Tele-ICU Physician , progress note) Service provided via interactive audio and video telecommunications [facility] to a patient admitted to ICU bed in [facility]. Available chart/ vitals / labs / Images reviewed H&P is from ER notes Patient's information available about PMH, Shx, Fhx allergy reviewed inEMR. ROS as per chart and RN report HPI:72 y/o M hx of HTN admitted with dizziness and near syncope found to have severe bradycardia likely 2/2 beta jorgito. Cardiology following. Subj: No events overnight. TTE shows normal LV function. Lowest HR 50s Neuro: Occassional confusion likely 2/2 baseline dementia CV: Symptomatic bradycardia, currently resolved. HR in 60s, awaiting cards recs No plans for pacemaker at this time Resp: No issues Renal: no issues ID: no issues Heme: no issues Lines : periph , (Central Line Necessity Reviewed) [place]: Nutrition: diet Plans in collaboration with bedside consultants and IM MDs. Discussed with RN to reach out if any questions or concerns A total of 20 minutes of critical care time was devoted to this patient today, required to treat and/or prevent further deterioration of critical care condition ( as above) Sepsis Event Evaluation Height, Weight, BMI Height: 5'11.00" Weight: 205lbs. 0.0oz. 92.098619ne; 24.97 BMI Method:Stated Exam Exam Patient acknowledged, consented, and participated in this virtual visit which was conducted using real time audio/video Vital Signs Date Time Temp Pulse Resp B/P (MAP) Pulse Ox O2 Delivery O2 Flow Rate FiO2 02/19/23 12:56 56 02/19/23 12:03 36.5 Room Air 02/19/23 12:00 54 30 163/82 (109) 95 Room Air 02/19/23 11:00 62 11 185/79 (114) 95 Room Air 02/19/23 10:00 65 Room Air 02/19/23 09:00 63 195/85 (121) 95 Room Air 02/19/23 08:00 75 178/83 (114) 95 Room Air 02/19/23 07:39 36.4 02/19/23 07:09 58 5/30/23 07:00 58 177/71 (106) 93 Room Air 02/19/23 06:00 60 175/84 (114) 95 Room Air 02/19/23 05:00 55 10 168/71 (103) 92 Room Air 02/19/23 04:00 97 Room Air 02/19/23 04:00 58 16 176/72 (106) 94 Room Air 02/19/23 03:52 36.8 02/19/23 03:00 57 178/88 (118) 95 Room Air 02/19/23 02:00 53 14 162/73 (102) 93 Room Air 02/19/23 01:15 55 13 173/79 (110) 93 Room Air 02/19/23 01:00 57 02/19/23 01:00 57 18 200/82 (121) 94 Room Air 02/19/23 00:00 44 206/91 (129) 94 Room Air 02/18/23 23:59 99 Room Air 02/18/23 23:43 37.1 02/18/23 23:00 57 206/87 (122) 95 Room Air 02/18/23 22:00 46 170/85 (136) 94 Room Air 02/18/23 21:00 41 15 144/73 (107) 95 Room Air 02/18/23 20:11 99 Room Air 02/18/23 20:00 45 15 158/66 (101) 95 Room Air 02/18/23 19:00 58 02/18/23 19:00 58 12 160/74 (120) 95 Room Air 02/18/23 18:00 54 24 95 Room Air 02/18/23 17:00 53 28 95 Room Air 02/18/23 16:06 36.2 55 100 02/18/23 16:01 100 Room Air 02/18/23 16:00 100 Room Air 02/18/23 16:00 53 20 95 Room Air 02/18/23 15:56 36.2 02/18/23 14:24 55 02/18/23 14:04 36.4 49 16 139/89 96 Room Air I & O 02/19/23 07:00 Intake Total 1250 ml Output Total 1425 ml Balance -175 ml Height & Weight Height: 5'11.00" Weight: 205lbs. 0.0oz. 92.377092pi; 24.97 BMI Method:Stated General Appearance: No Apparent Distress, WD/WN HEENT: TMs Normal, Pharynx Normal, Moist Mucous Membranes Neck: Normal Inspection Respiratory: Lungs Clear, Normal Breath Sounds, No Accessory Muscle Use, No Respiratory Distress Cardiovascular: Normal Peripheral Pulses, Bradycardia (Irregular) Gastrointestinal: normal bowel sounds, non tender, soft Extremity: Normal Inspection, Normal Range of Motion, No Pedal Edema Neurologic/Psychiatric: Alert, Oriented x3, No Motor/Sensory Deficits, vertica architect II- XII Norm as Tested, Other (Very flat affect) Results Lab Laboratory Tests 02/18/23 13:16 02/19/23 04:10 Assessment/Plan Assessment/Plan . OLYA AGRAWAL MD February 19, 2023 13:26
[2023-02-19] MEDS ORDERED: ESCI-2 PO (13:46)
[2023-02-19] MEDS ORDERED: L.AC1CAP6 PO (13:46)
[2023-02-19] MEDS ORDERED: HYDR-3924 PO (13:46)
[2023-02-19] MEDS ORDERED: ASPI-1238 PO (13:46)
[2023-02-19] MEDS ORDERED: LORazepam 0.5 MG (ATIVAN) TABLET PO PRN (14:30)
[2023-02-19] MEDS ORDERED: LORazepam INJ 2 MG/ML (ATIVAN) VIAL IVP PRN (14:30)
[2023-02-19] MEDS: ENOXAPARIN 40 MG/0.4 ML (LOVENOX) SYR SC SCH (15:38)
--- NOTE | 2023-02-19 19:36 | Progress Note - Cardiology ---
Cardiology SOAP Progress Note Subjective: Notes gen weakness and some dizziness No syncope No n/v/d No cp or palp No shortness of breath at rest Objective: I&O/Vital Signs 02/19/23 02/19/23 02/19/23 02/19/23 07:39 08:00 08:00 09:00 Temp 36.4 Pulse 75 63 B/P (MAP) 178/83 (114) 195/85 (121) Pulse Ox 95 98 95 O2 Delivery Room Air Room Air Room Air 02/19/23 02/19/23 02/19/23 02/19/23 10:00 11:00 12:00 12:00 Pulse 65 62 54 Resp 11 30 B/P (MAP) 185/79 (114) 163/82 (109) Pulse Ox 95 99 95 O2 Delivery Room Air Room Air Room Air Room Air 02/19/23 02/19/23 02/19/23 02/19/23 12:03 12:56 13:00 14:00 Temp 36.5 Pulse 56 63 43 Resp 15 13 B/P (MAP) 164/68 (100) 135/67 (89) Pulse Ox 95 95 O2 Delivery Room Air Room Air Room Air 02/19/23 02/19/23 02/19/23 02/19/23 15:00 16:00 16:00 16:50 Temp 36.6 Pulse 65 51 Resp 28 14 B/P (MAP) 166/96 (119) 163/79 (107) Pulse Ox 96 97 O2 Delivery Room Air Room Air Room Air 02/19/23 02/19/23 17:00 18:00 Pulse 52 72 Resp 18 18 B/P (MAP) 136/76 (96) 111/79 (90) Pulse Ox 94 94 O2 Delivery Room Air Room Air 02/19/23 00:00 Intake Total 150 ml Output Total 850 ml Balance -700 ml Weight (Pounds): 205 Weight (Ounces): 0.0 Weight (Calculated Kilograms): 92.652955 Constitutional: AAO x 3, well-developed, well-nourished Respiratory: No accessory muscle use, No respiratory distress; chest expansion is symmetric, chest is bilaterally symmetric, lungs clear to auscultation Cardiovascular: regular rate-rhythm; No JVD; S1 and S2 Gastrointestional: No tender; soft Extremities: no lower extremity edema bilateral Neurologic/Psychiatric: grossly intact (moves all extremities) Skin: No rash on exposed areas, No ulcerations on exposed areas Results/Procedures: Labs Laboratory Tests 02/19/23 04:10: White Blood Count 4.4, Red Blood Count 3.89L, Hemoglobin 11.9L, Hematocrit 36L, Mean Corpuscular Volume 92, Mean Corpuscular Hemoglobin 31, Mean Corpuscular Hemoglobin Concent 33, Red Cell Distribution Width 12.5, Platelet Count 102L, Mean Platelet Volume 10.9, Immature Granulocyte % (Auto) 0, Neutrophils (%) (Auto) 74, Lymphocytes (%) (Auto) 14, Monocytes (%) (Auto) 10, Eosinophils (%) (Auto) 1, Basophils (%) (Auto) 1, Neutrophils # (Auto) 3.3, Lymphocytes # (Auto) 0.6L, Monocytes # (Auto) 0.4, Eosinophils # (Auto) 0.1, Basophils # (Auto) 0.0, Immature Granulocyte # (Auto) 0.0, Percent Immature Platelet Fraction 3.2, Sodium Level 144, Potassium Level 3.8, Chloride Level 112H, Carbon Dioxide Level 23, Anion Gap 9, Blood Urea Nitrogen 31H, Creatinine 1.35H, Estimat Glomerular Filtration Rate 55, BUN/Creatinine Ratio 23, Glucose Level 79, Calcium Level 8.6, Corrected Calcium 8.9, Phosphorus Level 3.4, Magnesium Level 1.8, Total Bilirubin 0.6, Aspartate Amino Transf (AST/SGOT) 15, Alanine Aminotransferase (ALT/SGPT) 12, Alkaline Phosphatase 62, Total Protein 5.5L, Albumin 3.6 Microbiology 02/18/23 MRSA Screen - Final, Complete MRSA not isolated Laboratory Tests 02/18/23 13:16 02/19/23 04:10 A/P: Assessment: Dizziness, sinus node dysfunction, possible second-degree heart block type I - improved with cessation of BB Hypertension - reports he follows with Dr. Carlin for cardiology - Echocardiogram of 02-18-[address] Sultana showed LVEF 60-65%. Mild MR. PASP 40-45 mmHg HLD H/O prostate cancer with prostatectomy in the past Anxiety Poor memory H/O nephrolithiasis in the past Reports h/o CKD H/O tobaccoism - ? COPD Plan: Dizziness with associated bradycardia (first degree heart block) - Dr. Sultana's notes and recs reviewed - BB has been dc'd - improved - consider 14 day Zio vs ILR implant prior to dismissal. I discussed this in detail with him. He request ILR because symptoms infrequent. That seem reasonable. Will plan for tomorrow Uncontrolled HTN - start home dose of Norvasc and Hydralazine - add doxazosin to regimen - not suitable candidate for VANESSA or ARB d/t renal insufficiency of undetermined length of time Monitor lab closely Replace electrolytes as indicated Further recs will be based on his hospital course DENYS HAYS MD FACP FACC CCDS February 19, 2023 19:36
[2023-02-19] MEDS: doxAzosin 4 MG (CARDURA) TAB PO SCH (20:46)
[2023-02-19] MEDS: diphenhydrAMINE 25 MG TAB (BENADRYL) PO SCH (23:51)
[2023-02-19] MEDS: MEMANTINE 10 MG (NAMENDA) TABLET PO SCH (23:51)
[2023-02-19] MEDS: DONEPEZIL 10 MG (ARICEPT) TAB PO SCH (23:51)
[2023-02-20] MEDS ORDERED: DexMEDEtomidine 250 ML DRIP 250 ML IV ONE (04:42)
[2023-02-20] MEDS ORDERED: HALOPERIDOL 5 MG/ML (HALDOL) VIAL ONE (04:43)
[2023-02-20] MEDS ORDERED: HALOPERIDOL 5 MG/ML (HALDOL) VIAL IM ONE (04:45)
[2023-02-20] MEDS ORDERED: ZIPRASIDONE 20 MG INJ (GEODON) VIAL IM ONE ×2 (05:07→05:45)
[2023-02-20] MEDS ORDERED: WATER (STERILE) FOR INJECTION 10 ML ONE (05:07)
[2023-02-20] MEDS: NS IV 1000 ML 1,000 ML IV SCH ×2 (05:23→15:55)
[2023-02-20] MEDS ORDERED: DexMEDEtomidine 250 ML DRIP 250 ML IV SCH (05:30)
[2023-02-20] MEDS ORDERED: WATER (STERILE) FOR INJ 10 ML BTL INJ SCH (05:45)
--- NOTE | 2023-02-20 06:02 | Progress Note ---
Subjective Date Seen by a Provider: February 20, 2023 Time Seen by a Provider: 11:00 Subjective/Events-last exam Patient requiring Precedex Currently sedated Partner at the bedside Updated her on delirium timeline Check meds and labs Loop recorder will be placed as an outpatient Aggressive behavior occurred last night which frightened her Review of Systems Neurological: Confusion Objective Exam Last Set of Vital Signs Vital Signs Date Time Temp Pulse Resp B/P (MAP) Pulse Ox O2 Delivery O2 Flow Rate FiO2 02/20/23 05:36 55 190/81 02/20/23 04:27 36.4 02/20/23 04:04 14 96 Room Air Capillary Refill : I&O Intake and Output 02/20/23 00:00 Intake Total 3260 ml Output Total 1250 ml Balance 2010 ml Intake Oral 960 ml IV Total 2300 ml Output Urine Total 1250 ml General: Other (sedated) Lungs: Clear to Auscultation Heart: Regular Rate Results Lab Microbiology 02/18/23 MRSA Screen - Final, Complete MRSA not isolated Assessment/Plan Assessment/Plan Assess & Plan/Chief Complaint Assessment: Symptomatic bradycardia Malignant hypertension Dementia Presumed HELDER had recent sleep study Hyperlipidemia Depression SHERI ordered gentle IVF Severe aggression from delirium requiring sedatives and Precedex Plan: ICU for Precedex May need temporary pacemaker Cardiology consult Echo Hold metoprolol MAYDA JOHN DO February 20, 2023 06:02
[2023-02-20] MEDS ORDERED: NON-FORMULARY MEDICATION 1 EA EA (Cetirizine HCl (Zyrtec) 10 MG) PO SCH (09:00)
--- NOTE | 2023-02-20 09:51 | Tele-ICU Progress Note ---
Subjective Date Seen by a Provider: February 20, 2023 Time Seen by a Provider: 09:51 Subjective/Events-last exam (Tele-ICU Physician , Progress Note ) Service provided via interactive audio and video telecommunications E-CARE system to a patient admitted to ICU bed in [facility]. Patient is seen today due to persistent need of ICU care Available chart/ vitals / labs / Images reviewed Video assessment done using teleICU camera, rest of exam as per RN Discussed with RN Events overnight : agitated Afebrile hemodynamically stable Respiratory - ra I/O =+ Drips: ns Pressors- no A/P Symptomatic bradycardia, currently resolved. -HR in 60s - As per cards recs No plans for pacemaker at this time SHERI - cont hydration Agitation , in face of dementis - supportive care Lines : pwr , (Central Line Necessity Reviewed) [place]: void OG: Nutrition: Analgesia: Anxiety/ delirium VTE Prophylaxis: jenna 40 Stress Ulcer Prophylaxis: na Plans in collaboration with bedside consultants and IM MDs. Discussed with RN to reach out if any questions or concerns Case and care daily discussed on multidisciplinary rounds ( RN, PharmD, Semiconductor Engineer , Respiratory Therapy, insulation worker furnace installer ) A total of _5minutes of critical care time was devoted to this patient today, required to treat and/or prevent further deterioration of critical care condition ( as above ) . I am remotely monitoring this patient from another state. I am unable to do the bedside exam, and history/physical and pertinent information is taken from other notes in the computer and bedside staff. Sepsis Event Evaluation Height, Weight, BMI Height: 5'11.00" Weight: 205lbs. 0.0oz. [id number]; 25.74 BMI Method:Stated Exam Exam Patient acknowledged, consented, and participated in this virtual visit which was conducted using real time audio/video Vital Signs Date Time Temp Pulse Resp B/P (MAP) Pulse Ox O2 Delivery O2 Flow Rate FiO2 02/20/23 08:00 97 Room Air 02/20/23 08:00 36.4 Room Air 02/20/23 07:35 99 Room Air 0.00 02/20/23 07:05 48 02/20/23 06:00 55 11 149/59 (89) 98 Room Air 02/20/23 05:36 55 190/81 02/20/23 05:30 55 29 160/57 (91) 99 Room Air 02/20/23 04:27 36.4 02/20/23 04:04 54 14 175/82 (110) 96 Room Air 02/20/23 04:00 97 Room Air 02/20/23 04:00 54 18 172/87 (120) 97 Room Air 02/20/23 03:30 56 12 161/71 (100) 94 Room Air 02/20/23 03:00 51 9 129/87 (93) 95 Room Air 02/20/23 02:00 54 15 140/71 (96) 93 Room Air 02/20/23 01:30 56 12 152/71 (109) 95 Room Air 02/20/23 01:00 60 11 174/80 (95) 98 Room Air 02/20/23 01:00 60 02/20/23 00:00 57 11 177/76 (94) 96 Room Air 02/19/23 23:59 96 Room Air 02/19/23 23:51 57 16 181/78 (109) 96 Room Air 02/19/23 23:49 36.3 02/19/23 23:30 58 10 183/91 (130) 96 Room Air 02/19/23 22:00 64 16 145/71 (81) 97 Room Air 02/19/23 21:00 63 18 159/67 (117) 98 Room Air 02/19/23 20:14 45 146/60 (87) 97 Room Air 02/19/23 20:00 96 Room Air 02/19/23 19:00 51 02/19/23 19:00 51 30 146/108 (117) 98 Room Air 02/19/23 18:00 72 18 111/79 (90) 94 Room Air 02/19/23 17:00 52 18 136/76 (96) 94 Room Air 02/19/23 16:50 36.6 02/19/23 16:00 97 Room Air 02/19/23 16:00 51 14 163/79 (107) 96 Room Air 02/19/23 15:00 65 28 166/96 (119) Room Air 02/19/23 14:00 43 13 135/67 (89) 95 Room Air 02/19/23 13:00 63 15 164/68 (100) 95 Room Air 02/19/23 12:56 56 02/19/23 12:03 36.5 Room Air 02/19/23 12:00 54 30 163/82 (109) 95 Room Air 02/19/23 12:00 99 Room Air 02/19/23 11:00 62 11 185/79 (114) 95 Room Air 02/19/23 10:00 65 Room Air I & O 02/20/23 07:00 Intake Total 2210 ml Output Total 975 ml Balance 1235 ml Height & Weight Height: 5'11.00" Weight: 205lbs. 0.0oz. 92.319267kn; 25.74 BMI Method:Stated General Appearance: No Apparent Distress, WD/WN HEENT: TMs Normal, Pharynx Normal, Moist Mucous Membranes Neck: Normal Inspection Respiratory: Lungs Clear, Normal Breath Sounds, No Accessory Muscle Use, No Respiratory Distress Cardiovascular: Normal Peripheral Pulses, Bradycardia (Irregular) Gastrointestinal: normal bowel sounds, non tender, soft Extremity: Normal Inspection, Normal Range of Motion, No Pedal Edema Neurologic/Psychiatric: Alert, Oriented x3, No Motor/Sensory Deficits, obstetrics and gynecology professor II- XII Norm as Tested, Other (Very flat affect) Results Lab Laboratory Tests 02/18/23 13:16 02/19/23 04:10 Assessment/Plan Assessment/Plan 1 FRANTZ TONY MD February 20, 2023 09:51
[2023-02-20] MEDS: doxAzosin 4 MG (CARDURA) TAB PO SCH (09:57)
[2023-02-20] MEDS: amLODIPine 5 MG (NORVASC) TAB PO SCH (09:57)
[2023-02-20] MEDS: hydrALAZINE (APRESOLINE) 25 MG TAB PO SCH ×3 (09:57→19:52)
[2023-02-20] MEDS: ASPIRIN E.C. 81 MG (ECOTRIN) TAB PO SCH (09:57)
[2023-02-20] MEDS: MEMANTINE 10 MG (NAMENDA) TABLET PO SCH ×2 (09:58→19:52)
[2023-02-20] MEDS: LORATADINE (CLARITIN) 10 MG TAB PO SCH (09:58)
[2023-02-20] MEDS: LACTOBACILLUS ACIDOPHILUS (PROBIOTIC) CAPSULE PO SCH (09:58)
--- NOTE | 2023-02-20 10:03 | Progress Note - Cardiology ---
Cardiology SOAP Progress Note Subjective: In bed Per nursing report he became increasingly confused and combative overnight Currently lethargic d/t Precedex gtt Family x1 at the bedside Objective: I&O/Vital Signs Weight (Pounds): 205 Weight (Ounces): 0.0 Weight (Calculated Kilograms): 92.346168 Constitutional: well-developed, well-nourished, other (Lethargic) Respiratory: No accessory muscle use, No respiratory distress; chest expansion is symmetric, chest is bilaterally symmetric, lungs clear to auscultation Cardiovascular: regular rate-rhythm; No JVD; S1 and S2 Gastrointestional: No tender; soft Extremities: no lower extremity edema bilateral Neurologic/Psychiatric: grossly intact (moves all extremities) Skin: No rash on exposed areas, No ulcerations on exposed areas Results/Procedures: Labs Microbiology 02/18/23 MRSA Screen - Final, Complete MRSA not isolated A/P: Assessment: Dizziness, sinus node dysfunction, possible second-degree heart block type I - improved with cessation of BB Hypertension - reports he follows with Dr. Carlin for cardiology - Echocardiogram of 02-18-[address] Sultana showed LVEF 60-65%. Mild MR. PASP 40-45 mmHg HLD H/O prostate cancer with prostatectomy in the past Anxiety Poor memory H/O nephrolithiasis in the past Reports h/o CKD H/O tobaccoism - ? COPD Confusion with combativeness overnight on 02-19-23 -requiring sedation - management per medical services/eICU Plan: Dizziness with associated bradycardia (first degree heart block) - BB has been dc'd - improved - consider 14 day Zio vs ILR implant prior to dismissal. I discussed this in detail with him. He request ILR because symptoms infrequent. That seem reasonable. Will plan for tomorrow Uncontrolled HTN - start home dose of Norvasc and Hydralazine - add doxazosin to regimen - not suitable candidate for VANESSA or ARB d/t renal insufficiency of undetermined length of time Monitor lab closely Replace electrolytes as indicated Further recs will be based on his hospital course Episode of confusion and aggression overnight requiring sedation (has not had morning lab yet) - management per medical services MARIA E DODSON February 20, 2023 10:03
[2023-02-20] MEDS: DOCUSATE SODIUM 100 MG (COLACE) CAP PO SCH ×2 (10:47→20:05)
[2023-02-20] MEDS: POTASSIUM CL 10MEQ/50ML IVPB 50 ML IV SCH (10:47)
[2023-02-20] MEDS: SENNOSIDES 8.6 MG (SENOKOT) TAB PO SCH ×2 (10:47→20:05)
[2023-02-20] MEDS: KCL 20 MEQ TAB (K-DUR) PO SCH (10:47)
[2023-02-20] MEDS: MAGNESIUM 1 GM/100 ML IVPB 100 ML IV SCH (10:47)
[2023-02-20] MEDS: hydrALAZINE (APESOLINE) 20 MG/ML VIAL IV PRN ×2 (12:08→19:43)
[2023-02-20] MEDS: MULTIVIT W/MINERALS TAB (THERAGRAN M) PO SCH (12:08)
[2023-02-20] MEDS: ENOXAPARIN 40 MG/0.4 ML (LOVENOX) SYR SC SCH (15:00)
--- NOTE | 2023-02-20 17:53 | Progress Note - Cardiology ---
Cardiology SOAP Progress Note Subjective: Confused Unable to communicate Objective: I&O/Vital Signs 02/20/23 02/20/23 02/20/23 02/20/23 06:00 07:05 07:35 08:00 Temp 36.4 Pulse 55 48 Resp 11 B/P (MAP) 149/59 (89) Pulse Ox 98 99 O2 Delivery Room Air Room Air Room Air O2 Flow Rate 0.00 02/20/23 02/20/23 02/20/23 02/20/23 08:00 10:00 11:00 12:00 Pulse 52 49 50 Resp 9 37 14 B/P (MAP) 193/76 (115) 171/72 (105) 194/80 (118) Pulse Ox 97 100 99 100 O2 Delivery Room Air Room Air Room Air Room Air 02/20/23 02/20/23 02/20/23 02/20/23 12:00 13:00 13:18 14:00 Pulse 54 53 48 B/P (MAP) 154/70 (98) 157/59 (91) Pulse Ox 97 96 96 O2 Delivery Room Air Room Air Room Air 02/20/23 02/20/23 02/20/23 02/20/23 15:00 15:50 16:00 16:00 Temp 36.1 Pulse 51 50 B/P (MAP) 138/68 (91) 148/61 (90) Pulse Ox 96 96 95 O2 Delivery Room Air Room Air Room Air 02/20/23 17:00 Pulse 49 B/P (MAP) 131/66 (87) Pulse Ox 95 O2 Delivery Room Air 02/20/23 00:00 Intake Total 1960 ml Output Total 550 ml Balance 1410 ml Weight (Pounds): 205 Weight (Ounces): 0.0 Weight (Calculated Kilograms): 92.262070 Constitutional: No AAO x 3; well-developed, well-nourished, other (Lethargic) Respiratory: No accessory muscle use, No respiratory distress; chest expansion is symmetric, chest is bilaterally symmetric, lungs clear to auscultation Cardiovascular: regular rate-rhythm; No JVD; S1 and S2 Gastrointestional: No tender; soft Extremities: no lower extremity edema bilateral Neurologic/Psychiatric: other (moves all limbs) Skin: No rash on exposed areas, No ulcerations on exposed areas Results/Procedures: Labs Microbiology 02/18/23 MRSA Screen - Final, Complete MRSA not isolated A/P: Assessment: Dizziness, sinus node dysfunction, possible second-degree heart block type I at presentation - resolved with cessation of BB Confusion and agitation Hypertension - reports he follows with Dr. Carlin for cardiology - Echocardiogram of 02-18-[address] Sultana showed LVEF 60-65%. Mild MR. PASP 40-45 mmHg HLD H/O prostate cancer with prostatectomy in the past Anxiety Poor memory H/O nephrolithiasis in the past Reports h/o CKD H/O tobaccoism - ? COPD Confusion with combativeness overnight on 02-19-23 -requiring sedation - management per medical services/eICU Plan: * Sinus node dysfunction currently appears mild and stable. ILR is being considered but he is currently confused and agitated and not suitable for such implantation * Continue current anti-hypertensive regimen * Monitor lab closely * Replace electrolytes as indicated * Ok to transfer out of ICU if that is needed to improve confusion (Dr Luque managing) DENYS HAYS MD FACP FACC CCDS February 20, 2023 17:53
[2023-02-20] MEDS: AtorvaSTATin TABLET 10 MG TABLET PO SCH (19:52)
[2023-02-20] MEDS: diphenhydrAMINE 25 MG TAB (BENADRYL) PO SCH (19:53)
[2023-02-20] MEDS: doxAzosin 1 MG (CARDURA) TAB PO SCH (19:53)
[2023-02-20] MEDS: DONEPEZIL 10 MG (ARICEPT) TAB PO SCH (19:53)
[2023-02-20] MEDS ORDERED: MELATONIN 3 MG TABLET PO SCH (21:00)
[2023-02-20] MEDS ORDERED: amLODIPine 10 MG (NORVASC) TAB PO ONE (21:15)
[2023-02-20] MEDS ORDERED: amLODIPine 10 MG (NORVASC) TAB ONE (21:21)
[2023-02-21] MEDS: NS IV 1000 ML 1,000 ML IV SCH (01:15)
[2023-02-21 03:25] LABS: BASOPHILS % (AUTO) 1 % (0-10); EOSINOPHILS # (AUTO) 0.1 10^3/uL (0.0-0.3); EOSINOPHILS % (AUTO) 1 % (0-10); HEMATOCRIT 34 % (40-54); HEMOGLOBIN 11.4 g/dL (13.3-17.7); LYMPHOCYTES # (AUTO) 0.4 10^3/uL (1.0-4.0); LYMPHOCYTES % (AUTO) 9 % (12-44); MEAN CORPUSCULAR HEMOGLOBIN 30 pg (25-34); MEAN CORPUSCULAR HGB CONC 34 g/dL (32-36); MEAN CORPUSCULAR VOLUME 91 fL (80-99); MEAN PLATELET VOLUME 10.3 fL (9.0-12.2); MONOCYTES # (AUTO) 0.3 10^3/uL (0.0-1.0); MONOCYTES % (AUTO) 7 % (0-12); NEUTROPHILS # (AUTO) 3.1 10^3/uL (1.8-7.8); NEUTROPHILS % (AUTO) 82 % (42-75); PLATELET COUNT 88 10^3/uL (130-400); WHITE BLOOD COUNT 3.8 10^3/uL (4.3-11.0)
[2023-02-21 03:34] LABS: ALBUMIN 3.4 GM/DL (3.2-4.5)
[2023-02-21 03:36] LABS: CALCIUM 8.5 MG/DL (8.5-10.1)
[2023-02-21 03:37] LABS: TOTAL PROTEIN 5.2 GM/DL (6.4-8.2)
[2023-02-21 03:38] LABS: BILIRUBIN,TOTAL 0.5 MG/DL (0.1-1.0)
[2023-02-21 03:40] LABS: CREATININE SERUM 0.99 MG/DL (0.60-1.30); PHOSPHORUS 3.6 MG/DL (2.3-4.7)
[2023-02-21 03:43] LABS: MAGNESIUM 1.8 MG/DL (1.6-2.4)
[2023-02-21] MEDS: KCL 20 MEQ TAB (K-DUR) PO SCH (03:47)
[2023-02-21] MEDS: MAGNESIUM 1 GM/100 ML IVPB 100 ML IV SCH ×3 (03:47→04:57)
[2023-02-21] MEDS: POTASSIUM CL 10MEQ/50ML IVPB 50 ML IV SCH (03:47)
--- NOTE | 2023-02-21 05:22 | Progress Note ---
Subjective Date Seen by a Provider: Feb 21, 2023 Time Seen by a Provider: 11:00 Subjective/Events-last exam Patient doing very well Delirium resolved Partner at bedside along with daughter No falls Moving down to 4th floor Review of Systems General: Fatigue, Malaise Objective Exam Last Set of Vital Signs Vital Signs Date Time Temp Pulse Resp B/P (MAP) Pulse Ox O2 Delivery O2 Flow Rate FiO2 02/21/23 05:00 54 15 152/75 (100) 95 Room Air 02/21/23 03:33 36.2 02/20/23 07:35 0.00 Capillary Refill : Less Than 3 Seconds I&O Intake and Output0 02/20/23 23:59 Intake Total 1470 ml Output Total 1425 ml Balance 45 ml Intake Oral 470 ml IV Total 1000 ml Output Urine Total 1425 ml # Voids 1 General: Alert, Oriented X3, Cooperative, No Acute Distress Lungs: Clear to Auscultation, Normal Air Movement Heart: Regular Rate, Normal S1, Normal S2, No Murmurs Psych/Mental Status: Mental Status NL, Mood NL Results Lab Laboratory Tests 02/21/23 03:15: White Blood Count 3.8L, Red Blood Count 3.75L, Hemoglobin 11.4L, Hematocrit 34L, Mean Corpuscular Volume 91, Mean Corpuscular Hemoglobin 30, Mean Corpuscular Hemoglobin Concent 34, Red Cell Distribution Width 12.6, Platelet Count 88L, Mean Platelet Volume 10.3, Immature Granulocyte % (Auto) 0, Neutrophils (%) (Auto) 82H, Lymphocytes (%) (Auto) 9L, Monocytes (%) (Auto) 7, Eosinophils (%) (Auto) 1, Basophils (%) (Auto) 1, Neutrophils # (Auto) 3.1, Lymphocytes # (Auto) 0.4L, Monocytes # (Auto) 0.3, Eosinophils # (Auto) 0.1, Basophils # (Auto) 0.0, Immature Granulocyte # (Auto) 0.0, Sodium Level 144, Potassium Level 4.0, Chloride Level 112H, Carbon Dioxide Level 22, Anion Gap 10, Blood Urea Nitrogen 17, Creatinine 0.99, Estimat Glomerular Filtration Rate 80, BUN/Creatinine Ratio 17, Glucose Level 104, Calcium Level 8.5, Corrected Calcium 9.0, Phosphorus Level 3.6, Magnesium Level 1.8, Total Bilirubin 0.5, Aspartate Amino Transf ( AST/SGOT) 17, Alanine Aminotransferase (ALT/SGPT) 12, Alkaline Phosphatase 56, Total Protein 5.2L, Albumin 3.4 Microbiology 02/18/23 MRSA Screen - Final, Complete MRSA not isolated Assessment/Plan Assessment/Plan Assess & Plan/Chief Complaint Assessment: Symptomatic bradycardia Malignant hypertension Dementia Presumed HELDER had recent sleep study Hyperlipidemia Depression SHERI ordered gentle IVF Severe aggression from delirium requiring sedatives and Precedex-now resolved Plan: Move to 4th floor May need temporary pacemaker Cardiology consult Echo Hold metoprolol MAYDA JOHN DO Feb 21, 2023 05:22
[2023-02-21] MEDS: LACTOBACILLUS ACIDOPHILUS (PROBIOTIC) CAPSULE PO SCH (09:01)
[2023-02-21] MEDS: ASPIRIN E.C. 81 MG (ECOTRIN) TAB PO SCH (09:01)
[2023-02-21] MEDS: SENNOSIDES 8.6 MG (SENOKOT) TAB PO SCH ×2 (09:02→21:45)
[2023-02-21] MEDS: LORATADINE (CLARITIN) 10 MG TAB PO SCH (09:02)
[2023-02-21] MEDS: amLODIPine 5 MG (NORVASC) TAB PO SCH (09:02)
[2023-02-21] MEDS: hydrALAZINE (APRESOLINE) 25 MG TAB PO SCH ×3 (09:02→21:44)
[2023-02-21] MEDS: doxAzosin 1 MG (CARDURA) TAB PO SCH ×2 (09:02→21:44)
[2023-02-21] MEDS: DOCUSATE SODIUM 100 MG (COLACE) CAP PO SCH ×2 (09:02→21:45)
[2023-02-21] MEDS: MEMANTINE 10 MG (NAMENDA) TABLET PO SCH ×2 (09:02→21:45)
--- NOTE | 2023-02-21 09:46 | Diagnostic Imaging Report ---
INDICATION: Bradycardia Portable chest 5:57 AM Heart size and pulmonary vascularity are normal. Lungs are clear. There are no effusions or pneumothoraces. IMPRESSION: No acute abnormalities in the chest. Dictated by: Dictated on workstation # [id number]
[2023-02-21] MEDS: MULTIVIT W/MINERALS TAB (THERAGRAN M) PO SCH (13:20)
--- NOTE | 2023-02-21 13:53 | Physical Therapy Evaluation ---
PT Evaluation-General Medical Diagnosis Admission Date February 19, 2023 at 14:20 Medical Diagnosis: dizziness Onset Date: February 19, 2023 Therapy Diagnosis Therapy Diagnosis: debility Height/Weight Height (Feet): 5 Height (Inches): 11.00 Weight (Pounds): 205 Weight (Ounces): 0.0 Precautions Precautions/Isolations: Fall Prevention, Standard Precautions Referral Physician: Rebel Reason for Referral: Evaluation/Treatment Medical History Pertinent Medical History: DM, HTN, Prostate CA, Renal Insufficiency Current History ER secondary to 4 episodes of dizziness while working in the garage. Reviewed History: Yes Social History Home: Single Level Current Living Status: Significant Other Entry Into Home: Level Entry Prior Prior Level of Function SCALE: Activities may be completed with or without assistive devices. 9-Nutglukkke-oexlgee completes the activity by him/herself with no assistance from a helper. 5-Set-up or Clean-up Assistance-helper sets up or cleans up; patient completes activity. [place] assists only prior to or following the activity. 4-Supervision or Touching Assistance-helper provides verbal cues and/or touching/steadying and/or contact guard assistance as patient completes activity. Assistance may be provided throughout the activity or intermittently. 3-Partial/Moderate Assistance-helper does LESS THAN HALF the effort. [place] lifts, holds or supports trunk or limbs, but provides less than half the effort. 2-Substantial/Maximal Assistance-helper does MORE THAN HALF the effort. [place] lifts or holds trunk or limbs and provides more than half the effort. 3-Zjzgtdtah-gihnxr does ALL the effort. Patient does none of the effort to complete the activity. Or, the assistance of 2 or more helpers is required for the patient to complete the activity. If activity was not attempted, code reason: 7-Patient Refused. 9-Not Applicable-not attempted and the patient did not perform the activity before the current illness, exacerbation or injury. 10-Not Attempted due to Environmental Limitations-(lack of equipment, weather restraints, etc.). 88-Not Attempted due to Medical Conditions or Safety Concerns. Bed Mobility: 6 Transfers (B,C,W/C): 6 Gait: 6 Stairs: 6 Indoor Mobility (Ambulation): Independent Stairs: Independent Prior Devices Use: None PT Evaluation-Current Subjective Patient agrees to PT. Objective Patient Orientation: Normal For Age ROM/Strength ROM Lower Extremities bilateral LE WFL Strength Lower Extremities 4/5 grossly bilateral LE all planes Integumentary/Posture Integumentary refer to nursing notes Bowel Incontinence: No Bladder Incontinence: No Posture WFL Neuromuscular (Tone, Coordination, Reflexes) grossly intact Sensory Vision: Functional Hearing: Functional Transfers Lying to Sitting/Side of Bed(Q: 4 Sit to Stand (QC): 4 Chair/Xcy-nb-Vjgca Xfer(QC): 4 Gait Mode of Locomotion: Walk Anticipated Mode of Locomotion: Walk Walk 10 feet (QC): 4 Walk 50 ft with 2 Turns(QC): 4 Walk 150 ft (QC): 4 Distance: 350' Gait Assistive Device: FWW Comments/Gait Description initially unsteady with improvement during ambulation Balance Sitting Static: Normal Sitting Dynamic: Normal Standing Static: Fair Standing Dynamic: Fair Assessment/Needs Patient will be seen short term by skilled PT to address functional strength and mobility to improve current LOF to safely return to home at maximum LOF. Rehab Potential: Fair PT Correction Goals Correction Goals PT Correction Goals Time Frame: Mar 02, 2023 Roll Left & Right (QC): 6 Sit to Lying (QC): 6 Lying-Sitting on Side/Bed(QC): 6 Sit to Stand (QC): 6 Chair/Uwu-hi-Wahrt Xfer(QC): 6 Toilet Transfer (QC): 6 Walk 10 feet (QC): 6 Walk 50ft with 2 Turns (QC): 6 Walk 150 ft (QC): 6 PT Plan Problem List Problem List: Activity Tolerance Treatment/Plan Treatment Plan: Continue Plan of Care Treatment Plan: Education, Functional Activity Diamond, Functional Strength, Gait, Safety, Therapeutic Exercise, Transfers Treatment Duration: Mar 02, 2023 Frequency: 6 times per week Estimated Hrs Per Day: .25 hour per day Time Time In: 1300 Time Out: 1315 DATE: Feb 21, 2023 Total Billed Treatment Time: 15 Total Billed Treatment 1 visit [facility] 15 min LAKISHA BARTON PT Feb 21, 2023 13:53
--- NOTE | 2023-02-21 15:08 | Occupational Therapy Eval ---
OT Evaluation-General/PLF Medical Diagnosis Admission Date February 19, 2023 at 14:20 Medical Diagnosis: dizziness Onset Date: February 19, 2023 Therapy Diagnosis Therapy Diagnosis: weakness Height/Weight Height (Feet): 5 Height (Inches): 11.00 Weight (Pounds): 205 Weight (Ounces): 0.0 Precautions Precautions/Isolations: Fall Prevention, Standard Precautions Weight Bear Status Weight Bearing Restriction: Full Weight Bearing Referral Physician: Rebel Referral Reason: Evaluation/Treatment Medical History Pertinent Medical History: DM, HTN, Prostate CA, Renal Insufficiency Social History Home: Single Level Current Living Status: Significant Other Entry Into Home: Level Entry ADL-Prior Level of Function SCALE: Activities may be completed with or without assistive devices. 3-Crxrhvdmvu-nxzddxl completes the activity by him/herself with no assistance from a helper. 5-Set-up or Clean-up Assistance-helper sets up or cleans up; patient completes activity. [place] assists only prior to or following the activity. 4-Supervision or Touching Assistance-helper provides verbal cues and/or touching/steadying and/or contact guard assistance as patient completes activity. Assistance may be provided throughout the activity or intermittently. 3-Partial/Moderate Assistance-helper does LESS THAN HALF the effort. [place] lifts, holds or supports trunk or limbs, but provides less than half the effort. 2-Substantial/Maximal Assistance-helper does MORE THAN HALF the effort. [place] lifts or holds trunk or limbs and provides more than half the effort. 4-Bcimgnfde-vjrsua does ALL the effort. Patient does none of the effort to complete the activity. Or, the assistance of 2 or more helpers is required for the patient to complete the activity. If activity was not attempted, code reason: 7-Patient Refused. 9-Not Applicable-not attempted and the patient did not perform the activity before the current illness, exacerbation or injury. 10-Not Attempted due to Environmental Limitations-(lack of equipment, weather restraints, etc.). 88-Not Attempted due to Medical Conditions or Safety Concerns. Self Care: Independent Functional Cognition: Independent [place] has some slight confusion and recall of events leading to hospitalization, masks deficits with humor. Partner is present and she provides correction statements Drive Self: Yes OT Current Status Subjective Agreeable to work with therapy, would like to wear own pants and not hospital gown Mental Status/Objective Patient Orientation: Person Patient reported he is at [facility] Current Glasses/Contacts: Yes Upper Extremity ROM BUE ROM WFLS Upper Extremity Coordination INTACT Upper Extremity Sensation INTACT Upper Extremity Strength 4/5 grossly BUE ADL-Treatment Eating (QC): 6 Oral Hygiene (QC): 5 Shower/Bathe Self (QC): 7 Upper Body Dressing (QC): 5 Lower Body Dressing (QC): 4 On/Off Footwear (QC): 5 Toileting Hygiene (QC): 4 Education OT Patient Education: Correct positioning, Modified ADL techniques, Progress toward Goal/Update tx plan, Purpose of tx/functional activities, Reviewed precautions, Rehab process, Safety issues, Use of adapted equipment (does not use FWW at home, uses one today) Teaching Recipient: Patient Teaching Methods: Demonstration, Discussion Response to Teaching: Reinforcement Needed OT Facialist Goals Facialist Goals Eating (QC): 6 Oral Hygiene (QC): 6 Toileting Hygiene (QC): 6 Shower/Bathe Self (QC): 6 Upper Body Dressing (QC): 6 Lower Body Dressing (QC): 6 On/Off Footwear (QC): 6 1=Demonstrate adherence to instructed precautions during ADL tasks. 2=Patient will verbalize/demonstrate understanding of assistive devices/modifications for ADL. 3=Patient will improve strength/tolerance for activity to enable patient to perform ADL's. OT Education/Plan Problem List/Assessment Assessment: Decreased Activ Tolerance, Impaired Self-Care Skills Discharge Recommendations Plan/Recommendations: Continue POC Treatment Plan/Plan of Care Treatment,Training & Education: Yes Patient would benefit from OT for education, treatment and training to promote i ndependence in ADL's, mobility, safety and/or upper extremity function for ADL's. Plan of Care: ADL Retraining, Functional Mobility, Group Exercise/Act as Ind, UE Funct Exercise/Act Treatment Duration: Feb 23, 2023 Frequency: 3 times per week (3-5 times per week) Estimated Hrs Per Day: .25 hour per day Agreement: Yes Rehab Potential: Fair Patient to transfer four medical Time Start Time: 13:00 Stop Time: 13:15 DATE: Feb 21, 2023 Total Time Billed (hr/min): 15 Billed Treatment Time EVL 15 min HANY JACKSON OT Feb 21, 2023 15:08
[2023-02-21] MEDS: ENOXAPARIN 40 MG/0.4 ML (LOVENOX) SYR SC SCH (15:18)
[2023-02-21 15:59] VITALS: BP 138/63
--- NOTE | 2023-02-21 17:38 | Progress Note - Cardiology ---
Cardiology SOAP Progress Note Subjective: No cp or palp or syncope No shortness of breath at rest No dizziness No n/v/d No focal weakness Some gen weakness Objective: I&O/Vital Signs 02/21/23 02/21/23 02/21/23 02/21/23 06:00 07:00 07:12 08:00 Pulse 63 67 67 Resp 18 14 B/P (MAP) 143/71 (95) 171/70 (103) Pulse Ox 97 96 94 O2 Delivery Room Air Room Air Room Air 02/21/23 02/21/23 02/21/23 02/21/23 08:00 08:00 09:00 10:00 Temp 36.0 Pulse 64 60 66 Resp 31 31 15 B/P (MAP) 171/70 (103) 161/54 (89) 149/74 (99) Pulse Ox 95 94 96 O2 Delivery Room Air Room Air Room Air 02/21/23 02/21/23 02/21/23 02/21/23 11:00 12:00 12:00 12:00 Temp 36.4 Pulse 61 73 Resp 15 38 B/P (MAP) 129/49 (75) 139/53 (81) Pulse Ox 93 96 95 O2 Delivery Room Air Room Air Room Air 02/21/23 02/21/23 02/21/23 02/21/23 12:41 13:55 14:00 14:35 Temp 36.4 Pulse 57 57 65 Resp 38 B/P (MAP) 139/53 (81) Pulse Ox 95 95 O2 Delivery Room Air Room Air O2 Flow Rate 0.00 0.00 0.00 02/21/23 15:59 Temp 36.6 Pulse 68 Resp 18 B/P (MAP) 138/63 (88) Pulse Ox 96 O2 Delivery Room Air 02/21/23 00:00 Intake Total 1420 ml Output Total 725 ml Balance 695 ml Weight (Pounds): 205 Weight (Ounces): 0.0 Weight (Calculated Kilograms): [id number] Constitutional: No AAO x 3; well-developed, well-nourished, other (Lethargic) Respiratory: No accessory muscle use, No respiratory distress; chest expansion is symmetric, chest is bilaterally symmetric, lungs clear to auscultation Cardiovascular: regular rate-rhythm; No JVD; S1 and S2 Gastrointestional: No tender; soft Extremities: no lower extremity edema bilateral Neurologic/Psychiatric: other (moves all limbs) Skin: No rash on exposed areas, No ulcerations on exposed areas Results/Procedures: Labs Laboratory Tests 02/21/23 03:15: White Blood Count 3.8L, Red Blood Count 3.75L, Hemoglobin 11.4L, Hematocrit 34L, Mean Corpuscular Volume 91, Mean Corpuscular Hemoglobin 30, Mean Corpuscular Hemoglobin Concent 34, Red Cell Distribution Width 12.6, Platelet Count 88L, Mean Platelet Volume 10.3, Immature Granulocyte % (Auto) 0, Neutrophils (%) (Auto) 82H, Lymphocytes (%) (Auto) 9L, Monocytes (%) (Auto) 7, Eosinophils (%) (Auto) 1, Basophils (%) (Auto) 1, Neutrophils # (Auto) 3.1, Lymphocytes # (Auto) 0.4L, Monocytes # (Auto) 0.3, Eosinophils # (Auto) 0.1, Basophils # (Auto) 0.0, Immature Granulocyte # (Auto) 0.0, Sodium Level 144, Potassium Level 4.0, Chloride Level 112H, Carbon Dioxide Level 22, Anion Gap 10, Blood Urea Nitrogen 17, Creatinine 0.99, Estimat Glomerular Filtration Rate 80, BUN/Creatinine Ratio 17, Glucose Level 104, Calcium Level 8.5, Corrected Calcium 9.0, Phosphorus Level 3.6, Magnesium Level 1.8, Total Bilirubin 0.5, Aspartate Amino Transf (AST/SGOT) 17, Alanine Aminotransferase (ALT/SGPT) 12, Alkaline Phosphatase 56, Total Protein 5.2L, Albumin 3.4 Microbiology 02/18/23 MRSA Screen - Final, Complete MRSA not isolated Laboratory Tests 02/21/23 03:15 A/P: Assessment: Dizziness, sinus node dysfunction, possible second-degree heart block type I at presentation - resolved with cessation of BB Confusion and agitation Hypertension - reports he follows with Dr. Carlin for cardiology - Echocardiogram of 02-18-[address] Sultana showed LVEF 60-65%. Mild MRSocorro PASP 40-45 mmHg HLD H/O prostate cancer with prostatectomy in the past Anxiety Poor memory H/O nephrolithiasis in the past Reports h/o CKD H/O tobaccoism - ? COPD Confusion with combativeness overnight on 02-19-23 -requiring sedation - management per medical services/eICU Plan: * Sinus node dysfunction currently appears mild and stable. I discussed in detail further monitoring with Mr Yadav and his family. Rhythm has been stable (sinus with sinus arrhythmia) and he feels well and does not wish to have ILR of event monitor * Continue current anti-hypertensive regimen * Monitor lab closely * Replace electrolytes as indicated * Ok to d/c from cardiac standpoint. Outpt f/u advised DENYS HAYS MD FACP FAC CCDS Feb 21, 2023 17:38
[2023-02-21 20:05] VITALS: BP 170/72
[2023-02-21 21:30] VITALS: BP 168/74
[2023-02-21] MEDS: diphenhydrAMINE 25 MG TAB (BENADRYL) PO SCH (21:44)
[2023-02-21] MEDS: AtorvaSTATin TABLET 10 MG TABLET PO SCH (21:45)
[2023-02-21] MEDS: DONEPEZIL 10 MG (ARICEPT) TAB PO SCH (21:45)
[2023-02-22 00:45] VITALS: BP 180/77
[2023-02-22] MEDS: hydrALAZINE (APESOLINE) 20 MG/ML VIAL IV PRN ×2 (01:10→06:05)
[2023-02-22 02:00] VITALS: BP 150/70
[2023-02-22 05:00] VITALS: BP 176/53
[2023-02-22 06:46] LABS: ALBUMIN 3.6 GM/DL (3.2-4.5); POTASSIUM 3.9 MMOL/L (3.6-5.0)
[2023-02-22 06:48] LABS: CALCIUM 8.6 MG/DL (8.5-10.1)
[2023-02-22 06:49] LABS: TOTAL PROTEIN 5.5 GM/DL (6.4-8.2)
[2023-02-22 06:50] LABS: BASOPHILS % (AUTO) 1 % (0-10); MEAN CORPUSCULAR HEMOGLOBIN 31 pg (25-34); MEAN CORPUSCULAR HGB CONC 33 g/dL (32-36)
[2023-02-22 06:51] LABS: BILIRUBIN,TOTAL 0.5 MG/DL (0.1-1.0)
[2023-02-22 06:52] LABS: CREATININE SERUM 1.37 MG/DL (0.60-1.30); EOSINOPHILS # (AUTO) 0.1 10^3/uL (0.0-0.3); EOSINOPHILS % (AUTO) 3 % (0-10); HEMATOCRIT 35 % (40-54); HEMOGLOBIN 11.6 g/dL (13.3-17.7); LYMPHOCYTES # (AUTO) 0.5 10^3/uL (1.0-4.0); LYMPHOCYTES % (AUTO) 12 % (12-44); MEAN CORPUSCULAR VOLUME 91 fL (80-99); MEAN PLATELET VOLUME 10.6 fL (9.0-12.2); MONOCYTES # (AUTO) 0.4 10^3/uL (0.0-1.0); MONOCYTES % (AUTO) 9 % (0-12); NEUTROPHILS # (AUTO) 3.2 10^3/uL (1.8-7.8); NEUTROPHILS % (AUTO) 75 % (42-75); PLATELET COUNT 96 10^3/uL (130-400); WHITE BLOOD COUNT 4.3 10^3/uL (4.3-11.0)
[2023-02-22 08:38] VITALS: BP 132/68
[2023-02-22] MEDS: MEMANTINE 10 MG (NAMENDA) TABLET PO SCH (09:36)
[2023-02-22] MEDS: DOCUSATE SODIUM 100 MG (COLACE) CAP PO SCH (09:36)
[2023-02-22] MEDS: SENNOSIDES 8.6 MG (SENOKOT) TAB PO SCH (09:36)
[2023-02-22] MEDS: LORATADINE (CLARITIN) 10 MG TAB PO SCH (09:36)
[2023-02-22] MEDS: LACTOBACILLUS ACIDOPHILUS (PROBIOTIC) CAPSULE PO SCH (09:36)
[2023-02-22] MEDS: ASPIRIN E.C. 81 MG (ECOTRIN) TAB PO SCH (09:36)
[2023-02-22] MEDS: doxAzosin 1 MG (CARDURA) TAB PO SCH (09:36)
[2023-02-22] MEDS: hydrALAZINE (APRESOLINE) 25 MG TAB PO SCH (09:39)
[2023-02-22] MEDS: amLODIPine 5 MG (NORVASC) TAB PO SCH (09:39)
--- NOTE | 2023-02-22 10:56 | Physical Therapy Daily Note ---
PT Daily Note-Current Subjective Patient agrees to therapy. Girlfriend present. Patient dons shoes independently Pain Section J - Health Conditions 1. Rarely or not at all 2. Occasionally 3. Frequently 4. Almost constantly 8. Unable to answer Pain Effect on Sleep: 1 Pain Interference with Therapy: 1 Pain Interference w/Day-to-Day: 1 Mental Status Patient Orientation: Person, Place, Time, Situation Transfers SCALE: Activities may be completed with or without assistive devices. 3-Gpflchhmko-sprdqud completes the activity by him/herself with no assistance from a helper. 5-Set-up or Clean-up Assistance-helper sets up or cleans up; patient completes activity. [place] assists only prior to or following the activity. 4-Supervision or Touching Assistance-helper provides verbal cues and/or touching/steadying and/or contact guard assistance as patient completes activity. Assistance may be provided throughout the activity or intermittently. 3-Partial/Moderate Assistance-helper does LESS THAN HALF the effort. [place] lifts, holds or supports trunk or limbs, but provides less than half the effort. 2-Substantial/Maximal Assistance-helper does MORE THAN HALF the effort. [place] lifts or holds trunk or limbs and provides more than half the effort. 6-Senvbomjy-feahma does ALL the effort. Patient does none of the effort to complete the activity. Or, the assistance of 2 or more helpers is required for the patient to complete the activity. If activity was not attempted, code reason: 7-Patient Refused. 9-Not Applicable-not attempted and the patient did not perform the activity be fore the current illness, exacerbation or injury. 10-Not Attempted due to Environmental Limitations-(lack of equipment, weather restraints, etc.). 88-Not Attempted due to Medical Conditions or Safety Concerns. Sit to Stand (QC): 6 Gait Training Distance: >800' Walk 10 feet (QC): 6 Walk 50 ft with 2 Turns(QC): 6 Walk 150 ft (QC): 6 Gait Assistive Device: None safe and functional with no deviation Assessment PT to dismiss patient from services at this time due to patient is independent with all gross motor skills safely and does not require continued skilled therapy. Family instructed to ambulate with patient in hallway PRN. RN notified. PT Gamma Operator Goals Long-Term Goals PT Gamma Operator Goals Time Frame: Mar 02, 2023 Roll Left & Right (QC): 6 Sit to Lying (QC): 6 Lying-Sitting on Side/Bed(QC): 6 Sit to Stand (QC): 6 Chair/Hdf-mg-Wltiu Xfer(QC): 6 Toilet Transfer (QC): 6 Walk 10 feet (QC): 6 Walk 50ft with 2 Turns (QC): 6 Walk 150 ft (QC): 6 PT Plan Treatment/Plan Treatment Plan: Discontinue PT Treatment Plan: Education, Functional Activity Diamond, Functional Strength, Gait, Safety, Therapeutic Exercise, Transfers Treatment Duration: Mar 02, 2023 Frequency: 6 times per week Estimated Hrs Per Day: .25 hour per day Time Time In: 1005 Time Out: 1015 DATE: Feb 22, 2023 Total Billed Treatment Time: 10 Total Billed Treatment 1 visit FA 10 min LAKISHA BARTON PT Feb 22, 2023 10:56
[2023-02-22] MEDS ORDERED: AMLO-250 PO (11:49)
[2023-02-22] MEDS ORDERED: DOXA1TAB2 PO (11:49)
[2023-02-22 11:53] VITALS: BP 132/68
== END 2023-02-22 12:25 | disposition home or self-care (01) | DRG 309 ==
LOC: EDUNIT# 11:48 → ER 11:50 → ICU 13:47 → OBSVTOIN 02-19 14:20 → ICU 02-20 09:57 → 4TH 02-21 13:55
PROVIDERS: ADMIT Internal Medicine; ATTEND Internal Medicine
DX: I49.5 Sick sinus syndrome (principal); F03.911 Unspecified dementia, unspecified severity, with agitation; F05 Delirium due to known physiological condition; N17.9 Acute kidney failure, unspecified; I44.1 Atrioventricular block, second degree; I10 Essential (primary) hypertension; G47.33 Obstructive sleep apnea (adult) (pediatric); E78.00 Pure hypercholesterolemia, unspecified; E11.9 Type 2 diabetes mellitus without complications; F41.9 Anxiety disorder, unspecified; F32.A Depression, unspecified; Z85.46 Personal history of malignant neoplasm of prostate; Z90.79 Acquired absence of other genital organ(s); Z87.891 Personal history of nicotine dependence; Z79.82 Long term (current) use of aspirin; Z79.899 Other long term (current) drug therapy; Z91.09 Other allergy status, other than to drugs and biological substances
CPT/HCPCS: 36415; 71045; 80048; 80053; 83735; 84100; 85025; 87081; 93005; 93306; G0378

== ENCOUNTER 2023-02-25 23:12 | Emergency (ER) | payer MEDICARE, OTHER ==
[~2023-02-25] VITALS: Ht 180.3 cm; Wt 79.8 kg
[~2023-02-25 23:12] MED LIST changes: +AMLO-250 PO; +ASPI-1238 PO; +CETI10TA49 PO; +DIPH25CA79 PO; +DONE10TA41 PO; +DOXA1TAB2 PO; +ESCI-2 PO; +ESCI10TA PO; +HYDR-3924 PO; +L.AC1CAP6 PO; +MELA3TAB39 PO; +MEMA10TA57 PO
--- NOTE | 2023-02-25 23:27 | ED General ---
General Stated Complaint: NECK & LOWER BACK PAIN History of Present Illness Date Seen by Provider: Feb 25, 2023 Time Seen by Provider: 23:27 Initial Comments 72-year-old male presents with "dizziness" along with associated neck and lower back pain. Patient reports that for years that he has been getting symptoms on and off dizziness and when he gets that he gets some neck pain and some lower back pain. The felt like tonight it was more intense that he had an episode about 45 minutes ago but is resolved and does not have any symptoms at this time. He denies any nausea vomiting vision changes or focal weakness at that time. Allergies and Home Medications Allergies Coded Allergies: trazodone (Verified Adverse Reaction, Severe, SEVERE CONFUSION, 06/18/20) Patient Home Medication List Home Medication List Reviewed: Yes Amlodipine Besylate (Amlodipine Besylate) 5 Mg Tablet, 10 MG PO DAILY Prescribed by: MAYDA JOHN on 02/22/23 1149 Aspirin (Aspirin EC) 81 Mg Tablet.dr, 81 MG PO DAILY, (Reported) Entered as Reported by: FARIDA VAZQUEZ on 02/19/23 1346 Cetirizine HCl (Zyrtec) 10 Mg Tablet, 10 MG PO DAILY, (Reported) Entered as Reported by: TERRY FRANK on 02/18/23 192 Diphenhydramine HCl (Benadryl) 25 Mg Capsule, 25 MG PO HS, (Reported) Entered as Reported by: TERRY FRANK on 02/18/231927 Donepezil HCl (Donepezil HCl) 10 Mg Tablet, 10 MG PO HS, (Reported) Entered as Reported by: TERRY FRANK on 02/18/231927 Doxazosin Mesylate (Doxazosin Mesylate) 1 Mg Tablet, 1 MG PO BID Prescribed by: MAYDA JOHN on 02/22/23 1149 Escitalopram Oxalate (Escitalopram Oxalate) 10 Mg Tablet, 10 MG PO DAILY, (Reported) Entered as Reported by: FARIDA VAZQUEZ on 02/19/23 1346 Hydralazine HCl (Hydralazine HCl) 50 Mg Tablet, 50 MG PO TID, (Reported) Entered as Reported by: FARIDA VAZQUEZ on 02/19/23 1346 L.acidoph & Paracasei,B.lactis (Probiotic) 10 Billion Cell Capsule, 1 EACH PO DAILY, (Reported) Entered as Reported by: FARIDA VAZQUEZ on 02/19/23 1346 Loratadine (Loratadine) 10 Mg Tablet, 10 MG PO DAILY, (Reported) Entered as Reported by: CRISTIAN MURRY on 06/13/20 0902 Melatonin (Melatonin) 3 Mg Tablet, 3 MG PO HS, (Reported) Entered as Reported by: TERRY FRANK on 02/18/231927 Memantine HCl (Memantine HCl) 10 Mg Tablet, 10 MG PO BID, (Reported) Entered as Reported by: TERRY FRANK on 02/18/231927 Multivitamin (Multivitamin) 1 Each Tablet, 1 EACH PO 1200, (Reported) Entered as Reported by: ALYSHA ALBA on 06/09/20 1253 Pravastatin Sodium (Pravastatin Sodium) 40 Mg Tablet, 40 MG PO HS, (Reported) Entered as Reported by: CRISTIAN MURRY on 03/10/19 1020 Discontinued Medications Amlodipine Besylate/Benazepril (Lotrel 5-10 mg Capsule) 1 Each Capsule, 1 EACH PO DAILY, (Reported) Entered as Reported by: ALYSHA ALBA on 06/09/20 1253 Azelastine HCl (Azelastine HCl) 137 Mcg/0.137 Ml [place].pump, 137 MCG NS BID PRN for ALLERGIES, (Reported) Discontinued Reason: No Longer Taking Entered as Reported by: ALYSHA ALBA on 06/09/20 1253 Cefdinir (Cefdinir) 300 Mg Capsule, 300 MG PO BID Discontinued Reason: No Longer Taking Prescribed by: CUCO BARR on 06/18/20 1657 Ciprofloxacin HCl (Cipro) 500 Mg Tablet, 500 MG PO BID Discontinued Reason: No Longer Taking Prescribed by: PARVIN HOOVER on 06/18/20 1014 Escitalopram Oxalate (Lexapro) 10 Mg Tablet, 10 MG PO DAILY, (Reported) Discontinued Reason: Duplicate Order Entered as Reported by: TERRY FRANK on 02/18/231927 Hydralazine HCl (Hydralazine HCl) 25 Mg Tablet, 25 MG PO TID, (Reported) Discontinued Reason: No Longer Taking Entered as Reported by: ALYSHA ALBA on 06/09/20 1253 Loperamide HCl (Loperamide) 2 Mg Capsule, 2 MG PO DAILY PRN for DIARRHEA, (Reported) Discontinued Reason: No Longer Taking Entered as Reported by: ALYSHA ALBA on 06/09/20 1253 Metoprolol Tartrate (Metoprolol Tartrate) 50 Mg Tablet, 50 MG PO DAILY, (Reported) Entered as Reported by: ALYSHA ALBA on 06/09/20 1253 Montelukast Sodium (Montelukast Sodium) 10 Mg Tablet, 10 MG PO HS, (Reported) Discontinued Reason: No Longer Taking Entered as Reported by: CRISTIAN MURRY on 03/10/19 1020 Review of Systems Review of Systems Constitutional: dizziness EENTM: no symptoms reported Cardiovascular: no symptoms reported Gastrointestinal: no symptoms reported Genitourinary: no symptoms reported Musculoskeletal: see HPI, back pain, neck pain Skin: no symptoms reported Psychiatric/Neurological: See HPI Hematologic/Lymphatic: No Symptoms Reported Immunological/Allergic: no symptoms reported Physical Exam Vital Signs Vital Signs - First Documented 02/25/23 23:18 Temp 36.0 Pulse 68 Resp 18 B/P (MAP) 130/55 (80) Pulse Ox 95 O2 Delivery Room Air Capillary Refill : Height, Weight, BMI Height: '" Weight: lbs. oz. kg; BMI Method: General Appearance: No Apparent Distress, WD/WN HEENT: PERRL/EOMI, Moist Mucous Membranes Neck: Full Range of Motion, Normal Inspection, Non Tender, Supple Respiratory: Lungs Clear, Normal Breath Sounds Cardiovascular: Regular Rate, Rhythm, No Edema Gastrointestinal: Non Tender, Soft Back: Normal Inspection, No Vertebral Tenderness Extremity: Normal Capillary Refill, Normal Inspection Neurologic/Psychiatric: Alert, Oriented x3, No Motor/Sensory Deficits, Normal Mood/Affect, managing broker II-XII Norm as Tested Skin: Normal Color, Warm/Dry Progress/Results/Core Measures Suspected Sepsis SIRS Temperature: Pulse: Respiratory Rate: Laboratory Tests 02/25/23 23:35: White Blood Count 4.3 Blood Pressure / Mean: Laboratory Tests 02/25/23 23:35: Creatinine 1.88H, Platelet Count 103L, Total Bilirubin 0.6 Results/Orders Lab Results Laboratory Tests Test 02/25/23 23:35 Range/Units White Blood Count 4.3 4.3-11.0 10^3/uL Red Blood Count 3.75 L 4.30-5.52 10^6/uL Hemoglobin 11.3 L 13.3-17.7 g/dL Hematocrit 34 L 40-54 % Mean Corpuscular Volume 92 80-99 fL Mean Corpuscular Hemoglobin 30 25-34 pg Mean Corpuscular Hemoglobin Concent 33 32-36 g/dL Red Cell Distribution Width 12.9 10.0-14.5 % Platelet Count 103 L 130-400 10^3/uL Mean Platelet Volume 10.6 9.0-12.2 fL Immature Granulocyte % (Auto) 0 % Neutrophils (%) (Auto) 82 H 42-75 % Lymphocytes (%) (Auto) 8 L 12-44 % Monocytes (%) (Auto) 8 0-12 % Eosinophils (%) (Auto) 1 0-10 % Basophils (%) (Auto) 1 0-10 % Neutrophils # (Auto) 3.6 1.8-7.8 10^3/uL Lymphocytes # (Auto) 0.3 L 1.0-4.0 10^3/uL Monocytes # (Auto) 0.4 0.0-1.0 10^3/uL Eosinophils # (Auto) 0.0 0.0-0.3 10^3/uL Basophils # (Auto) 0.0 0.0-0.1 10^3/uL Immature Granulocyte # (Auto) 0.0 0.0-0.1 10^3/uL Percent Immature Platelet Fraction 3.8 0.0-7.6 % Sodium Level 143 135-145 MMOL/L Potassium Level 3.7 3.6-5.0 MMOL/L Chloride Level 109 H 98-107 MMOL/L Carbon Dioxide Level 25 21-32 MMOL/L Anion Gap 9 5-14 MMOL/L Blood Urea Nitrogen 43 H 7-18 MG/DL Creatinine 1.88 H 0.60-1.30 MG/DL Estimat Glomerular Filtration Rate 37 BUN/Creatinine Ratio 23 Glucose Level 206 H 70-105 MG/DL Calcium Level 8.8 8.5-10.1 MG/DL Corrected Calcium 9.0 8.5-10.1 MG/DL Magnesium Level 1.8 1.6-2.4 MG/DL Total Bilirubin 0.6 0.1-1.0 MG/DL Aspartate Amino Transf (AST/SGOT) 17 5-34 U/L Alanine Aminotransferase (ALT/SGPT) 24 0-55 U/L Alkaline Phosphatase 61 40-136 U/L Total Protein 5.9 L 6.4-8.2 GM/DL Albumin 3.8 3.2-4.5 GM/DL My Orders Orders - DONOVAN DUKE DO Ct Head Wo-R/O Stroke (02/25/23 23:27) Ct Angio Head/Neck (02/25/23 23:27) Cbc With Automated Diff (02/25/23 23:27) Comprehensive Metabolic Panel (02/25/23 23:27) Magnesium (02/25/23 23:27) Iohexol Injection (Omnipaque 350 Mg/Ml 1 (02/25/23 23:45) Received Contrast (Hold Metformin- Contr (02/25/23 23:45) Sodium Chloride Flush (Catheter Flush Sy (02/25/23 23:45) Ns (Ivpb) (Sodium Chloride 0.9% Ivpb Bag (02/25/23 23:45) Manual Differential (02/25/23 23:35) Ns Iv 1000 Ml (Sodium Chloride 0.9%) (02/26/23 00:09) Medications Given in ED Current Medications Medications Dose Ordered Sig/Sangita Route Start Time Stop Time Status Last Admin Dose Admin Iohexol 100 ml ONCE ONCE IV 02/25/23 23:45 02/25/23 23:46 DC 02/25/23 23:55 75 ML Sodium Chloride 10 ml NEEDED PRN IV 02/25/23 23:45 02/25/23 23:55 10 ML Sodium Chloride 100 ml ONCE ONCE IV 02/25/23 23:45 02/25/23 23:46 DC 02/25/23 23:55 80 ML Vital Signs/I&O 02/25/23 23:18 Temp 36.0 Pulse 68 Resp 18 B/P (MAP) 130/55 (80) Pulse Ox 95 O2 Delivery Room Air Capillary Refill : Progress Note : Progress Note Patient diagnostic studies were ordered reviewed and interpreted by me. Patient did have a slight elevation of his BUN and creatinine indicate he might be mildly dehydrated. Patient CT head and CTA head and neck showed no acute abnormalities. Please review radiology report for final interpretation. Patient remained symptom-free while in the ER. He was given a liter of IV fluids. Patient stable and discharged home. Diagnostic Imaging Diagonstic Imaging: CT Plain Films/CT/US/NM/MRI: head, other (cta head/neck ) Reviewed: Reviewed [place] Study Departure Impression Primary Impression: Dizziness Additional Impression: Mild dehydration Disposition: HOME, SELF-CARE Condition: Stable Departure-Patient Inst. Referrals: MAYDA JOHN DO (PCP) Primary Care Physician Patient Instructions: Dizziness, Nonvertigo, (DC), Dehydration, Adult ED Add. Discharge Instructions: Be sure you are drinking plenty of fluids. Follow-up with your primary care provider to review your CT scans and surgery do not have any further work-ups. DONOVAN DUKE DO Feb 25, 2023 23:27
[2023-02-25 23:43] LABS: BASOPHILS % (AUTO) 1 % (0-10); PLATELET COUNT 103 10^3/uL (130-400)
[2023-02-25 23:45] LABS: EOSINOPHILS % (AUTO) 1 % (0-10); HEMATOCRIT 34 % (40-54); HEMOGLOBIN 11.3 g/dL (13.3-17.7); LYMPHOCYTES # (AUTO) 0.3 10^3/uL (1.0-4.0); LYMPHOCYTES % (AUTO) 8 % (12-44); MEAN CORPUSCULAR HEMOGLOBIN 30 pg (25-34); MEAN CORPUSCULAR HGB CONC 33 g/dL (32-36); MEAN CORPUSCULAR VOLUME 92 fL (80-99); MEAN PLATELET VOLUME 10.6 fL (9.0-12.2); MONOCYTES # (AUTO) 0.4 10^3/uL (0.0-1.0); MONOCYTES % (AUTO) 8 % (0-12); NEUTROPHILS # (AUTO) 3.6 10^3/uL (1.8-7.8); NEUTROPHILS % (AUTO) 82 % (42-75); WHITE BLOOD COUNT 4.3 10^3/uL (4.3-11.0)
[2023-02-25] MEDS ORDERED: CATHETER FLUSH 10 ML SYR IV PRN (23:45)
[2023-02-25] MEDS ORDERED: NS 100 ML (IVPB) BAG IV ONE (23:45)
[2023-02-25] MEDS ORDERED: IOHEXOL 350 MG/ML 100 ML (OMNIPAQUE 350) VIAL IV ONE (23:45)
[2023-02-25] MEDS ORDERED: HOLD METFORMIN - RECEIVED CONTRAST 20 ML VIAL IV SCH (23:45)
[2023-02-25 23:52] LABS: ALBUMIN 3.8 GM/DL (3.2-4.5)
[2023-02-25 23:53] LABS: POTASSIUM 3.7 MMOL/L (3.6-5.0)
[2023-02-25 23:54] LABS: CALCIUM 8.8 MG/DL (8.5-10.1)
[2023-02-25 23:55] LABS: TOTAL PROTEIN 5.9 GM/DL (6.4-8.2)
[2023-02-25 23:57] LABS: BILIRUBIN,TOTAL 0.6 MG/DL (0.1-1.0)
[2023-02-25 23:59] LABS: CREATININE SERUM 1.88 MG/DL (0.60-1.30)
[2023-02-26 00:02] LABS: MAGNESIUM 1.8 MG/DL (1.6-2.4)
[2023-02-26] MEDS ORDERED: NS IV 1000 ML 1,000 ML IV STA (00:09)
[2023-02-26 00:55] LABS: EOSINOPHILS % (MANUAL) 3 %; LYMPHOCYTES % (MANUAL) 12 %; MONOCYTES % (MANUAL) 6 %; NEUTROPHILS % (MANUAL) 79 %
[2023-02-26 00:56] LABS: POIKILOCYTOSIS SLIGHT
[2023-02-26 01:33] VITALS: BP 170/75
--- NOTE | 2023-02-26 07:13 | Diagnostic Imaging Report ---
PROCEDURE: CT head wo r/o stroke. TECHNIQUE: Multiple contiguous axial images were obtained through the brain without the use of intravenous contrast. Auto Exposure Controls were utilized during the CT exam to meet ALARA standards for radiation dose reduction. INDICATION: Neuro deficit, stroke COMPARISON: 08/08/2021 FINDINGS: Mild atrophy. No intracranial hemorrhage. No intracranial mass, mass effect, midline shift, herniation, hydrocephalus, or extra-axial fluid collection. Mild background chronic small vessel white matter ischemic disease. No definite CT evidence of an acute ischemic infarction. Background vascular calcifications. Bilateral ocular lenses are absent. The paranasal sinuses are clear. The calvarium and extra calvarial soft tissues are unremarkable. IMPRESSION: No acute intracranial abnormality. Mild atrophy with associated mild background chronic ischemic changes. Agree with preliminary interpretation. Should there remain clinical concern, further evaluation with MRI of brain would be recommended. Dictated by: Dictated on workstation # [id number]
--- NOTE | 2023-02-26 07:30 | Diagnostic Imaging Report ---
PROCEDURE: CT angiography of the head and CT angiography of the neck with and without contrast. TECHNIQUE: Contiguous noncontrast images were obtained from the skull base through the vertex. After intravenous contrast administration, helical CT angiography of the neck was performed. Source data was reformatted into 3D MIP projections. Delayed post contrast acquisition was also obtained. Auto Exposure Controls were utilized during the CT exam to meet ALARA standards for radiation dose reduction. INDICATION: Neuro deficit, stroke COMPARISON: Imaging from same date FINDINGS: Mild background chronic ischemic changes. No enhancing intracranial mass. No midline shift, herniation, hydrocephalus, or extra-axial fluid collection. No suspicious dural enhancement. The bilateral ocular lenses are absent. Mild mucosal thickening within the right maxillary sinus. The calvarium and extra calvarial soft tissues are unremarkable. Muscles of mastication are unremarkable. Parapharyngeal fat is symmetric and well-maintained. The salivary glands are unremarkable. The thyroid gland is unremarkable. No significant adenopathy within the neck. No apical pneumothorax. A three-vessel aortic arch is present. Mild stenosis involving the origin of the left subclavian artery. Calcifications within the bilateral carotid bulbs. Mild stenosis involving the origin and proximal aspect of the right vertebral artery. Moderate near 80% stenosis involving the intracranial portion of the left vertebral artery. Mild stenosis involving the intracranial portion of the right vertebral artery. The large arterial structures within the head and neck are otherwise unremarkable. Mild stenosis involving the origin of the left subclavian artery. Additional findings as above. Agree with preliminary interpretation. The large dural venous sinuses appear patent. Scattered osseous degenerative changes without acute osseous abnormality. There is resulting central canal stenosis at the C6/C7 level. 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 Mild stenosis involving the intracranial portion of the right vertebral artery. Mild stenosis involving the origin proximal aspect of the right vertebral artery. Dictated by: Dictated on workstation # [id number]
== END 2023-02-26 01:38 | disposition home or self-care (01) ==
LOC: EDUNIT# 23:12 → ER 23:14
DX: R42 Dizziness and giddiness (principal); E86.0 Dehydration; M54.2 Cervicalgia; M54.50 Low back pain, unspecified
CPT/HCPCS: 36415; 70450; 70496; 70498; 80053; 83735; 85007; 85027

== ENCOUNTER 2023-03-03 12:48 | Inpatient (IN) | payer MEDICARE, OTHER ==
[~2023-03-03] VITALS: Ht 180.3 cm; Wt 75.7 kg
[2023-03-03 13:45] LABS: BASOPHILS % (AUTO) 1 % (0-10); EOSINOPHILS % (AUTO) 1 % (0-10); HEMATOCRIT 35 % (40-54); HEMOGLOBIN 11.6 g/dL (13.3-17.7); LYMPHOCYTES # (AUTO) 0.3 10^3/uL (1.0-4.0); LYMPHOCYTES % (AUTO) 9 % (12-44); MEAN CORPUSCULAR HEMOGLOBIN 30 pg (25-34); MEAN CORPUSCULAR HGB CONC 34 g/dL (32-36); MEAN CORPUSCULAR VOLUME 91 fL (80-99); MEAN PLATELET VOLUME 10.2 fL (9.0-12.2); MONOCYTES # (AUTO) 0.3 10^3/uL (0.0-1.0); MONOCYTES % (AUTO) 8 % (0-12); NEUTROPHILS # (AUTO) 3.2 10^3/uL (1.8-7.8); NEUTROPHILS % (AUTO) 82 % (42-75); PLATELET COUNT 115 10^3/uL (130-400); WHITE BLOOD COUNT 3.9 10^3/uL (4.3-11.0)
[2023-03-03] MEDS ORDERED: LACTATED RINGERS 1,000 ML IV ONE (13:45)
[2023-03-03 13:52] LABS: ALBUMIN 3.9 GM/DL (3.2-4.5); POTASSIUM 3.9 MMOL/L (3.6-5.0)
[2023-03-03 13:54] LABS: CALCIUM 8.8 MG/DL (8.5-10.1)
[2023-03-03 13:57] LABS: BILIRUBIN,TOTAL 0.5 MG/DL (0.1-1.0)
[2023-03-03 13:59] LABS: CREATININE SERUM 1.64 MG/DL (0.60-1.30)
--- NOTE | 2023-03-03 14:42 | ED General ---
General Chief Complaint: General Problems/Pain Stated Complaint: NECK AND BACK PAIN Nursing Triage Note: PT AMB TO ED BY POV WITH SIGNIFICANT OTHER WITH C/O FEELING OFF BALANCED FOR SEVERAL DAYS, NECK AND LOWER BACK PAIN, AND "BURNING" IN NASAL PASSAGES. PT WAS RECENTLY DC FROM AND HAD MEDICATION CHANGES AND SIGNIFICANT OTHER REPORTS THE UNSTEADINESS USUALLY OCCURS AFTER PT TAKES HIS MEDS. Source of Information: Patient, Family, Old Records Exam Limitations: No Limitations History of Present Illness Date Seen by Provider: Mar 03, 2023 Time Seen by Provider: 16:28 Initial Comments This is 73-year-old gentleman presents to the emergency room feeling unsteady on his feet. He has been having bouts of feeling weak and lightheaded. He complains of mild headache, diarrhea, and his "nasal passages on fire". He had a recent admission to the hospital for symptomatic bradycardia. He had adjustment in his medications including discontinuing beta-blockers. He had a follow-up visit to the ER with an unremarkable work-up including CT of the head. His primary care provider is Dr. John. His primary blanket winder helper is Dr. Tabares. He is alert and oriented and exhibits no focal neurologic deficits. Allergies and Home Medications Allergies Coded Allergies: trazodone (Verified Adverse Reaction, Severe, SEVERE CONFUSION, 06/18/20) Patient Home Medication List Home Medication List Reviewed: Yes Amlodipine Besylate (Amlodipine Besylate) 5 Mg Tablet, 10 MG PO DAILY, (Reported) Entered as Reported by: FARIDA VAZQUEZ on 03/04/23 1000 Last Action: Reviewed Aspirin (Aspirin EC) 81 Mg Tablet., 81 MG PO DAILY, (Reported) Entered as Reported by: FARIDA VAZQUEZ on 02/19/23 1346 Last Action: Reviewed Cetirizine HCl (Zyrtec) 10 Mg Tablet, 10 MG PO DAILY, (Reported) Entered as Reported by: TERRY FRANK on 02/18/231927 Last Action: Reviewed Diphenhydramine HCl (Benadryl) 25 Mg Capsule, 25 MG PO HS, (Reported) Entered as Reported by: TERRY FRANK on 02/18/231927 Last Action: Reviewed Donepezil HCl (Donepezil HCl) 10 Mg Tablet, 10 MG PO HS, (Reported) Entered as Reported by: TERRY FRANK on 02/18/231927 Last Action: Reviewed Doxazosin Mesylate (Doxazosin Mesylate) 1 Mg Tablet, 1 MG PO BID, (Reported) Entered as Reported by: FARIDA VAZQUEZ on 03/04/23999 Last Action: Reviewed Escitalopram Oxalate (Escitalopram Oxalate) 10 Mg Tablet, 10 MG PO DAILY, (Reported) Entered as Reported by: FARIDA VAZQUEZ on 02/19/231345 Last Action: Reviewed Hydralazine HCl (Hydralazine HCl) 50 Mg Tablet, 50 MG PO TID, (Reported) Entered as Reported by: FARIDA VAZQUEZ on 02/19/231345 Last Action: Reviewed L.acidoph & Paracasei,B.lactis (Probiotic) 10 Billion Cell Capsule, 1 EACH PO DAILY, (Reported) Entered as Reported by: FARIDA VAZQUEZ on 02/19/231345 Last Action: Reviewed Loratadine (Loratadine) 10 Mg Tablet, 10 MG PO DAILY, (Reported) Entered as Reported by: CRISTIAN MURRY on 06/13/20 0902 Last Action: Reviewed Meclizine HCl (Meclizine HCl) 25 Mg Tablet, 25 MG PO TID PRN for DIZZINESS, (Reported) Entered as Reported by: FARIDA VAZQUEZ on 03/04/23999 Last Action: Reviewed Melatonin (Melatonin) 3 Mg Tablet, 3 MG PO HS, (Reported) Entered as Reported by: TERRY FRANK on 02/18/231927 Last Action: Reviewed Memantine HCl (Memantine HCl) 10 Mg Tablet, 10 MG PO BID, (Reported) Entered as Reported by: TERRY RFANK on 02/18/231927 Last Action: Reviewed Multivitamin (Multivitamin) 1 Each Tablet, 1 EACH PO 1200, (Reported) Entered as Reported by: ALYSHA ALBA on 06/09/20 1253 Last Action: Reviewed Mupirocin (Mupirocin) 2 % Oint...g., 1 APPLIC NSEACH BID PRN for NASAL PAIN/BURNING, (Reported) Entered as Reported by: FARIDA VAZQUEZ on 03/04/23 1000 Last Action: Reviewed Pravastatin Sodium (Pravastatin Sodium) 40 Mg Tablet, 40 MG PO HS, (Reported) Entered as Reported by: CRISTIAN MURRY on 03/10/19 1020 Last Action: Reviewed Discontinued Medications Amlodipine Besylate (Amlodipine Besylate) 5 Mg Tablet, 10 MG PO DAILY Discontinued Reason: Duplicate Order Prescribed by: MAYDA JOHN on 02/22/23 114 Last Action: Discontinued Doxazosin Mesylate (Doxazosin Mesylate) 1 Mg Tablet, 1 MG PO BID Discontinued Reason: No Longer Taking Prescribed by: MAYDA JOHN on 02/22/23 114 Last Action: Discontinued Review of Systems Review of Systems Constitutional: see HPI EENTM: no symptoms reported Respiratory: no symptoms reported Cardiovascular: see HPI Gastrointestinal: no symptoms reported Genitourinary: no symptoms reported Musculoskeletal: no symptoms reported Skin: no symptoms reported Psychiatric/Neurological: See HPI Hematologic/Lymphatic: No Symptoms Reported Past Debszxk-Tkhfax-Pelpqf Hx Patient Social History Tobacco Use?: No Substance use?: No Alcohol Use?: Yes Alcohol Frequency: Once in a while Pt feels they are or have been: No Immunizations Up To Date Influenza Vaccine Up-to-Date: Yes; Up-to-Date First/Initial COVID19 Vaccinat: 2020 Second COVID19 Vaccination Zbigniew: 2020 Third COVID19 Vaccination Date: 2020 Seasonal Allergies Seasonal Allergies: Yes Past Medical History Surgery/Hospitalization HX: BILATERAL CATARACT SURGERYPT HAD ROBOTIC ASSISTED LAPAROSCOPIC PROSTATECTOMY WITH BILATERAL LYMPHNODE DISSECTION BY DR. TUCKER HERE ON 06/16/20 HTN Surgeries: Yes (LITHOTRIPSY;UMBILICAL HERNIA;R-A LAP PROSTATECTOMY/BILAT LYMPH NODE DISSECT) Abdominal, Eye Surgery, Gallbladder, Prostatectomy, Renal Respiratory: Yes Pneumonia Currently Using CPAP: No Currently Using BIPAP: No Cardiac: Yes (bradycardia) High Cholesterol, Hypertension Neurological: Yes (POOR MEMORY) Reproductive Disorders: No Sexually Transmitted Disease: No HIV/AIDS: No Genitourinary: Yes (RENAL INSUFF; PROSTATE CANCER) Prostate Problems, Kidney Stones Gastrointestinal: Yes (UMBILICAL HERNIA;CHOLECYSTECTOMY) Abdominal Hernia, Gall Bladder Disease Musculoskeletal: Yes Chronic Back Pain Endocrine: Yes Diabetes, Non-Insulin dep HEENT: Yes (GLASSES) Cataract Loss of Vision: Denies Hearing Impairment: Denies Cancer: Yes Prostate Did You Recieve Any Treatments: Yes What Type of Treatment Did You: Surgical Intervention Psychosocial: Yes Anxiety Integumentary: No Blood Disorders: No Adverse Reaction/Blood Tranf: No (N/A) Physical Exam Vital Signs Vital Signs - First Documented 03/03/23 13:12 Temp 36.8 Pulse 54 Resp 14 B/P (MAP) 117/59 (78) Pulse Ox 96 O2 Delivery Room Air Capillary Refill : Less Than 3 Seconds Height, Weight, BMI Height: 5'11.00" Weight: 205lbs. 0.0oz. 92.872518lb; 25.00 BMI Method:Stated General Appearance: No Apparent Distress, WD/WN HEENT: PERRL/EOMI, Normal ENT Inspection Neck: Normal Inspection; No JVD Respiratory: Lungs Clear, Normal Breath Sounds, No Accessory Muscle Use, No Respiratory Distress Cardiovascular: No Edema, No Murmur, Bradycardia (intermittent) Gastrointestinal: Non Tender, Soft Extremity: Normal Inspection, No Pedal Edema Neurologic/Psychiatric: Alert, Oriented x3, No Motor/Sensory Deficits, Normal Mood/Affect, corrections nurse II-XII Norm as Tested, Other (normal finger to nose and heel to ga) Progress/Results/Core Measures Suspected Sepsis SIRS Temperature: Pulse: 54 Respiratory Rate: 14 Laboratory Tests 03/03/23 13:35: White Blood Count 3.9L Blood Pressure 117 /59 Mean: 78 Laboratory Tests 03/03/23 13:35: Creatinine 1.64H, Platelet Count 115L, Total Bilirubin 0.5 Results/Orders Lab Results Laboratory Tests Test 03/03/23 13:35 03/03/23 14:13 03/03/23 15:40 Range/Units White Blood Count 3.9 L 4.3-11.0 10^3/uL Red Blood Count 3.82 L 4.30-5.52 10^6/uL Hemoglobin 11.6 L 13.3-17.7 g/dL Hematocrit 35 L 40-54 % Mean Corpuscular Volume 91 80-99 fL Mean Corpuscular Hemoglobin 30 25-34 pg Mean Corpuscular Hemoglobin Concent 34 32-36 g/dL Red Cell Distribution Width 12.5 10.0-14.5 % Platelet Count 115 L 130-400 10^3/uL Mean Platelet Volume 10.2 9.0-12.2 fL Immature Granulocyte % (Auto) 1 % Neutrophils (%) (Auto) 82 H 42-75 % Lymphocytes (%) (Auto) 9 L 12-44 % Monocytes (%) (Auto) 8 0-12 % Eosinophils (%) (Auto) 1 0-10 % Basophils (%) (Auto) 1 0-10 % Neutrophils # (Auto) 3.2 1.8-7.8 10^3/uL Lymphocytes # (Auto) 0.3 L 1.0-4.0 10^3/uL Monocytes # (Auto) 0.3 0.0-1.0 10^3/uL Eosinophils # (Auto) 0.0 0.0-0.3 10^3/uL Basophils # (Auto) 0.0 0.0-0.1 10^3/uL Immature Granulocyte # (Auto) 0.0 0.0-0.1 10^3/uL Percent Immature Platelet Fraction 2.9 0.0-7.6 % Sodium Level 145 135-145 MMOL/L Potassium Level 3.9 3.6-5.0 MMOL/L Chloride Level 111 H 98-107 MMOL/L Carbon Dioxide Level 25 21-32 MMOL/L Anion Gap 9 5-14 MMOL/L Blood Urea Nitrogen 35 H 7-18 MG/DL Creatinine 1.64 H 0.60-1.30 MG/DL Estimat Glomerular Filtration Rate 43 BUN/Creatinine Ratio 21 Glucose Level 129 H 70-105 MG/DL Calcium Level 8.8 8.5-10.1 MG/DL Corrected Calcium 8.9 8.5-10.1 MG/DL Magnesium Level 2.0 1.6-2.4 MG/DL Total Bilirubin 0.5 0.1-1.0 MG/DL Aspartate Amino Transf (AST/SGOT) 16 5-34 U/L Alanine Aminotransferase (ALT/SGPT) 18 0-55 U/L Alkaline Phosphatase 59 40-136 U/L C-Reactive Protein High Sensitivity 0.03 0.00-0.50 MG/DL Total Protein 6.0 L 6.4-8.2 GM/DL Albumin 3.9 3.2-4.5 GM/DL SARS-CoV-2 RNA (RT-PCR) Not Detected Not Detecte Urine Color YELLOW Urine Clarity CLOUDY Urine pH 6.0 5-9 Urine Specific [place] >=1.030 1.016-1.022 Urine Protein TRACE H NEGATIVE Urine Glucose (UA) NEGATIVE NEGATIVE Urine Ketones NEGATIVE NEGATIVE Urine Nitrite NEGATIVE NEGATIVE Urine Bilirubin NEGATIVE NEGATIVE Urine Urobilinogen 1.0 < = 1.0 MG/DL Urine Leukocyte Esterase NEGATIVE NEGATIVE Urine RBC (Auto) NEGATIVE NEGATIVE Urine RBC NONE /HPF Urine WBC RARE /HPF Urine Squamous Epithelial Cells 5-10 /HPF Urine Crystals NONE /LPF Urine Bacteria NEGATIVE /HPF Urine Casts PRESENT /LPF Urine Hyaline Casts 5-10 H /LPF Urine Mucus NEGATIVE /LPF Urine Culture Indicated NO My Orders Orders - DEREJE HARKINS MD Cbc With Automated Diff (03/03/23 13:27) Comprehensive Metabolic Panel (03/03/23 13:27) Hs C Reactive Protein (03/03/23 13:27) Magnesium (03/03/23 13:27) Ua Culture If Indicated (03/03/23 13:27) Ed Iv/Invasive Line Start (03/03/23 13:27) Monitor-Rhythm Ecg Trace Only (03/03/23 13:27) Covid 19 Inhouse Test (03/03/23 13:27) Lactated Ringers (Lr 1000 Ml Iv Solution (03/03/23 13:45) Ekg Tracing (03/03/23 13:44) Ed Admission (Communication) (03/03/23 16:39) Medications Given in ED Vital Signs/I&O 03/03/23 03/03/23 13:12 17:13 Temp 36.8 Pulse 54 63 Resp 14 12 B/P (MAP) 117/59 (78) 155/71 Pulse Ox 96 96 O2 Delivery Room Air Room Air Capillary Refill : Less Than 3 Seconds Blood Pressure Mean: 78 Progress Note : Time: 16:28 Progress Note Labs were obtained including CBC, CMP, CRP, magnesium, COVID screening, and urinalysis. CBC and CMP were relatively unchanged when compared with prior. There was slight stable anemia. Creatinine is still elevated but near baseline. CRP was unremarkable. Magnesium was normal. COVID swab was negative. Urinalysis demonstrated high specific gravity and hyaline casts suggesting hypovolemia or mild dehydration. Patient was neurologically intact with no focal neurologic deficits. CT of the head was performed during his ER visit several days ago and did not need to be repeated today. Nursing staff noted significant bradycardia during this ER stay. Heart rate was as low as 36. The bradycardia lasted for 1 to 2 minutes according to nursing staff. We are attempting to extract with a rhythm strip from the asset analyst to document this bradycardia. I have discussed the case with Dr. John, admitting hospitalist, and Dr. Cole, blanket winder helper on-call. They are both agreeable to admission for observation. No med changes are being performed at this time. A liter of IV fluid was infused during his ER stay. I discussed CODE STATUS with the patient, and he wishes to remain full code. All labs were reviewed and interpreted by me. EKG was also reviewed and interpreted by me. ECG Initial ECG Impression Date: Mar 03, 2023 Initial ECG Impression Time: 13:56 Initial ECG Rate: 47 Initial ECG Rhythm: S.[place] Initial ECG Impression: Sinus Bradycardia Departure Communication (Admissions) Dr. Rebel Cole Impression Primary Impression: Symptomatic bradycardia Disposition: ADMITTED INPATIENT Condition: Stable Admissions Decision to Admit Reason: Admit from ER (General) Decision to Admit/Date: Mar 03, 2023 Time/Decision to Admit Time: 16:35 Departure-Patient Inst. Referrals: MAYDA JOHN DO (PCP/Family) Primary Care Physician DEREJE HARKINS MD Mar 03, 2023 14:42
[2023-03-03 15:48] LABS: BILIRUBIN,URINE NEGATIVE (NEGATIVE); CLARITY,URINE CLOUDY; COLOR,URINE YELLOW; GLUCOSE, URINE (UA) NEGATIVE (NEGATIVE); KETONES,URINE NEGATIVE (NEGATIVE); LEUKOCYTE ESTERASE ,URINE NEGATIVE (NEGATIVE); NITRITE,URINE NEGATIVE (NEGATIVE); PROTEIN,URINE TRACE (NEGATIVE)
[2023-03-03 15:57] LABS: BACTERIA,URINE NEGATIVE /HPF; WBC,URINE RARE /HPF
[2023-03-03 17:30] VITALS: BP 157/86
[2023-03-03] MEDS ORDERED: LORazepam INJ 2 MG/ML (ATIVAN) VIAL IVP PRN (17:30)
[2023-03-03] MEDS ORDERED: polyethylene glycoL POWDER 17 GM (MIRALAX) PACK PO PRN (17:30)
[2023-03-03] MEDS ORDERED: BISACODYL 10 MG SUPP (DULCOLAX) PR PRN (17:30)
[2023-03-03] MEDS ORDERED: MILK OF MAGNESIA 400 MG/5 ML 30 ML UDC PO PRN (17:30)
[2023-03-03] MEDS ORDERED: ONDANSETRON 4 MG (ZOFRAN) ORAL DISSOLVE TAB PO PRN (17:30)
[2023-03-03] MEDS ORDERED: CALCIUM CARBONATE 500 MG (TUMS) TAB.CHEW PO PRN (17:30)
[2023-03-03] MEDS ORDERED: ANTACID SUSP 30 ML UDC (MYLANTA) PO PRN (17:30)
[2023-03-03] MEDS ORDERED: HALOPERIDOL 5 MG/ML (HALDOL) VIAL IM PRN (17:30)
[2023-03-03] MEDS ORDERED: diphenhydrAMINE 50 MG/ML INJ (BENADRYL) IVP PRN (17:30)
[2023-03-03] MEDS ORDERED: MELATONIN 3 MG TABLET PO PRN (17:30)
[2023-03-03] MEDS ORDERED: ONDANSETRON 4 MG/2 ML (SDV) Z0FRAN IV PRN (17:30)
[2023-03-03] MEDS ORDERED: LORazepam 1 MG (ATIVAN) TAB PO PRN (17:30)
[2023-03-03] MEDS ORDERED: HYDROmorphone 2 MG/ML VIAL (DILAUDID) IV PRN (17:30)
[2023-03-03] MEDS ORDERED: ACETAMINOPHEN 325 MG TABLET PO PRN (17:30)
[2023-03-03] MEDS ORDERED: diphenhydrAMINE 25 MG TAB (BENADRYL) PO PRN (17:30)
[2023-03-03] MEDS ORDERED: LACTULOSE SYRUP 10GM/15ML (ENULOSE) 30ML UDC PO PRN (17:30)
[2023-03-03 19:38] VITALS: BP 117/59
[2023-03-03 20:21] VITALS: BP 183/78
[2023-03-03] MEDS ORDERED: AtorvaSTATin TABLET 10 MG TABLET PO SCH (21:00)
[2023-03-03] MEDS: ENOXAPARIN 40 MG/0.4 ML (LOVENOX) SYR SC SCH (21:32)
[2023-03-03] MEDS: doxAzosin 1 MG (CARDURA) TAB PO SCH (21:32)
[2023-03-03] MEDS: MEMANTINE 10 MG (NAMENDA) TABLET PO SCH (21:32)
[2023-03-03] MEDS: NS IV 1000 ML 1,000 ML IV SCH (21:32)
[2023-03-03] MEDS: diphenhydrAMINE 25 MG TAB (BENADRYL) PO SCH (21:33)
[2023-03-03] MEDS: DOCUSATE SODIUM 100 MG (COLACE) CAP PO SCH (21:33)
[2023-03-03] MEDS: MELATONIN 3 MG TABLET PO SCH (21:33)
[2023-03-03] MEDS: hydrALAZINE (APRESOLINE) 25 MG TAB PO SCH (21:33)
[2023-03-03] MEDS: DONEPEZIL 10 MG (ARICEPT) TAB PO SCH (21:33)
[2023-03-03] MEDS: SENNOSIDES 8.6 MG (SENOKOT) TAB PO SCH (21:34)
[2023-03-04] VITALS (15 sets, daily range): BP systolic 144–203; BP diastolic 67–91
[2023-03-04] MEDS: NS IV 1000 ML 1,000 ML IV SCH ×3 (01:57→20:40)
[2023-03-04 05:22] LABS: BASOPHILS % (AUTO) 1 % (0-10); HEMOGLOBIN 11.1 g/dL (13.3-17.7)
[2023-03-04 05:24] LABS: EOSINOPHILS # (AUTO) 0.1 10^3/uL (0.0-0.3); EOSINOPHILS % (AUTO) 2 % (0-10); HEMATOCRIT 33 % (40-54); LYMPHOCYTES # (AUTO) 0.5 10^3/uL (1.0-4.0); LYMPHOCYTES % (AUTO) 12 % (12-44); MEAN CORPUSCULAR HEMOGLOBIN 31 pg (25-34); MEAN CORPUSCULAR HGB CONC 34 g/dL (32-36); MEAN CORPUSCULAR VOLUME 91 fL (80-99); MEAN PLATELET VOLUME 10.9 fL (9.0-12.2); MONOCYTES # (AUTO) 0.4 10^3/uL (0.0-1.0); MONOCYTES % (AUTO) 9 % (0-12); NEUTROPHILS # (AUTO) 3.1 10^3/uL (1.8-7.8); NEUTROPHILS % (AUTO) 76 % (42-75); PLATELET COUNT 95 10^3/uL (130-400)
[2023-03-04] MEDS: hydrALAZINE (APESOLINE) 20 MG/ML VIAL IV PRN (05:30)
[2023-03-04 05:45] LABS: ALBUMIN 3.6 GM/DL (3.2-4.5); BILIRUBIN,TOTAL 0.5 MG/DL (0.1-1.0); CALCIUM 8.5 MG/DL (8.5-10.1); CREATININE SERUM 1.27 MG/DL (0.60-1.30); POTASSIUM 3.9 MMOL/L (3.6-5.0); TOTAL PROTEIN 5.4 GM/DL (6.4-8.2)
--- NOTE | 2023-03-04 05:47 | History & Physical ---
History of Present Illness HPI/Chief Complaint Chief complaint: Weakness with bradycardia recurrent and type HPI: This is a 73-year-old male clinic patient of mine who was just discharged a week and a half ago after suffering severe delirium following hospital stay in the ICU for severe bradycardia symptomatic. Metoprolol was held and heart rate increased enough to discharge home after delirium had resolved. Patient had done well but continued to have a lot of dizziness. Partner is at the bedside. Patient reports weight loss of which has been purposeful by not eating ice cream. Abdominal ultrasound obtained showing a mass in the pancreas and multiple cysts in his kidneys and since his creatinine is improved after IV fluid at 1.[address] abdomen and pelvis to pursue. Dr. Cole is evaluating him and will initiate PT in order to monitor heart rate. Source: patient, family Exam Limitations: no limitations Date Seen 03/04/23 Time Seen by a Provider: 09:00 Attending Physician Maggy Luque DO PCP Admitting Physician: Maggy Luque DO Attending Physician: Maggy Luque DO Referring Physician Date of Admission Mar 03, 2023 at 17:18 Home Medications & Allergies Home Medications Reviewed patient Home Medication Reconciliation performed by pharmacy medication reconciliations premises technician and/or nursing. Patients Allergies have been reviewed. Allergies Allergies Coded Allergies trazodone (Verified Adverse Reaction, Severe, SEVERE CONFUSION, 06/18/20) Past Uhczwtn-Xjxpaw-Dfdtpq Hx Past Med/Social Hx: Reviewed Nursing Past Med/Soc Hx, Reviewed and Corrections made Patient Social History Marrital Status: cohabiting Employed/Student: retired Alcohol Use: Occasionally Uses Alcohol Beverage of Choice: Beer Smoking Status: Never a Smoker Former Smoker, Quit: Sep 23, 2001 Type Used: Cigarettes 2nd Hand Smoke Exposure: No Recent Hopitalizations: No Immunizations Up To Date Date of Influenza Vaccine: May 30, 2020 Seasonal Allergies Seasonal Allergies: Yes Past Medical History Surgeries: Abdominal, Eye Surgery, Gallbladder, Prostatectomy, Renal Currently Using CPAP: No Currently Using BIPAP: No Cardiac: High Cholesterol, Hypertension Reproductive: No Sexually Transmitted Disease: No HIV/AIDS: No Genitourinary: Prostate Problems, Kidney Stones, Renal Failure Gastrointestinal: Abdominal Hernia, Gall Bladder Disease Musculoskeletal: Chronic Back Pain Endocrine: Diabetes, Non-Insulin dep HEENT: Cataract Loss of Vision: Denies Hearing Impairment: Denies Cancer: Prostate Did You Recieve Any Treatments: Yes What Type of Treatment Did You: Surgical Intervention Psychosocial: Anxiety History of Blood Disorders: No Adverse Reaction to Blood May: No (N/A) Review of Systems Constitutional: see HPI, dizziness, malaise, weakness Physical Exam Physical Exam Vital Signs Vital Signs - First Documented 03/03/23 03/03/23 13:12 19:38 Temp 36.8 Pulse 54 Resp 14 B/P (MAP) 117/59 (78) Pulse Ox 96 O2 Delivery Room Air FiO2 21 Capillary Refill : Less Than 3 Seconds Height, Weight, BMI Height: 5'11.00" Weight: 205lbs. 0.0oz. 92.153279ek; 25.83 BMI Method:Stated General Appearance: No Apparent Distress, WD/WN, Chronically ill Eyes: Bilateral Eye Normal Inspection, Bilateral Eye PERRL HEENT: PERRL/EOMI, Normal ENT Inspection, Pharynx Normal Neck: Full Range of Motion, Normal Inspection, Non Tender, Supple, Carotid Bruit Respiratory: Chest Non Tender, Lungs Clear, Normal Breath Sounds, No Accessory Muscle Use, No Respiratory Distress Cardiovascular: Regular Rate, Rhythm, No Edema, No Gallop, No JVD, No Murmur, Normal Peripheral Pulses Gastrointestinal: Normal Bowel Sounds, No Organomegaly, No Pulsatile Mass, Non Tender, Soft Back: Normal Inspection, No CVA Tenderness, No Vertebral Tenderness Extremity: Normal Capillary Refill, Normal Inspection, Normal Range of Motion, Non Tender, No Calf Tenderness, No Pedal Edema Neurologic/Psychiatric: Alert, Oriented x3, No Motor/Sensory Deficits, Normal Mood/Affect Skin: Normal Color, Warm/Dry Lymphatic: No Adenopathy Results Results/Procedures Labs Laboratory Tests 03/03/23 13:35 03/04/23 04:20 Patient resulted labs reviewed. Assessment/Plan Admission Diagnosis Assessment: Symptomatic bradycardia Malignant HTN Mild CKD improved after IVF Thrombocytopenia Dementia HLP Pancreatic mass? Weight loss Depression HELDER suspected recent sleep study Plan: Monitor closely Abd USG rec CT so ordered Move to 4th Therapy Admission Status: Observation MAGGY LUQUE DO Mar 04, 2023 05:47
[2023-03-04] MEDS ORDERED: LORATADINE (CLARITIN) 10 MG TAB PO SCH (09:00)
[2023-03-04] MEDS ORDERED: amLODIPine 5 MG (NORVASC) TAB PO SCH (09:00)
--- NOTE | 2023-03-04 09:11 | Consultation-Cardiology ---
HPI-Cardiology Cardiology Consultation Date of Consultation 03/04/23 Date of Admission Time Seen by Provider: 09:05 Indication: Bradycardia HPI 73-year-old gentleman with history of episodes of bradycardia, hypertension. Patient reported nasal congestion and started to have unsteadiness, did not feel right. Patient came into the emergency room for evaluation, while patient was on telemetry had transient episode of bradycardia with reported heart rate in the 30s. No rhythm strip are available at this point. His EKG showing sinus bradycardia with occasional APCs and first-degree AV block. On my evaluation he was feeling better, reporting improvement in his symptoms, heart rate is in the 70s. Home Medications & Allergies Allergies: Coded Allergies: trazodone (Verified Adverse Reaction, Severe, SEVERE CONFUSION, 06/18/20) Home Medication List Reviewed: Yes TAE-Rvvnwh-Hvmeaf Hx Patient Social History Marital Status: Employed/Student: retired Type Used: Cigarettes 2nd Hand Smoke Exposure: No Recent Hopitalizations: No Alcohol Use?: Yes Immunizations Up To Date Date of Influenza Vaccine: May 30, 2020 Past Medical History Discussed below Family Medical History Significant Family History: No Pertinent Family Hx Review of Systems-General Review of Systems Constitutional: see HPI, dizziness, malaise, weakness EENTM: see HPI, no symptoms reported Respiratory: no symptoms reported, see HPI Cardiovascular: see HPI Gastrointestinal: no symptoms reported, see HPI Genitourinary: no symptoms reported, see HPI Musculoskeletal: no symptoms reported, see HPI Skin: no symptoms reported, see HPI Psychiatric/Neurological: No Symptoms Reported, See HPI Reviewed Test Results Reviewed Test Results Lab Laboratory Tests Test 03/03/23 13:35 03/03/23 14:13 03/03/23 15:40 03/04/23 04:20 Range/Units White Blood Count 3.9 L 4.0 L 4.3-11.0 10^3/uL Red Blood Count 3.82 L 3.62 L 4.30-5.52 10^6/uL Hemoglobin 11.6 L 11.1 L 13.3-17.7 g/dL Hematocrit 35 L 33 L 40-54 % Mean Corpuscular Volume 91 91 80-99 fL Mean Corpuscular Hemoglobin 30 31 25-34 pg Mean Corpuscular Hemoglobin Concent 34 34 32-36 g/dL Red Cell Distribution Width 12.5 12.5 10.0-14.5 % Platelet Count 115 L 95 L 130-400 10^3/uL Mean Platelet Volume 10.2 10.9 9.0-12.2 fL Immature Granulocyte % (Auto) 1 0 % Neutrophils (%) (Auto) 82 H 76 H 42-75 % Lymphocytes (%) (Auto) 9 L 12 12-44 % Monocytes (%) (Auto) 8 9 0-12 % Eosinophils (%) (Auto) 1 2 0-10 % Basophils (%) (Auto) 1 1 0-10 % Neutrophils # (Auto) 3.2 3.1 1.8-7.8 10^3/uL Lymphocytes # (Auto) 0.3 L 0.5 L 1.0-4.0 10^3/uL Monocytes # (Auto) 0.3 0.4 0.0-1.0 10^3/uL Eosinophils # (Auto) 0.0 0.1 0.0-0.3 10^3/uL Basophils # (Auto) 0.0 0.0 0.0-0.1 10^3/uL Immature Granulocyte # (Auto) 0.0 0.0 0.0-0.1 10^3/uL Percent Immature Platelet Fraction 2.9 2.8 0.0-7.6 % Sodium Level 145 143 135-145 MMOL/L Potassium Level 3.9 3.9 3.6-5.0 MMOL/L Chloride Level 111 H 112 H 98-107 MMOL/L Carbon Dioxide Level 25 24 21-32 MMOL/L Anion Gap 9 7 5-14 MMOL/L Blood Urea Nitrogen 35 H 29 H 7-18 MG/DL Creatinine 1.64 H 1.27 0.60-1.30 MG/DL Estimat Glomerular Filtration Rate 43 59 BUN/Creatinine Ratio 21 23 Glucose Level 129 H 90 70-105 MG/DL Calcium Level 8.8 8.5 8.5-10.1 MG/DL Corrected Calcium 8.9 8.8 8.5-10.1 MG/DL Magnesium Level 2.0 1.6-2.4 MG/DL Total Bilirubin 0.5 0.5 0.1-1.0 MG/DL Aspartate Amino Transf (AST/SGOT) 16 15 5-34 U/L Alanine Aminotransferase (ALT/SGPT) 18 15 0-55 U/L Alkaline Phosphatase 59 54 40-136 U/L C-Reactive Protein High Sensitivity 0.03 0.00-0.50 MG/DL Total Protein 6.0 L 5.4 L 6.4-8.2 GM/DL Albumin 3.9 3.6 3.2-4.5 GM/DL SARS-CoV-2 RNA (RT-PCR) Not Detected Not Detecte Urine Color YELLOW Urine Clarity CLOUDY Urine pH 6.0 5-9 Urine Specific [place] >=1.030 1.016-1.022 Urine Protein TRACE H NEGATIVE Urine Glucose (UA) NEGATIVE NEGATIVE Urine Ketones NEGATIVE NEGATIVE Urine Nitrite NEGATIVE NEGATIVE Urine Bilirubin NEGATIVE NEGATIVE Urine Urobilinogen 1.0 < = 1.0 MG/DL Urine Leukocyte Esterase NEGATIVE NEGATIVE Urine RBC (Auto) NEGATIVE NEGATIVE Urine RBC NONE /HPF Urine WBC RARE /HPF Urine Squamous Epithelial Cells 5-10 /HPF Urine Crystals NONE /LPF Urine Bacteria NEGATIVE /HPF Urine Casts PRESENT /LPF Urine Hyaline Casts 5-10 H /LPF Urine Mucus NEGATIVE /LPF Urine Culture Indicated NO Test 03/04/23 06:30 Range/Units Ammonia 21 11-32 UMOL/L Physical Exam Physical Exam Vital Signs Vital Signs - First Documented 03/03/23 03/03/23 13:12 19:38 Temp 36.8 Pulse 54 Resp 14 B/P (MAP) 117/59 (78) Pulse Ox 96 O2 Delivery Room Air FiO2 21 Capillary Refill : Less Than 3 Seconds Height, Weight, BMI Height: 5'11.00" Weight: 205lbs. 0.0oz. 92.980157si; 25.83 BMI Method:Stated General Appearance: No Apparent Distress, WD/WN Eyes: Bilateral Eye Normal Inspection, Bilateral Eye PERRL, Bilateral Eye EOMI HEENT: PERRL/EOMI, TMs Normal, Normal ENT Inspection, Pharynx Normal, Moist Mucous Membranes Neck: Full Range of Motion, Normal Inspection, Non Tender, Supple, Carotid Bruit Respiratory: Chest Non Tender, Normal Breath Sounds, No Accessory Muscle Use, No Respiratory Distress Cardiovascular: Regular Rate, Rhythm, No Edema, No Gallop, No JVD, No Murmur, Normal Peripheral Pulses Gastrointestinal: Normal Bowel Sounds, No Organomegaly, No Pulsatile Mass, Non Tender, Soft Back: Normal Inspection, No CVA Tenderness, No Vertebral Tenderness Extremity: Normal Capillary Refill, Normal Inspection, Normal Range of Motion, Non Tender, No Calf Tenderness, No Pedal Edema Neurologic/Psychiatric: Alert, Oriented x3, No Motor/Sensory Deficits, Normal Mood/Affect Skin: Normal Color, Warm/Dry Lymphatic: No Adenopathy A/P-Cardiology Admission Diagnosis Symptomatic bradycardia Second-degree AV block Mobitz 1 Hypertension Chronic kidney disease Assessment/Plan Symptomatic bradycardia. Having dizziness and lightheadedness. On a previous admission it was reported to have sinus node dysfunction with possible second-degree AV block [place] 1. Beta-blockers were discontinued on the previous admission I will discontinue amlodipine and monitor Hypertension, poor control 2D echo was reported by Dr. Sultana on February 18, 2023 as ejection fraction 60 to 65%, mild mitral regurgitation, PA pressure 40 to 45 mmHg I will start losartan and monitor tolerance and response Chronic kidney disease, monitor renal function while initiating losartan Hyperlipidemia, hold statin for now History of prostate cancer and prostatectomy Generalized weakness, dizziness, nasal congestion. Recommend evaluating PT/OT/rehab CTA of the head was done on February 25, 2023 showing 80% left vertebral artery stenosis, mild right vertebral artery stenosis. Otherwise atherosclerotic p laques nonobstructive disease. Poor memory, history of confusion. Managed by medical team History of anxiety. History of nephrolithiasis JEREMY HUITRON MD Mar 04, 2023 09:10
--- NOTE | 2023-03-04 09:32 | Diagnostic Imaging Report ---
PROCEDURE: US Abdomen, limited. TECHNIQUE: Multiple realtime grayscale images were obtained over the abdomen in various projections. INDICATION: Fatty infiltration of the liver. FINDINGS: Liver is normal in size. Hepatopetal flow in main portal vein. There is no biliary duct dilatation. Common bile duct measures 4 mm. Gallbladder surgically absent. Pancreas is not well seen however there is a cyst in the body measuring 1.1 cm. Aorta measures 1.6 cm. IVC is patent and normal in caliber. Several cysts in the right kidney. There are also some echogenic foci. There is no ascites. IMPRESSION: 1.1 cm cystic area in the body of the pancreas. Additionally there are some cysts in the right kidney, largest measuring 4.1 cm. There are also some echogenic areas possibly reflecting stones. All the above findings could be better evaluated with pre and post contrast CT abdomen and pelvis. Dictated by: Dictated on workstation # [id number]
[2023-03-04] MEDS ORDERED: DOXA1TAB2 PO (10:00)
[2023-03-04] MEDS ORDERED: MECL-149 PO (10:00)
[2023-03-04] MEDS ORDERED: AMLO-250 PO (10:00)
[2023-03-04] MEDS ORDERED: MUPI22OI2 NSEACH (10:00)
[2023-03-04] MEDS: LORATADINE (CLARITIN) 10 MG TAB PO SCH (10:15)
[2023-03-04] MEDS: MEMANTINE 10 MG (NAMENDA) TABLET PO SCH ×2 (10:15→23:20)
[2023-03-04] MEDS: SENNOSIDES 8.6 MG (SENOKOT) TAB PO SCH ×2 (10:15→23:20)
[2023-03-04] MEDS: hydrALAZINE (APRESOLINE) 25 MG TAB PO SCH ×3 (10:16→23:19)
[2023-03-04] MEDS: LOSARTAN 50 MG (COZAAR) TAB PO SCH (10:16)
[2023-03-04] MEDS: DOCUSATE SODIUM 100 MG (COLACE) CAP PO SCH ×2 (10:16→23:19)
[2023-03-04] MEDS: doxAzosin 1 MG (CARDURA) TAB PO SCH ×2 (10:16→23:19)
[2023-03-04] MEDS: LACTOBACILLUS ACIDOPHILUS (PROBIOTIC) CAPSULE PO SCH (10:16)
[2023-03-04] MEDS: MULTIVIT W/MINERALS TAB (THERAGRAN M) PO SCH (10:18)
[2023-03-04] MEDS: ASPIRIN E.C. 81 MG (ECOTRIN) TAB PO SCH (10:20)
[2023-03-04] MEDS ORDERED: NS 100 ML (IVPB) BAG IV ONE (10:30)
[2023-03-04] MEDS ORDERED: HOLD METFORMIN - RECEIVED CONTRAST 20 ML VIAL IV SCH (10:30)
[2023-03-04] MEDS ORDERED: IOHEXOL 350 MG/ML 100 ML (OMNIPAQUE 350) VIAL IV ONE (10:30)
--- NOTE | 2023-03-04 11:25 | Physical Therapy Evaluation ---
PT Evaluation-General Medical Diagnosis Admission Date Mar 03, 2023 at 17:18 Medical Diagnosis: symptomatic bradycardia Onset Date: Mar 03, 2023 Therapy Diagnosis Therapy Diagnosis: debility Height/Weight Height (Feet): 5 Height (Inches): 11.00 Weight (Pounds): 205 Weight (Ounces): 0.0 Precautions Precautions/Isolations: Fall Prevention, Standard Precautions Referral Physician: Rebel Reason for Referral: Evaluation/Treatment Medical History Pertinent Medical History: DM, HTN, Prostate CA, Renal Insufficiency Current History ER secondary to AMS/unsteadiness Reviewed History: Yes Social History Home: Single Level Current Living Status: Significant Other Entry Into Home: Stairs Without Railing Prior Prior Level of Function SCALE: Activities may be completed with or without assistive devices. 4-Lebreqoylx-kdhvuae completes the activity by him/herself with no assistance from a helper. 5-Set-up or Clean-up Assistance-helper sets up or cleans up; patient completes activity. [place] assists only prior to or following the activity. 4-Supervision or Touching Assistance-helper provides verbal cues and/or touching/steadying and/or contact guard assistance as patient completes activity. Assistance may be provided throughout the activity or intermittently. 3-Partial/Moderate Assistance-helper does LESS THAN HALF the effort. [place] lifts, holds or supports trunk or limbs, but provides less than half the effort. 2-Substantial/Maximal Assistance-helper does MORE THAN HALF the effort. [place] lifts or holds trunk or limbs and provides more than half the effort. 1-Fbfuhsfmj-apofdb does ALL the effort. Patient does none of the effort to complete the activity. Or, the assistance of 2 or more helpers is required for the patient to complete the activity. If activity was not attempted, code reason: 7-Patient Refused. 9-Not Applicable-not attempted and the patient did not perform the activity before the current illness, exacerbation or injury. 10-Not Attempted due to Environmental Limitations-(lack of equipment, weather restraints, etc.). 88-Not Attempted due to Medical Conditions or Safety Concerns. Bed Mobility: 6 Transfers (B,C,W/C): 6 Gait: 6 Indoor Mobility (Ambulation): Independent Stairs: Independent Prior Devices Use: None PT Evaluation-Current Subjective Patient agrees to PT. Girlfriend present. Objective Patient Orientation: Person, Time, Situation Attachments: IV ROM/Strength ROM Lower Extremities bilateral LE WFL Strength Lower Extremities 4/5 grossly bilateral LE Integumentary/Posture Bowel Incontinence: No Bladder Incontinence: No Posture WFL Neuromuscular (Tone, Coordination, Reflexes) grossly intact Sensory Vision: Functional Hearing: Functional Transfers Sit to Lying (QC): 6 Lying to Sitting/Side of Bed(Q: 6 Sit to Stand (QC): 6 Gait Mode of Locomotion: Walk Anticipated Mode of Locomotion: Walk Walk 10 feet (QC): 6 Walk 50 ft with 2 Turns(QC): 6 Walk 150 ft (QC): 6 Distance: >500' Gait Assistive Device: FWW Comments/Gait Description rapid pace/safe and functional gait sequence Balance Sitting Static: Normal Sitting Dynamic: Normal Standing Static: Normal Standing Dynamic: Normal Assessment/Needs Patient is currently at independent [facility] with all gross motor skills safely and does not require skilled PT intervention at this time. Rehab Potential: Fair PT Plan Treatment/Plan Treatment Plan: Discontinue PT Treatment Duration: Mar 04, 2023 Frequency: 1 time per week Estimated Hrs Per Day: .25 hour per day Patient and/or Family Agrees t: Yes Time Time In: 1105 Time Out: 1118 DATE: Mar 04, 2023 Total Billed Treatment Time: 13 Total Billed Treatment 1 visit EVMod 13 min LAKISHA BARTON PT Mar 04, 2023 11:25
--- NOTE | 2023-03-04 15:15 | Occ Therapy Progress Note ---
Therapy Progress Note NO OT indicated at this time.DC OT services. HANY JACKSON OT Mar 04, 2023 15:15
--- NOTE | 2023-03-04 16:21 | Diagnostic Imaging Report ---
PROCEDURE: CT abdomen and pelvis with contrast. TECHNIQUE: Multiple contiguous axial images were obtained through the abdomen and pelvis after administration of intravenous contrast. Auto Exposure Controls were utilized during the CT exam to meet ALARA standards for radiation dose reduction. All CT scans use one or more of the following dose optimizing techniques: automated exposure control, MA and/or KvP adjustment based on patient size and exam type or iterative reconstruction. INDICATION: Possible pancreatic mass seen on previous recent ultrasound. COMPARISON: Ultrasound of the abdomen from earlier same day and previous CT of the abdomen and pelvis dated 02/27/2019. FINDINGS: Included portions of the lung bases are clear. CT ABDOMEN: Small well-circumscribed hypodensity is noted adjacent to the medial margins of the pancreatic head and measures 1.4 x 2.1 cm. This may be slightly increased in size compared to 1.1 x 2 cm on exam dated 02/25/2019. There is no pancreatic ductal dilatation. Punctate nonobstructive bilateral renal calculi are identified. Benign-appearing right renal cyst is also noted. The adrenal glands, spleen, and liver have a normal CT appearance. Small bowel loops are nondilated. Normal appendix is identified. There is no loculated fluid collection, free fluid, nor free air within the abdomen. No abnormal mesenteric or retroperitoneal adenopathy is seen. There is advanced diffuse calcified aortic arch atherosclerosis. Osseous structures show no acute abnormalities. CT PELVIS: There is a 5.7 x 4.5 cm cystic retroperitoneal fluid collection along the right iliac chain. This is new compared to prior exam. There is no free fluid or free air within the pelvis. Urinary bladder is decompressed. No abnormal pelvic adenopathy is identified. Osseous structures show no acute abnormalities. IMPRESSION:. 1. Well-circumscribed hypodensity is noted medial to the head of the pancreas. Given its well-circumscribed hypodense appearance and minimal change when compared to 02/25/2019, benignity is favored. Low-grade pancreatic cystic neoplasm is also a consideration. 2. Multiple punctate bilateral nonobstructive renal calculi. 3. Benign-appearing right renal cyst. 4. New well-circumscribed focal fluid collection within the right pelvic sidewall/iliac chain region. There is could be on the basis of lymphocele, although exact etiology is indeterminate. Dictated by: Dictated on workstation # [id number]
[2023-03-04] MEDS ORDERED: DexMEDEtomidine 250 ML DRIP 250 ML IV ONE (22:14)
[2023-03-04] MEDS: DexMEDEtomidine 250 ML DRIP 250 ML IV SCH (22:37)
[2023-03-04] MEDS: diphenhydrAMINE 25 MG TAB (BENADRYL) PO SCH (23:19)
[2023-03-04] MEDS: DONEPEZIL 10 MG (ARICEPT) TAB PO SCH (23:19)
[2023-03-04] MEDS: MELATONIN 3 MG TABLET PO SCH (23:20)
[2023-03-04] MEDS: ENOXAPARIN 40 MG/0.4 ML (LOVENOX) SYR SC SCH (23:20)
[2023-03-05] VITALS (25 sets, daily range): BP systolic 121–206; BP diastolic 55–125
[2023-03-05] MEDS: NS IV 1000 ML 1,000 ML IV SCH ×2 (00:08→21:24)
[2023-03-05] MEDS: hydrALAZINE (APESOLINE) 20 MG/ML VIAL IV PRN ×2 (00:19→04:32)
[2023-03-05] MEDS ORDERED: NS IV 500 ML 500 ML IV PRN (02:00)
[2023-03-05 04:56] LABS: EOSINOPHILS # (AUTO) 0.1 10^3/uL (0.0-0.3); EOSINOPHILS % (AUTO) 2 % (0-10); MEAN CORPUSCULAR VOLUME 91 fL (80-99); MEAN PLATELET VOLUME 10.3 fL (9.0-12.2); MONOCYTES # (AUTO) 0.3 10^3/uL (0.0-1.0); MONOCYTES % (AUTO) 8 % (0-12); WHITE BLOOD COUNT 3.5 10^3/uL (4.3-11.0)
[2023-03-05 04:59] LABS: BASOPHILS % (AUTO) 0 % (0-10); HEMATOCRIT 34 % (40-54); HEMOGLOBIN 11.3 g/dL (13.3-17.7); LYMPHOCYTES # (AUTO) 0.4 10^3/uL (1.0-4.0); LYMPHOCYTES % (AUTO) 11 % (12-44); MEAN CORPUSCULAR HEMOGLOBIN 30 pg (25-34); MEAN CORPUSCULAR HGB CONC 33 g/dL (32-36); NEUTROPHILS # (AUTO) 2.7 10^3/uL (1.8-7.8); NEUTROPHILS % (AUTO) 79 % (42-75); PLATELET COUNT 95 10^3/uL (130-400)
[2023-03-05 05:14] LABS: ALBUMIN 3.6 GM/DL (3.2-4.5); POTASSIUM 3.9 MMOL/L (3.6-5.0)
[2023-03-05 05:15] LABS: CALCIUM 8.7 MG/DL (8.5-10.1)
[2023-03-05 05:17] LABS: TOTAL PROTEIN 5.5 GM/DL (6.4-8.2)
[2023-03-05 05:18] LABS: BILIRUBIN,TOTAL 0.6 MG/DL (0.1-1.0)
[2023-03-05 05:20] LABS: CREATININE SERUM 1.15 MG/DL (0.60-1.30)
[2023-03-05 05:23] LABS: MAGNESIUM 1.7 MG/DL (1.6-2.4)
--- NOTE | 2023-03-05 06:16 | Progress Note ---
Subjective Date Seen by a Provider: Mar 05, 2023 Time Seen by a Provider: 11:00 Subjective/Events-last exam Patient had a rough night requiring ICU transfer with Precedex We will have a pacemaker placed in the morning No other concerns Updated common-law at bedside No falls Review of Systems General: Fatigue Neurological: Confusion Objective Exam Last Set of Vital Signs Vital Signs Date Time Temp Pulse Resp B/P (MAP) Pulse Ox O2 Delivery O2 Flow Rate FiO2 03/05/23 06:00 61 13 186/87 (120) 95 Room Air 03/05/23 03:27 36.8 03/03/23 19:38 21 Capillary Refill : Less Than 3 Seconds I&O Intake and Output 03/04/23 23:59 Intake Total 1000 ml Balance 1000 ml IV Total 1000 ml # Voids 2 General: Alert, Oriented X3, Cooperative, No Acute Distress Lungs: Clear to Auscultation, Normal Air Movement Heart: Other (loreta) Results Lab Laboratory Tests 03/04/23 06:30: Ammonia 21 03/05/23 04:00: White Blood Count 3.5L, Red Blood Count 3.77L, Hemoglobin 11.3L, Hematocrit 34L, Mean Corpuscular Volume 91, Mean Corpuscular Hemoglobin 30, Mean Corpuscular Hemoglobin Concent 33, Red Cell Distribution Width 12.5, Platelet Count 95L, Mean Platelet Volume 10.3, Immature Granulocyte % (Auto) 0, Neutrophils (%) (Auto) 79H, Lymphocytes (%) (Auto) 11L, Monocytes (%) (Auto) 8, Eosinophils (%) (Auto) 2, Basophils (%) (Auto) 0, Neutrophils # (Auto) 2.7, Lymphocytes # (Auto) 0.4L, Monocytes # (Auto) 0.3, Eosinophils # (Auto) 0.1, Basophils # (Auto) 0.0, Immature Granulocyte # (Auto) 0.0, Percent Immature Platelet Fraction 2.4, Sodium Level 143, Potassium Level 3.9, Chloride Level 111H, Carbon Dioxide Level 22, Anion Gap 10, Blood Urea Nitrogen 21H, Creatinine 1.15, Estimat Glomerular Filtration Rate 66, BUN/Creatinine Ratio 18, Glucose Level 86, Calcium Level 8.7, Corrected Calcium 9.0, Magnesium Level 1.7, Total Bilirubin 0.6, Aspartate Amino Transf (AST/SGOT) 16, Alanine Aminotransferase (ALT/SGPT) 16, Alkaline Phosphatase 59, Total Protein 5.5L, Albumin 3.6 Assessment/Plan Assessment/Plan Assess & Plan/Chief Complaint Assessment: Symptomatic bradycardia will have pacemaker placed on 03/06/[address] Cole Malignant HTN Mild CKD improved after IVF Thrombocytopenia Dementia with delirium requiring Precedex HLP Pancreatic mass? Weight loss Depression HELDER suspected recent sleep study Plan: Monitor closely Therapy Pacemaker placement tomorrow MAYDA JOHN DO Mar 05, 2023 06:16
[2023-03-05] MEDS: MAGNESIUM 1 GM/100 ML IVPB 100 ML IV SCH ×3 (06:21→07:45)
[2023-03-05] MEDS: POTASSIUM CL 10MEQ/50ML IVPB 50 ML IV SCH ×2 (06:21→06:34)
[2023-03-05] MEDS: KCL 20 MEQ TAB (K-DUR) PO SCH (06:22)
[2023-03-05] MEDS: doxAzosin 1 MG (CARDURA) TAB PO SCH ×2 (08:05→21:24)
[2023-03-05] MEDS: ASPIRIN E.C. 81 MG (ECOTRIN) TAB PO SCH (08:05)
[2023-03-05] MEDS: hydrALAZINE (APRESOLINE) 25 MG TAB PO SCH ×3 (08:06→21:23)
[2023-03-05] MEDS: cloNIDine 0.1 MG (CATAPRES) TAB PO SCH ×2 (08:06→21:24)
[2023-03-05] MEDS: MEMANTINE 10 MG (NAMENDA) TABLET PO SCH ×2 (08:06→21:24)
[2023-03-05] MEDS: LOSARTAN 50 MG (COZAAR) TAB PO SCH (08:06)
[2023-03-05] MEDS: LACTOBACILLUS ACIDOPHILUS (PROBIOTIC) CAPSULE PO SCH (08:43)
[2023-03-05] MEDS: DOCUSATE SODIUM 100 MG (COLACE) CAP PO SCH ×2 (08:44→21:24)
[2023-03-05] MEDS: SENNOSIDES 8.6 MG (SENOKOT) TAB PO SCH ×2 (08:44→21:24)
[2023-03-05] MEDS: LORATADINE (CLARITIN) 10 MG TAB PO SCH (08:44)
--- NOTE | 2023-03-05 08:51 | Tele-ICU Consult ---
History of Present Illness History of Present Illness Date Seen by Provider: Mar 05, 2023 Time Seen by Provider: 08:45 Reason for Visit: Bradycardia History of Present Illness Tele-ICU Physician , Progress Note ) Service provided via interactive audio and video telecommunications E-CARE system to a patient admitted to ICU bed in [facility]. Patient is seen today due to persistent need of ICU care Available chart/ vitals / labs / Images reviewed Video assessment done using teleICU camera, rest of exam as per RN Discussed with RN 73 yo M just admitted to ICU last week for delirium returns with symptomatic bradycardia-EKG shows sinus bradycardia, rate in high 40's Cardiology has seen to get PPM this am. In past w/u had mass in pancreas and renal cysts, cardioogy to see Has panic attacks, Got po Avtivan Today was on IV Precedex, now off for last hour., sleepy Probably dry, Cr was 1.64, now 1.15 Allergies and Home Medications Allergies Coded Allergies: lorazepam (Verified Allergy, Unknown, 03/05/23) confused trazodone (Verified Adverse Reaction, Severe, SEVERE CONFUSION, 06/18/20) Home Medications Amlodipine Besylate 5 Mg Tablet, 10 MG PO DAILY, (Reported) TAKES 2 (5MG) TABS Aspirin 81 Mg Tablet.dr, 81 MG PO DAILY, (Reported) Cetirizine HCl 10 Mg Tablet, 10 MG PO DAILY, (Reported) Diphenhydramine HCl 25 Mg Capsule, 25 MG PO HS, (Reported) Donepezil HCl 10 Mg Tablet, 10 MG PO HS, (Reported) Doxazosin Mesylate 1 Mg Tablet, 1 MG PO BID, (Reported) Escitalopram Oxalate 10 Mg Tablet, 10 MG PO DAILY, (Reported) Hydralazine HCl 50 Mg Tablet, 50 MG PO TID, (Reported) L.acidoph & Paracasei,B.lactis 10 Billion Cell Capsule, 1 EACH PO DAILY, (Reported) Loratadine 10 Mg Tablet, 10 MG PO DAILY, (Reported) Meclizine HCl 25 Mg Tablet, 25 MG PO TID PRN for DIZZINESS, (Reported) Melatonin 3 Mg Tablet, 3 MG PO HS, (Reported) Memantine HCl 10 Mg Tablet, 10 MG PO BID, (Reported) Multivitamin 1 Each Tablet, 1 EACH PO 1200, (Reported) Mupirocin 2 % Oint...g., 1 APPLIC NSEACH BID PRN for NASAL PAIN/BURNING, (Reported) Pravastatin Sodium 40 Mg Tablet, 40 MG PO HS, (Reported) Past Medical/Social/Family Hx Patient Social History Marrital Status: cohabiting Employed/Student: retired Tobacco Use?: No Smoking Status: Never a Smoker Use of E-Cig and/or Vaping dev: No Substance use?: No Alcohol Use?: Yes Alcohol type: Beer, Hard Liquor Alcohol Frequency: Couple times a week Pt stated abuse/neglect: No Immunizations Up To Date Influenza Vaccine Up-to-Date: Yes; Up-to-Date First/Initial COVID19 Vaccinat: 2020 Second COVID19 Vaccination Zbigniew: 2020 Current Status Advance Directives: No Communicates: Verbally Primary Language: [place] Preferred Spoken Language: Azerbaijani Is interpretation needed?: No Implanted or Applied Medical D: None Review of Systems Constitutional: see HPI EENTM: see HPI Respiratory: see HPI Cardiovascular: see HPI Gastrointestinal: see HPI Genitourinary: see HPI Musculoskeletal: see HPI Skin: see HPI Psychiatric/Neurological: See HPI Focused Exam Height, Weight, BMI Height: 5'11.00" Weight: 205lbs. 0.0oz. [id number]; 25.93 BMI Method:Stated Exam Exam Patient acknowledged, consented, and participated in this virtual visit which was conducted using real time audio/video Vital Signs Date Time Temp Pulse Resp B/P (MAP) Pulse Ox O2 Delivery O2 Flow Rate FiO2 03/05/23 08:07 36.3 03/05/23 08:00 52 18 165/72 (103) 96 Room Air 03/05/23 07:00 57 16 158/74 (102) 95 Room Air 03/05/23 07:00 48 160/88 03/05/23 07:00 47 03/05/23 06:00 61 13 186/87 (120) 95 Room Air 03/05/23 05:00 54 11 180/92 (121) 94 Room Air 03/05/23 04:37 95 Room Air 03/05/23 04:15 54 12 199/105 (143) 95 Room Air 03/05/23 04:10 61 14 201/87 (118) 95 Room Air 03/05/23 03:27 36.8 03/05/23 03:00 53 13 165/125 (138) 95 Room Air 03/05/23 02:37 65 162/75 03/05/23 02:00 62 29 175/81 (112) 94 Room Air 03/05/23 01:00 60 12 168/79 (108) 93 Room Air 03/05/23 01:00 60 03/05/23 00:15 58 206/88 03/05/23 00:08 61 202/91 03/05/23 00:00 59 206/87 (126) 94 Room Air 03/05/23 00:00 95 Room Air 03/04/23 23:45 60 203/86 03/04/23 23:45 60 14 203/86 (135) 95 Room Air 03/04/23 23:30 60 27 203/89 (136) 94 Room Air 03/04/23 23:29 36.8 59 22 / (128) 96 Room Air 03/04/23 23:15 61 28 202/ (121) 94 Room Air 03/04/23 23:15 61 202/03/04/23 23:00 62 192/91 (131) 96 Room Air 03/04/23 22:45 54 147/77 (110) 96 Room Air 03/04/23 22:37 57 146/71 03/04/23 22:30 54 16 146/71 (108) Room Air 03/04/23 22:27 64 164/72 (106) Room Air 03/04/23 20:00 95 Room Air 03/04/23 20:00 37.4 68 12 147/85 (105) 95 03/04/23 19:00 64 03/04/23 15:59 36.1 66 10 144/70 (94) 94 Room Air 03/04/23 11:58 36.2 63 25 177/83 (114) 95 Room Air I & O 03/05/23 07:00 Intake Total 1000 ml Balance 1000 ml Height & Weight Height: 5'11.00" Weight: 205lbs. 0.0oz. 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 Norm as Tested, Other (oriented to person, now always place or time) Skin: Normal Color, Warm/Dry, Other Lymphatic: No Adenopathy Results Lab Laboratory Tests 03/03/23 13:35 03/04/23 04:20 03/05/23 04:00 Assessment/Plan Assessment/Plan symptomatic bradycardia, to get PPM tdday Hx of dementia, would wonder abou Lewy body dementia, would like to have a neurologist pre renal SHERI, improving Hx of pancreatic mass-has not been biopsied, suspected HELDER, RN says no loud snoring Would use Ativan cautiously, may be causing him to lose orientation Critical Care: Critically Ill Patient Time spent with patient (mins): 25 MACIEJ DUMAS MD Mar 05, 2023 08:51
--- NOTE | 2023-03-05 09:09 | Cardiology Progress Note ---
Subjective Date Seen by Provider: Mar 05, 2023 Time Seen by Provider: 16:10 Subjective/Events-last exam Patient was seen at bedside sleeping, still having generalized fatigue and still bradycardic Objective-Cardiology Exam Last Set of Vital Signs Vital Signs 03/03/23 03/05/23 03/05/23 03/05/23 19:38 11:39 14:00 14:08 Temp 36.6 Pulse 57 Resp 18 B/P (MAP) 140/57 (84) Pulse Ox 93 O2 Delivery Room Air FiO2 21 I&O Intake and Output 03/05/23 00:00 Intake Total 1000 ml Balance 1000 ml IV Total 1000 ml # Voids 2 General: Alert, Oriented X3, Cooperative HEENT: Atraumatic, PERRLA Neck: Supple, No JVD, No Thyromegaly Lungs: Clear to Auscultation, Normal Air Movement Heart: Regular Rate, Normal S1, Normal S2, No Murmurs Abdomen: Normal Bowel Sounds, Soft, No Tenderness, No Hepatosplenomegaly, No Masses Extremities: No Clubbing, No Cyanosis, No Edema, Normal Pulses, No Tenderness/Swelling Skin: No Rashes, No Breakdown, No Significant Lesion Neuro: Normal Gait, Normal Speech, Strength at 5/5 X4 Ext, Normal Tone, Sensation Intact Psych/Mental Status: Mental Status NL, Mood NL Results Lab Laboratory Tests 03/05/23 04:00 A/P-Cardiology Admission Diagnosis Symptomatic bradycardia Second-degree AV block Mobitz 1 Hypertension Chronic kidney disease Assessment/Plan Symptomatic bradycardia. Having dizziness and lightheadedness. On a previous admission it was reported to have sinus node dysfunction with possible second-degree AV block Mobitz 1. Beta-blockers were discontinued on the previous admission Has been off amlodipine Still having significant bradycardia asymptomatic, planning to proceed with dual-chamber pacemaker implantation in the morning. Hypertension, poor control 2D echo was reported by Dr. Sultana on February 18, 2023 as ejection fraction 60 to 65%, mild mitral regurgitation, PA pressure 40 to 45 mmHg Adding clonidine Planning to proceed with pacemaker implant then we can be more aggressive with his blood pressure medication Chronic kidney disease, monitor renal function while initiating losartan Hyperlipidemia, hold statin for now History of prostate cancer and prostatectomy Generalized weakness, dizziness, nasal congestion. Recommend evaluating PT/OT/rehab CTA of the head was done on February 25, 2023 showing 80% left vertebral artery stenosis, mild right vertebral artery stenosis. Otherwise atherosclerotic plaques nonobstructive disease. Poor memory, history of confusion. Managed by medical team History of anxiety. History of nephrolithiasis JEREMY HUITRON MD Mar 05, 2023 09:08
[2023-03-05] MEDS: MULTIVIT W/MINERALS TAB (THERAGRAN M) PO SCH (12:00)
[2023-03-05] MEDS: DONEPEZIL 10 MG (ARICEPT) TAB PO SCH (21:23)
[2023-03-05] MEDS: ENOXAPARIN 40 MG/0.4 ML (LOVENOX) SYR SC SCH (21:23)
[2023-03-05] MEDS: diphenhydrAMINE 25 MG TAB (BENADRYL) PO SCH (21:24)
[2023-03-05] MEDS: MELATONIN 3 MG TABLET PO SCH (21:24)
[2023-03-06] VITALS (28 sets, daily range): BP systolic 121–224; BP diastolic 56–109
[2023-03-06] MEDS: NS IV 1000 ML 1,000 ML IV SCH ×4 (01:30→16:37)
[2023-03-06] MEDS: hydrALAZINE (APESOLINE) 20 MG/ML VIAL IV PRN ×3 (04:17→23:45)
[2023-03-06 05:12] LABS: EOSINOPHILS # (AUTO) 0.2 10^3/uL (0.0-0.3); HEMOGLOBIN 10.9 g/dL (13.3-17.7); LYMPHOCYTES # (AUTO) 0.6 10^3/uL (1.0-4.0); MEAN CORPUSCULAR VOLUME 90 fL (80-99)
[2023-03-06 05:14] LABS: BASOPHILS % (AUTO) 1 % (0-10); EOSINOPHILS % (AUTO) 4 % (0-10); HEMATOCRIT 32 % (40-54); LYMPHOCYTES % (AUTO) 14 % (12-44); MEAN CORPUSCULAR HEMOGLOBIN 30 pg (25-34); MEAN CORPUSCULAR HGB CONC 34 g/dL (32-36); MEAN PLATELET VOLUME 9.8 fL (9.0-12.2); MONOCYTES # (AUTO) 0.4 10^3/uL (0.0-1.0); MONOCYTES % (AUTO) 9 % (0-12); NEUTROPHILS # (AUTO) 3.1 10^3/uL (1.8-7.8); NEUTROPHILS % (AUTO) 73 % (42-75); PLATELET COUNT 100 10^3/uL (130-400); WHITE BLOOD COUNT 4.3 10^3/uL (4.3-11.0)
[2023-03-06 05:36] LABS: ALBUMIN 3.4 GM/DL (3.2-4.5); BILIRUBIN,TOTAL 0.5 MG/DL (0.1-1.0); CALCIUM 8.3 MG/DL (8.5-10.1); CREATININE SERUM 1.4 MG/DL (0.60-1.30); POTASSIUM 3.9 MMOL/L (3.6-5.0)
--- NOTE | 2023-03-06 05:53 | Progress Note ---
Subjective Date Seen by a Provider: Mar 06, 2023 Time Seen by a Provider: 11:00 Subjective/Events-last exam Pacemaker placed this morning Better night last night no aggression No falls No pain Review of Systems General: Fatigue, Malaise Objective Exam Last Set of Vital Signs Vital Signs Date Time Temp Pulse Resp B/P (MAP) Pulse Ox O2 Delivery O2 Flow Rate FiO2 03/06/23 04:00 95 Room Air 03/06/23 04:00 54 18 193/89 (123) 03/05/23 19:31 37.0 03/03/23 19:38 21 Capillary Refill : Less Than 3 Seconds I&O Intake and Output 03/06/23 00:00 Intake Total 1300 ml Balance 1300 ml Intake Oral 300 ml IV Total 1000 ml # Voids 1 General: Alert, Oriented X3, Cooperative, No Acute Distress Lungs: Clear to Auscultation, Normal Air Movement Heart: Regular Rate, Normal S1, Normal S2, No Murmurs Psych/Mental Status: Mental Status NL, Mood NL Results Lab Laboratory Tests 03/06/23 04:54: White Blood Count 4.3, Red Blood Count 3.62L, Hemoglobin 10.9L, Hematocrit 32L, Mean Corpuscular Volume 90, Mean Corpuscular Hemoglobin 30, Mean Corpuscular Hemoglobin Concent 34, Red Cell Distribution Width 12.3, Platelet Count 100L, Mean Platelet Volume 9.8, Immature Granulocyte % (Auto) 0, Neutrophils (%) (Auto) 73, Lymphocytes (%) (Auto) 14, Monocytes (%) (Auto) 9, Eosinophils (%) (Auto) 4, Basophils (%) (Auto) 1, Neutrophils # (Auto) 3.1, Lymphocytes # (Auto) 0.6L, Monocytes # (Auto) 0.4, Eosinophils # (Auto) 0.2, Basophils # (Auto) 0.0, Immature Granulocyte # (Auto) 0.0, Percent Immature Platelet Fraction 2.2, Sodium Level 141, Potassium Level 3.9, Carbon Dioxide Level 22, Anion Gap 7, Blood Urea Nitrogen 23H, Creatinine 1.40H, Estimat Glomerular Filtration Rate 52, BUN/Creatinine Ratio 16, Glucose Level 104, Calcium Level 8.3L, Corrected Calcium 8.8, Total Bilirubin 0.5, Aspartate Amino Transf (AST/SGOT) 14, Alanine Aminotransferase (ALT/SGPT) 13, Alkaline Phosphatase 55, Total Protein 5.0L, Albumin 3.4 Assessment/Plan Assessment/Plan Assess & Plan/Chief Complaint Assessment: Symptomatic bradycardia will have pacemaker placed on 03/06/[address] Cole Malignant HTN Mild CKD improved after IVF Thrombocytopenia Dementia with delirium requiring Precedex HLP Pancreatic mass? Weight loss Depression HELDER suspected recent sleep study Plan: Monitor closely Therapy Pacemaker placement uncomplicated MAYDA JOHN DO Mar 06, 2023 05:52
[2023-03-06] MEDS: MAGNESIUM 1 GM/100 ML IVPB 100 ML IV SCH ×2 (06:21→10:59)
[2023-03-06] MEDS: KCL 20 MEQ TAB (K-DUR) PO SCH (06:21)
[2023-03-06] MEDS: POTASSIUM CL 10MEQ/50ML IVPB 50 ML IV SCH ×3 (06:21→09:45)
[2023-03-06] MEDS ORDERED: NS IV 1000 ML 1,000 ML ONE ×2 (06:42→07:23)
[2023-03-06] MEDS ORDERED: LIDOCAINE 1% INJ 20 ML VIAL ONE (06:42)
[2023-03-06] MEDS ORDERED: ceFAZolin INJECTION 1,000 MG ONE (06:42)
[2023-03-06] MEDS ORDERED: HEParin (CATH LAB) 1,000 ML IV ONE (06:43)
[2023-03-06] MEDS ORDERED: fentaNYL INJ 100 MCG/2 ML AMP ONE ×2 (06:45→07:52)
[2023-03-06] MEDS ORDERED: MIDAZOLAM 5 MG/5 ML (VERSED) VIAL ONE ×2 (06:45→07:52)
[2023-03-06 06:48] LABS: PROTHROMBIN TIME PATIENT 13.7 SEC (12.2-14.7)
--- NOTE | 2023-03-06 07:34 | Cardiac Procedure Note-CS/ASA ---
Pre-Procedure Note Pre-Op Procedure Note Date of Available H&P: Mar 06, 2023 Date H&P Reviewed: Mar 06, 2023 Time H&P Reviewed: 07:33 History & Physical: H&P Reviewed, Patient Examed, No changes noted Pre-Operative Diagnosis: Bradycardia Moderate Sedation PreProcedure Time 07:34 ASA Score 3 Airway Lungs Heart ASA score ASA 1: a normal healthy patient ASA 2: a patient with a mild systemic disease (mid diabetes, controlled hypertension, obesity ASA 3: a patient with a severe systemic disease that limits activity (angina, COPD, prior Myocardial infarction) ASA 4: a patient with an incapacitating disease that is a constant threat to life (CHF, renal failure) ASA 5: a moribund patient not expected to survive 24 hrs. (ruptured aneurysm) ASA 6: a declared brain- patient whose organs are being harvested. For emergent operations, add the letter E after the classification Mallampati Classification Grade 3 Sedation Plan Analgesia, Amnesia, Plan communicated to team members, Discussed options with patient/fam, Discussed risks with patient/fam The patient is an appropriate candidate to undergo the planned procedure, sedation, and anesthesia. The patient immediately re-assessed prior to indication. JEREMY HUITRON MD Mar 06, 2023 07:34
[2023-03-06] MEDS ORDERED: PATIENT MAY USE OWN MEDS, ALL PO SCH (08:45)
[2023-03-06] MEDS ORDERED: NS IV 1000 ML 1,000 ML IV SCH (08:45)
--- NOTE | 2023-03-06 08:48 | Permanent Pacemaker Implant ---
Dual Chamber Pacemaker Implant PROCEDURE PHYSICIAN: Jeremy Cole DUAL CHAMBER PACEMAKER IMPLANTATION: DATE OF PROCEDURE: 03/06/23 INDICATION: Symptomatic bradycardia, second-degree AV block Mobitz 1, sinus node dysfunction PREOPERATIVE DIAGNOSIS: Sinus node dysfunction, second-degree AV block Mobitz 1 POSTOPERATIVE DIAGNOSIS: Sinus node dysfunction, second-degree AV block Mobitz 1 HISTORY: Dual-chamber permanent pacemaker was recommended. PROCEDURE PERFORMED: 1. Dual-chamber permanent pacemaker implantation. 2. Fluoroscopy. 3. Central venous access. ANESTHESIA: Local anesthesia, conscious sedation. COMPLICATIONS: None. ESTIMATED BLOOD LOSS:20 mL. SPECIMENS: None. ORAL ANTICOAGULATION: None. FLUOROSCOPY TIME: FLUOROSCOPY DOSE: CONTRAST DOSE: PROCEDURE DETAILS: The patient is a 73 male with symptomatic severe bradycardia and second-degree AV block Mobitz 1, unable to have a heart rate over 70. Pacemaker implant was advised. And after all of the patients questions were answered, The patient was brought to the EP Lab. The patient's left chest was prepped and draped in sterile fashion. A 2 inch horizontal incision was made 1 cm below the clavicle and dissection carried down to the pectoralis fascia. Using the modified Seldinger technique and under fluoroscopy guidance, the anterior aspect of the left axillary vein was accessed 2 times. The J wires were secured to the drapes with a mosquito clamp. A 7-Luxembourgish sheath was introduced over one of the J-wires. The RV lead was then inserted. The RV lead was directed across the tricuspid valve to the apical septal portion of the right ventricle. The position was checked in JONI and MENDES views. The screw was deployed and the lead connected to the cad programmer. Close sensing and pacing thresholds were obtained. Diaphragmatic pacing was ruled out. The lead was secured with 2-0 silk ties to the underlying muscle and fascia. Next, a 7-Luxembourgish sheath was introduced through the remaining J-wire. An atrial lead was then introduced and guided to the level of the right appendage. The screw was deployed and the lead was connected to the interrogator. Good sensing and pacing thresholds were obtained. Diaphragmatic pacing was ruled out. The leads were secured with 2-0 silk ties to the underlying muscle and fascia. The leads were connected to the device in a hermetic fashion. The device and leads were placed in the pocket. Aggressive irrigation with saline solution was done. The device was secured to the underlying muscle and fascia with a 2-0 silk tie. interrogation of the device revealed good integrity of all the leads and good connections. The wound was then closed using 2 layers. The first layer was interrupted 2-0 absorbable Vicryl suture. The last layer was a single subcuticular layer with 4- 0 Vicryl suture. Half inch Steri-Strips and a small dressing were then applied to the wound. The patient tolerated the procedure well and was returned to the recovery room in stable condition with stable vital signs. DEVICE INFORMATION: [employer] JARRET XT DR MRI [id number] RA LEAD: [id number] RV LEAD: [id number] PER-OPERATIVE DEVICE INTERROGATION: Good sensing and capture activity IMMEDIATE POSTOPERATIVE DEVICE INTERROGATION: Right atrium, P wave 1.9 mV, impedance 380, pacing threshold 1 V at 0.4 ms Right ventricle, R wave 4.4 mV, impedance 646, pacing threshold 0.5 V at 0.4 ms PLAN: The patient transferred to the ICU. We will continue with two more doses of IV antibiotics. We will check a chest x-ray and interrogate the device in the morning. The patient will continue on oral antibiotics for 5 days. CONCLUSION: Successful dual-chamber pacemaker implantation with no complication JEREMY COLE MD Mar 06, 2023 08:48
--- NOTE | 2023-03-06 08:50 | Cardiology Progress Note ---
Subjective Date Seen by Provider: Mar 06, 2023 Time Seen by Provider: 08:48 Subjective/Events-last exam Patient was seen at bedside, feeling well, doing well. No new complain Status post dual-chamber pacemaker implant Review of Systems General: No Chills, No Night Sweats, No Fatigue, No Malaise, No Appetite, No Other HEENT: No Head Aches, No Visual Changes, No Eye Pain, No Ear Pain, No Dysphasia, No Sinus Congestion, No Post Nasal Drip, No Sore Throat, No Other Pulmonary: No Dyspnea, No Cough, No Pleuritic Chest Pain, No Other Cardiovascular: No: Chest Pain, Palpitations, Orthopnea, Paroxysmal Noc. Dyspnea, Edema, Lt Headedness, Other Objective-Cardiology Exam Last Set of Vital Signs Vital Signs 03/03/23 03/05/23 03/06/23 03/06/23 19:38 19:31 07:00 07:15 Temp 37.0 Pulse 52 Resp 37 B/P (MAP) 179/107 (131) Pulse Ox 96 O2 Delivery Room Air FiO2 21 I&O Intake and Output 03/06/23 00:00 Intake Total 1300 ml Balance 1300 ml Intake Oral 300 ml IV Total 1000 ml # Voids 1 General: Alert, Oriented X3, Cooperative, No Acute Distress HEENT: Atraumatic, PERRLA Neck: Supple, No JVD, No Thyromegaly Lungs: Clear to Auscultation, Normal Air Movement Heart: Other (loreta) Abdomen: Normal Bowel Sounds, Soft, No Tenderness, No Hepatosplenomegaly, No Masses Extremities: No Clubbing, No Cyanosis, No Edema, Normal Pulses, No Tenderness/Swelling Skin: No Rashes, No Breakdown, No Significant Lesion Neuro: Normal Gait, Normal Speech, Strength at 5/5 X4 Ext, Normal Tone, Sensation Intact Psych/Mental Status: Mental Status NL, Mood NL Results Lab Laboratory Tests 03/06/23 04:54 A/P-Cardiology Admission Diagnosis Symptomatic bradycardia Second-degree AV block Mobitz 1 Hypertension Chronic kidney disease Assessment/Plan Symptomatic bradycardia. Having dizziness and lightheadedness. On a previous admission it was reported to have sinus node dysfunction with possible second-degree AV block Mobitz 1. Beta-blockers were discontinued on the previous admission Has been off amlodipine Patient continued to have symptomatic bradycardia, sinus node dysfunction and second-degree AV block Mobitz 1 Dual-chamber pacemaker implanted and during testing patient was unable to conduct at a heart rate over 70 bpm No complication noted. Hypertension, poor control 2D echo was reported by Dr. Sultana on February 18, 2023 as ejection fraction 60 to 65%, mild mitral regurgitation, PA pressure 40 to 45 mmHg I will start Toprol-XL 50 mg back and monitor tolerance and response Chronic kidney disease, monitor renal function while initiating losartan Hyperlipidemia, hold statin for now History of prostate cancer and prostatectomy Generalized weakness, dizziness, nasal congestion. Recommend evaluating PT/OT/rehab CTA of the head was done on February 25, 2023 showing 80% left vertebral artery stenosis, mild right vertebral artery stenosis. Otherwise atherosclerotic plaques nonobstructive disease. Poor memory, history of confusion. Managed by medical team History of anxiety. History of nephrolithiasis JEREMY HUITRON MD Mar 06, 2023 08:50
[2023-03-06] MEDS ORDERED: ceFAZolin INJECTION 1,000 MG in NS (IVPB) 50 ML IV SCH (09:00)
--- NOTE | 2023-03-06 09:44 | Diagnostic Imaging Report ---
EXAMINATION: Chest 1 view HISTORY: Pacemaker. COMPARISON: 02/21/2023 FINDINGS: The lungs are clear without edema or pneumonia. No pleural effusion or pneumothorax. Heart size is normal. Left subclavian pacemaker is present. IMPRESSION: 1. Clear lungs. Dictated by: Dictated on workstation # [id number]
[2023-03-06] MEDS: MEMANTINE 10 MG (NAMENDA) TABLET PO SCH ×2 (09:45→20:15)
[2023-03-06] MEDS: doxAzosin 1 MG (CARDURA) TAB PO SCH ×2 (09:45→20:15)
[2023-03-06] MEDS: meTOproloL SUCCINATE 50 MG (TOPROL XL) TAB PO SCH (09:46)
[2023-03-06] MEDS: hydrALAZINE (APRESOLINE) 25 MG TAB PO SCH ×3 (09:46→20:15)
[2023-03-06] MEDS: LORATADINE (CLARITIN) 10 MG TAB PO SCH (09:46)
[2023-03-06] MEDS: LACTOBACILLUS ACIDOPHILUS (PROBIOTIC) CAPSULE PO SCH (09:46)
[2023-03-06] MEDS: DOCUSATE SODIUM 100 MG (COLACE) CAP PO SCH ×2 (09:46→20:15)
[2023-03-06] MEDS: LOSARTAN 50 MG (COZAAR) TAB PO SCH (09:46)
[2023-03-06] MEDS: ASPIRIN E.C. 81 MG (ECOTRIN) TAB PO SCH (09:46)
[2023-03-06] MEDS: SENNOSIDES 8.6 MG (SENOKOT) TAB PO SCH ×2 (09:46→20:15)
[2023-03-06] MEDS: cloNIDine 0.1 MG (CATAPRES) TAB PO SCH ×2 (09:46→20:15)
[2023-03-06] MEDS: MULTIVIT W/MINERALS TAB (THERAGRAN M) PO SCH (12:25)
[2023-03-06] MEDS: ceFAZolin INJECTION 1,000 MG in NS (IVPB) 50 ML IV SCH ×2 (14:55→23:46)
[2023-03-06] MEDS: MELATONIN 3 MG TABLET PO SCH (20:15)
[2023-03-06] MEDS: ENOXAPARIN 40 MG/0.4 ML (LOVENOX) SYR SC SCH (20:15)
[2023-03-06] MEDS: diphenhydrAMINE 25 MG TAB (BENADRYL) PO SCH (20:15)
[2023-03-06] MEDS: DONEPEZIL 10 MG (ARICEPT) TAB PO SCH (20:15)
[2023-03-06] MEDS: DexMEDEtomidine 250 ML DRIP 250 ML IV SCH (21:30)
[2023-03-07] VITALS (9 sets, daily range): BP systolic 158–215; BP diastolic 77–108
[2023-03-07] MEDS ORDERED: hydrALAZINE (APESOLINE) 20 MG/ML VIAL IV ONE (02:00)
[2023-03-07] MEDS: NS IV 1000 ML 1,000 ML IV SCH ×2 (02:04→09:30)
[2023-03-07] MEDS ORDERED: amLODIPine 10 MG (NORVASC) TAB PO ONE (03:15)
[2023-03-07] MEDS ORDERED: LABETALOL HCL 20 MG/4 ML VIAL IV ONE (03:15)
[2023-03-07] MEDS: DexMEDEtomidine 250 ML DRIP 250 ML IV SCH (03:23)
[2023-03-07 05:04] LABS: MEAN CORPUSCULAR HEMOGLOBIN 30 pg (25-34); MEAN CORPUSCULAR HGB CONC 33 g/dL (32-36)
[2023-03-07 05:06] LABS: BASOPHILS % (AUTO) 0 % (0-10); EOSINOPHILS # (AUTO) 0.2 10^3/uL (0.0-0.3); EOSINOPHILS % (AUTO) 3 % (0-10); HEMATOCRIT 36 % (40-54); LYMPHOCYTES # (AUTO) 0.4 10^3/uL (1.0-4.0); LYMPHOCYTES % (AUTO) 7 % (12-44); MEAN CORPUSCULAR VOLUME 90 fL (80-99); MEAN PLATELET VOLUME 10.1 fL (9.0-12.2); MONOCYTES # (AUTO) 0.5 10^3/uL (0.0-1.0); MONOCYTES % (AUTO) 9 % (0-12); NEUTROPHILS # (AUTO) 4.9 10^3/uL (1.8-7.8); NEUTROPHILS % (AUTO) 81 % (42-75); PLATELET COUNT 92 10^3/uL (130-400)
[2023-03-07 05:18] LABS: ALBUMIN 3.6 GM/DL (3.2-4.5)
[2023-03-07 05:19] LABS: POTASSIUM 3.7 MMOL/L (3.6-5.0)
[2023-03-07 05:20] LABS: CALCIUM 8.7 MG/DL (8.5-10.1)
[2023-03-07 05:21] LABS: TOTAL PROTEIN 5.6 GM/DL (6.4-8.2)
[2023-03-07 05:23] LABS: BILIRUBIN,TOTAL 0.5 MG/DL (0.1-1.0)
[2023-03-07 05:25] LABS: CREATININE SERUM 1.23 MG/DL (0.60-1.30)
[2023-03-07 05:26] LABS: BAND NEUTROPHILS 0 %; BASOPHILS % (MANUAL) 0 %; EOSINOPHILS % (MANUAL) 1 %; LYMPHOCYTES % (MANUAL) 6 %; MONOCYTES % (MANUAL) 5 %; NEUTROPHILS % (MANUAL) 88 %; RBC MORPH NORMAL
[2023-03-07] MEDS: KCL 20 MEQ TAB (K-DUR) PO SCH (05:40)
[2023-03-07] MEDS: POTASSIUM CL 10MEQ/50ML IVPB 50 ML IV SCH ×3 (05:40→07:47)
[2023-03-07] MEDS: MAGNESIUM 1 GM/100 ML IVPB 100 ML IV SCH ×3 (06:09→09:29)
[2023-03-07] MEDS: ceFAZolin INJECTION 1,000 MG in NS (IVPB) 50 ML IV SCH (06:14)
[2023-03-07] MEDS ORDERED: METO50TA7 PO (06:47)
[2023-03-07] MEDS ORDERED: CEFU500T63 PO (06:47)
--- NOTE | 2023-03-07 06:48 | Discharge Inst-Post CATH ---
Discharge Inst-CATH/EP Problems Reviewed?: Yes Post Cardiac Cath/EP D/C Inst Follow Up/Plan Appointment with Dr Cole in 1-2 weeks <b>CARDIAC CATH/EP PROCEDURE DISCHARGE INSTRUCTIONS</b> ACTIVITY * Go Home directly and rest. * Limit activity of the leg (or wrist if it was used) for 7 days including aerobics, swimming, jogging, bicycling, etc. * Restrict stair-climbing for 7 days if possible, if not, climb up with your non-cath leg, then bring together on the same step. * Avoid lifting, pushing, pulling or excessive movement of the affected extremity for 7 days. * Customary sexual activity may be resumed after 2 days-use caution not to use a position that strains or causes pain to the affected extremity. * No driving for 24 hours. * NO SMOKING. * Avoid straining for bowel movements for 7 days. * Gentle walking on level ground is allowed. * Returning to work will depend on the type of procedure and the results. Your doctor will discuss this with you. CALL YOUR DOCTOR FOR ANY OF THE FOLLOWING: *If bleeding from the puncture site occurs- Apply gentle pressure to site with clean cloth and call your doctor or EMS. * If a knot or lump forms under the skin, increases in size, or causes pain. * If bruising appears to be worsening or moving further down your leg instead of disappearing. * Temperature above 101 F. CARE OF YOUR GROIN INCISION; * Bruising or purple discoloration of the skin near the puncture site is common. * You may shower only, no bathtub bathing for 5 days. Be careful to avoid slipping as your leg may feel stiff. * If a closure device was used on your femoral artery, please see the attached guide regarding care of the device and your leg. * Leave dressing on FOR 24 hours. CARE OF YOUR WRIST INCISION; * Bruising or purple discoloration of the skin near the puncture site is common. * You may shower. * DO NOT submerge wrist. * Leave dressing on FOR 24 hours. JEREMY COLE MD Mar 07, 2023 06:48
--- NOTE | 2023-03-07 08:28 | Cardiology Progress Note ---
Subjective Date Seen by Provider: Mar 07, 2023 Time Seen by Provider: 08:28 Subjective/Events-last exam Patient was sedated, received Precedex due to agitation Objective-Cardiology Exam Last Set of Vital Signs Vital Signs 03/03/23 03/06/23 03/07/23 03/07/23 19:38 22:00 06:00 07:20 Temp 36.3 Pulse 61 Resp 24 B/P (MAP) 177/77 (110) Pulse Ox 94 O2 Delivery Room Air FiO2 21 I&O Intake and Output 03/07/23 00:00 Intake Total 2680 ml Output Total 650 ml Balance 2030 ml Intake Oral 660 ml IV Total 2020 ml Output Urine Total 650 ml # Voids 7 # Bowel Movements 1 General: Alert, Oriented X3, Cooperative, No Acute Distress HEENT: Atraumatic, PERRLA Neck: Supple, No JVD, No Thyromegaly Lungs: Clear to Auscultation, Normal Air Movement Heart: Regular Rate, Normal S1, Normal S2, No Murmurs Abdomen: Normal Bowel Sounds, Soft, No Tenderness, No Hepatosplenomegaly, No Masses Extremities: No Clubbing, No Cyanosis, No Edema, Normal Pulses, No Tenderness/Swelling Skin: No Rashes, No Breakdown, No Significant Lesion Neuro: Normal Gait, Normal Speech, Strength at 5/5 X4 Ext, Normal Tone, Sensation Intact Psych/Mental Status: Mental Status NL, Mood NL Results Lab Laboratory Tests 03/07/23 04:37 A/P-Cardiology Admission Diagnosis Symptomatic bradycardia Second-degree AV block Mobitz 1 Hypertension Chronic kidney disease Assessment/Plan Symptomatic bradycardia. Having dizziness and lightheadedness. On a previous admission it was reported to have sinus node dysfunction with possible second-degree AV block Mobitz 1. Beta-blockers were discontinued on the previous admission Has been off amlodipine Patient continued to have symptomatic bradycardia, sinus node dysfunction and second-degree AV block Mobitz 1 Dual-chamber pacemaker implanted and during testing patient was unable to conduct at a heart rate over 70 bpm No complication noted. Hypertension, poor control 2D echo was reported by Dr. Sultana on February 18, 2023 as ejection fraction 60 to 65%, mild mitral regurgitation, PA pressure 40 to 45 mmHg Tolerating Toprol-XL 50 mg daily. Chronic kidney disease, monitor renal function while initiating losartan Hyperlipidemia, hold statin for now History of prostate cancer and prostatectomy Generalized weakness, dizziness, nasal congestion. Recommend evaluating PT/OT/rehab CTA of the head was done on February 25, 2023 showing 80% left vertebral artery stenosis, mild right vertebral artery stenosis. Otherwise atherosclerotic plaques nonobstructive disease. Poor memory, history of confusion. Managed by medical team History of anxiety. History of nephrolithiasis JEREMY HUITRON MD Mar 07, 2023 08:28
[2023-03-07] MEDS: ASPIRIN E.C. 81 MG (ECOTRIN) TAB PO SCH (10:03)
[2023-03-07] MEDS: LACTOBACILLUS ACIDOPHILUS (PROBIOTIC) CAPSULE PO SCH (10:03)
[2023-03-07] MEDS: doxAzosin 1 MG (CARDURA) TAB PO SCH (10:03)
[2023-03-07] MEDS: LORATADINE (CLARITIN) 10 MG TAB PO SCH (10:04)
[2023-03-07] MEDS: LOSARTAN 50 MG (COZAAR) TAB PO SCH (10:04)
[2023-03-07] MEDS: hydrALAZINE (APRESOLINE) 25 MG TAB PO SCH (10:04)
[2023-03-07] MEDS: MEMANTINE 10 MG (NAMENDA) TABLET PO SCH (10:04)
[2023-03-07] MEDS: meTOproloL SUCCINATE 50 MG (TOPROL XL) TAB PO SCH (10:04)
[2023-03-07] MEDS: cloNIDine 0.1 MG (CATAPRES) TAB PO SCH (10:04)
[2023-03-07] MEDS: DOCUSATE SODIUM 100 MG (COLACE) CAP PO SCH (10:05)
[2023-03-07] MEDS: SENNOSIDES 8.6 MG (SENOKOT) TAB PO SCH (10:05)
--- NOTE | 2023-03-07 10:16 | Discharge Summary ---
Diagnosis/Chief Complaint Date of Admission Mar 05, 2023 at 06:15 Date of Discharge Discharge Date: Mar 07, 2023 Discharge Diagnosis Assessment: Symptomatic bradycardia s/p pacemaker placed on 03/06/[address] Cole Malignant HTN Mild CKD improved after IVF Thrombocytopenia Dementia with delirium requiring Precedex HLP Pancreatic mass? Weight loss Depression HELDER suspected recent sleep study Plan: Monitor closely Therapy Pacemaker placement uncomplicated Discharge Summary Discharge Physical Examination Allergies: Coded Allergies: lorazepam (Verified Allergy, Unknown, 03/05/23) confused trazodone (Verified Adverse Reaction, Severe, SEVERE CONFUSION, 06/18/20) Vitals & I&Os Vital Signs Date Time Temp Pulse Resp B/P (MAP) Pulse Ox O2 Delivery O2 Flow Rate FiO2 03/07/23 11:39 36.5 03/07/23 11:36 95 Room Air 03/07/23 10:00 60 03/07/23 08:00 30 03/03/23 19:38 21 General Appearance: Alert, Cooperative, Other (Confused) Respiratory: Clear to Auscultation Cardiovascular: Regular Rate Hospital Course Was the Problem List Reviewed?: Yes Patient had a complicated hospital course which started out as symptomatic bradycardia even though metoprolol was discontinued after last discharge. He had been doing okay but not feeling well so he was admitted we evaluated the pancreatic nodule on CT scan with ultrasound which showed only cyst formation. Pacemaker was ultimately placed by Dr. Bradford and he was deemed stable for discharge although he was a bit confused we will likely become more oriented if he returns back to his home with his partner. Labs (last 24 hrs) Laboratory Tests 03/03/23 13:35: White Blood Count 3.9L, Red Blood Count 3.82L, Hemoglobin 11.6L, Hematocrit 35L, Mean Corpuscular Volume 91, Mean Corpuscular Hemoglobin 30, Mean Corpuscular Hemoglobin Concent 34, Red Cell Distribution Width 12.5, Platelet Count 115L, Mean Platelet Volume 10.2, Immature Granulocyte % (Auto) 1, Neutrophils (%) (Auto) 82H, Lymphocytes (%) (Auto) 9L, Monocytes (%) (Auto) 8, Eosinophils (%) (Auto) 1, Basophils (%) (Auto) 1, Neutrophils # (Auto) 3.2, Lymphocytes # (Auto) 0.3L, Monocytes # (Auto) 0.3, Eosinophils # (Auto) 0.0, Basophils # (Auto) 0.0, Immature Granulocyte # (Auto) 0.0, Percent Immature Platelet Fraction 2.9, Sodium Level 145, Potassium Level 3.9, Chloride Level 111H, Carbon Dioxide Level 25, Anion Gap 9, Blood Urea Nitrogen 35H, Creatinine 1.64H, Estimat Glomerular Filtration Rate 43, BUN/Creatinine Ratio 21, Glucose Level 129H, Calcium Level 8.8, Corrected Calcium 8.9, Magnesium Level 2.0, Total Bilirubin 0.5, Aspartate Amino Transf (AST/SGOT) 16, Alanine Aminotransferase (ALT/SGPT) 18, Alkaline Phosphatase 59, C-Reactive Protein High Sensitivity 0.03, Total Protein 6.0L, Albumin 3.9 03/03/23 14:13: SARS-CoV-2 RNA (RT-PCR) Not Detected 03/03/23 15:40: Urine Color YELLOW, Urine Clarity CLOUDY, Urine pH 6.0, Urine Specific [place] >=1.030, Urine Protein TRACEH, Urine Glucose (UA) NEGATIVE, Urine Ketones NEGATIVE, Urine Nitrite NEGATIVE, Urine Bilirubin NEGATIVE, Urine Urobilinogen 1.0, Urine Leukocyte Esterase NEGATIVE, Urine RBC (Auto) NEGATIVE, Urine RBC NONE, Urine WBC RARE, Urine Squamous Epithelial Cells 5-10, Urine Crystals NONE, Urine Bacteria NEGATIVE, Urine Casts PRESENT, Urine Hyaline Casts 5-10H, Urine Mucus NEGATIVE, Urine Culture Indicated NO 03/04/23 04:20: White Blood Count 4.0L, Red Blood Count 3.62L, Hemoglobin 11.1L, Hematocrit 33L, Mean Corpuscular Volume 91, Mean Corpuscular Hemoglobin 31, Mean Corpuscular Hemoglobin Concent 34, Red Cell Distribution Width 12.5, Platelet Count 95L, Mean Platelet Volume 10.9, Immature Granulocyte % (Auto) 0, Neutrophils (%) (Auto) 76H, Lymphocytes (%) (Auto) 12, Monocytes (%) (Auto) 9, Eosinophils (%) (Auto) 2, Basophils (%) (Auto) 1, Neutrophils # (Auto) 3.1, Lymphocytes # (Auto) 0.5L, Monocytes # (Auto) 0.4, Eosinophils # (Auto) 0.1, Basophils # (Auto) 0.0, Immature Granulocyte # (Auto) 0.0, Percent Immature Platelet Fraction 2.8, Sodium Level 143, Potassium Level 3.9, Chloride Level 112H, Carbon Dioxide Level 24, Anion Gap 7, Blood Urea Nitrogen 29H, Creatinine 1.27, Estimat Glomerular Filtration Rate 59, BUN/Creatinine Ratio 23, Glucose Level 90, Calcium Level 8.5, Corrected Calcium 8.8, Total Bilirubin 0.5, Aspartate Amino Transf (AST/SGOT) 15, Alanine Aminotransferase (ALT/SGPT) 15, Alkaline Phosphatase 54, Total Protein 5.4L, Albumin 3.6 03/04/23 06:30: Ammonia 21 03/05/23 04:00: White Blood Count 3.5L, Red Blood Count 3.77L, Hemoglobin 11.3L, Hematocrit 34L, Mean Corpuscular Volume 91, Mean Corpuscular Hemoglobin 30, Mean Corpuscular Hemoglobin Concent 33, Red Cell Distribution Width 12.5, Platelet Count 95L, Mean Platelet Volume 10.3, Immature Granulocyte % (Auto) 0, Neutrophils (%) (Auto) 79H, Lymphocytes (%) (Auto) 11L, Monocytes (%) (Auto) 8, Eosinophils (%) (Auto) 2, Basophils (%) (Auto) 0, Neutrophils # (Auto) 2.7, Lymphocytes # (Auto) 0.4L, Monocytes # (Auto) 0.3, Eosinophils # (Auto) 0.1, Basophils # (Auto) 0.0, Immature Granulocyte # (Auto) 0.0, Percent Immature Platelet Fraction 2.4, Sodium Level 143, Potassium Level 3.9, Chloride Level 111H, Carbon Dioxide Level 22, Anion Gap 10, Blood Urea Nitrogen 21H, Creatinine 1.15, Estimat Glomerular Filtration Rate 66, BUN/Creatinine Ratio 18, Glucose Level 86, Calcium Level 8.7, Corrected Calcium 9.0, Magnesium Level 1.7, Total Bilirubin 0.6, Aspartate Amino Transf (AST/SGOT) 16, Alanine Aminotransferase (ALT/SGPT) 16, Alkaline Phosphatase 59, Total Protein 5.5L, Albumin 3.6 03/06/23 04:54: White Blood Count 4.3, Red Blood Count 3.62L, Hemoglobin 10.9L, Hematocrit 32L, Mean Corpuscular Volume 90, Mean Corpuscular Hemoglobin 30, Mean Corpuscular Hemoglobin Concent 34, Red Cell Distribution Width 12.3, Platelet Count 100L, Mean Platelet Volume 9.8, Immature Granulocyte % (Auto) 0, Neutrophils (%) (Auto) 73, Lymphocytes (%) (Auto) 14, Monocytes (%) (Auto) 9, Eosinophils (%) (Auto) 4, Basophils (%) (Auto) 1, Neutrophils # (Auto) 3.1, Lymphocytes # (Auto) 0.6L, Monocytes # (Auto) 0.4, Eosinophils # (Auto) 0.2, Basophils # (Auto) 0.0, Immature Granulocyte # (Auto) 0.0, Percent Immature Platelet Fraction 2.2, Sodium Level 141, Potassium Level 3.9, Chloride Level 112H, Carbon Dioxide Level 22, Anion Gap 7, Blood Urea Nitrogen 23H, Creatinine 1.40H, Estimat Glomerular Filtration Rate 52, BUN/Creatinine Ratio 16, Glucose Level 104, Calcium Level 8.3L, Corrected Calcium 8.8, Magnesium Level 1.9, Total Bilirubin 0.5, Aspartate Amino Transf (AST/SGOT) 14, Alanine Aminotransferase (ALT/SGPT) 13, Alkaline Phosphatase 55, Total Protein 5.0L, Albumin 3.4, Prothrombin Time 13.7, INR Comment 1.0 03/07/23 04:37: White Blood Count 6.0, Red Blood Count 4.00L, Hemoglobin 12.0L, Hematocrit 36L, Mean Corpuscular Volume 90, Mean Corpuscular Hemoglobin 30, Mean Corpuscular Hemoglobin Concent 33, Red Cell Distribution Width 12.4, Platelet Count 92L, Mean Platelet Volume 10.1, Immature Granulocyte % (Auto) 0, Neutrophils (%) (Auto) 81H, Lymphocytes (%) (Auto) 7L, Monocytes (%) (Auto) 9, Eosinophils (%) (Auto) 3, Basophils (%) (Auto) 0, Neutrophils # (Auto) 4.9, Lymphocytes # (Auto) 0.4L, Monocytes # (Auto) 0.5, Eosinophils # (Auto) 0.2, Basophils # (Auto) 0.0, Immature Granulocyte # (Auto) 0.0, Percent Immature Platelet Fraction 2.5, Sodium Level 141, Potassium Level 3.7, Chloride Level 109H, Carbon Dioxide Level 24, Anion Gap 8, Blood Urea Nitrogen 19H, Creatinine 1.23, Estimat Glomerular Filtration Rate 61, BUN/Creatinine Ratio 15, Glucose Level 133H, Calcium Level 8.7, Corrected Calcium 9.0, Magnesium Level 1.9, Total Bilirubin 0.5, Aspartate Amino Transf (AST/SGOT) 20, Alanine Aminotransferase (ALT/SGPT) 17, Alkaline Phosphatase 57, Total Protein 5.6L, Albumin 3.6, Neutrophils % (Manual) 88, Lymphocytes % (Manual) 6, Monocytes % (Manual) 5, Eosinophils % (Manual) 1, Basophils % (Manual) 0, Band Neutrophils 0, Blood Morphology Comment NORMAL Pending Labs Laboratory Tests 03/03/23 13:35: White Blood Count 3.9, Red Blood Count 3.82, Hemoglobin 11.6, Hematocrit 35, Mean Corpuscular Volume 91, Mean Corpuscular Hemoglobin 30, Mean Corpuscular Hemoglobin Concent 34, Red Cell Distribution Width 12.5, Platelet Count 115, Mean Platelet Volume 10.2, Immature Granulocyte % (Auto) 1, Neutrophils (%) (Auto) 82, Lymphocytes (%) (Auto) 9, Monocytes (%) (Auto) 8, Eosinophils (%) (Auto) 1, Basophils (%) (Auto) 1, Neutrophils # (Auto) 3.2, Lymphocytes # (Auto) 0.3, Monocytes # (Auto) 0.3, Eosinophils # (Auto) 0.0, Basophils # (Auto) 0.0, Immature Granulocyte # (Auto) 0.0, Percent Immature Platelet Fraction 2.9, Sodium Level 145, Potassium Level 3.9, Chloride Level 111, Carbon Dioxide Level 25, Anion Gap 9, Blood Urea Nitrogen 35, Creatinine 1.64, Estimat Glomerular Filtration Rate 43, BUN/Creatinine Ratio 21, Glucose Level 129, Calcium Level 8.8, Corrected Calcium 8.9, Magnesium Level 2.0, Total Bilirubin 0.5, Aspartate Amino Transf (AST/SGOT) 16, Alanine Aminotransferase (ALT/SGPT) 18, Alkaline Phosphatase 59, C-Reactive Protein High Sensitivity 0.03, Total Protein 6.0, Albumin 3.9 03/03/23 14:13: SARS-CoV-2 RNA (RT-PCR) Not Detected 03/03/23 15:40: Urine Color YELLOW, Urine Clarity CLOUDY, Urine pH 6.0, Urine Specific [place] >=1.030, Urine Protein TRACE, Urine Glucose (UA) NEGATIVE, Urine Ketones NEGATIVE, Urine Nitrite NEGATIVE, Urine Bilirubin NEGATIVE, Urine Urobilinogen 1.0, Urine Leukocyte Esterase NEGATIVE, Urine RBC (Auto) NEGATIVE, Urine RBC NONE, Urine WBC RARE, Urine Squamous Epithelial Cells 5-10, Urine Crystals NONE, Urine Bacteria NEGATIVE, Urine Casts PRESENT, Urine Hyaline Casts 5-10, Urine M ucus NEGATIVE, Urine Culture Indicated NO 03/04/23 04:20: White Blood Count 4.0, Red Blood Count 3.62, Hemoglobin 11.1, Hematocrit 33, Mean Corpuscular Volume 91, Mean Corpuscular Hemoglobin 31, Mean Corpuscular Hemoglobin Concent 34, Red Cell Distribution Width 12.5, Platelet Count 95, Mean Platelet Volume 10.9, Immature Granulocyte % (Auto) 0, Neutrophils (%) (Auto) 76, Lymphocytes (%) (Auto) 12, Monocytes (%) (Auto) 9, Eosinophils (%) (Auto) 2, Basophils (%) (Auto) 1, Neutrophils # (Auto) 3.1, Lymphocytes # (Auto) 0.5, Monocytes # (Auto) 0.4, Eosinophils # (Auto) 0.1, Basophils # (Auto) 0.0, Immature Granulocyte # (Auto) 0.0, Percent Immature Platelet Fraction 2.8, Sodium Level 143, Potassium Level 3.9, Chloride Level 112, Carbon Dioxide Level 24, Anion Gap 7, Blood Urea Nitrogen 29, Creatinine 1.27, Estimat Glomerular Filtration Rate 59, BUN/Creatinine Ratio 23, Glucose Level 90, Calcium Level 8.5, Corrected Calcium 8.8, Total Bilirubin 0.5, Aspartate Amino Transf (AST/SGOT) 15, Alanine Aminotransferase (ALT/SGPT) 15, Alkaline Phosphatase 54, Total Protein 5.4, Albumin 3.6 03/04/23 06:30: Ammonia 21 03/05/23 04:00: White Blood Count 3.5, Red Blood Count 3.77, Hemoglobin 11.3, Hematocrit 34, Mean Corpuscular Volume 91, Mean Corpuscular Hemoglobin 30, Mean Corpuscular Hemoglobin Concent 33, Red Cell Distribution Width 12.5, Platelet Count 95, Mean Platelet Volume 10.3, Immature Granulocyte % (Auto) 0, Neutrophils (%) (Auto) 79, Lymphocytes (%) (Auto) 11, Monocytes (%) (Auto) 8, Eosinophils (%) (Auto) 2, Basophils (%) (Auto) 0, Neutrophils # (Auto) 2.7, Lymphocytes # (Auto) 0.4, Monocytes # (Auto) 0.3, Eosinophils # (Auto) 0.1, Basophils # (Auto) 0.0, Immature Granulocyte # (Auto) 0.0, Percent Immature Platelet Fraction 2.4, Sodium Level 143, Potassium Level 3.9, Chloride Level 111, Carbon Dioxide Level 22, Anion Gap 10, Blood Urea Nitrogen 21, Creatinine 1.15, Estimat Glomerular Filtration Rate 66, BUN/Creatinine Ratio 18, Glucose Level 86, Calcium Level 8.7, Corrected Calcium 9.0, Magnesium Level 1.7, Total Bilirubin 0.6, Aspartate Amino Transf (AST/SGOT) 16, Alanine Aminotransferase (ALT/SGPT) 16, Alkaline Phosphatase 59, Total Protein 5.5, Albumin 3.6 03/06/23 04:54: White Blood Count 4.3, Red Blood Count 3.62, Hemoglobin 10.9, Hematocrit 32, Mean Corpuscular Volume 90, Mean Corpuscular Hemoglobin 30, Mean Corpuscular Hemoglobin Concent 34, Red Cell Distribution Width 12.3, Platelet Count 100, Mean Platelet Volume 9.8, Immature Granulocyte % (Auto) 0, Neutrophils (%) (Auto) 73, Lymphocytes (%) (Auto) 14, Monocytes (%) (Auto) 9, Eosinophils (%) (Auto) 4, Basophils (%) (Auto) 1, Neutrophils # (Auto) 3.1, Lymphocytes # (Auto) 0.6, Monocytes # (Auto) 0.4, Eosinophils # (Auto) 0.2, Basophils # (Auto) 0.0, Immature Granulocyte # (Auto) 0.0, Percent Immature Platelet Fraction 2.2, Sodium Level 141, Potassium Level 3.9, Chloride Level 112, Carbon Dioxide Level 22, Anion Gap 7, Blood Urea Nitrogen 23, Creatinine 1.40, Estimat Glomerular Fi ltration Rate 52, BUN/Creatinine Ratio 16, Glucose Level 104, Calcium Level 8.3, Corrected Calcium 8.8, Magnesium Level 1.9, Total Bilirubin 0.5, Aspartate Amino Transf (AST/SGOT) 14, Alanine Aminotransferase (ALT/SGPT) 13, Alkaline Phosphatase 55, Total Protein 5.0, Albumin 3.4, Prothrombin Time 13.7, INR Comment 1.0 03/07/23 04:37: White Blood Count 6.0, Red Blood Count 4.00, Hemoglobin 12.0, Hematocrit 36, Mean Corpuscular Volume 90, Mean Corpuscular Hemoglobin 30, Mean Corpuscular H emoglobin Concent 33, Red Cell Distribution Width 12.4, Platelet Count 92, Mean Platelet Volume 10.1, Immature Granulocyte % (Auto) 0, Neutrophils (%) (Auto) 81, Lymphocytes (%) (Auto) 7, Monocytes (%) (Auto) 9, Eosinophils (%) (Auto) 3, Basophils (%) (Auto) 0, Neutrophils # (Auto) 4.9, Lymphocytes # (Auto) 0.4, Monocytes # (Auto) 0.5, Eosinophils # (Auto) 0.2, Basophils # (Auto) 0.0, Immature Granulocyte # (Auto) 0.0, Percent Immature Platelet Fraction 2.5, Sodium Level 141, Potassium Level 3.7, Chloride Level 109, Carbon Dioxide Level 24, Anion Gap 8, Blood Urea Nitrogen 19, Creatinine 1.23, Estimat Glomerular Filtration Rate 61, BUN/Creatinine Ratio 15, Glucose Level 133, Calcium Level 8.7, Corrected Calcium 9.0, Magnesium Level 1.9, Total Bilirubin 0.5, Aspartate Amino Transf (AST/SGOT) 20, Alanine Aminotransferase (ALT/SGPT) 17, Alkaline Phosphatase 57, Total Protein 5.6, Albumin 3.6, Neutrophils % (Manual) 88, Lymphocytes % (Manual) 6, Monocytes % (Manual) 5, Eosinophils % (Manual) 1, Basophils % (Manual) 0, Band Neutrophils 0, Blood Morphology Comment NORMAL Discharge Home Medications: Active Scripts Active Cefuroxime (Cefuroxime Axetil) 500 Mg Tablet 500 Mg PO BID Metoprolol Succinate 50 Mg Tab.er.24h 50 Mg PO DAILY Reported Meclizine HCl 25 Mg Tablet 25 Mg PO TID PRN Amlodipine Besylate 5 Mg Tablet 10 Mg PO DAILY TAKES 2 (5MG) TABS Doxazosin Mesylate 1 Mg Tablet 1 Mg PO BID Mupirocin 2 % Oint...g. 1 Applic NSEACH BID PRN Probiotic (L.acidoph & Paracasei,B.lactis) 10 Billion Cell Capsule 1 Each PO DAILY Hydralazine HCl 50 Mg Tablet 50 Mg PO TID Escitalopram Oxalate 10 Mg Tablet 10 Mg PO DAILY Aspirin EC (Aspirin) 81 Mg Tablet.dr 81 Mg PO DAILY Benadryl (Diphenhydramine HCl) 25 Mg Capsule 25 Mg PO HS Melatonin 3 Mg Tablet 3 Mg PO HS Donepezil HCl 10 Mg Tablet 10 Mg PO HS Memantine HCl 10 Mg Tablet 10 Mg PO BID Zyrtec (Cetirizine HCl) 10 Mg Tablet 10 Mg PO DAILY Loratadine 10 Mg Tablet 10 Mg PO DAILY Multivitamin 1 Each Tablet 1 Each PO 1200 Pravastatin Sodium 40 Mg Tablet 40 Mg PO HS Instructions to patient/family Please see electronic discharge instructions given to patient. MAYDA JOHN DO Mar 07, 2023 10:16
--- NOTE | 2023-03-07 17:57 | Physician Query-Final Dx ---
FANTA ORDONEZ 03/07/23 1757: Final Diagnosis Give Final Diagnosis The medical record reflects the following clinical scenario: The patient, in the setting of History/Risk factors, Previous Delirium, Advance age, Clinical Findings Cr 1.64, did decrease as low as 1.15 eGFR 43 increased as high as 66, "pre renal SHERI, improving" per Dr. Cerrato Treatment 4L NS over 3 days, Lab monitoring, I and O Question: Do you agree with the impression of SHERI per Dr. Phil Cerrato? Yes; will document SHERI, present on admission in the Progress Notes, improved No; will continue current documentation in the Progress Notes Other; will document explanation of clinical findings Clinically undetermined; no explanation for clinical findings Please clarify and document your clinical opinion in the Progress Notes and Discharge Summary including the definitive and/or presumptive diagnosis, (suspected or probable), related to the above clinical findings. Please include clinical findings supporting your diagnosis. In responding to this query, please exercise your independent professional judgment. The purpose of this communication is to more accurately reflect the complexity of your patients condition. The fact that a question is asked does not imply that any particular answer is desired or expected. Thank you for timely response to this clarification. Fanta Ordonez, MSN, RN Clinical Clothing Manager [phone] MAYDA JOHN DO 03/07/23 1832: Final Diagnosis Give Final Diagnosis Yes; will document SHERI, present on admission in the Progress Notes, improved FANTA ORDONEZ Mar 07, 2023 17:57 MAYDA JOHN DO Mar 07, 2023 18:32
== END 2023-03-07 12:43 | disposition home or self-care (01) | DRG 243 ==
LOC: EDUNIT# 12:48 → ER 12:50 → CSD 17:18 → ICU 03-04 22:23 → OBSVTOIN 03-05 06:15
PROVIDERS: ADMIT Internal Medicine; ATTEND Internal Medicine
PROC: 0JH606Z Insertion of Pacemaker, Dual Chamber into Chest Subcutaneous Tissue and Fascia, Open Approach (ICD-10-PCS; principal; 2023-03-06)
PROC: 02H63JZ Insertion of Pacemaker Lead into Right Atrium, Percutaneous Approach (ICD-10-PCS; 2023-03-06)
PROC: 02HK3JZ Insertion of Pacemaker Lead into Right Ventricle, Percutaneous Approach (ICD-10-PCS; 2023-03-06)
DX: I49.5 Sick sinus syndrome (principal); F05 Delirium due to known physiological condition; N17.9 Acute kidney failure, unspecified; I44.1 Atrioventricular block, second degree; I12.9 Hypertensive chronic kidney disease with stage 1 through stage 4 chronic kidney disease, or unspecified chronic kidney disease; E11.22 Type 2 diabetes mellitus with diabetic chronic kidney disease; N18.9 Chronic kidney disease, unspecified; D69.6 Thrombocytopenia, unspecified; F03.90 Unspecified dementia, unspecified severity, without behavioral disturbance, psychotic disturbance, mood disturbance, and anxiety; F32.A Depression, unspecified; G47.33 Obstructive sleep apnea (adult) (pediatric); E78.00 Pure hypercholesterolemia, unspecified; F41.0 Panic disorder [episodic paroxysmal anxiety]; K86.89 Other specified diseases of pancreas; N28.1 Cyst of kidney, acquired; Z20.822 Contact with and (suspected) exposure to COVID-19; H26.9 Unspecified cataract; Z85.46 Personal history of malignant neoplasm of prostate; Z90.79 Acquired absence of other genital organ(s); Z87.891 Personal history of nicotine dependence; Z88.8 Allergy status to other drugs, medicaments and biological substances; Z79.82 Long term (current) use of aspirin; Z79.899 Other long term (current) drug therapy
CPT/HCPCS: 33208; 36415; 71045; 74177; 76705; 80053; 81000; 82140; 83735; 85007; 85025; 85027; 85610; 86141; 87636; 93005; 93041; 94760; G0378

== ENCOUNTER 2023-03-25 09:19 | Outpatient (CLI) | payer MEDICARE, OTHER ==
[~2023-03-25 09:19] MED LIST changes: +CEFU500T63 PO; +MECL-149 PO; +METO50TA7 PO; +MUPI22OI2 NSEACH
== END 2023-03-25 09:50 ==
LOC: SLEEP 09:19
PROVIDERS: ATTEND Nurse Practitioner
DX: G47.33 Obstructive sleep apnea (adult) (pediatric) (principal); G47.10 Hypersomnia, unspecified; J30.9 Allergic rhinitis, unspecified; H61.23 Impacted cerumen, bilateral; J34.89 Other specified disorders of nose and nasal sinuses
CPT/HCPCS: G0399

== ENCOUNTER 2023-07-13 19:59 | Emergency (ER) | payer MEDICARE ==
[~2023-07-13] VITALS: Ht 180 cm; Wt 81.6 kg
[~2023-07-13 19:59] MED LIST changes: -MECL-149 PO; +MECL-291 PO
--- NOTE | 2023-07-13 20:35 | ED GI ---
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 PT ONESIMO SENATION OF SOMETHING FEELING STUCK IN HIS THROAT OR SHORTNESS OF AIR. FAMILY AT SIDE. Source of Information: Patient History of Present Illness Date Seen by Provider: Jul 13, 2023 Time Seen by Provider: 20:25 Allergies and Home Medications Allergies Coded Allergies: lorazepam (Verified Allergy, Unknown, 03/05/23) confused trazodone (Verified Adverse Reaction, Severe, SEVERE CONFUSION, 06/18/20) Patient Home Medication List Amlodipine Besylate (Amlodipine Besylate) 5 Mg Tablet, 10 MG PO DAILY, (Reported) Entered as Reported by: FARIDA VAZQUEZ on 03/04/23 1000 Aspirin (Aspirin EC) 81 Mg Tablet.dr, 81 MG PO DAILY, (Reported) Entered as Reported by: FARIDA VAZQUEZ on 02/19/23 1346 Cefuroxime Axetil (Cefuroxime) 500 Mg Tablet, 500 MG PO BID Prescribed by: JEREMY HUITRON on 03/07/23 0647 Cetirizine HCl (Zyrtec) 10 Mg Tablet, 10 MG PO DAILY, (Reported) Entered as Reported by: TERRY FRANK on 02/18/231927 Diphenhydramine HCl (Benadryl) 25 Mg Capsule, 25 MG PO HS, (Reported) Entered as Reported by: TERRY FRANK on 02/18/231927 Donepezil HCl (Donepezil HCl) 10 Mg Tablet, 10 MG PO HS, (Reported) Entered as Reported by: TERRY FRANK on 02/18/231927 Doxazosin Mesylate (Doxazosin Mesylate) 1 Mg Tablet, 1 MG PO BID, (Reported) Entered as Reported by: FARIDA VAZQUEZ on 03/04/23 1000 Escitalopram Oxalate (Escitalopram Oxalate) 10 Mg Tablet, 10 MG PO DAILY, (Reported) Entered as Reported by: FARIDA VAZQUEZ on 02/19/23 1346 Hydralazine HCl (Hydralazine HCl) 50 Mg Tablet, 50 MG PO TID, (Reported) Entered as Reported by: FARIDA VAZQUEZ on 02/19/23 1346 L.acidoph & Paracasei,B.lactis (Probiotic) 10 Billion Cell Capsule, 1 EACH PO DAILY, (Reported) Entered as Reported by: FARIDA VAZQUEZ on 02/19/23 1346 Loratadine (Loratadine) 10 Mg Tablet, 10 MG PO DAILY, (Reported) Entered as Reported by: CRISTIAN MURRY on 06/13/20 0902 Meclizine HCl (Meclizine HCl) 25 Mg Tablet, 25 MG PO TID PRN for DIZZINESS, (Reported) Entered as Reported by: FARIDA VAZQUEZ on 03/04/23 1000 Melatonin (Melatonin) 3 Mg Tablet, 3 MG PO HS, (Reported) Entered as Reported by: TERRY FRANK on 02/18/231927 Memantine HCl (Memantine HCl) 10 Mg Tablet, 10 MG PO BID, (Reported) Entered as Reported by: TERRY FRANK on 02/18/231927 Metoprolol Succinate (Metoprolol Succinate) 50 Mg Tab.er.24h, 50 MG PO DAILY Prescribed by: JEREMY HUITRON on 03/07/23 0647 Multivitamin (Multivitamin) 1 Each Tablet, 1 EACH PO 1200, (Reported) Entered as Reported by: ALYSHA ALBA on 06/09/20 1253 Mupirocin (Mupirocin) 2 % Oint...g., 1 APPLIC NSEACH BID PRN for NASAL PAIN/BURNING, (Reported) Entered as Reported by: FARIDA VAZQUEZ on 03/04/23 1000 Pravastatin Sodium (Pravastatin Sodium) 40 Mg Tablet, 40 MG PO HS, (Reported) Entered as Reported by: CRISTIAN MURRY on 03/10/19 1020 Past Pprigor-Hingyw-Vnvhkp Hx Immunizations Up To Date First/Initial COVID19 Vaccinat: 2020 Second COVID19 Vaccination Zbigniew: 2020 Third COVID19 Vaccination Date: 2020 Seasonal Allergies Seasonal Allergies: Yes Past Medical History Surgery/Hospitalization HX: BILATERAL CATARACT SURGERYPT HAD ROBOTIC ASSISTED LAPAROSCOPIC PROSTATECTOMY WITH BILATERAL LYMPHNODE DISSECTION BY DR. TUCKER HERE ON 06/16/20 HTN Surgeries: Yes (LITHOTRIPSY;UMBILICAL HERNIA;R-A LAP PROSTATECTOMY/BILAT LYMPH NODE DISSECT) Abdominal, Eye Surgery, Gallbladder, Prostatectomy, Renal Respiratory: Yes Pneumonia Currently Using CPAP: No Currently Using BIPAP: No Cardiac: Yes (bradycardia) High Cholesterol, Hypertension Neurological: Yes (POOR MEMORY) Reproductive Disorders: No Sexually Transmitted Disease: No HIV/AIDS: No Genitourinary: Yes (RENAL INSUFF; PROSTATE CANCER) Prostate Problems, Kidney Stones, Renal Failure Gastrointestinal: Yes (UMBILICAL HERNIA;CHOLECYSTECTOMY) Abdominal Hernia, Gall Bladder Disease Musculoskeletal: Yes Chronic Back Pain Endocrine: Yes Diabetes, Non-Insulin dep HEENT: Yes (GLASSES) Cataract Loss of Vision: Denies Hearing Impairment: Denies Cancer: Yes Prostate Did You Recieve Any Treatments: Yes What Type of Treatment Did You: Surgical Intervention Psychosocial: Yes Anxiety Integumentary: No Blood Disorders: No Adverse Reaction/Blood Tranf: No (N/A) Family Medical History No Pertinent Family Hx Physical Exam Vital Signs Vital Signs - First Documented 07/13/23 20:10 Temp 36.9 Pulse 65 Resp 18 B/P (MAP) 193/76 (115) Pulse Ox 96 O2 Delivery Room Air Capillary Refill : Less Than 3 Seconds Height/Weight/BMI Height: 5'11.00" Weight: 205lbs. 0.0oz. 92.029056fx; 25.00 BMI Method:Stated Progress/Results/Core Measures Results/Orders Lab Results Laboratory Tests Test 07/13/23 20:44 Range/Units White Blood Count 3.5 L 4.3-11.0 10^3/uL Red Blood Count 3.29 L 4.30-5.52 10^6/uL Hemoglobin 10.1 L 13.3-17.7 g/dL Hematocrit 31 L 40-54 % Mean Corpuscular Volume 95 80-99 fL Mean Corpuscular Hemoglobin 31 25-34 pg Mean Corpuscular Hemoglobin Concent 32 32-36 g/dL Red Cell Distribution Width 13.2 10.0-14.5 % Platelet Count 96 L 130-400 10^3/uL Mean Platelet Volume 10.6 9.0-12.2 fL Immature Granulocyte % (Auto) 0 % Neutrophils (%) (Auto) 80 H 42-75 % Lymphocytes (%) (Auto) 9 L 12-44 % Monocytes (%) (Auto) 9 0-12 % Eosinophils (%) (Auto) 1 0-10 % Basophils (%) (Auto) 0 0-10 % Neutrophils # (Auto) 2.9 1.8-7.8 10^3/uL Lymphocytes # (Auto) 0.3 L 1.0-4.0 10^3/uL Monocytes # (Auto) 0.3 0.0-1.0 10^3/uL Eosinophils # (Auto) 0.1 0.0-0.3 10^3/uL Basophils # (Auto) 0.0 0.0-0.1 10^3/uL Immature Granulocyte # (Auto) 0.0 0.0-0.1 10^3/uL Neutrophils % (Manual) 82 % Lymphocytes % (Manual) 9 % Monocytes % (Manual) 9 % Platelet Estimate ADEQUATE Percent Immature Platelet Fraction 3.7 0.0-7.6 % Blood Morphology Comment OK Sodium Level 143 135-145 MMOL/L Potassium Level 4.1 3.6-5.0 MMOL/L Chloride Level 109 H 98-107 MMOL/L Carbon Dioxide Level 25 21-32 MMOL/L Anion Gap 9 5-14 MMOL/L Blood Urea Nitrogen 29 H 7-18 MG/DL Creatinine 1.69 H 0.60-1.30 MG/DL Estimat Glomerular Filtration Rate 42 BUN/Creatinine Ratio 17 Glucose Level 106 H 70-105 MG/DL Calcium Level 8.4 L 8.5-10.1 MG/DL Corrected Calcium 8.4 L 8.5-10.1 MG/DL Total Bilirubin 0.7 0.1-1.0 MG/DL Aspartate Amino Transf (AST/SGOT) 17 5-34 U/L Alanine Aminotransferase (ALT/SGPT) 19 0-55 U/L Alkaline Phosphatase 58 40-136 U/L Total Protein 6.1 L 6.4-8.2 GM/DL Albumin 4.0 3.2-4.5 GM/DL Amylase Level 80 25-125 U/L Lipase 29 8-78 U/L My Orders Orders - RYLIE MARSHALL DO Ed Iv/Invasive Line Start (07/13/23 20:32) Amylase (07/13/23 20:32) Cbc And Automated Diff (07/13/23 20:32) Comprehensive Metabolic Panel (07/13/23 20:32) Lipase (07/13/23 20:32) Iohexol Injection (Omnipaque 350 Mg/Ml 1 (07/13/23 21:15) Received Contrast (Hold Metformin- Contr (07/13/23 21:15) Ns (Ivpb) 100 Ml (Sodium Chloride 0.9% 1 (07/13/23 21:15) Ed Iv/Invasive Line Start (07/13/23 21:13) Ns Iv 1000 Ml (Ns Iv 1000 Ml) (07/13/23 21:15) Hydralazine Injection (Hydralazine Injec (07/13/23 21:30) Nitroglycerin Ointment (Nitroglycerin (07/13/23 21:30) Manual Differential (07/13/23 20:44) Ct Chest/Abdomen/Pelvis Wo (07/13/23 20:32) Medications Given in ED Current Medications Medications Dose Ordered Sig/Sangita Route Start Time Stop Time Status Last Admin Dose Admin Hydralazine HCl 10 mg ONCE ONCE IV 07/13/23 21:30 07/13/23 21:31 DC 07/13/23 21:42 10 MG Nitroglycerin 1 inch ONCE ONCE TOP 07/13/23 21:30 07/13/23 21:31 DC 07/13/23 21:42 1 INCH Vital Signs/I&O 07/13/23 20:10 Temp 36.9 Pulse 65 Resp 18 B/P (MAP) 193/76 (115) Pulse Ox 96 O2 Delivery Room Air Blood Pressure Mean: 115 Departure Impression Primary Impression: Dysphagia Additional Impression: Uncontrolled hypertension Disposition: 01 HOME, SELF-CARE Condition: Stable Departure-Patient Inst. Decision time for Depature: 22:01 Referrals: LESLYE MADRID MINDI DO (PCP/Family) Primary Care Physician JEREMY HUITRON MD Patient Instructions: DASH Diet, Dysphagia (DC), Glaucoma Surgery (DC), Pureed Diet Add. Discharge Instructions: TAKE YOUR AMLODIPINE AND OTHER MEDICATIONS PRESCRIBED SOFT DIET--AVOID MEAT OR ANY FOODS THAT REQUIRE CHEWING FOLLOW UP WITH DR. HUITRON AND/OR DR. JOHN FOR YOUR BLOOD PRESSURE FOLLOW UP WITH DR. MADRID NEXT WEEK FOR FURTHER EVALUATION All discharge instructions reviewed with patient and/or family. Voiced understanding. Scripts Pantoprazole Sodium (Protonix) 40 Mg Tablet. 40 MG PO DAILY, #30 TAB Prov: RYLIE MARSHALL DO 07/13/23 RYLIE MARSHALL DO Jul 13, 2023 20:35
[2023-07-13 20:49] LABS: EOSINOPHILS # (AUTO) 0.1 10^3/uL (0.0-0.3); EOSINOPHILS % (AUTO) 1 % (0-10); PLATELET COUNT 96 10^3/uL (130-400)
[2023-07-13 20:51] LABS: BASOPHILS % (AUTO) 0 % (0-10); HEMATOCRIT 31 % (40-54); HEMOGLOBIN 10.1 g/dL (13.3-17.7); LYMPHOCYTES # (AUTO) 0.3 10^3/uL (1.0-4.0); LYMPHOCYTES % (AUTO) 9 % (12-44); MEAN CORPUSCULAR HEMOGLOBIN 31 pg (25-34); MEAN CORPUSCULAR HGB CONC 32 g/dL (32-36); MEAN CORPUSCULAR VOLUME 95 fL (80-99); MEAN PLATELET VOLUME 10.6 fL (9.0-12.2); MONOCYTES # (AUTO) 0.3 10^3/uL (0.0-1.0); MONOCYTES % (AUTO) 9 % (0-12); NEUTROPHILS # (AUTO) 2.9 10^3/uL (1.8-7.8); NEUTROPHILS % (AUTO) 80 % (42-75); WHITE BLOOD COUNT 3.5 10^3/uL (4.3-11.0)
[2023-07-13 21:08] LABS: BILIRUBIN,TOTAL 0.7 MG/DL (0.1-1.0); CALCIUM 8.4 MG/DL (8.5-10.1); CREATININE SERUM 1.69 MG/DL (0.60-1.30); POTASSIUM 4.1 MMOL/L (3.6-5.0); TOTAL PROTEIN 6.1 GM/DL (6.4-8.2)
[2023-07-13] MEDS ORDERED: NS IV 1000 ML 1,000 ML IV SCH (21:15)
[2023-07-13] MEDS ORDERED: NS 100 ML (IVPB) BAG IV ONE (21:15)
[2023-07-13] MEDS ORDERED: HOLD METFORMIN - RECEIVED CONTRAST 20 ML VIAL IV SCH (21:15)
[2023-07-13] MEDS ORDERED: IOHEXOL 350 MG/ML 100 ML (OMNIPAQUE 350) VIAL IV ONE (21:15)
[2023-07-13 21:20] LABS: LYMPHOCYTES % (MANUAL) 9 %; MONOCYTES % (MANUAL) 9 %; NEUTROPHILS % (MANUAL) 82 %
[2023-07-13 21:21] LABS: PLATELET ESTIMATE ADEQUATE; RBC MORPH OK
[2023-07-13] MEDS ORDERED: NITROGLYCERIN 2% OINT 1 GM UNIT DOSE PACKET TOP ONE (21:30)
[2023-07-13] MEDS ORDERED: hydrALAZINE INJECTION 20 MG/ML VIAL IV ONE ×2 (21:30→22:30)
--- NOTE | 2023-07-13 21:59 | Diagnostic Imaging Report ---
PROCEDURE: CT chest, abdomen, and pelvis without contrast. TECHNIQUE: Multiple contiguous axial images were obtained through the chest, abdomen, and pelvis without the use of intravenous contrast. Auto Exposure Controls were utilized during the CT exam to meet ALARA standards for radiation dose reduction. INDICATION: Dysphagia, aspiration There is a 1 cm right pleural effusion and a 3 mm left pleural effusion. Lungs are clear. There is coronary atherosclerosis. Patient has a dual-chamber pacemaker. There is calcific atherosclerosis of aorta but no aneurysm. There is a small pericardial effusion Stomach and gastroesophageal junction appear normal. Liver appears normal. Gallbladder surgically absent. Pancreas is normal. Spleen is not enlarged. Adrenals are normal. There is no acute abnormality seen in either kidney. There is a 4 similar cyst on the lower pole of the right kidney. Small bowel is not dilated. The colon is unremarkable. Urinary bladder is decompressed. Prostate is surgically absent. There is a lymphocele and/or seroma in the right side pelvis at the iliac bifurcation. This measures 4 cm in diameter. It appears smaller than previous study done on 03/04/2023. There is right inguinal hernia containing fat. IMPRESSION: Small pericardial and bilateral pleural effusions. No acute abnormality seen in the abdomen. Dictated by: Dictated on workstation # [id number]
[2023-07-13] MEDS ORDERED: PANT40TA2 PO (22:09)
[2023-07-13] MEDS ORDERED: PANTOPRAZOLE 40 MG TABLET PO ONE (22:15)
[2023-07-13 22:55] VITALS: BP 182/95
== END 2023-07-13 22:55 | disposition home or self-care (01) ==
LOC: EDUNIT# 19:59 → ER 20:01
DX: R13.10 Dysphagia, unspecified (principal); I10 Essential (primary) hypertension
CPT/HCPCS: 36415; 71250; 74176; 80053; 82150; 83690; 85007; 85027

== ENCOUNTER 2023-07-24 05:41 | Outpatient (CLI) | payer MEDICARE ==
[~2023-07-24] VITALS: Ht 180.3 cm; Wt 84.4 kg
[~2023-07-24 05:41] MED LIST changes: +PANT40TA2 PO
[2023-07-26] MEDS ORDERED: BACI1CAP6 PO (10:45)
== END 2023-07-26 10:43 | disposition home or self-care (01) ==
LOC: PREOP 05:41
PROVIDERS: ATTEND Surgery
DX: Z01.818 Encounter for other preprocedural examination (principal)

== ENCOUNTER → 2023-07-29 | Outpatient (CLI) | payer MEDICARE, OTHER ==
[~2023-07-29] MED LIST changes: +BACI1CAP6 PO; +BARIUM for suspension 96% w/w (Vanilla Silq Medium Density) PO ONE; +BARIUM for suspension 98% w/w (Vanilla Silq High Density) PO ONE
--- NOTE | 2023-07-29 09:30 | Diagnostic Imaging Report ---
INDICATION: Dysphagia. Patient ingested effervescent crystals as well as thin and thick barium and imaging of the esophagus was performed in multiple obliquities. A total of 43 seconds of fluoroscopic time was utilized. Reference air kerma is 36.0 mGy. 34 images were obtained. Preliminary radiograph of the chest demonstrates the heart size to be normal. There is a dual lead left subclavian cardiac pacemaker with lead tips in the region of the right atrium and right ventricle. Lungs are clear. The esophagus has a fairly smooth contour. There are occasional tertiary contractions present. No mass or stricture was demonstrated. No hiatal hernia is identified. There is a small sliding-type hiatal hernia. IMPRESSION: Small hiatal hernia and a generalized esophageal dysmotility. The study is otherwise unremarkable. Dictated by: Dictated on workstation # [id number]
== END ==
LOC: RAD 08:37
PROVIDERS: ATTEND Surgery
DX: K44.9 Diaphragmatic hernia without obstruction or gangrene (principal); K22.4 Dyskinesia of esophagus
CPT/HCPCS: 74220

== ENCOUNTER 2023-08-02 13:08 | Day surgery (SDC) | payer MEDICARE, OTHER ==
[~2023-08-02] VITALS: Ht 180.3 cm; Wt 84.4 kg
[~2023-08-02 13:08] MED LIST changes: -BARIUM for suspension 96% w/w (Vanilla Silq Medium Density) PO ONE; -BARIUM for suspension 98% w/w (Vanilla Silq High Density) PO ONE
[2023-08-02] MEDS ORDERED: HURRICAINE EXT TUBE (BENZOCAINE) XX PRN (13:30)
[2023-08-02] MEDS ORDERED: LACTATED RINGERS 1,000 ML 1,000 ML IV STA (13:30)
[2023-08-02 14:08] VITALS: BP 204/93
--- NOTE | 2023-08-02 15:44 | Progress Note-Pre Operative ---
Pre-Operative Progress Note Date H&P Reviewed: Aug 02, 2023 Time H&P Reviewed: 15:44 History & Physical: H&P Reviewed, Patient Examed, No changes noted Pre-Operative Diagnosis: dysphagia, screening colonoscopy BRANDYN BERMUDEZ DO Aug 02, 2023 15:44
[2023-08-02] MEDS ORDERED: meTOprolol INJECTION 5 MG/5 ML VIAL ONE (16:29)
--- NOTE | 2023-08-02 17:05 | Progress Note-Post Operative ---
Post-Operative Progess Note Surgeon (s)/Perch Mender (s) Surgeon BRANDYN BERMUDEZ DO Perch Mender: n/a Pre-Operative Diagnosis dysphagia, screening colonoscopy Post-Operative Diagnosis Hiatal hernia, GE polyp Procedure & Operative Findings Date of Procedure 08/02/23 Procedure Performed/Findings EGD with biopsies hot bx polypectomy at GE junction and colonoscopy Anesthesia Type per SAW CLEANER Estimated Blood Loss Estimated blood loss (mL): none Specimens/Packing Specimens Removed antrum x1, GE polyp x1 BRANDYN BERMUDEZ DO Aug 02, 2023 17:05
--- NOTE | 2023-08-02 17:06 | Discharge Inst-Simple/Standard ---
Discharge Inst-Standard Patient Instructions/Follow Up Plan of Care/Instructions/FU: 2 weeks Nolvia Activity as Tolerated: Yes Discharge Diet: Regular Diet BRANDYN BERMUDEZ DO Aug 02, 2023 17:06
[2023-08-02 17:10] VITALS: BP 162/78
--- NOTE | 2023-08-02 17:14 | Anesthesia-General Post-Op ---
MAC Patient Condition Mental Status/LOC: Same as Preop Cardiovascular: Satisfactory Nausea/Vomiting: Absent Respiratory: Satisfactory Pain: Controlled Complications: Absent Post Op Complications Complications None Follow Up Care/Instructions Patient Instructions None needed. Anesthesiology Discharge Order Discharge Order Patient is doing well, no complaints, stable vital signs, no apparent adverse anesthesia problems. No complications reported per nursing. MARITZA WHITT CRNA Aug 02, 2023 17:14
[2023-08-02 17:15] VITALS: BP 174/73
[2023-08-02 17:45] VITALS: BP 174/73
--- NOTE | 2023-08-03 02:57 | OPERATIVE REPORT ---
DATE OF SERVICE: 08/02/2023 PREOPERATIVE DIAGNOSES: Dysphagia and screening colonoscopy. POSTOPERATIVE DIAGNOSES: Hiatal hernia, gastroesophageal polyp, normal colon. PROCEDURES: EGD with biopsies, hot biopsy polypectomy at the gastroesophageal junction and colonoscopy. SURGEON: Brandyn De Souza DO ANESTHESIA: Per TRUCK TERMINAL MANAGER. ESTIMATED BLOOD LOSS: None. COMPLICATIONS: None. INDICATIONS: The patient is a 73-year-old male with dysphagia symptoms and needing screening colonoscopy. He understands risks and benefits of procedure and wished to proceed. Consent was signed in chart. DESCRIPTION OF PROCEDURE: The patient was taken to the endoscopy suite, placed in left lateral recumbent position. Timeout was performed. Scope was inserted in the mouth, down the esophagus, stomach and the duodenum without difficulty. No polyps, masses or ulcerations within the duodenum. Scope was slowly retracted back into stomach, where it was further insufflated. No polyps, masses or ulcerations in the antrum. A couple benign-appearing polyps in the stomach. Scope was retroflexed noting a small hiatal hernia. Biopsy of the antrum was obtained. Scope was then slowly retracted at the GE junction had noted a polyp. A biopsy of this area and was cauterized. Scope was then slowly retracted back and not noted any other pathology. Digital rectal exam was performed. No palpable polyps, masses or ulcerations. Scope was inserted in the rectum, advanced all the way to the cecum with minimal difficulty. Prep was adequate. Scope was slowly retracted back. No polyps, masses or ulcerations within the cecum, ascending, transverse, descending and sigmoid colon. Once in the rectum, scope was retroflexed noting no other pathology. Scope was returned to its normal position, slowly withdrawn until completely removed. The patient tolerated the procedure well, no complications, taken to recovery room in stable condition. RECOMMENDATIONS: The patient will follow up on pathology in a couple of weeks. Further recommendation pending biopsy results. The patient will need repeat colonoscopy on as needed basis, if symptoms have need for endoscopy. Job ID: [id number] DocumentID: [id number] Dictated Date: 08/02/2023 19:29:19 Gallery Or Museum Guide Date: 08/03/2023 02:55:00 Dictated By: BRANDYN DE SOUZA DO
--- NOTE | 2023-08-29 18:27 | Physician Query-Final Dx ---
MOIRA MARTINEZ 08/29/23 1827: Clinic Account Progress/Dx Physician Query: Dr. De Souza, Can you clarify please: Obesity is documented in the reviewed problems list on the office history and physical. The patients current BMI is 26.0. 1. patient no longer has a diagnosis of obesity 2. patient still carries a current diagnosis of obesity 3. other, please specify Date of Service Aug 02, 2023 at 13:08 BRANDYN DE SOUZA DO 09/02/23 2142: Clinic Account Progress/Dx DIAGNOSIS: Diagnosis no diagnosis of obesity MOIRA MARTINEZ Aug 29, 2023 18:27 BRANDYN DE SOUZA DO Sep 02, 2023 21:42
== END 2023-08-02 17:45 | disposition home or self-care (01) ==
LOC: ENDO 13:08
PROVIDERS: ATTEND Surgery
DX: Z12.11 Encounter for screening for malignant neoplasm of colon (principal); K44.9 Diaphragmatic hernia without obstruction or gangrene; K22.82 Esophagogastric junction polyp; Z87.891 Personal history of nicotine dependence; G47.33 Obstructive sleep apnea (adult) (pediatric)
CPT/HCPCS: 43239; 43250; G0121; 88305